=== PATIENT | female | born 1970 | race Caucasian/White ===

== ENCOUNTER 2024-09-11 15:16 | Inpatient (IN) | payer OTHER, SELFPAY ==
--- NOTE | ~2024-09-11 | CT_ITS ---
CLINICAL HISTORY: 24hr follow up bleed on previous CTH CT head without contrast Comparison: 09/11/2024 Findings: The small left falcine hyperdense area, possible subdural hematoma, is unchanged. No new intra-axial mass, midline shift, hydrocephalus, or acute hemorrhage. There is moderate diffuse nonspecific atrophy. There is no sinus or mastoid fluid. The orbits are unremarkable. There is no acute fracture. IMPRESSION: 1. No significant change from yesterday. This document has been electronically signed by: Jersey Styles MD on 09/12/2024 19:57:35
--- NOTE | ~2024-09-11 | XR_ITS ---
CLINICAL HISTORY: sob 1 view chest x-ray Comparison: None Findings: Low lung volumes with mild bibasilar atelectasis. No lobar consolidation. No pneumothorax or pleural effusion. Normal size heart, for AP technique. Degenerative changes of imaged shoulders and both AC joints. Likely calcific tendinitis of the left shoulder. IMPRESSION: Low lung volumes with mild bibasilar atelectasis. This document has been electronically signed by: Victor Manuel Dumas MD on 09/11/2024 19:23:33
--- NOTE | ~2024-09-11 | US_ITS ---
CLINICAL HISTORY: encephalopathy, elevated ammonia Exam: Ultrasound of the right upper quadrant of the abdomen. Comparison: None. Findings: Echogenic sludge is seen filling the gallbladder. Gallbladder wall is borderline thickened measuring between 3 and 4 mm. No stones identified. Negative sonographic Akhtar's sign. Common bile duct is within normal limits. Dense increased echotexture throughout the liver without focal lesion or intrahepatic biliary ductal dilatation. Visualized portion of the pancreas is unremarkable. Right kidney is unremarkable. Prominent fluid distention of the stomach. Trace amount of perihepatic free fluid. Impression: 1. Dense sludge filling the gallbladder without findings of cholelithiasis or cholecystitis. 2. Densely echogenic liver. This can be seen with fatty infiltration or medical liver disease. 3. Trace perihepatic free fluid. This document has been electronically signed by: Tano Iqbal MD on 09/11/2024 22:51:51
--- NOTE | ~2024-09-11 | CT_ITS ---
CLINICAL HISTORY: ams CT head without contrast Comparison: None available Findings: 0.5 cm focus of the subarachnoid hemorrhage involves the medial margin of the left superior frontal gyrus (image number 42 of series 2). No midline shift or hydrocephalus with mild generalized volume loss, greater than expected for age. Thin bilateral subdural hygromas. No arterial territorial infarction by CT. Likely mild white matter lesions including right frontal lobe. This is nonspecific and can be seen early small-vessel ischemic disease. Vascular calcifications are noted. Imaged paranasal sinuses and imaged mastoid air cells are well aerated. No acute skull fracture accounting for motion artifacts. Previous cataract procedure changes are noted. IMPRESSION: 1. Small focus of the subarachnoid hemorrhage of the medial margin of the left frontal lobe. 2. No hydrocephalus or midline shift. This document has been electronically signed by: Victor Manuel Dumas MD on 09/11/2024 19:42:20
[2024-09-11 15:47] VITALS: BP 106/63; BP 122/84; PULSE 72; PULSE 99; RESP 16; TEMP 36.4; BMI 28.0
[2024-09-11 15:53] VITALS: BP 106/63; PULSE 99; RESP 16; TEMP 36.4
--- NOTE | 2024-09-11 16:05 | ECG_ITS ---
Test Reason : AMS Blood Pressure : */* mmHG Vent. Rate : 99 BPM Atrial Rate : 99 BPM P-R Int : 152 ms QRS Dur : 46 ms QT Int : 312 ms P-R-T Axes : 35 29 74 degrees QTcB Int : 400 ms Artifact in tracing possibly sinus rhythm Low voltage QRS Cannot rule out Anteroseptal infarct , age undetermined Abnormal ECG No previous ECGs available Referred By: Diana Vela Electronically Signed By: VALERIANO SANCHEZ
--- NOTE | 2024-09-11 16:22 | ECG_ITS ---
Test Reason : AMS Blood Pressure : */* mmHG Vent. Rate : 101 BPM Atrial Rate : 101 BPM P-R Int : 134 ms QRS Dur : 74 ms QT Int : 308 ms P-R-T Axes : 56 46 136 degrees QTcB Int : 399 ms Sinus tachycardia Low voltage QRS Cannot rule out Anterior infarct (cited on or before 11-Sep-2024) Abnormal ECG When compared with ECG of 11-Sep-2024 16:12, No significant changes seen Referred By: Ian Osorio Electronically Signed By: VALERIANO SANCHEZ
--- NOTE | 2024-09-11 16:39 | ED_ITS ---
HPI - General Adult General Chief complaint: Extremity Problem Stated complaint: swelling pitting in legs, recent falls,unbalanced Time Seen by Provider: 09/11/24 15:37 Source: patient Mode of arrival: EMS History of Present Illness ED Provider: Mirian HPI narrative: 53-year-old female who arrives via EMS, typically seen at [facility] and not a great historian, EMS states that patient pop some oxycodone and benzos prior to getting on the stretcher. She has recently been evaluated at [facility] with a very similar presentation. On asking questions she gives repetitive answers but adamantly denies any use of alcohol, drugs or cannabis. Related Data Allergies Allergy/AdvReac Type Severity Reaction Status Date / Time No Known Allergies Allergy Verified 09/11/24 15:52 Review of Systems 2 Review of Systems: Pertinent positives and negatives as stated in HPI [facility] Past Medical History Source: nursing notes reviewed Social History Social History Smoked in Last 30 Days: No Use of substances other than those prescribed or required for medical reasons: No Advance Directives: No Advance Directives Information Provided: Yes Do you have a plan to hurt others: No Plan Patient : No Physical Exam ED Vital Signs: Vital Signs - 24 hr 09/11/24 15:47 09/11/24 15:53 Temperature 97.6 F 97.6 F Pulse Rate 99 99 Respiratory Rate 16 16 Blood Pressure 106/63 106/63 BMI result Body Mass Index 28.0 VITAL SIGNS: Reviewed. GENERAL: Well developed, well nourished, in no acute distress. HEAD: Normocephalic/atraumatic EYES: PERRLA, EOMI EARS: Ext canals without abnormality NOSE: Nares patent bilateral OROPHARYNX: no oral lesions noted, posterior pharynx clear NECK: Supple, no adenopathy LUNGS: Normal breath sounds. No adventitious sounds or accessory muscle use. CARDIOVASCULAR: Regular rate and rhythm without noted murmurs ABDOMEN: Soft, non-tender, non-distended with bowel sounds. MUSCULOSKELETAL: No tenderness, deformities, or effusions noted on gross inspection. EXTREMITIES: No cyanosis, clubbing or edema. Mild 1+ pitting edema to bilateral lower extremities SKIN: Inspection of the skin reveals no rashes NEUROLOGIC: Alert and oriented x 2. Strength and sensation to light touch were grossly intact x 4. Medications Administered Discontinued Medications Generic Name Dose Route Start Last Admin Trade Name Freq PRN Reason Stop Dose Admin Sodium Chloride 1,000 mls @ 999 mls/hr 09/11/24 16:15 09/11/24 16:56 Ns IV 09/11/24 17:15 999 mls/hr .Q1H1M ARI Administration Medical Decision Making Medical Decision Making [facility] Narrative: 1630: 53-year-old female with history and clinical presentation, DD DX: Unclear if this is secondary to drug effect, will clear for underlying infection, anemia, liver disease, ammonia level, will also CT scan of the head. EKG: Sinus tachycardia, HR-101, no STEMI, NJ/QRS/QTC/QTC is within normal limits. INTERVENTION: IV fluids, lactic acid, blood cultures, antibiotics I have requested records from [facility] and I signed this patient out to Dr. Cee Differential Diagnosis Differential Diagnoses: The differential diagnosis associated with the presentation includes See above Lab Data 09/11/24 16:45 09/11/24 16:45 Labs: Lab Results 09/11/24 Range/Units 16:45 WBC 26.2 H (4.8-10.8) X10*3/uL RBC 3.18 L (4.20-5.50) X10*6/uL Hgb 10.6 L (12.0-16.0) g/dl Hct 31.2 L (37.0-47.0) % MCV 98.1 H (80.0-98.0) fL MCH 33.3 H (27.0-33.0) pg MCHC 34.0 (31.0-35.0) g/dl RDW 19.3 H (11.0-16.0) % Plt Count 420 H (160-400) X10*3/uL MPV 10.9 (9.4-12.3) fL Immature Gran % (Auto) 1.1 H (0.0-0.4) % Neut % (Auto) 89.1 H (45-73) % Lymph % (Auto) 5.8 L (20-40) % Lyman % (Auto) 3.9 (2-11) % Eos % (Auto) 0.0 (0-4) % Baso % (Auto) 0.1 (0-2) % Lymph # (Auto) 1.5 (1.2-4.9) X10*3/uL Lyman # (Auto) 1.0 (0.1-1.2) X10*3/uL Eos # (Auto) 0.0 (0.0-0.4) X10*3/uL Baso # (Auto) 0.0 (0.0-0.2) X10*3/uL Abs Immat Gran (auto) 0.28 H (0.00-0.03) X10*3/uL Absolute Neuts (auto) 23.3 H (2.0-8.3) x10*3/uL Absolute Nucleated RBC 0.000 (0.0-0.012) X10*3/uL Nucleated RBC % (auto) 0.0 (0.0-0.2) /100WBC Sodium 135 (135-145) mmol/L Potassium 4.3 (3.3-5.1) mmol/L Chloride 104 (96-108) mmol/L Carbon Dioxide 27 (22-29) mmol/L Anion Gap 8 L (12-20) BUN 8 L (9-16) mg/dL Creatinine 0.70 (0.5-1.4) mg/dL Estim Creat Clear Calc 99.5 Estimated GFR > 60 Random Glucose 326 H (60-115) mg/dL Calcium 7.2 L (8.4-10.2) mg/dL Total Bilirubin 1.1 H (0.0-1.0) mg/dL AST 19 (5-31) U/L ALT 16 (0-31) U/L Alkaline Phosphatase 134 H (39-117) U/L Ammonia 92 H (13-55) umol/L Total Protein 5.6 L (6.5-8.0) g/dL Albumin 1.8 L (3.5-5.0) g/dL Independent Interpretation I performed an independent interpretation of an: EKG Interpretation: See above Discharge Plan Discharge Clinical Impression: Metabolic encephalopathy Patient Disposition: Still a Patient Print Language: Colombian
[2024-09-11 16:53] LABS: Basophils Percent Auto 0.1 % (0-2); Hematocrit 31.2 % (37.0-47.0); Hemoglobin 10.6 g/dl (12.0-16.0); Imm Gran Abs Auto 0.28 X10*3/uL (0.00-0.03); Imm Gran Pct Auto 1.1 % (0.0-0.4); Lymphocytes Absolute Auto 1.5 X10*3/uL (1.2-4.9); Lymphocytes Percent Auto 5.8 % (20-40); MANUAL DIFF FLAG SCAN; Mean Corpuscular Hemoglobin 33.3 pg (27.0-33.0); Mean Corpuscular Volume 98.1 fL (80.0-98.0); Mean Platelet Volume 10.9 fL (9.4-12.3); Monocytes Percent Auto 3.9 % (2-11); Neutrophils Absolute Auto 23.3 x10*3/uL (2.0-8.3); Neutrophils Percent Auto 89.1 % (45-73); Platelet Count 420 X10*3/uL (160-400); Red Blood Count 3.18 X10*6/uL (4.20-5.50); Red Cell Distribution Width 19.3 % (11.0-16.0); SCAN SMEAR FLAG 1; White Blood Count 26.2 X10*3/uL (4.8-10.8)
[2024-09-11] MEDS: 0.9 % Sodium Chloride 1,000 ML 999 ML IV (16:56)
[2024-09-11 16:57] LABS: Ammonia 92 umol/L (13-55)
[2024-09-11 17:07] LABS: Alanine Aminotransferase 16 U/L (0-31); Albumin Level 1.8 g/dL (3.5-5.0); Alkaline Phosphatase 134 U/L (39-117); Anion Gap 8 (12-20); Aspartate Amino Transferase 19 U/L (5-31); Bilirubin Total 1.1 mg/dL (0.0-1.0); Blood Urea Nitrogen 8 mg/dL (9-16); Calcium 7.2 mg/dL (8.4-10.2); Carbon Dioxide 27 mmol/L (22-29); Chloride 104 mmol/L (96-108); Creatinine Clr Calc Pharmacy 99.5; Estimated Glomerular Filt Rate > 60; Glucose Random 326 mg/dL (60-115); Potassium 4.3 mmol/L (3.3-5.1); Sodium 135 mmol/L (135-145); Total Protein 5.6 g/dL (6.5-8.0)
--- OUTSIDE RECORDS SUMMARY | 2024-09-11 17:47 | XMS_ITS | Clinical Summary ---
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 Role Phone Nayeli Sena MD Primary Care Provid er Social History Tobacco Use Types Packs/Day Years Used Date Smoking Tobacco: Never Assessed Sex and Gender Information Value Date Recorded Sex Assigned at Not on file Gender Identity Not on file Sexual Orientation Not on file Plan of Treatment Health Maintenance Due Date Last Done Comments Hepatitis B Vaccines (1 of 3 - 3-dose series) 1968 Hepatitis C Screening 1968 COVID-19 Vaccine (#1) 06/21/1969 Depression Screening 1980 Preventative Health Evaluation 1986 DTap / Tdap / Td (1 - Tdap) 12/20/1987 Cervical Cancer Screening (P ap Smear) 1989 Colon Cancer Screening (Colonoscopy) 2013 Breast Cancer Screening (Mammogram) 2018 Shingrix-Zoster Vaccine (1 of 2) 2018 Influenza Vaccine (#1) 2024 Pneumococcal Vaccine Aged Out No long er eligible based on patient's age to complete this topic RSV Ped < 20 months Aged Out No longe r eligible based on patient's age to complete this topic 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
--- OUTSIDE RECORDS SUMMARY | 2024-09-11 17:47 | XMS_ITS | Data Portability ---
Author Organization [place] [facility] Carmella Rausch AONE [place] Address [address] [facility] [address] [place] [address] Assessment Encounter Date Assessment Date Assessment LastModified by Organization Details LastModified Time 11/17/2022 11/17/2022 And this is a 51-year-old female with calcific tendinitis, adhesive capsulitis and impingement syndrome of the left shoulder. I had a lengthy discussion with guarding management. She is already gone through extensive physical therapy which has not helped if anything is made it worse. She is taking nonsteroidal anti-inflammator ies which does not relieve her discomfort. Did discuss possibility of partial rotator cuff tear however her predominant symptoms are of the above-noted diagnoses. She understands treatment regarding cortisone injection will likely improve her symptoms however she understands the associated risks with potential tendon rupture in the presence of a rotator cuff tear as well as the other side effects she is a diabetic she will keep a close eye on her blood sugar she knows to reach out to her diabetic treating provider or go to the ER if there is a significant spike. She states she is comfortable with adjusting her insulin accordingly. That being said she did opt for a cortisone injection of the left shoulder. This was carried out the patient tolerated the procedure well with notable improvement regarding her range. After care instructions were discussed in detail. I will see her back in approximately 6 weeks for reevaluation however if her symptoms not improve or worsen she is to call my office and we will order an MRI for further work-up. She agrees with the above-noted plan I did give her a handout on exercises to perform. Indirect care and treatment in conjunction with Dr. Beaver Additional treatment plan discussed with the patient in detail included the following; - Provider focused nonsteroidal anti-inflammator y regimen (discussed were the pros, cons, benefits and risks as well as any black box warnings) - Analgesic pain medication for pain suppression (discussed were the pros, cons, benefits and risks as well as any black box warnings) - The use of topical pain relieving medication were discussed - The use of ice to decrease inflammation and pain - The use of assistive ambulatory devices for ambulation and fall prevention - Formal specific guided physical therapy program I reviewed my findings at length with the patient today. ??We discussed the nature and etiology of this problem along with current treatment options. We discussed the expected course and outcomes and what to expect. We also discussed risks and benefits. ??All of their questions were answered today, and there was exhibited understanding and comprehension of all that was discussed. 10 minutes were spent reviewing previous imaging and charting. ??10 minutes were spent obtaining patient history. ??5 minutes were spent on physical exam. ??5??minutes were spent explaining diagnosis and assessment. Today's documentation was made using voice recognition software. This note may contain grammatical errors secondary to the software. Not available 11/17/2022 14:36:27 01/06/2023 01/06/2023 Pleasant 52-year-old female here for follow-up after treatment cortisone injection of the left shoulder due to calcific tendinitis, adhesive capsulitis and impingement syndrome. She does not note notable improvement. Going forward she wishes to proceed forward with the following; 1. We will order an MRI of the left shoulder for further work-up rule out rotator cuff tear, impingement syndrome and adhesive capsulitis. She does take ibuprofen however she does not have a prescription for which her insurance does cover it in full. We also discussed meloxicam in place of this. She denies any cardiac risks she also states she has well-controlled blood pressure and does not state any history of kidney disease. I will write her for 7.5 of meloxicam to be taken twice daily for short-term. She knows not to take any other nonsteroidal anti-inflammator ies while on this medication. I will see her back after her MRI of her left shoulder is complete. Depending upon the findings I may have her see Dr. Camacho for surgical consultation if indicated.. Indirect care and treatment in conjunction with Dr. Coulter Additional treatment plan discussed with the patient in detail included the following; - Provider focused nonsteroidal anti-inflammator y regimen (discussed were the pros, cons, benefits and risks as well as any black box warnings) in patients over 60 years old they should be very cautious in taking these medications due to potential decreased kidney function and or elevated blood pressure. - Analgesic pain medication for pain suppression (discussed were the pros, cons, benefits and risks as well as any black box warnings) - The use of topical pain relieving medication were discussed - The use of ice to decrease inflammation and pain - The use of assistive ambulatory devices for ambulation and fall prevention - Formal specific guided physical therapy program I reviewed my findings at length with the patient today. ??We discussed the nature and etiology of this problem along with current treatment options. We discussed the expected course and outcomes and what to expect. We also discussed risks and benefits. ?? All of their questions were answered today, and there was exhibited understanding and comprehension of all that was discussed. Time Spent: 10 minutes were spent reviewing previous imaging and charting. ??10 minutes were spent obtaining patient history. ??5 minutes were spent on physical exam. ??5??minutes were spent explaining diagnosis and assessment. Today's documentation was made using voice recognition software. This note may contain grammatical errors secondary to the software. Not available 01/06/2023 11:01:39 01/30/2023 01/30/2023 52-year-old female rotator cuff tear left shoulder had a discussion with the patient guarding management. She would like to proceed forward and see Dr. Camacho for surgical consultation evaluation. In the meantime rotator cuff protective measures were discussed with the patient as well as therapy and stretching exercises. She can take tgro-fbl-dncwowy pain medication for symptomatic relief. She agrees with the above-noted plan. Indirect care and treatment in conjunction with Dr. Coulter Additional treatment plan discussed with the patient in detail included the following; - Provider focused nonsteroidal anti-inflammator y regimen (discussed were the pros, cons, benefits and risks as well as any black box warnings) in patients over 60 years old they should be very cautious in taking these medications due to potential decreased kidney function and or elevated blood pressure. - Analgesic pain medication for pain suppression (discussed were the pros, cons, benefits and risks as well as any black box warnings) - The use of topical pain relieving medication were discussed - The use of ice to decrease inflammation and pain - The use of assistive ambulatory devices for ambulation and fall prevention - Formal specific guided physical therapy program I reviewed my findings at length with the patient today. ??We discussed the nature and etiology of this problem along with current treatment options. We discussed the expected course and outcomes and what to expect. We also discussed risks and benefits. ?? All of their questions were answered today, and there was exhibited understanding and comprehension of all that was discussed. Time Spent: 10 minutes were spent reviewing previous imaging and charting. ??10 minutes were spent obtaining patient history. ??5 minutes were spent on physical exam. ??5??minutes were spent explaining diagnosis and assessment. Today's documentation was made using voice recognition software. This note may contain grammatical errors secondary to the software. Not available 02/06/2023 12:27:19 03/06/2023 03/06/2023 1. Adhesive capsulitis of left shoulder We discussed the nature of adhesive capsulitis ( frozen shoulder ) at length today. Adhesive capsulitis is a common cause of pain and stiffness in the shoulder that affects 2% of the population. Generally patients between ages 40-60 are at the highest risk. Females > Males. Risk factors include diabetes, hyper- and hypothyroidism, cardiac conditions, and Parkinson? s disease. There are three distinct phases: 1. Freezing: Begins as pain, progresses to pain and stiffness, may last up until 9 months from onset of symptoms. 2. Frozen: Pain generally improves but the stiffness may remain. 3. Thawing: Shoulder motion begins to improve, may take 12-18 months for full motion to return. We discussed treatment options at length. 90+% of patients will improve with non-operative treatment. The mainstay of treatment is TIME. NSAIDS prn as there is limited evidence to suggest they improve outcome. Cortisone injections may have a role early in the disease process to help modify inflammation. They can be helpful in modifying night pain. Physical Therapy - most helpful in the thawing phase. Surgical Options - patients in the thawing phase with significant limitations in motion may consider a manipulation under anesthesia, arthroscopic capsular release and lysis of adhesions. 2. Partial thickness tear of left rotator cuff The natural history of rotator cuff tears was reviewed. Treatment options discussed. We discussed that tears of the rotator cuff do not heal and may progress over time. With that being said, not all rotator cuff tears are symptomatic. We talked at length about treatment options including observation and activity modification, home exercise program/physical therapy, injection therapy, and surgical intervention with a arthroscopic versus open rotator cuff repair. We discussed the nature of the surgery as well as the anticipated recovery time. We discussed expectations regarding surgery, understanding that the primary goal is for improvement in pain and secondarily to maintain strength and range of motion. They understand that not all rotator cuff tears heal following surgery. We discussed that not all tears are repairable. We discussed that atrophic changes are generally not reversible. We discussed that some degree of weakness, stiffness, and/or pain may be present despite surgery. She would like to postpone any surgical intervention at this time. She will continue with her home exercise program. Meloxicam refilled. She is happy to have more information today will monitor her symptoms. She elects to follow up as needed after she has her eye surgery. Not available 03/27/2023 06:21:38 Plan of Treatment Reminders Order Date Submit Date Provider Last Modified By Organization Details Last Modified Time Details Appointments None recorded. Lab None recorded. Referral None recorded. Procedures None recorded. Surgeries None recorded. Imaging XR, shoulder, 2 or more view 2022 023 [place] [id number] [facility], [address], [address], [place], [address], 3 14:38:16 MRI, shoulder, w/o contrast - Frozen Shoulder , impingement , weakness R/O RCTPleas e call patient to schedule and hand carry CD 2022 023 [place] [facility], [address] , [facility] [address], [place], [address], 3 16:33:28 Medication Orders Kenalog 40 mg/mL suspension for injection 2022 023 [id number], [address] [place], [id number], 3 14:34:16 lidocaine (PF) 10 mg/mL (1 %) injection solution 2022 023 [facility] #[id number], [address] [place], [id number], 3 14:34:16 bupivacaine (PF) 0.5 % (5 mg/mL) injection solution [address] [id number], [address] [place], [id number], 3 14:34:16 meloxicam 7.5 mg tablet 2022 023 [place] [id number], [address] [place] [place], [id number], 3 10:56:13 meloxicam 7.5 mg tablet 2022 023 [place] [id number], [address] [place], [id number], 3 14:14:38 meloxicam 7.5 mg tablet 2022 023 [place] [id number], [address] [place], [id number], 3 16:01:22 Patient TargetsNo targets recorded. Patient Instructions Encounter Date Encounter Id Patient Instructions Last Modified By Organization Details Last Modified Time 11/17/2022 [id number] You have been provided with a cortisone injection in order to reduce the pain and inflammation that you are experiencing. The injection consists of two medications. Cortisone (an anti-inflammatory that will take 48-72 hours to take effect) and Lidocaine (a numbing agent that will last 2-3 hours). Please note that not everyone will have a lasting response following the injection. PATIENT INSTRUCTIONS Once the Lidocaine wears off, you may have an increase in your pain. I recommend icing the affected area for 20 minutes 3-4 times per day. It is recommended that you refrain from any high level activities using the joint or limb that was injected for approximately 24-48 hours. Normal day-to-day activities are generally not a problem. POSSIBLE SIDE EFFECTS Individuals with dark complexions may experience some skin discoloration locally at the site of the injection. There is the possibility of an increase in discomfort within 48 hours following the injection. This is called a ? flare? . To help minimize the chances of this, please see the post-injection instructions above. There is a less than 1% chance of an infection. If you notice any signs of infection (redness, warmth, drainage, fever greater than 100 degrees) please call our office or contact us through the portal [facility]. Not available 11/17/2022 14:34:29 Three-view x-ray of the left shoulder reveals extensive calcium deposits just adjacent to the greater tuberosity, AC joint space narrowing consistent with arthritis and type II acromion without acute bony abnormality. Overall well-maintained glenohumeral joint space. Not available 11/17/2022 13:21:36 03/06/2023 frozen shoulder: exercises Not available 03/06/2023 15:54:31 Reason for Referral None Reported. Results Created Date Observation Date Name Description Value Unit Range Abnormal Flag Note LastModifiedBy Organization Detail LastModifiedTime 01/31/20 MRI, shoul carmela, w/o contr ast No observ ation record ed. [email or web address] [facility] [address], [place], [address], 01/30/2023 16:33:28 Result Notes None recorded. Problems Name Problem SNOMED Code Status Onset Date Resolution Date Notes Provider Name and Address Organization Details Recorded Time Rupture of rotator cuff of left shoulder 4362986595068 9102 Active 2022 SUMMER NEWBRERY PA-C [address], [facility] [place], [address], [place] [facility] 3 14:13:44 Impingement syndrome of left shoulder region 6326227831342 04 Active 2022 SUMMER NEWBERRY PA-C [address], [place], [address], [place] [facility], P 3 14:32:26 Adhesive capsulitis of left shoulder 6882555836011 07 Active 2022 SUMMER NEWBERRY PA-C [address], [facility] [place], [address], [place] [facility], [facility] 3 14:32:34 Pain of left shoulder joint 8226766916831 9109 Active 2022 SUMMER NEWBERRY PA-C [address], [facility] [place], [address], [place] [facility], P 3 10:54:46 Problem Notes None recorded. Procedures Surgical History Date Name Laterality Status Provider Name and Address Organization Details Recorded Time 11/18/19 23 Shoulder Joint/Bursa Asp & Inj completed SUMMER NEWBERRY PA-C [address], [place], [address], [place] [facility] 11/17/2022 14:30:43 Gastric bypass for obesity completed Angie Weber [place] - [facility] 11/17/2022 13:01:05 Hysterectomy completed Cathy Gonzalez [place] [facility] 03/06/2023 15:42:02 Imaging Results Imaging Date Name Status LastModified by Organiz ation Details LastModified Time 01/30/2023 MRI, shoulder, w/o contrast completed [email or web address] [facility] [address], [place], [address], 01/30/2023 16:33:28 Procedure Notes None recorded. Medical Equipment None Reported. Allergies No known drug allergies Medications Name Sig Start Date Stop Date Status Note LastModified by Organization Details LastModified Time latanoprost 0.005 % eye drops INSTILL 1 DROP IN BOTH EYES AT BEDTIME active Not Available Not Available No t Available atorvastati n 40 mg tablet TAKE 1 TABLET BY MOUTH EVERY DAY active Not Available Not Available No t Available FreeStyle Lancets 28 gauge active Not Available Not Available Not Available ondansetron HCl 4 mg tablet TAKE 1 TABLET BY MOUTH EVERY 8 HOURS NEEDED active Not Available Not Available No t Available aspirin 81 mg tablet,joleen yed release TAKE 1 TABLET BY MOUTH EVERY DAY active Not Available Not Available No t Available ketorolac 0.5 % eye drops INSTILL 1 DROP IN LEFT EYE FOUR TIMES DAILY AFTER LASER TREATMENT FOR 2 DAYS THEN STOP active Not Available Not Available No t Available Kenalog 40 mg/mL suspension for injection Take 1 mL by injection route. 2022 active Not Available Not Available Not Avai lable meloxicam 7.5 mg tablet TAKE 1 TABLET BY MOUTH EVERY DAY WITH MEALS active Not Available Not Available No t Available oxycodone-a cetaminophe n 5 mg-325 mg tablet TAKE 1 TABLET BY MOUTH EVERY 6 HOURS NEEDED FOR PAIN. MAXIMUM DAILY DOSE IS 4 active Not Available Not Available No t Available prednisolon e acetate 1 % eye drops,suspe nsion SHAKE LIQUID AND INSTILL 1 DROP IN RIGHT EYE FOUR TIMES DAILY BEFORE SURGERY FOR 1 WEEK active Not Available Not Available No t Available lorazepam 0.5 mg tablet TAKE 1 TABLET BY MOUTH EVERY DAY NEEDED AND 1 TO 2 TABLETS BY MOUTH EVERY NIGHT AT BEDTIME active Not Available Not Available No t Available brimonidine 0.2 % eye drops INSTILL 1 DROP IN BOTH EYES THREE TIMES DAILY 03/06 completed Not Available Not Available Not Available gabapentin 300 mg capsule TAKE 1 TO 2 CAPSULES BY MOUTH TWICE DAILY active Not Available Not Available No t Available omeprazole 20 mg capsule,del ayed release TAKE 1 CAPSULE BY MOUTH EVERY DAY DIRECTED active Not Available Not Available No t Available dorzolamide 22.3 mg-timolol 6.8 mg/mL eye drops INSTILL 1 DROP IN BOTH EYES TWICE DAILY active Not Available Not Available No t Available hydrochloro thiazide 25 mg tablet TAKE 1 TABLET BY MOUTH EVERY DAY active Not Available Not Available No t Available ibuprofen 600 mg tablet TAKE 1 TABLET BY MOUTH EVERY 6 HOURS NEEDED FOR PAIN 01/06 completed Not Available Not Available Not Available lisinopril 40 mg tablet TAKE 1 TABLET BY MOUTH EVERY DAY active Not Available Not Available No t Available doxycycline hyclate 100 mg tablet TAKE 1 TABLET BY MOUTH TWICE DAILY FOR 10 DAYS DIRECTED 03/06 completed Not Available Not Available Not Available loratadine 10 mg tablet TAKE 1 TABLET BY MOUTH EVERY DAY 03/06 completed Not Available Not Available Not Available dorzolamide 2 % eye drops INSTILL 1 DROP INTO BOTH EYES TWICE DAILY active Not Available Not Available No t Available buspirone 15 mg tablet TAKE 1 TABLET BY MOUTH TWICE DAILY active Not Available Not Available No t Available bupivacaine (PF) 0.5 % (5 mg/mL) injection solution Take 1 mL by injection route. 2022 active Not Available Not Available Not Avai lable duloxetine 60 mg capsule,del ayed release TAKE 1 CAPSULE BY MOUTH TWICE DAILY active Not Available Not Available No t Available lidocaine (PF) 10 mg/mL (1 %) injection solution Take 1 mL by injection route. 2022 active Not Available Not Available Not Avai lable FreeStyle Lite Strips USE DIRECETED TO CHECK BLOOD GLUCOSE FOUR TIMES DAILY active Not Available Not Available No t Available FeroSul 325 mg (65 mg iron) tablet TAKE 1 TABLET BY MOUTH EVERY DAY active Not Available Not Available No t Available cholecalcif christy (vitamin D3) 50 mcg (2,000 unit) capsule TAKE 1 CAPSULE BY MOUTH EVERY DAY active Not Available Not Available No t Available BD Insulin Syringe Ultra-Fine 1 mL 31 gauge x 5/16 APPLY 1 SYRINGE TO THE SKIN 4 TIMES A DAY DIRECTED FOR 90 DAYS. active Not Available Not Available No t Available Jardiance 25 mg tablet TAKE 1 TABLET BY MOUTH DAILY active Not Available Not Available No t Available Tresiba FlexTouch U-200 insulin 200 unit/mL (3 mL) subcutaneou s pen INJECT 70 UNITS UNDER THE SKIN EVERY NIGHT AT BEDTIME 03/06 completed Not Available Not Available Not Available Rhopressa 0.02 % eye drops INSTILL 1 DROP IN BOTH EYES AT BEDTIME active Not Available Not Available No t Available Baqsimi 3 mg/actuatio n nasal spray 03/06 completed Not Available Not Available Not Available Lyumjev U-100 Insulin 100 unit/mL subcutaneou s solution ADMINISTE R 10 TO 15 UNITS UNDER THE SKIN THREE TIMES DAILY BEFORE MEALS 03/06 completed Not Available Not Available Not Available FreeStyle Janna 2 Sensor kit USE DIRECTED EVERY 14 DAYS active Not Available Not Available No t Available BinaxNOW COVID-19 Ag Self Test kit TEST DIRECTED TODAY 03/06 completed Not Available Not Available Not Available Vitals Date Recorded Body height Body mass index (BMI) Body weight Provider Name and Address Organization Details Last Updated DateTime 11/17/2022 165.1 cm 31.6 kg/m2 [address] [facility] 11/17/2022 12:59:39 Date Recorded Body height Provider Name an d Address Organization Details Last Updated DateTime 01/06/2023 165.[address] [place] - [facility] 01/06/2023 10:47:34 Date Recorded Body height Provider Name an d Address Organization Details Last Updated DateTime 01/30/[address]23 [address] [facility] 01/30/2023 11:33:46 Date Recorded Body height Body mass index (BMI) Body weight Provider Name and Address Organization Details Last Updated DateTime 02/03/2023 165.1 cm 31.6 kg/m2 [address] [place] - [facility] 02/03/2023 13:51:07 Date Recorded Body height Provider Name an d Address Organization Details Last Updated DateTime 03/06/[address] - [facility] 03/06/2023 15:33:16 Social History Question Answer Notes LastModified by Organizat ion Details LastModified Time Tobacco Smoking Status Current Every Day Smoker Cathy Gonzalez [facility], [place] - [facility] 03/06/2023 15:37:42 How Much Tobacco Do You Smoke? 0.5 PPD Information not available 03/06/2023 Sex: Unknown Functional Status None recorded. Mental Status None recorded. Family History Relationship Description Onset Age of this Age Resolved Age Notes LastModified by Organization Details LastModified Time Father Diabetes mellitus [email or web address] Not available 2022 13:00:29 Father Heart disease [email or web address] Not available 2022 13:00:38 Father Hypertensive disorder [email or web address] Not available 2022 13:00:54 Father Arthritis Not available 03/06/2023 15:40:37 Father Hypercholest [email or web address] Not available 2022 15:41:01 Mother Diabetes mellitus [email or web address] Not available 2022 13:00:29 Mother Hypertensive disorder [email or web address] Not available 2022 13:00:54 Mother Arthritis Not available 03/06/2023 15:40:37 Sister Diabetes mellitus [email or web address] Not available 2022 13:00:29 Medical History Condition Response Diabetes Y Arthritis Y Cancer Y Reflux/GERD Y Hypertension Y Gynecological HistoryNo gynecological history recorded. Obstetrics History GPAL:G 0 P 0 0 0 0 Past Encounters Encounter ID Performer Location Encounter Start Date Encounter Closed Date Diagnosis/Indication Diagnosis SNOMED-CT Code Diagnosis ICD10 Code Diagnosis Note [id number] MD ONIEL [facility] [address] [facility] [address] [place] [address] 11/17/2022 12:51:06 11/17/2022 13:48:18 Pain of left shoulder joint [id number] 9781653 M25.512 Impingemen t syndrome of left shoulder region 9890198740 69096 M75.42 Adhesive c apsulitis of left shoulder 4655336039 [address]605 M75.02 [id number] MD ONIEL Arguello [address] [address] 01/06/2023 10:38:31 01/06/2023 11:04:13 Adhesive capsulitis of left shoulder [id number] 46662 M75.02 Impingemen t syndrome of left shoulder region [id number] 79703 M75.42 Pain of le ft shoulder joint [id number] M25.512 [id number] MD ONIEL Arguello [address] [address] 01/30/2023 10:59:57 02/06/2023 12:27:55 Pain of left shoulder joint [id number] M25.512 Rupture of rotator cuff of left shoulder [id number] 4294845 M75.102 [id number] MD ONIEL Arguello [address] [address] 02/03/2023 13:48:27 02/03/2023 14:15:03 Rupture of rotator cuff of left shoulder [id number] M75.102 [id number] MD ONIEL Wheelergermania 299 [facility] [address] [place] [address] 03/06/2023 15:07:03/06/2023 16:19:01 Pain of left shoulder joint [id number] M25.512 Adhesive c apsulitis of left shoulder [id number] 55880 M75.02 Partial th ickness rotator cuff tear [id number] M75.112 supraspina tus Health Concerns Section Related Observation LastModified by Organization Detai ls LastModified Time None Recorded Concern Status LastModified by Organization Details LastModified Time None Recorded Advance Directives Directive None Recorded Payers Encounter Date Sequence Insurance Name Policy Number Policy Garnica Covered Member ID Garnica Member ID Guarantor Name 11/17/2022 1 [facility] [employer] - DOS ON OR AFTER 2022 - MEDIC[place]V ANTAGE - PPO) Mirian Bal [id number] Mirian Bal 01/06/2023 1 [facility] [employer] - DOS ON OR AFTER 2022 - [place] - [place]PO) Mirian Bal [id number] Mirian Bal 01/30/2023 1 [facility] - DOS ON OR AFTER 2022 - [place] - [place]PO) Mirian Bal [id number] Mirian Bal 02/03/2023 1 [facility] - DOS ON OR AFTER 2022 - [place]V [place] - [place]PO) Mirian Bal [id number] Mirian Bal 03/06/2023 1 [facility] [employer] - DOS ON OR AFTER 2022 - [place]V [place] - [place]PO) Mirian Bal [id number] Mirian Bal Notes Date Note Type Note Provider Name and Address Organization Details Recorded Time 11/17/2022 text/html This is a very pleasant 51-year-old female atomn-knkr-wyhqnrub with chief complaint of chronic left shoulder pain. She states she had been previously treated at [facility] approximately 10 years ago with cortisone injections which gave her brief relief. She states she feels extremely stiff she has pain that wakes her up at night. She denies paresthesias. She does state some weakness at times. She is here for evaluation and treatment for her left shoulder. SUMMER NEWBERRY PA-C 299 [facility] [address], [place], [address], [place] [facility] 11/17/2022 14:38:11 01/06/2023 text/html Assessment & Lon n: Date of initial visit 11/17/2022nd this is a 51-year-old female with calcific tendinitis, adhesive capsulitis and impingement syndrome of the left shoulder. I had a lengthy discussion with guarding management. She is already gone through extensive physical therapy which has not helped if anything is made it worse. She is taking nonsteroidal anti-inflammatories which does not relieve her discomfort. Did discuss possibility of partial rotator cuff tear however her predominant symptoms are of the above-noted diagnoses. She understands treatment regarding cortisone injection will likely improve her symptoms however she understands the associated risks with potential tendon rupture in the presence of a rotator cuff tear as well as the other side effects she is a diabetic she will keep a close eye on her blood sugar she knows to reach out to her diabetic treating provider or go to the ER if there is a significant spike. She states she is comfortable with adjusting her insulin accordingly. That being said she did opt for a cortisone injection of the left shoulder. This was carried out the patient tolerated the procedure well with notable improvement regarding her range. After care instructions were discussed in detail. I will see her back in approximately 6 weeks for reevaluation however if her symptoms not improve or worsen she is to call my office and we will order an MRI for further work-up. She agrees with the above-noted plan I did give her a handout on exercises to perform. HPI: Pleasant 52-year-old female here for follow-up after treatment cortisone injection of the left shoulder due to calcific tendinitis, adhesive capsulitis and impingement syndrome. She states she had no she states she did have a spike in her blood notable relief in her symptoms. Here for reexamination. No significant relief with cortisone injection. As discussed prior to her cortisone that she may have a spike for which she did and she is able to adjust with her insulin. She is here for follow-up and further evaluation and treatment modalities. She states she does take oxycodone 325 4 times daily by another provider for chronic back pain. SUMMER NEWBERRY PA-C 299 [facility] [address], [place], [address], [place] - [facility] 01/06/2023 11:02:02 01/30/2023 text/html Assessment & Lon n: Date of visit 3Pleasant 52-year-old female here for follow-up after treatment cortisone injection of the left shoulder due to calcific tendinitis, adhesive capsulitis and impingement syndrome.She does not note notable improvement. Going forward she wishes to proceed forward with the following;1. We will order an MRI of the left shoulder for further work-up rule out rotator cuff tear, impingement syndrome and adhesive capsulitis. She does take ibuprofen however she does not have a prescription for which her insurance does cover it in full. We also discussed meloxicam in place of this. She denies any cardiac risks she also states she has well-controlled blood pressure and does not state any history of kidney disease. I will write her for 7.5 of meloxicam to be taken twice daily for short-term. She knows not to take any other nonsteroidal anti-inflammatories while on this medication. I will see her back after her MRI of her left shoulder is complete. Depending upon the findings I may have her see Dr. Camacho for surgical consultation if indicated.. HPI:The last visit on 01/06/2023 no interval change in history. She is here for results appointment regarding her MRI. MRI Rayus Reviewed with RCT (PT Disk) SUMMER NEWBERRY PA-C 299 [facility] [address], [place], [address], [place] - [facility] 02/06/2023 12:27:53 02/03/2023 text/html Pleasant 52-year-old female following up on her MRI at of her left shoulder which was conducted on 01/21/2023. No interval change in history ongoing left shoulder pain despite conservative management. She does state however meloxicam that she was prescribed gives her good relief. She is requesting for refill. MRI findings were reviewed these were conducted at [facility] radiology. Moderate supraspinatus tendinosis with bursal sided tear measuring 1.7 x 1.2 cm AP to MLSubacromial subdeltoid bursitis, thickening edema of the joint capsule consistent with adhesive capsulitis, partial tear of the deltoid myotendinous junction at the insertion of the posterior acromion and trace glenohumeral joint effusion. 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 No trauma or injury recalled. Recent MRI revealed a rotator cuff tear and she was referred for further evaluation. She localizes the pain to the anterolateral shoulder and describes it as moderate, dull and throbbing with intermittent sharp pain radiating to her clavicle. Associated symptoms include feelings of tightness, decreased ROM and some tingling down her arm just past the elbow. Endorses pain at rest and nighttime pain. As far as treatment she has tried a number of conservative options as well as a cortisone injection which were not very helpful. She does report good relief with meloxicam twice daily. She did get some relief from ice, heat and topical rubs as well as home exercises. She went to physical therapy in the past though she feels this made her symptoms worse. Of note her previous cortisone injection increased her blood sugar as well as her intraocular pressure. She has advanced bilateral glaucoma and is due to have surgery at the end of March. PRIOR BK:Pleasant 52-year-old female following up on her MRI at of her left shoulder which was conducted on 01/21/2023. No interval change in history ongoing left shoulder pain despite conservative management. She does state however meloxicam that she was prescribed gives her good relief. She is requesting for refill. MRI findings were reviewed these were conducted at [facility] radiology. Moderate supraspinatus tendinosis with bursal sided tear measuring 1.7 x 1.2 cm AP to MLSubacromial subdeltoid bursitis, thickening edema of the joint capsule consistent with adhesive capsulitis, partial tear of the deltoid myotendinous junction at the insertion of the posterior acromion and trace glenohumeral joint effusion. Francisco Camacho MD 299 [facility],[place] [address], [place], [address], [place] [facility] 03/27/2023 06:21:46 OBGyn Episode No OBEpisode recorded.
--- OUTSIDE RECORDS SUMMARY | 2024-09-11 17:47 | XMS_ITS ---
Author Name [facility] Organization Unknown History of Medication Use Medication Directions Dispensed Refills Start Date End Date Stat doxycycline hyclate 100 mg tablet TAKE 1 TABLET BY MOUTH TWICE DAILY FOR 10 DAYS DIRECTED 03/06/20 23 completed prednisolone acetate 1 % eye drops,suspension SHAKE LIQUID AND INSTILL 1 DROP IN BOTH EYES FOUR TIMES DAILY FOR 4 DAYS THEN STOP active duloxetine 60 mg capsule,delayed release TAKE 1 CAPSULE BY MOUTH TWICE DAILY active lidocaine (PF) 10 mg/mL (1 %) injection solution Take 1 mL by injection route. 11/17/2022 active oxycodone-acetaminophen 5 mg-325 mg tablet TAKE 1 TABLET BY MOUTH EVERY 6 HOURS NEEDED FOR PAIN. MAXIMUM DAILY DOSE IS 4 active cholecalciferol (vitamin D3) 50 mcg (2,000 unit) capsule TAKE 1 CAPSULE BY MOUTH EVERY DAY active Lyumjev U-100 Insulin 100 unit/mL subcutaneous solution ADMINISTER 10 TO 15 UNITS UNDER THE SKIN THREE TIMES DAILY BEFORE MEALS 03/06/20 23 active omeprazole 20 mg capsule,delayed release TAKE 1 CAPSULE BY MOUTH EVERY DAY DIRECTED active latanoprost 0.005 % eye drops INSTILL 1 DROP IN BOTH EYES AT BEDTIME active hydrochlorothiazide 25 mg tablet TAKE 1 TABLET BY MOUTH EVERY DAY active FeroSul 325 mg (65 mg iron) tablet TAKE 1 TABLET BY MOUTH EVERY DAY active meloxicam 7.5 mg tablet Take 1 tablet twice a day by oral route. 01/06/2023 active gabapentin 300 mg capsule TAKE 1 TO 2 CAPSULES BY MOUTH TWICE DAILY active Tresiba FlexTouch U-200 insulin 200 unit/mL (3 mL) subcutaneous pen INJECT 70 UNITS UNDER THE SKIN EVERY NIGHT AT BEDTIME 03/06/20 23 active Problems Problem Status Onset Date Problem Type Date of Resoluti on Source Tear of left rotator cuff active 2023-02-03 ProblemAct [facility] Adhesive capsulitis of left shoulder active 2022-11-17 ProblemAct [facility] Pain of left shoulder joint active 2023-01-06 ProblemAct [facility] Impingement syndrome of left shoulder region active 2022-11-17 ProblemAct [facility] ECT
--- OUTSIDE RECORDS SUMMARY | 2024-09-11 17:47 | XMS_ITS | Patient Health Record ---
Author Organization [facility] Address [address] [facility] [address] [place] [address] Care Team Providers Care Manager Data Warehousing Name Role Phone REINALDO STOKES M.D. Primary Care Provid er Unavailable KARON ZAMORAA Unavailable [phone] Reason For Referral No Information Medications Medication SIG (Take, Route, Frequency, Duration) Notes Start Date End Date Status buPROPion HCl ER (SR) 150 MG TK 1 T PO QAM Oral for 60 Active oxyCODONE-Acetaminophen 5-325 MG (Schedule II Drug) TK 1 T PO QID Oral for 30 Active Cymbalta 60 MG 1 capsule Orally Twice a day Active Pravastatin Sodium 40MG 1 ORAL daily for -3 [facility] 2011 Active HumaLOG 100 UNIT/ML 20 units Subcutaneous Three x a day, then prn Active Invokana 100 MG 1 tablet before the first meal of the day Orally Once a day for 30 day(s) Active Gabapentin 300 MG 1-2 caosule Orally Twice a day 06/06/2019 Active busPIRone HCl 7.5 MG TK 1 T PO BID Oral for 30 Active hydroCHLOROthiazide 25 MG TK 1 T PO QD O ral for 30 Active Ativan 0.5 MG 1 tablet as needed Orally PRN Active Lisinopril 40MG 1 ORAL daily for -3 [facility] 12/26/2011 Active Multivitamins 1 ORAL daily for 3 [facility] 12/26/2011 Not-Taking Dicloxacillin Sodium 500 MG 1 ORAL three times daily for 10 [facility] 05/22/2012 Not-Taking Acyclovir 400 MG TK 1 T PO BID Oral for 30 Active Lantus SoloStar 100 UNIT/ML Subcutaneous AT BEDTIME for - [facility] 12/26/2011 Active Social History Tobacco Use: Social History Observation Description Date Details (start date - stop date) Current Smoker NA - NA Tobacco Use/Smoking Question Answer Notes Are you a current smoker How often do you smoke cigarettes? every day How many cigarettes a day do you smoke? - Alcohol Screen (Audit-C) Question Answer Notes Did you have a drink containing alcohol in the p ast year? No Points 0 Interpretation Negative Sexual History Question Answer Notes Had sex in the past 12 months (vaginal, oral, or anal)? Yes with Men only Prevention strategies discussed: Other Tobacco use other than smoking: Question Answer Notes Are you an other tobacco user? No Problems Problem Type SNOMED Code ICD Code Onset Dates Problem Status W/U Status Risk Notes Problem SI - Stress incontinence (27591060) Stress incontinence (female) (male) (N39.3) Active confirmed Problem Abscess of vulva (93423226) Other abscess of vulva (616.4) Active confirmed Other Plan Of Treatment Pending Test Test Name Order Date THIN PREP,HPV,[place] IF HPV+ (>29YR)(DIAG) 06/06/2019 ULTRASOUND: PELVIC W/TRANSVAGINAL 2018 MM Digital Screening Mammogram 3D 2018 Insurance Providers Payer Name Payer Address Payer Phone Subscriber Number Group Number Insured Name Patient Relationship to Insured Coverage Start Date Coverage End Date MEDICARE [address] KIERRA BRISENO [id number] DAVID CELSO Self - patient is the insured Medical (General) History Medical History History ICD Code Other recurrent depressive disorders F33 .8 Anxiety disorder, unspecified F41.9 Type 2 diabetes mellitus with diabetic n europathy, unspecified E11.40 Unspecified osteoarthritis, unspecified site M19.90 Collapsed vertebra, not else where classified, cervical region, sequela of fracture M48.52XS Essential (primary) hypertension I10 Carcinoma in situ of cervix, 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
[2024-09-11 17:52] LABS: SLIDE REVIEW VERIFIED
[2024-09-11 19:30] LABS: INTERNATIONAL NORM RATIO 1.2 (0.9-1.1); Prothrombin Time 14.1 SEC (10.9-12.4)
[2024-09-11 20:09] LABS: Influenza A PCR NEGATIVE (Negative); Influenza B PCR NEGATIVE (Negative); Resp Syncy Virus RNA Qual PCR NEGATIVE (Negative); SARS COV2 PCR INHOUSE NEGATIVE (Negative)
[2024-09-11] MEDS: Piperacillin Sodium/Tazobactam 3.375 GM in 0.9 % Sodium Chloride 50 ML IV (20:19)
--- NOTE | 2024-09-11 20:20 | PC.NURSE ---
pt touch stick, antibiotics administered late at this time. both sets obtained. provider aware.
--- NOTE | 2024-09-11 20:44 | PC.NURSE ---
pt requesting to go to bathroom at this time, pt appears confused but is a&ox4. pt helped into bathroom, pt 2 person assist to sit down. attempting to collect urine sample. aware at this time of pt condition
[2024-09-11 21:22] VITALS: BP 130/73; PULSE 97; RESP 20; TEMP 36.6; O2SAT 98
--- NOTE | 2024-09-11 21:36 | PC.NURSE ---
pt 2 person assist back into bed after bathroom. pt urine noted to be red. pt removed IV guided access at this time. 22G placed in left ac at this time. camera in place. provider aware.
[2024-09-11 21:43] LABS: Appearance Urine Turbid; Color Urine Dark Yellow; Glucose Urine UA Negative (Negative); Leukocyte Esterase Urine Moderate (2+) (Negative); Nitrite Urine Negative (Negative); PH 6.5 (5.0-9.0); UMIC TRIGGER UACC YES; Urine Blood Small (1+) (Negative); Urine Ketones Negative (Negative); Urine Protein Trace mg/dL (Neg-Trace)
--- NOTE | 2024-09-11 21:43 | PC.NURSE ---
when assisting pt in changing into gown, pt noted to have large area between abdomen and groin with yeast infection noted, Dr. Cee called to bedside to assess pt skin condition.
[2024-09-11 21:49] LABS: Bacteria Urine 4+ (None Seen); Hyaline Casts Urine 0-2 /LPF (0-2); Squamous Epithelial Cell Urine 0-2 /HPF (0-2); UACC Culture Trigger YES; WBC Urine >50 /HPF (0-5)
[2024-09-11 21:52] LABS: Amphetamine Screen Urine Not Detected (Not Detect); Barbiturates, Urine Not Detected (Not Detect); Benzodiazepines Screen Urine Not Detected (Not Detect); Buprenorphine Scr Not Detected (Not Detect); Cannabinoid Screen Urine Not Detected (Not Detect); Cocaine Screen Urine Not Detected (Not Detect); Fentanyl, urine Not Detected (Not Detect); Methadone Screen, Urine Not Detected (Not Detect); Opiate Screen Urine POSITIVE (Not Detect); Oxycodone Screen Urine Positive (Not Detect); Phencyclidine Screen Urine Not Detected (Not Detect)
--- NOTE | 2024-09-11 22:25 | PM.IMHP ---
History of Present Illness Date of Service: 09/11/24 Chief Complaint: ams 53F PMH diabetes, hypertension, 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, chronic diastolic CHF, hepatic steatosis, orthostatic hypotension, chronic leukocytosis, mood disorder presented with altered mental status. Patient is a vague historian, was recently discharged from [facility] on 09/01/2024 after hospitalization for false due to orthostatic hypotension. Since coming home patient has been feeling weak, dizzy on ambulation, overall just feeling off. Denies any dysuria, fever, chills. Reports fall with head strike 2 days prior to presentation. Family called EMS due to concerns of patient not being herself. In ED, found to have elevated ammonia of 92, positive UA, CT head with small focus of subarachnoid hemorrhage of the medial margin of the left frontal lobe. Case was discussed by ED with Neurosurgery at [facility] who felt patient did not require transfer to tertiary center at this time, recommended follow-up CT head in 24 hours. Review of Systems Review of Systems: Yes all other systems are reviewed and are negative [facility] Medical History (Updated 09/11/24 @ 22:31 by Jose Ramon Jj MD) Dumping syndrome Orthostatic hypotension Diabetes mellitus Surgical History (Updated 09/11/24 @ 22:30 by Jose Ramon Jj MD) Gastric bypass status for obesity Social History Smoked in Last 30 Days: No Use of substances other than those prescribed or required for medical reasons: No Advance Directives: No Advance Directives Information Provided: Yes Do you have a plan to hurt others: No Plan Patient : No Meds Allergies Allergy/AdvReac Type Severity Reaction Status Date / Time No Known Allergies Allergy Verified 09/11/24 15:52 Active Medications: Current Medications Acetaminophen (Acetaminophen 325 Mg Tablet) 650 mg PO Q6H PRN PRN Reason: Pain, Mild 1-3,fever,headache Atorvastatin Calcium (Atorvastatin Calcium 40 Mg Tablet) 40 mg PO BEDTIME ARI Buspirone HCl (Buspirone Hcl 10 Mg Tablet) 7.5 mg PO BID ARI Calcium Carbonate (Calcium Carbonate 750 Mg Tab.Chew) 750 mg PO Q4H PRN PRN Reason: Heartburn Ceftriaxone Sodium (Ceftriaxone Sodium 1 Gm Vial) 1 gm IVPUSH Q24H ARI Dextrose (Dextrose 50 % 25 Gm/50 Ml Syringe) 25 gm IVPUSH Q15M PRN; Protocol PRN Reason: per Hypoglycemia Standing Ord. Duloxetine HCl (Duloxetine Hcl 60 Mg Capsule.) 60 mg PO BID [facility] Gabapentin (Gabapentin 300 Mg Capsule) 300 mg PO TID [facility] Glucose (Glucose Gel 15 Gm Gel..Gram.) 15 gm PO Q15M PRN; Protocol PRN Reason: per Hypoglycemia Standing Ord. Insulin Human Lispro (Insulin Lispro 100 Unit/Ml 3 Ml Vial) 0 unit SUBCUT QIDACHS [facility]; Protocol Lactulose (Lactulose 20 Gm/30 Ml Solution) 20 gm PO BID [facility] Lorazepam (Lorazepam 0.5 Mg Tablet) 0.5 mg PO Q6H PRN PRN Reason: Anxiety Magnesium Hydroxide (Milk Of Magnesia 30 Ml Oral.Susp) 30 ml PO DAILY PRN PRN Reason: Constipation Melatonin (Melatonin 3 Mg Tablet) 6 mg PO BEDTIME PRN PRN Reason: Insomnia Midodrine (Midodrine Hcl 5 Mg Tablet) 5 mg PO TID [facility] Omeprazole (Omeprazole 20 Mg Capsule.) 20 mg PO DAILY@0630 [facility] Sodium Chloride (0.9 % Sodium Chloride Flush 3 Ml Syringe) 3 ml IVFLUSH QSHIFT [facility] Home Medications ?Medication ?Instructions ?Recorded ?Confirmed ?Last Taken ?Type aspirin 81 mg tablet,delayed 81 mg PO DAILY 09/11/24 Unknown History release atorvastatin 40 mg tablet 40 mg PO DAILY 09/11/24 Unknown History buspirone 15 mg tablet 15 mg PO BID 09/11/24 Unknown History dorzolamide 22.3 mg-timolol 6.8 ophthalmic (eye) 09/11/24 Unknown History mg/mL eye drops duloxetine 60 mg capsule,delayed 60 mg PO BID 09/11/24 Unknown History release ergocalciferol (vitamin D2) 1,250 1,250 mcg PO QWEEK 09/11/24 Unknown History mcg (50,000 unit) capsule ferrous sulfate 325 mg (65 mg 325 mg PO DAILY 09/11/24 Unknown History iron) tablet (FeroSul) glucose 4 gram chewable tablet 8 - 16 g PO NEEDED hypoglycemia 09/11/24 Unknown History hydrochlorothiazide 25 mg tablet 25 mg PO DAILY 09/11/24 Unknown History insulin degludec 200 unit/mL (3 6 - 8 unit subcut BEDTIME 09/11/24 Unknown History mL) subcutaneous pen (Tresiba FlexTouch U-200 insulin) latanoprost 0.005 % eye drops 1 drp ophthalmic (eye) BEDTIME 09/11/24 Unknown History lisinopril 40 mg tablet 40 mg PO DAILY 09/11/24 Unknown History loratadine 10 mg tablet 10 mg PO DAILY 09/11/24 Unknown History lorazepam 0.5 mg tablet mg 09/11/24 Unknown History midodrine 5 mg tablet 5 mg PO TID 09/11/24 Unknown History netarsudil 0.02 % eye drops 1 drp ophthalmic (eye) BEDTIME 09/11/24 Unknown History (Rhopressa) omeprazole 20 mg capsule,delayed 20 mg PO DAILY 09/11/24 Unknown History release ondansetron HCl 4 mg tablet 4 mg PO Q8H PRN Nausea And Vomiting 09/11/24 Unknown History oxycodone-acetaminophen 5 mg-325 1 tab PO Q6H PRN pain 09/11/24 Unknown History mg tablet sitagliptin phosphate 100 mg 100 mg PO DAILY 09/11/24 Unknown History tablet (Januvia) Physical Exam Vital Signs and Narrative: Vital Signs: Last Vital Signs Temp 97.8 F 09/11/24 21:22 Pulse 97 09/11/24 21:22 Resp 20 09/11/24 21:22 BP 130/73 09/11/24 21:22 Pulse Ox 98 09/11/24 21:22 O2 Del Method Room Air 09/11/24 21:22 BMI result Body Mass Index 28.0 Alert oriented x3, expressive aphasia, no focal deficits, pedal edema, perineal rash, flat affect Results Labs 09/11/24 16:45 09/11/24 16:45 Labs: Laboratory Results - last 24 hr 09/11/24 09/11/24 09/11/24 16:45 19:08 21:17 MCV 98.1 H MCH 33.3 H MCHC 34.0 RDW 19.3 H Plt Count 420 H MPV 10.9 Immature Gran % (Auto) 1.1 H Neut % (Auto) 89.1 H Lymph % (Auto) 5.8 L [place] % (Auto) 3.9 Eos % (Auto) 0.0 Baso % (Auto) 0.1 Lymph # (Auto) 1.5 [place] # (Auto) 1.0 Eos # (Auto) 0.0 Baso # (Auto) 0.0 Abs Immat Gran (auto) 0.28 H Absolute Neuts (auto) 23.3 H Absolute Nucleated RBC 0.000 Nucleated RBC % (auto) 0.0 Smear Tech's Comments VERIFIED PT 14.1 H INR 1.2 H Anion Gap 8 L Estim Creat Clear Calc 99.5 Estimated GFR > 60 Random Glucose 326 H Lactic Acid 2.0 Calcium 7.2 L Total Bilirubin 1.1 H AST 19 ALT 16 Alkaline Phosphatase 134 H Ammonia 92 H Total Protein 5.6 L Albumin 1.8 L Urine Color Dark Yellow Urine Appearance Turbid Urine pH 6.5 Ur Specific [place] 1.020 Urine Protein Trace Urine Glucose (UA) Negative Urine Ketones Negative Urine Blood Small (1+) H Urine Nitrite Negative Ur Leukocyte Esterase Moderate (2+) H Urine RBC 6-10 H Urine WBC >50 H Ur Squamous Epith Cells 0-2 Urine Bacteria 4+ Hyaline Casts 0-2 Urine Opiates Screen POSITIVE H Ur Buprenorphine Scrn Not Detected Ur Oxycodone Screen Positive H Urine Methadone Screen Not Detected Urine Fentanyl Screen Not Detected Ur Barbiturates Screen Not Detected Ur Phencyclidine Scrn Not Detected Ur Amphetamines Screen Not Detected U Benzodiazepines Scrn Not Detected Urine Cocaine Screen Not Detected U Marijuana (THC) Screen Not Detected Influenza Type A (PCR) NEGATIVE Influenza Type B (PCR) NEGATIVE RSV RNA Qual (PCR) NEGATIVE SARS-CoV-2 RNA (RT-PCR) NEGATIVE Assessment and Plan (1) Diabetes mellitus: Status: Acute (2) Subarachnoid hemorrhage: Status: Acute Plan 53F PMH diabetes, hypertension, 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, chronic diastolic CHF, hepatic steatosis, orthostatic hypotension, chronic leukocytosis, mood disorder presented with altered mental status, found to have small subarachnoid hemorrhage, elevated ammonia, positive UA Acute metabolic encephalopathy Multifactorial Small subarachnoid hemorrhage Neurosurgery at [facility] appreciated Plan to repeat CT head in 24 hours, neurology eval Elevated ammonia with hepatic steatosis Check abdominal ultrasound, lactulose Urinary tract infection Ceftriaxone, follow up cultures Diabetes with hyperglycemia Insulin sliding scale Orthostatic hypotension Midodrine Chronic leukocytosis Not sepsis, outpatient follow up History of 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
--- NOTE | 2024-09-11 22:39 | PHA.MEDREC ---
Addendum entered by Marcy Ferreira [facility] 09/12/24 08:15: Patient is AMS. Unable to discuss medications with her. Pharmacy confirms patients claims are for 6-8 units under the skin at bedtime. Will utilize this as boyfriend was not certain of dose. Original Note: Pharmacy Consult ? Medication Reconciliation Pharmacy has completed the medication reconciliation. Patient is AMS. Contact on file states it's patient daughter, however it is patients boyfriend. He was able to confirm most of patients medication of of patients bottle at home. Boyfriend was not sure of Tresiba Flextouch, he thinks its 70 units, however claims has 6-8 units at bedtime. Will have morning med rec tech follow up in the morning.
[2024-09-11] MEDS: Lactulose 20 GM/30 ML SOLUTION PO (23:02)
[2024-09-11] MEDS: cefTRIAXone sodium 1 GM VIAL IVPUSH (23:02)
--- NOTE | 2024-09-11 23:19 | PC.NURSE ---
pt medicated per mar, tolerated well PO. pt assisted in bed reposition.
[2024-09-11 23:44] VITALS: BP 130/76; PULSE 92; RESP 17; TEMP 37.1; O2SAT 98
[2024-09-11 23:50] LABS: Glucose, Whole Blood 283 mg/dL (60-115)
[2024-09-12] VITALS (7 sets, daily range): BP systolic 119–145; BP diastolic 65–80; PULSE 68–103; RESP 14–20; TEMP 36.8–37; O2SAT 97–100
[2024-09-12] MEDS: 0.9 % Sodium Chloride Flush 3 ML SYRINGE IVFLUSH ×4 (01:12→21:39)
[2024-09-12] MEDS: Omeprazole 20 MG CAPSULE.DR PO (06:33)
--- NOTE | 2024-09-12 06:37 | PC.NURSE ---
pt assisted with repositioning in bed, pt medicated per mar at this time, tolerated well whole with water.
[2024-09-12 07:33] LABS: Glucose, Whole Blood 280 mg/dL (60-115)
[2024-09-12] MEDS: Insulin Lispro 100 UNIT/ML 3 ML VIAL SUBCUT ×2 (07:40→16:10)
--- NOTE | 2024-09-12 08:24 | P.PNIM_ITS ---
Subjective Subjective Date of Service: 09/13/24 Interval History: Being followed for subarachnoid hemorrhage, history of fall with head strike 4 days ago, Patient keep repeating herself , Sisters at bedside according to them patient was previously awake, alert became disoriented since yesterday otherwise speech at baseline is clear, , patient is on oxycodone and Ativan for 10 years she is scheduled to see wood stock blank handler to rule out hemochromatosis has had couple admissions at [facility] and was diagnosed to have hypokalemia, low albumin,LE edema,elevated ferritin, being followed by correspondence review clerk for malabsorption, resides at home with her who is alcoholic and has difficulty ambulating due to leg pain and edema.. Review of Systems Unable to obtain due to mental status Physical Exam 2 Vital Signs: Vital Signs: Last Vital Signs Temp 98.2 F 09/12/24 07:40 Pulse 103 H 09/12/24 07:40 Resp 18 09/12/24 07:40 BP 129/73 09/12/24 07:40 Pulse Ox 97 09/12/24 07:40 O2 Del Method Room Air 09/12/24 07:40 BMI result Body Mass Index 28.0 Const: Other: General resting comfortably in no acute distress. Neck supple no JVD. CVS regular rate rhythm, Respiratory lungs clear to auscultation, no respiratory distress, no wheeze, no rhonchi. Gastrointestinal abdomen soft, non tender, bowel sounds audible, no guarding , no rigidity. Extremities + b/l edema. Neuro moving all 4 extremity speech clear, repeating words. Skin no rash Objective Data Active Medications Acetaminophen (Acetaminophen 325 Mg Tablet) 650 mg PO Q6H PRN PRN Reason: Pain, Mild 1-3,fever,headache Atorvastatin Calcium (Atorvastatin Calcium 40 Mg Tablet) 40 mg PO BEDTIME ARI Buspirone HCl (Buspirone Hcl 5 Mg Tablet) 7.5 mg PO BID ARI Calcium Carbonate (Calcium Carbonate 750 Mg Tab.Chew) 750 mg PO Q4H PRN PRN Reason: Heartburn Ceftriaxone Sodium (Ceftriaxone Sodium 1 Gm Vial) 1 gm IVPUSH Q24H [facility] Last Admin: 09/11/24 23:02 Dose: 1 gm Documented By: RADHA Dextrose (Dextrose 50 % 25 Gm/50 Ml Syringe) 25 gm IVPUSH Q15M PRN; Protocol PRN Reason: per Hypoglycemia Standing Ord. Dorzolamide/Timolol (Dorzolamide/Timolo 2.23%/0.68% 10 Ml Drbtl) 1 drop EYE- BOTH TID [facility] Duloxetine HCl (Duloxetine Hcl 60 Mg Capsule.) 60 mg PO BID [facility] Ferrous Sulfate (Ferrous Sulfate 324 Mg Tablet.) 324 mg PO DAILY [facility] Gabapentin (Gabapentin 300 Mg Capsule) 300 mg PO TID [facility] Glucose (Glucose Gel 15 Gm Gel..Gram.) 15 gm PO Q15M PRN; Protocol PRN Reason: per Hypoglycemia Standing Ord. Insulin Human Lispro (Insulin Lispro 100 Unit/Ml 3 Ml Vial) 0 unit SUBCUT QIDACHS [facility]; Protocol Last Admin: 09/12/24 07:40 Dose: 6 unit Documented By: DAVID Lactulose (Lactulose 20 Gm/30 Ml Solution) 20 gm PO BID [facility] Last Admin: 09/11/24 23:02 Dose: 20 gm Documented By: RADHA Latanoprost (Latanoprost 0.005 % Ophth [place] 2.5 Ml Drops) 0 drop EYE-BOTH BEDTIME [facility] Lorazepam (Lorazepam 0.5 Mg Tablet) 0.5 mg PO Q6H PRN PRN Reason: Anxiety Magnesium Hydroxide (Milk Of Magnesia 30 Ml Oral.Susp) 30 ml PO DAILY PRN PRN Reason: Constipation Melatonin (Melatonin 3 Mg Tablet) 6 mg PO BEDTIME PRN PRN Reason: Insomnia Midodrine (Midodrine Hcl 5 Mg Tablet) 5 mg PO TID [facility] Non-Formulary Medication (Netarsudil [Rhopressa]) 1 drop EYE-BOTH BEDTIME [facility] Nystatin (Nystatin Cream 15 Gm Tube) 1 appl TOPICAL BID [facility]; Protocol Omeprazole (Omeprazole 20 Mg Capsule.) 20 mg PO DAILY@0630 [facility] Last Admin: 09/12/24 06:33 Dose: 20 mg Documented By: RADHA Sodium Chloride (0.9 % Sodium Chloride Flush 3 Ml Syringe) [facility] Last Admin: 09/12/24 07:40 Dose: 3 ml Documented By: DAVID Labs 09/13/24 06:20 09/13/24 06:20 Labs: Laboratory Results - last 24 hr 09/11/24 09/11/24 09/11/24 16:45 19:08 21:17 MCV 98.1 H MCH 33.3 H MCHC 34.0 RDW 19.3 H Plt Count 420 H MPV 10.9 Immature Gran % (Auto) 1.1 H Neut % (Auto) 89.1 H Lymph % (Auto) 5.8 L [place] % (Auto) 3.9 Eos % (Auto) 0.0 Baso % (Auto) 0.1 Lymph # (Auto) 1.5 [place] # (Auto) 1.0 Eos # (Auto) 0.0 Baso # (Auto) 0.0 Abs Immat Gran (auto) 0.28 H Absolute Neuts (auto) 23.3 H Absolute Nucleated RBC 0.000 Nucleated RBC % (auto) 0.0 Smear Tech's Comments VERIFIED PT 14.1 H INR 1.2 H Anion Gap 8 L Estim Creat Clear Calc 99.5 Estimated GFR > 60 POC Glucose Random Glucose 326 H Lactic Acid 2.0 Calcium 7.2 L Total Bilirubin 1.1 H AST 19 ALT 16 Alkaline Phosphatase 134 H Ammonia 92 H Total Protein 5.6 L Albumin 1.8 L Urine Color Dark Yellow Urine Appearance Turbid Urine pH 6.5 Ur Specific [place] 1.020 Urine Protein Trace Urine Glucose (UA) Negative Urine Ketones Negative Urine Blood Small (1+) H Urine Nitrite Negative Ur Leukocyte Esterase Moderate (2+) H Urine RBC 6-10 H Urine WBC >50 H Ur Squamous Epith Cells 0-2 Urine Bacteria 4+ Hyaline Casts 0-2 Urine Opiates Screen POSITIVE H Ur Buprenorphine Scrn Not Detected Ur Oxycodone Screen Positive H Urine Methadone Screen Not Detected Urine Fentanyl Screen Not Detected Ur Barbiturates Screen Not Detected Ur Phencyclidine Scrn Not Detected Ur Amphetamines Screen Not Detected U Benzodiazepines Scrn Not Detected Urine Cocaine Screen Not Detected U Marijuana (THC) Screen Not Detected Influenza Type A (PCR) NEGATIVE Influenza Type B (PCR) NEGATIVE RSV RNA Qual (PCR) NEGATIVE SARS-CoV-2 RNA (RT-PCR) NEGATIVE 09/11/24 09/12/24 23:47 07:29 MCV MCH MCHC RDW Plt Count MPV Immature Gran % (Auto) Neut % (Auto) Lymph % (Auto) [place] % (Auto) Eos % (Auto) Baso % (Auto) Lymph # (Auto) [place] # (Auto) Eos # (Auto) Baso # (Auto) Abs Immat Gran (auto) Absolute Neuts (auto) Absolute Nucleated RBC Nucleated RBC % (auto) Smear Tech's Comments PT INR Anion Gap Estim Creat Clear Calc Estimated GFR POC Glucose 283 H 280 H Random Glucose Lactic Acid Calcium Total Bilirubin AST ALT Alkaline Phosphatase Ammonia Total Protein Albumin Urine Color Urine Appearance Urine pH Ur Specific [place] Urine Protein Urine Glucose (UA) Urine Ketones Urine Blood Urine Nitrite Ur Leukocyte Esterase Urine RBC Urine WBC Ur Squamous Epith Cells Urine Bacteria Hyaline Casts Urine Opiates Screen Ur Buprenorphine Scrn Ur Oxycodone Screen Urine Methadone Screen Urine Fentanyl Screen Ur Barbiturates Screen Ur Phencyclidine Scrn Ur Amphetamines Screen U Benzodiazepines Scrn Urine Cocaine Screen U Marijuana (THC) Screen Influenza Type A (PCR) Influenza Type B (PCR) RSV RNA Qual (PCR) SARS-CoV-2 RNA (RT-PCR) 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, chronic diastolic CHF, hepatic steatosis, orthostatic hypotension, chronic leukocytosis, mood disorder presented with altered mental status, found to have small subarachnoid hemorrhage, elevated ammonia, positive UA Acute metabolic encephalopathy Multifactorial likely due to elevated ammonia level, UTI, chronic pain medications, anxiolytics Follow clinical status Small subarachnoid hemorrhage Likely due to fall with head strike Neurosurgery at [facility] appreciated Plan to repeat CT head in 24 hours, neurology eval Elevated ammonia with hepatic steatosis and likley due to gastric bypass abdominal ultrasound showed dense/filling the gallbladder without findings of cholelithiasis or cholecystitis, densely echogenic liver that can be seen with fatty infiltration on medical liver disease, Continue lactulose, monitor clinical status,follow nh3 Urinary tract infection Ceftriaxone, urine and blood cultures pending Diabetes with hyperglycemia Blood sugar 280, Insulin sliding scale, will resume basal insulin (tresiba 8u) Orthostatic hypotension likely autonomic dysfunction from diabetes Midodrine/teds Chronic leukocytosis and anemia workup at [facility] showed high iron saturation 69% with ferritin 667 and outpatient follow-up hematology at [facility] History of 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 With chronic low albumin/electrolyte abnormality, Outpatient follow up with pcp Hypertension lisinopril and hydrochlorothiazide held , both meds were recently discontinued at [facility] Diabetes mellitus on Januvia 100 mg and Tresiba 6- 8 units at bedtime, will place on insulin sliding scale and resume Tresiba, diabetic diet Fibromyalgia/anxiety/chronic back pain on Chronic opioid and benzo use disorder likely contributing to confusion continue as needed benzo Chronic lower extremity edema/hypoalbuminemia previously was on hydrochlorothiazide for leg edema that was discontinued due to orthostatic hypotension recommend high-protein diet and Fei's, recent echo showed EF 53%, no DVT on venous Doppler at [facility] Frequent falls PT eval DVT prophylaxis-mechanical due to intracranial bleed Full Code Given change in mental status, intracranial bleed, need for lactulose for possible hepatic encephalopathy and need for culture results will require continued inpatient hospitalization Quality Stroke Does the patient have a stroke diagnosis?: No VTE Prior VTE?: No VTE Risk Level:: Medical - moderate - high VTE Device Contraindication: N/A - Device Ordered VTE Drug Contraindication: Treatment Not Tolerated
[2024-09-12 09:24] LABS: Hematocrit 31.2 % (37.0-47.0); Hemoglobin 10.5 g/dl (12.0-16.0); Mean Corpuscular HGB Conc 33.7 g/dl (31.0-35.0); Mean Corpuscular Hemoglobin 33.5 pg (27.0-33.0); Mean Corpuscular Volume 99.7 fL (80.0-98.0); Mean Platelet Volume 10.7 fL (9.4-12.3); Platelet Count 410 X10*3/uL (160-400); Red Blood Count 3.13 X10*6/uL (4.20-5.50); Red Cell Distribution Width 19.3 % (11.0-16.0); White Blood Count 25.2 X10*3/uL (4.8-10.8)
[2024-09-12] MEDS: Lactulose 20 GM/30 ML SOLUTION PO (09:32)
[2024-09-12] MEDS: Gabapentin 300 MG CAPSULE PO ×2 (09:33→15:21)
[2024-09-12] MEDS: Midodrine HCl 5 MG TABLET PO ×2 (09:33→15:21)
[2024-09-12] MEDS: DULoxetine HCl 60 MG CAPSULE.DR PO (09:33)
[2024-09-12] MEDS: busPIRone HCl 5 MG TABLET 7.5 MG PO (09:34)
[2024-09-12] MEDS: Ferrous Sulfate 324 MG TABLET.DR PO (09:34)
[2024-09-12 09:35] LABS: Anion Gap 11 (12-20); Blood Urea Nitrogen 8 mg/dL (9-16); Calcium 7.2 mg/dL (8.4-10.2); Carbon Dioxide 23 mmol/L (22-29); Chloride 110 mmol/L (96-108); Creatinine Clr Calc Pharmacy 102.3; Estimated Glomerular Filt Rate > 60; Glucose Random 233 mg/dL (60-115); Magnesium 1.9 mg/dL (1.6-2.6); Potassium 3.9 mmol/L (3.3-5.1); Sodium 140 mmol/L (135-145)
[2024-09-12] MEDS: Dorzolamide/Timolo 2.23%/0.68% 10 ML DRBTL 1 DROP EYE-BOTH ×3 (10:43→21:38)
[2024-09-12] MEDS: Nystatin Cream 15 GM TUBE 1 APPL TOPICAL ×2 (10:44→21:38)
--- NOTE | 2024-09-12 10:52 | PC.NURSE ---
Pt had large BM on commode with 2 assist
[2024-09-12] MEDS: methylPREDNISolone Sod Succ 40 MG/ML VIAL IVPUSH (10:59)
--- NOTE | 2024-09-12 11:04 | PC.NURSE ---
Pt very confused, able to answer to person and place but otherwise confused and repeating statements. Breathing even and unlabored.
--- NOTE | 2024-09-12 11:47 | MHC.CM.PN ---
Addendum entered by Emmy Green 09/12/24 12:21: CM ATTEMPTED TO CONTACT [facility] HIM TO REQUEST A COPY OF PTS HCP, HOWEVER THERE WAS NO ANSWER AT 14 MINUTES ON HOLD CM WILL TRY AGAIN LATER Original Note: ORDNANCE OFFICER MET WITH PT AND PT'S SISTERS IN ED. PT STATES SHE LIVES WITH EX AND DAUGHTER. PT'S EMERGENCY CONTACT IS DAUGHTER TERESA HERNANDEZ, PT STATES SHE HAD VNA SERVICES THROUGH [facility] AND IN HOME PT AND OT. PT STATES HER PCP IS REINALDO THOMAS PT'S SISTER CLAIMS SHE IS PT'S HCP AND THAT IT IS ON FILE AT [facility], COPY IS BEING REQUESTED. PT'S INS IS [facility], IMM DELIVERED PT'S SISTER REPORTS CONCERNS ABOUT PT LIVING WITH EX, HOWEVER PT A&O AT BASELINE. DCP- STR RECOMMENDED.
--- NOTE | 2024-09-12 12:10 | PM.NEUROCN ---
History of Present Illness Data of Consult Service Date: 09/12/24 Primary Care Provider: Unknown Physician HPI Reason for consult: Intracranial hemorrhage 53 years old woman with diagnosis of orthostatic hypotension apparently felt dizzy and fell down at home. She said that she hit her head on something. He was brought to hospital in her head CT revealed intracranial hemorrhage prompting this consultation. There was no evidence of seizure disorder. She denied having any headache nausea vomiting or any focal weakness. Review of Systems Review of Systems: Symptoms of dizziness and recent hospitalization [facility] Past Medical History Medical History (Updated 09/11/24 @ 22:31 by Jose Ramon Jj MD) Dumping syndrome Orthostatic hypotension Diabetes mellitus Surgical History Surgical History (Updated 09/11/24 @ 22:30 by Jose Ramon Jj MD) Gastric bypass status for obesity Social History Social History Patient Tobacco Use Status: Never used Tobacco Smoked in Last 30 Days: No Use of substances other than those prescribed or required for medical reasons: No Advance Directives: No Advance Directives Information Provided: Yes Do you have a plan to hurt others: No Plan Nutrition Risks: No Nutritional Risk Patient : No Meds Allergies Allergy/AdvReac Type Severity Reaction Status Date / Time No Known Allergies Allergy Verified 09/11/24 15:52 Active Medications: Current Medications Acetaminophen (Acetaminophen 325 Mg Tablet) 650 mg PO Q6H PRN PRN Reason: Pain, Mild 1-3,fever,headache Atorvastatin Calcium (Atorvastatin Calcium 40 Mg Tablet) 40 mg PO BEDTIME [facility] Buspirone HCl (Buspirone Hcl 5 Mg Tablet) 7.5 mg PO BID [facility] Last Admin: 09/12/24 09:34 Dose: 7.5 mg Calcium Carbonate (Calcium Carbonate 750 Mg Tab.Chew) 750 mg PO Q4H PRN PRN Reason: Heartburn Ceftriaxone Sodium (Ceftriaxone Sodium 1 Gm Vial) 1 gm IVPUSH Q24H [facility] Last Admin: 09/11/24 23:02 Dose: 1 gm Dextrose (Dextrose 50 % 25 Gm/50 Ml Syringe) 25 gm IVPUSH Q15M PRN; Protocol PRN Reason: per Hypoglycemia Standing Ord. Dorzolamide/Timolol (Dorzolamide/Timolo 2.23%/0.68% 10 Ml Drbtl) 1 drop EYE-BOTH TID [facility] Last Admin: 09/12/24 10:43 Dose: 1 drop Duloxetine HCl (Duloxetine Hcl 60 Mg Capsule.) 60 mg PO BID [facility] Last Admin: 09/12/24 09:33 Dose: 60 mg Ferrous Sulfate (Ferrous Sulfate 324 Mg Tablet.) 324 mg PO DAILY [facility] Last Admin: 09/12/24 09:34 Dose: 324 mg Gabapentin (Gabapentin 300 Mg Capsule) 300 mg PO TID [facility] Last Admin: 09/12/24 09:33 Dose: 300 mg Glucose (Glucose Gel 15 Gm Gel..Gram.) 15 gm PO Q15M PRN; Protocol PRN Reason: per Hypoglycemia Standing Ord. Insulin Human Lispro (Insulin Lispro 100 Unit/Ml 3 Ml Vial) 0 unit SUBCUT QIDACHS [facility]; Protocol Last Admin: 09/12/24 07:40 Dose: 6 unit Lactulose (Lactulose 20 Gm/30 Ml Solution) 30 gm PO TID [facility] Latanoprost (Latanoprost 0.005 % Ophth Ivy 2.5 Ml Drops) 0 drop EYE-BOTH BEDTIME [facility] Lorazepam (Lorazepam 0.5 Mg Tablet) 0.5 mg PO Q6H PRN PRN Reason: Anxiety Magnesium Hydroxide (Milk Of Magnesia 30 Ml Oral.Susp) 30 ml PO DAILY PRN PRN Reason: Constipation Melatonin (Melatonin 3 Mg Tablet) 6 mg PO BEDTIME PRN PRN Reason: Insomnia Midodrine (Midodrine Hcl 5 Mg Tablet) 5 mg PO TID [facility] Last Admin: 09/12/24 09:33 Dose: 5 mg Non-Formulary Medication (Netarsudil [Rhopressa]) 1 drop EYE-BOTH BEDTIME [facility] Nystatin (Nystatin Cream 15 Gm Tube) 1 appl TOPICAL BID [facility]; Protocol Last Admin: 09/12/24 10:44 Dose: 1 appl Omeprazole (Omeprazole 20 Mg Capsule.) 20 mg PO DAILY@0630 [facility] Last Admin: 09/12/24 06:33 Dose: 20 mg Sodium Chloride (0.9 % Sodium Chloride Flush 3 Ml Syringe) 3 ml IVFLUSH QSHIFT [facility] Last Admin: 09/12/24 07:40 Dose: 3 ml Home Medications ?Medication ?Instructions ?Recorded ?Confirmed ?Last Taken ?Type aspirin 81 mg tablet,delayed 81 mg PO DAILY 09/11/24 09/11/24 Unknown History release atorvastatin 40 mg tablet 40 mg PO DAILY 09/11/24 09/11/24 Unknown History buspirone 15 mg tablet 15 mg PO BID 09/11/24 09/11/24 Unknown History dorzolamide 22.3 mg-timolol 6.8 1 drp ophthalmic (eye) TID 09/11/24 09/11/24 Unknown History mg/mL eye drops duloxetine 60 mg capsule,delayed 60 mg PO BID 09/11/24 09/11/24 Unknown History release ergocalciferol (vitamin D2) 1,250 1,250 mcg PO TH 09/11/24 09/11/24 Unknown History mcg (50,000 unit) capsule ferrous sulfate 325 mg (65 mg 325 mg PO DAILY 09/11/24 09/11/24 Unknown History iron) tablet (FeroSul) glucose 4 gram chewable tablet 8 - 16 g PO NEEDED hypoglycemia 09/11/24 09/11/24 Unknown History hydrochlorothiazide 25 mg tablet 25 mg PO DAILY 09/11/24 09/11/24 Unknown History insulin degludec 200 unit/mL (3 6 - 8 unit subcut BEDTIME 09/11/24 09/12/24 Unknown History mL) subcutaneous pen (Tresiba FlexTouch U-200 insulin) latanoprost 0.005 % eye drops 1 drp ophthalmic (eye) BEDTIME 09/11/24 09/11/24 Unknown History lisinopril 40 mg tablet 40 mg PO DAILY 09/11/24 09/11/24 Unknown History loratadine 10 mg tablet 10 mg PO DAILY 09/11/24 09/11/24 Unknown History lorazepam 0.5 mg tablet 0.5 - 1 mg PO BEDTIME 09/11/24 09/11/24 Unknown History lorazepam 0.5 mg tablet 0.5 mg PO DAILY PRN Anxiety 09/11/24 09/11/24 Unknown History midodrine 5 mg tablet 5 mg PO TID 09/11/24 09/11/24 Unknown History netarsudil 0.02 % eye drops 1 drp ophthalmic (eye) BEDTIME 09/11/24 09/11/24 Unknown History (Rhopressa) omeprazole 20 mg capsule,delayed 20 mg PO DAILY@0630 09/11/24 09/11/24 Unknown History release oxycodone-acetaminophen 5 mg-325 1 tab PO Q6H PRN pain 09/11/24 09/11/24 Unknown History mg tablet sitagliptin phosphate 100 mg 100 mg PO DAILY 09/11/24 09/11/24 Unknown History tablet (Januvia) Physical Exam Vital Signs: Vital Signs: Last Vital Signs Temp 98.2 F 09/12/24 07:40 Pulse 103 H 09/12/24 07:40 Resp 18 09/12/24 07:40 BP 142/80 H 09/12/24 09:33 Pulse Ox 97 09/12/24 07:40 O2 Del Method Room Air 09/12/24 07:40 BMI result Body Mass Index 28.0 Neuro: Other: She is alert and awake with normal spontaneity of speech fluency comprehension and flat affect. There is mild right-sided facial flatness. Visual shahid are full. Right plantars extensor were left is flexor. Results Labs 09/12/24 09:13 09/12/24 09:13 Labs: Short CBC 09/11/24 09/12/24 Range/Units 16:45 09:13 WBC 26.2 H 25.2 H (4.8-10.8) X10*3/uL Hgb 10.6 L 10.5 L (12.0-16.0) g/dl Hct 31.2 L 31.2 L (37.0-47.0) % Plt Count 420 H 410 H (160-400) X10*3/uL BMP 09/11/24 09/12/24 16:45 09:13 Sodium 135 140 Potassium 4.3 3.9 Chloride 104 110 H Carbon Dioxide 27 23 BUN 8 L 8 L Creatinine 0.70 0.68 Calcium 7.2 L 7.2 L Liver Function 09/11/24 Range/Units 16:45 Total Bilirubin 1.1 H (0.0-1.0) mg/dL AST 19 (5-31) U/L ALT 16 (0-31) U/L Alkaline Phosphatase 134 H (39-117) U/L Albumin 1.8 L (3.5-5.0) g/dL Urine 09/11/24 Range/Units 21:17 Urine Color Dark Yellow Urine Appearance Turbid Urine pH 6.5 (5.0-9.0) Ur Specific [place] 1.020 (1.005-1.025) Urine Protein Trace (Neg-Trace) mg/dL Urine Glucose (UA) Negative (Negative) mg/dL Small left frontal medial subarachnoid hemorrhage Microbiology Microbiology Results: Microbiology 09/11/24 21:17 Urine clean catch - Clean Catch Midstream Urine Culture - Preliminary Culture in progress. Assessment and Plan (1) Subarachnoid hemorrhage: Status: Acute Small traumatic left frontal subarachnoid hemorrhage with right extensor plantars. Otherwise she did not have any symptom like headache. I would recommend repeating a CT scan in 24 hours and if that is stable or better, discharging her. Otherwise no intervention is needed. Appropriate treatment of orthostasis is recommended. Of note, her head CTA also revealed cerebellar atrophy with mild cortical atrophy which in this age group might be Genetics or might be exposure to alcohol. She should be advised to not drink alcohol, even if that is not the reason. Procedures Date of Service Date of Service: 09/12/24
--- NOTE | 2024-09-12 12:59 | PC.NURSE ---
Pts updated contacts as follows: Maggie Reyna [phone] Primary HCP, sister Anamaria Bal [phone] Daughter Zohra Dueñas [phone] Sister
[2024-09-12 13:04] LABS: Glucose, Whole Blood 176 mg/dL (60-115)
[2024-09-12] MEDS: Lactulose 20 GM/30 ML SOLUTION 30 GM PO ×2 (15:21→21:34)
[2024-09-12 16:03] LABS: Glucose, Whole Blood 220 mg/dL (60-115)
[2024-09-12 20:26] LABS: Glucose, Whole Blood 166 mg/dL (60-115)
--- NOTE | 2024-09-12 21:13 | PC.NURSE ---
Addendum entered by Karina Richmond RN 09/13/24 00:51: Patient had a large loose stool, appears to be more interactive. Original Note: Patient is very drowsy, easily arousable, alert to name, place and situation. When asked questions she is repeating words frequently and has delayed thought process. States no pain, VS stable. Repeat brain CT confirms no changes from yesterday. Able to swallow small amounts of fluids well with encouragement and directions. Insulin and some bedtime PO meds held , Dr Jj updated and aware.
[2024-09-12] MEDS: Latanoprost 0.005 % Ophth Sol 2.5 ML DROPS EYE-BOTH (21:38)
[2024-09-12] MEDS: cefTRIAXone sodium 1 GM VIAL IVPUSH (21:55)
[2024-09-13 03:51] VITALS: BP 117/72; PULSE 88; RESP 18; TEMP 36.6; O2SAT 98
[2024-09-13] MEDS: Omeprazole 20 MG CAPSULE.DR PO (06:18)
[2024-09-13 06:36] LABS: Mean Corpuscular HGB Conc 34.3 g/dl (31.0-35.0); Mean Corpuscular Hemoglobin 33.6 pg (27.0-33.0); Mean Platelet Volume 11.3 fL (9.4-12.3); NRBC Pct Auto 0.5 /100WBC (0.0-0.2); Platelet Count 246 X10*3/uL (160-400); Red Blood Count 3.57 X10*6/uL (4.20-5.50); Red Cell Distribution Width 19.3 % (11.0-16.0); White Blood Count 12.2 X10*3/uL (4.8-10.8)
[2024-09-13 06:40] LABS: Ammonia 72 umol/L (13-55)
[2024-09-13 06:46] LABS: Anion Gap 13 (12-20); Blood Urea Nitrogen 8 mg/dL (9-16); Calcium 7.4 mg/dL (8.4-10.2); Carbon Dioxide 22 mmol/L (22-29); Chloride 112 mmol/L (96-108); Creatinine Clr Calc Pharmacy 94.1; Estimated Glomerular Filt Rate > 60; Glucose Random 148 mg/dL (60-115); Potassium 3.7 mmol/L (3.3-5.1); Sodium 143 mmol/L (135-145)
[2024-09-13 07:13] VITALS: BP 98/56; PULSE 106; RESP 16; TEMP 36.3; O2SAT 98
[2024-09-13] MEDS: Lactulose 20 GM/30 ML SOLUTION 30 GM PO ×3 (08:45→21:23)
[2024-09-13] MEDS: DULoxetine HCl 60 MG CAPSULE.DR PO ×2 (08:45→21:22)
[2024-09-13] MEDS: Ferrous Sulfate 324 MG TABLET.DR PO (08:46)
[2024-09-13] MEDS: busPIRone HCl 5 MG TABLET 7.5 MG PO ×2 (08:46→21:22)
[2024-09-13] MEDS: Gabapentin 300 MG CAPSULE PO ×3 (08:46→21:22)
[2024-09-13] MEDS: Midodrine HCl 5 MG TABLET PO ×3 (08:46→21:23)
[2024-09-13] MEDS: Dorzolamide/Timolo 2.23%/0.68% 10 ML DRBTL 1 DROP EYE-BOTH ×3 (08:47→21:32)
[2024-09-13] MEDS: Nystatin Cream 15 GM TUBE 1 APPL TOPICAL ×2 (08:48→21:33)
[2024-09-13] MEDS: 0.9 % Sodium Chloride Flush 3 ML SYRINGE IVFLUSH ×3 (10:25→21:32)
[2024-09-13 10:55] LABS: Glucose, Whole Blood 179 mg/dL (60-115)
--- NOTE | 2024-09-13 11:00 | P.PNIM_ITS ---
Subjective Subjective Date of Service: 09/13/24 Interval History: Patient awake alert this morning complaining of leg pain and back pain requesting for oxycodone, wishes to be discharged to rehab facility as and daughter unable to take care of her, denies nausea, no vomiting has had 3 bowel movement last night, no bowel movement today, no acute events overnight. Denies headache, no lightheadedness, no fevers, no chills. No urinary symptoms. Review of Systems All other system reviewed and are negative. Physical Exam 2 Vital Signs: Vital Signs: Last Vital Signs Temp 97.3 F 09/13/24 07:13 Pulse 106 H 09/13/24 07:13 Resp 16 09/13/24 07:13 BP 98/56 L 09/13/24 07:13 Pulse Ox 98 09/13/24 07:13 O2 Del Method Room Air 09/13/24 07:13 BMI result Body Mass Index 28.0 Const: Other: General resting comfortably in no acute distress. Neck supple no JVD. CVS regular rate rhythm, Respiratory lungs clear to auscultation, no respiratory distress, no wheeze, no rhonchi. Gastrointestinal abdomen soft, non tender, bowel sounds audible, no guarding , no rigidity. Extremities + b/l pitting edema. Neuro moving all 4 extremity speech clear, nonfocal Skin no rash Psych appropriate affect Objective Data Active Medications Acetaminophen (Acetaminophen 325 Mg Tablet) 650 mg PO Q6H PRN PRN Reason: Pain, Mild 1-3,fever,headache Hydrocodone Bitart/Acetaminophen (Hydrocodone Bit/Acetam 5/325 Tablet) 1 tab PO Q6H PRN PRN Reason: Pain, Severe (Pain Scale 7-10) Atorvastatin Calcium (Atorvastatin Calcium 40 Mg Tablet) 40 mg PO BEDTIME [facility] Last Admin: 09/12/24 21:35 Dose: Not Given Documented By: DIDIER Non-Admin Reason: pt drowsy Buspirone HCl (Buspirone Hcl 5 Mg Tablet) 7.5 mg PO BID [facility] Last Admin: 09/13/24 08:46 Dose: 7.5 mg Documented By: SUKHDEV Calcium Carbonate (Calcium Carbonate 750 Mg Tab.Chew) 750 mg PO Q4H PRN PRN Reason: Heartburn Ceftriaxone Sodium (Ceftriaxone Sodium 1 Gm Vial) 1 gm IVPUSH Q24H [facility] Last Admin: 09/12/24 21:55 Dose: 1 gm Documented By: DIDIER Dextrose (Dextrose 50 % 25 Gm/50 Ml Syringe) 25 gm IVPUSH Q15M PRN; Protocol PRN Reason: per Hypoglycemia Standing Ord. Dorzolamide/Timolol (Dorzolamide/Timolo 2.23%/0.68% 10 Ml Drbtl) 1 drop EYE- BOTH TID [facility] Last Admin: 09/13/24 08:47 Dose: 1 drop Documented By: SUKHDEV Duloxetine HCl (Duloxetine Hcl 60 Mg Capsule.) 60 mg PO BID [facility] Last Admin: 09/13/24 08:45 Dose: 60 mg Documented By: SUKHDEV Ferrous Sulfate (Ferrous Sulfate 324 Mg Tablet.) 324 mg PO DAILY [facility] Last Admin: 09/13/24 08:46 Dose: 324 mg Documented By: SUKHDEV Gabapentin (Gabapentin 300 Mg Capsule) 300 mg PO TID [facility] Last Admin: 09/13/24 08:46 Dose: 300 mg Documented By: SUKHDEV Glucose (Glucose Gel 15 Gm Gel..Gram.) 15 gm PO Q15M PRN; Protocol PRN Reason: per Hypoglycemia Standing Ord. Insulin Glargine (Insulin Glargine,Hum.Rec.Anlog 100 Unit/Ml 10 Ml Vial) 5.6 unit SUBCUT BEDTIME [facility] Last Admin: 09/12/24 21:36 Dose: Not Given Documented By: DIDIER Non-Admin Reason: per MD Insulin Human Lispro (Insulin Lispro 100 Unit/Ml 3 Ml Vial) 0 unit SUBCUT QIDACHS [facility]; Protocol Last Admin: 09/13/24 07:55 Dose: Not Given Documented By: SUKHDEV Non-Admin Reason: No Insulin Coverage Lactulose (Lactulose 20 Gm/30 Ml Solution) 30 gm PO TID [facility] Last Admin: 09/13/24 08:45 Dose: 30 gm Documented By: SUKHDEV Latanoprost (Latanoprost 0.005 % Ophth Ivy 2.5 Ml Drops) 0 drop EYE-BOTH BEDTIME [facility] Last Admin: 09/12/24 21:38 Dose: 1 drop Documented By: DIDIER Lorazepam (Lorazepam 0.5 Mg Tablet) 0.5 mg PO Q6H PRN PRN Reason: Anxiety Magnesium Hydroxide (Milk Of Magnesia 30 Ml Oral.Susp) 30 ml PO DAILY PRN PRN Reason: Constipation Melatonin (Melatonin 3 Mg Tablet) 6 mg PO BEDTIME PRN PRN Reason: Insomnia Midodrine (Midodrine Hcl 5 Mg Tablet) 5 mg PO TID [facility] Last Admin: 09/13/24 08:46 Dose: 5 mg Documented By: SUKHDEV Non-Formulary Medication (Netarsudil [Rhopressa]) 1 drop EYE-BOTH BEDTIME [facility] Nystatin (Nystatin Cream 15 Gm Tube) 1 appl TOPICAL BID [facility]; Protocol Last Admin: 09/13/24 08:48 Dose: 1 appl Documented By: SUKHDEV Omeprazole (Omeprazole 20 Mg Capsule.Dr) 20 mg PO DAILY@0630 [facility] Last Admin: 09/13/24 06:18 Dose: 20 mg Documented By: DIDIER Sodium Chloride (0.9 % Sodium Chloride Flush 3 Ml Syringe) 3 ml IVFLUSH QSHIFT [facility] Last Admin: 09/13/24 10:25 Dose: 3 ml Documented By: SUKHDEV Labs 09/13/24 06:20 09/13/24 06:20 Labs: Laboratory Results - last 24 hr 09/12/24 09/12/24 09/12/24 13:00 15:55 19:42 MCV MCH MCHC RDW Plt Count MPV Absolute Nucleated RBC Nucleated RBC % (auto) Anion Gap Estim Creat Clear Calc Estimated GFR POC Glucose 176 H 220 H 166 H Random Glucose Calcium Ammonia 09/13/24 09/13/24 06:20 07:20 MCV 98.0 MCH 33.6 H MCHC 34.3 RDW 19.3 H Plt Count 246 D MPV 11.3 Absolute Nucleated RBC 0.060 H Nucleated RBC % (auto) 0.5 H Anion Gap 13 Estim Creat Clear Calc 94.1 Estimated GFR > 60 POC Glucose 179 H Random Glucose 148 H Calcium 7.4 L Ammonia 72 H Microbiology Microbiology Results: Microbiology 09/11/24 21:17 Urine Culture - Preliminary Urine clean catch - Clean Catch Midstream Gram negative ros 09/11/24 20:05 Blood Culture - Preliminary Blood - Venous No growth after 24 hours. 09/11/24 19:59 Blood Culture - Preliminary Blood - Venous No growth after 24 hours. 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 suggested no intervention repeat CT head in 24 hours remains unchanged, Seen by Neurology they recommend no further intervention if repeat CT head is stable. Elevated ammonia with hepatic steatosis and likley due to gastric bypass abdominal ultrasound showed dense/filling the gallbladder without findings of cholelithiasis or cholecystitis, densely echogenic liver that can be seen with fatty infiltration on medical liver disease, Ammonia improved from 92 to 72 Continue lactulose, monitor clinical status,follow nh3 Urinary tract infection Ceftriaxone, urine culture grew Gram-negative ros and blood cultures preliminary negative Diabetes with hyperglycemia Blood sugar stable, continue Insulin sliding scale, diabetic diet and basal insulin (tresiba 8u) and resume Januvia Orthostatic hypotension likely autonomic dysfunction from diabetes Midodrine/teds Chronic leukocytosis and anemia workup at [facility] showed high iron saturation 69% with ferritin 667 and outpatient follow-up hematology at 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 With chronic low albumin/electrolyte abnormality, Outpatient follow up with pcp Hypertension lisinopril and hydrochlorothiazide held , both meds were recently discontinued at [facility] Fibromyalgia/anxiety/chronic back pain on Chronic opioid and benzo use disorder likely contributing to confusion continue as needed benzo and resume oxycodone Chronic lower extremity edema/hypoalbuminemia previously was on hydrochlorothiazide for leg edema that was discontinued due to orthostatic hypotension recommend high-protein diet and Fei's, recent echo showed EF 53%, no DVT on venous Doppler at [facility] Frequent falls PT recommend short-term rehab DVT prophylaxis-mechanical due to intracranial bleed Full Code Given change in mental status, intracranial bleed, need for lactulose for possible hepatic encephalopathy and need for culture results will require continued inpatient hospitalization Quality Stroke Does the patient have a stroke diagnosis?: No VTE Prior VTE?: No VTE Risk Level:: Medical - moderate - high VTE Device Contraindication: N/A - Device Ordered VTE Drug Contraindication: Treatment Not Tolerated
[2024-09-13] MEDS: HYDROcodone Bit/Acetam 5/325 TABLET 1 TAB PO ×2 (11:02→17:54)
[2024-09-13 11:53] VITALS: BP 115/67; PULSE 92; RESP 16; TEMP 36.9
[2024-09-13 11:55] VITALS: BP 98/56; PULSE 106; O2SAT 98
[2024-09-13 12:19] LABS: Glucose, Whole Blood 269 mg/dL (60-115)
--- NOTE | 2024-09-13 12:31 | MHC.CM.PN ---
PER ROUNDS PT IS NOT READY FOR DC DC PLAN IS FOR STR
[2024-09-13] MEDS: Insulin Lispro 100 UNIT/ML 3 ML VIAL SUBCUT ×3 (12:36→21:24)
--- NOTE | 2024-09-13 13:09 | MHC.SL.SWA ---
Speech Pathologist Impression: Risk of Aspiration, Mild Oral Phase Dysphagia Risk of Aspiration Due to: Neurological Condition Dysphasia Diet Status: No Change Liquid Consistency and Strategies for Safe Swallow: Liquid Intake Recommendation: Thin Liquid Intake Strategies: Small Sips Solid Food Consistency: Dietary Recommendations: Chopped/Advanced (NDD3) Additional Modifications to Solid Foods: Recommend CONTINUE on CHOPPED/ADVANCED (NDD3) diet and THIN liquids, pills WHOLE w/ LIQUID. Strategies recommended to promote clearance: take small bites, moisten food w/ sauces/gravies, chew food well, alternate w/ sips of liquid. No changes made to diet order. Oral Medication Intake: Whole with Liquid Please contact the pharmacy regarding appropriate crushable or liquid drug formulations that are available whenever modified delivery is recommended. Compensatory Strategies and Precautions to be Taken for Safe Swallow: Sitting Upright (90 deg) Small Bites and Sips Alternate Liquids/Solids Rate of Ingestion Change Supervision While Eating and Drinking for Safe Swallow: Intermittent Supervision Swallowing Recommended Treatments: Compens. Strategy Educat. Recommendation for Speech: Inpatient Speech Therapy Comment: 1 f/u to monitor tolerance V Belt Skiver Clinican/Clinical Fellow: No Supervisory Statement: I have reviewed and agree with the student/clinical fellow's documentation: N/A Speech Language Pathologist: Rosamaria Warner M.A., CCC-ACOUSTICAL MATERIAL WORKER
[2024-09-13 14:59] VITALS: BP 109/60; PULSE 96; RESP 18; TEMP 36.6; O2SAT 99
[2024-09-13 16:10] LABS: Glucose, Whole Blood 243 mg/dL (60-115)
[2024-09-13 17:56] LABS: Glucose, Whole Blood 260 mg/dL (60-115)
[2024-09-13 19:15] VITALS: BP 114/59; PULSE 81; RESP 16; TEMP 36.8; O2SAT 100
[2024-09-13 21:00] LABS: Glucose, Whole Blood 174 mg/dL (60-115)
[2024-09-13] MEDS: Atorvastatin Calcium 40 MG TABLET PO (21:22)
[2024-09-13] MEDS: Insulin Glargine,Hum.rec.anlog 100 UNIT/ML 10 ML VIAL 5.6 UNIT SUBCUT (21:23)
[2024-09-13] MEDS: Latanoprost 0.005 % Ophth Sol 2.5 ML DROPS EYE-BOTH (21:32)
[2024-09-13] MEDS: cefTRIAXone sodium 1 GM VIAL IVPUSH (21:32)
[2024-09-14] VITALS (7 sets, daily range): BP systolic 108–135; BP diastolic 58–78; PULSE 50–82; RESP 16–18; TEMP 36.1–36.7; O2SAT 96–100
[2024-09-14] MEDS: HYDROcodone Bit/Acetam 5/325 TABLET 1 TAB PO ×4 (00:56→22:37)
[2024-09-14 05:41] LABS: Ammonia 180 umol/L (13-55)
[2024-09-14] MEDS: Omeprazole 20 MG CAPSULE.DR PO (06:01)
--- NOTE | 2024-09-14 07:23 | ECG_ITS ---
Test Reason : cp Blood Pressure : */* mmHG Vent. Rate : 73 BPM Atrial Rate : 73 BPM P-R Int : 152 ms QRS Dur : 82 ms QT Int : 304 ms P-R-T Axes : 30 37 145 degrees QTcB Int : 334 ms Normal sinus rhythm Low voltage QRS Nonspecific T wave abnormality Abnormal ECG When compared with ECG of 11-Sep-2024 16:22, No significant changes seen Referred By: Sahara Howard Electronically Signed By: VALERIANO SANCHEZ
[2024-09-14] MEDS: Dextrose 50 % 25 GM/50 ML SYRINGE IVPUSH (07:29)
--- NOTE | 2024-09-14 07:39 | PM.EVENT ---
Event Note Date of Service: 09/14/24 Event Note: RR called at 0715 for hypoglycemia. BS noted to be 13 and pt was somnolent but arrousable. Pt received 2 amps of d50 and D5ns started. Repeat BS 334, patient more awake and alert and communicative. VS: 96.6, 77, SBP 130's monitor BS Q1h x4 D5NS Time Spent With Patient Time: Total time managing care of this patient today ____ minutes.
[2024-09-14 07:41] LABS: Glucose, Whole Blood 13 mg/dL (60-115)
[2024-09-14 07:41] LABS: Glucose, Whole Blood 334 mg/dL (60-115)
--- NOTE | 2024-09-14 07:46 | P.PNIM_ITS ---
Subjective Subjective Date of Service: 09/14/24 Interval History: Follow up encephalopathy had hypoglycemia this morning with bs of 13, RR called no chest pain, sob, nausea or vomiting Review of Systems All other system reviewed and are negative. Physical Exam 2 Vital Signs: Vital Signs: Last Vital Signs Temp 97.7 F 09/14/24 03:13 Pulse 82 09/14/24 03:13 Resp 16 09/14/24 03:13 BP 129/60 09/14/24 03:13 Pulse Ox 96 09/14/24 03:13 O2 Del Method Room Air 09/14/24 03:13 BMI result Body Mass Index 28.0 Appearing in no acute distress neck is supple no lymphadenopathy, no JVD noted lung sounds are clear to auscultation heart regular rate rhythm, clear S1, S2 positive bowel sounds, abdomen is soft, nontender neuro patient is alert x3, no focal deficits Objective Data Active Medications Acetaminophen (Acetaminophen 325 Mg Tablet) 650 mg PO Q6H PRN PRN Reason: Pain, Mild 1-3,fever,headache Hydrocodone Bitart/Acetaminophen (Hydrocodone Bit/Acetam 5/325 Tablet) 1 tab PO Q6H PRN PRN Reason: Pain, Severe (Pain Scale 7-10) Last Admin: 09/14/24 00:56 Dose: 1 tab Documented By: CINDY Atorvastatin Calcium (Atorvastatin Calcium 40 Mg Tablet) 40 mg PO BEDTIME [facility] Last Admin: 09/13/24 21:22 Dose: 40 mg Documented By: CINDY Buspirone HCl (Buspirone Hcl 5 Mg Tablet) 7.5 mg PO BID [facility] Last Admin: 09/13/24 21:22 Dose: 7.5 mg Documented By: CINDY Calcium Carbonate (Calcium Carbonate 750 Mg Tab.Chew) 750 mg PO Q4H PRN PRN Reason: Heartburn Ceftriaxone Sodium (Ceftriaxone Sodium 1 Gm Vial) 1 gm IVPUSH Q24H [facility] Last Admin: 09/13/24 21:32 Dose: 1 gm Documented By: CINDY Dextrose (Dextrose 50 % 25 Gm/50 Ml Syringe) 25 gm IVPUSH Q15M PRN; Protocol PRN Reason: per Hypoglycemia Standing Ord. Last Admin: 09/14/24 07:29 Dose: 25 gm Documented By: TONNY Dorzolamide/Timolol (Dorzolamide/Timolo 2.23%/0.68% 10 Ml Drbtl) 1 drop EYE- BOTH TID [facility] Last Admin: 09/13/24 21:32 Dose: 1 drop Documented By: CINDY Duloxetine HCl (Duloxetine Hcl 60 Mg Capsule.) 60 mg PO BID [facility] Last Admin: 09/13/24 21:22 Dose: 60 mg Documented By: CINDY Ferrous Sulfate (Ferrous Sulfate 324 Mg Tablet.) 324 mg PO DAILY [facility] Last Admin: 09/13/24 08:46 Dose: 324 mg Documented By: SUKHDEV Gabapentin (Gabapentin 300 Mg Capsule) 300 mg PO TID [facility] Last Admin: 09/13/24 21:22 Dose: 300 mg Documented By: CINDY Glucose (Glucose Gel 15 Gm Gel..Gram.) 15 gm PO Q15M PRN; Protocol PRN Reason: per Hypoglycemia Standing Ord. Insulin Glargine (Insulin Glargine,Hum.Rec.Anlog 100 Unit/Ml 10 Ml Vial) 5.6 unit SUBCUT BEDTIME [facility] Last Admin: 09/13/24 21:23 Dose: 5.6 unit Documented By: CINDY Insulin Human Lispro (Insulin Lispro 100 Unit/Ml 3 Ml Vial) 0 unit SUBCUT QIDACHS [facility]; Protocol Last Admin: 09/13/24 21:24 Dose: 4 unit Documented By: CINDY Lactulose (Lactulose 20 Gm/30 Ml Solution) 30 gm PO TID [facility] Last Admin: 09/13/24 21:23 Dose: 30 gm Documented By: CINDY Latanoprost (Latanoprost 0.005 % Ophth Ivy 2.5 Ml Drops) 0 drop EYE-BOTH BEDTIME [facility] Last Admin: 09/13/24 21:32 Dose: 1 drop Documented By: CINDY Lorazepam (Lorazepam 0.5 Mg Tablet) 0.5 mg PO Q6H PRN PRN Reason: Anxiety Magnesium Hydroxide (Milk Of Magnesia 30 Ml Oral.Susp) 30 ml PO DAILY PRN PRN Reason: Constipation Melatonin (Melatonin 3 Mg Tablet) 6 mg PO BEDTIME PRN PRN Reason: Insomnia Midodrine (Midodrine Hcl 5 Mg Tablet) 5 mg PO TID [facility] Last Admin: 09/13/24 21:23 Dose: 5 mg Documented By: CINDY Non-Formulary Medication (Netarsudil [Rhopressa]) 1 drop EYE-BOTH BEDTIME [facility] Nystatin (Nystatin Cream 15 Gm Tube) 1 appl TOPICAL BID [facility]; Protocol Last Admin: 09/13/24 21:33 Dose: 1 appl Documented By: CINDY Omeprazole (Omeprazole 20 Mg Capsule.) 20 mg PO DAILY@0630 [facility] Last Admin: 09/14/24 06:01 Dose: 20 mg Documented By: CONRADO Sitagliptin Phosphate (Sitagliptin Phosphate 100 Mg Tablet) 100 mg PO DAILY [facility] Sodium Chloride (0.9 % Sodium Chloride Flush 3 Ml Syringe) 3 ml IVFLUSH QSHIFT [facility] Last Admin: 09/13/24 21:32 Dose: 3 ml Documented By: CINDY Labs 09/14/24 08:22 09/14/24 08:22 Labs: Laboratory Results - last 24 hr 09/13/24 09/13/24 09/13/24 07:20 11:10 16:06 POC Glucose 179 H 269 H 243 H Ammonia 09/13/24 09/13/24 09/14/24 17:53 20:56 05:23 POC Glucose 260 H 174 H Ammonia 180 H 09/14/24 09/14/24 07:24 07:30 POC Glucose 13 L* 334 H Ammonia Microbiology Microbiology Results: Microbiology 09/11/24 21:17 Urine Culture - Final Urine clean catch - Clean Catch Midstream Escherichia coli 09/11/24 20:05 Blood Culture - Preliminary Blood - Venous No growth after 48 hours. 09/11/24 19:59 Blood Culture - Preliminary Blood - Venous No growth after 48 hours. 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, chronic diastolic CHF, hepatic steatosis, orthostatic hypotension, chronic leukocytosis, mood disorder presented with altered mental status, found to have small subarachnoid hemorrhage, elevated ammonia, positive UA Hypoglycemia RR called this morning for BS of 13 2 amps of D50 given, and D5ns started stable POCs now hold long acting insulin for now Acute metabolic encephalopathy Resolved was likely Multifactorial due to elevated ammonia level UTI, chronic pain medications, anxiolytics Small subarachnoid hemorrhage Likely due to fall with head strike Neurosurgery at [facility] suggested no intervention repeat CT head in 24 hours remains unchanged, Seen by Neurology they recommend no further intervention if repeat CT head is stable. Elevated ammonia with hepatic steatosis and likely due to gastric bypass abdominal ultrasound showed dense/filling the gallbladder without findings of cholelithiasis or cholecystitis, densely echogenic liver that can be seen with fatty infiltration on medical liver disease, Ammonia improved from 92 to 72 Continue lactulose, monitor clinical status Ecoli Urinary tract infection Ceftriaxone blood cultures preliminary negative Diabetes with hyperglycemia Blood sugar stable continue Insulin sliding scale diabetic diet and basal insulin (tresiba 8u) and resume Januvia Orthostatic hypotension likely autonomic dysfunction from diabetes Midodrine/teds Chronic leukocytosis and anemia workup at [facility] showed high iron saturation 69% with ferritin 667 and outpatient follow-up hematology at [facility] History of 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 With chronic low albumin/electrolyte abnormality Outpatient follow up with pcp Hypertension lisinopril and hydrochlorothiazide held , both meds were recently discontinued at [facility] Fibromyalgia/anxiety/chronic back pain on Chronic opioid and benzo use disorder likely contributing to confusion continue as needed benzo and resume oxycodone Chronic lower extremity edema/hypoalbuminemia previously was on hydrochlorothiazide for leg edema that was discontinued due to orthostatic hypotension recommend high-protein diet and Fei's recent echo showed EF 53% no DVT on venous Doppler at [facility] Frequent falls PT recommend short-term rehab DVT prophylaxis-mechanical due to intracranial bleed Full Code Given change in mental status, intracranial bleed, need for lactulose for possible hepatic encephalopathy and need for culture results will require continued inpatient hospitalization Quality Stroke Does the patient have a stroke diagnosis?: No VTE Prior VTE?: No VTE Risk Level:: Medical - moderate - high VTE Device Contraindication: N/A - Device Ordered VTE Drug Contraindication: Treatment Not Tolerated
[2024-09-14 08:36] LABS: Glucose, Whole Blood 126 mg/dL (60-115)
[2024-09-14] MEDS: Lactulose 20 GM/30 ML SOLUTION 30 GM PO ×3 (08:36→22:17)
[2024-09-14] MEDS: busPIRone HCl 5 MG TABLET 7.5 MG PO ×2 (08:37→22:16)
[2024-09-14] MEDS: DULoxetine HCl 60 MG CAPSULE.DR PO ×2 (08:38→22:17)
[2024-09-14] MEDS: Gabapentin 300 MG CAPSULE PO ×3 (08:38→22:17)
[2024-09-14] MEDS: Ferrous Sulfate 324 MG TABLET.DR PO (08:39)
[2024-09-14] MEDS: 0.9 % Sodium Chloride Flush 3 ML SYRINGE IVFLUSH ×3 (08:50→22:33)
[2024-09-14] MEDS: Midodrine HCl 5 MG TABLET PO ×3 (08:51→22:16)
[2024-09-14 08:52] LABS: Hemoglobin 9.6 g/dl (12.0-16.0); Mean Corpuscular Hemoglobin 32.7 pg (27.0-33.0); Platelet Count 285 X10*3/uL (160-400); Red Blood Count 2.94 X10*6/uL (4.20-5.50); Red Cell Distribution Width 18.8 % (11.0-16.0); White Blood Count 16.1 X10*3/uL (4.8-10.8)
[2024-09-14] MEDS: Dextrose 5 % and 0.9 % NaCl 1,000 ML 80 ML IVCONT (08:55)
[2024-09-14 09:03] LABS: Glucose, Whole Blood 118 mg/dL (60-115)
[2024-09-14 09:08] LABS: Anion Gap 11 (12-20); Blood Urea Nitrogen 11 mg/dL (9-16); Calcium 7.1 mg/dL (8.4-10.2); Carbon Dioxide 22 mmol/L (22-29); Chloride 112 mmol/L (96-108); Estimated Glomerular Filt Rate > 60; Glucose Random 96 mg/dL (60-115); Potassium 3.5 mmol/L (3.3-5.1); Sodium 141 mmol/L (135-145)
[2024-09-14 09:10] LABS: Ammonia 135 umol/L (13-55)
[2024-09-14 10:18] LABS: Glucose, Whole Blood 142 mg/dL (60-115)
[2024-09-14] MEDS: Nystatin Cream 15 GM TUBE 1 APPL TOPICAL ×2 (10:27→22:27)
[2024-09-14] MEDS: Dorzolamide/Timolo 2.23%/0.68% 10 ML DRBTL 1 DROP EYE-BOTH ×3 (10:29→22:17)
[2024-09-14 10:59] LABS: Glucose, Whole Blood 126 mg/dL (60-115)
[2024-09-14 12:12] LABS: Glucose, Whole Blood 119 mg/dL (60-115)
[2024-09-14 13:28] LABS: Glucose, Whole Blood 183 mg/dL (60-115)
[2024-09-14 14:13] LABS: Glucose, Whole Blood 183 mg/dL (60-115)
[2024-09-14 14:36] LABS: Magnesium 1.9 mg/dL (1.6-2.6)
--- NOTE | 2024-09-14 16:21 | PC.NURSE ---
At 07:22 this nurse went to assess patient. Patient was very obtunded and not responding well to verbal stimuli. Ammonia level at 05:23 was 180. Medical Practice Manager was asked to do POC, which came back at 13. Rapid response was called. D50 25grams x 2 was given IV at 07:29. Vitals : BP 113/65 HR 85 RR 12 T 97.6 SaO2 94%. Patient started to wake up and was mentating better. Recheck of POC was 334. EKG was done and was NSR. With rapid response team in the room, patient mentation returned to baseline. She was A&O x3 and conversing and answering questions appropriately. New order for D5LR at 80ml/hr. and for hourly POC x 4 draws, which were WNL. POC now back to AC & Hs. Pt ate 50% of breakfast and lunch and is now resting comfortably, with no complaints.
[2024-09-14 16:33] LABS: Glucose, Whole Blood 203 mg/dL (60-115)
[2024-09-14] MEDS: Insulin Lispro 100 UNIT/ML 3 ML VIAL SUBCUT ×2 (17:24→22:17)
[2024-09-14 21:08] LABS: Glucose, Whole Blood 255 mg/dL (60-115)
[2024-09-14] MEDS: Atorvastatin Calcium 40 MG TABLET PO (22:17)
[2024-09-14] MEDS: cefTRIAXone sodium 1 GM VIAL IVPUSH (22:18)
[2024-09-14] MEDS: Latanoprost 0.005 % Ophth Sol 2.5 ML DROPS EYE-BOTH (22:27)
[2024-09-15 04:00] VITALS: BP 111/64; PULSE 73; RESP 16; TEMP 36.3; O2SAT 98
[2024-09-15] MEDS: Omeprazole 20 MG CAPSULE.DR PO (05:57)
[2024-09-15] MEDS: HYDROcodone Bit/Acetam 5/325 TABLET 1 TAB PO ×3 (06:00→21:20)
--- NOTE | 2024-09-15 06:53 | PC.NURSE ---
Assumed care of patient at 19:00. Pt was A&Ox4, appropriately arousable to voice and entering the room overnight. D5NS bag finished infusing in the evening. POC was 255, patient was given diabetic snack as per pt request. Pt ate and tolerated many snacks overnight as per her request. Pt voiding at bedside commode with 2+ max assist as stand/pivot with walker 2/2 weakness/deconditioning. Urine mixed with liquid stool as pt is on lactulose. Bladder scanned to assess post-void residual per handoff/ reported retention during the day yesterday. PVR was 320ml. Pt denies pelvic pressure,pain, or urge. Covering Dr. Harris notified with orders to bladder scan q.shift or prn if pt becomes symptomatic. No further complaints overnight. Handoff report given to oncoming RN 06:45.
[2024-09-15 07:30] LABS: Glucose, Whole Blood 114 mg/dL (60-115)
[2024-09-15 07:52] LABS: Ammonia 84 umol/L (13-55); Hematocrit 28.2 % (37.0-47.0); Hemoglobin 9.4 g/dl (12.0-16.0)
[2024-09-15 07:59] LABS: Anion Gap 11 (12-20); Blood Urea Nitrogen 9 mg/dL (9-16); Carbon Dioxide 23 mmol/L (22-29); Chloride 110 mmol/L (96-108); Creatinine Clr Calc Pharmacy 99.5; Estimated Glomerular Filt Rate > 60; Glucose Random 94 mg/dL (60-115); Potassium 3.8 mmol/L (3.3-5.1); Sodium 140 mmol/L (135-145)
[2024-09-15 08:00] VITALS: BP 138/70; PULSE 78; RESP 18; TEMP 36.6; O2SAT 100
[2024-09-15] MEDS: Dorzolamide/Timolo 2.23%/0.68% 10 ML DRBTL 1 DROP EYE-BOTH ×3 (08:24→21:20)
[2024-09-15] MEDS: Ferrous Sulfate 324 MG TABLET.DR PO (08:24)
[2024-09-15] MEDS: SITagliptin Phosphate 100 MG TABLET PO (08:25)
[2024-09-15] MEDS: Gabapentin 300 MG CAPSULE PO ×3 (08:25→21:20)
[2024-09-15] MEDS: DULoxetine HCl 60 MG CAPSULE.DR PO ×2 (08:25→21:19)
[2024-09-15] MEDS: busPIRone HCl 5 MG TABLET 7.5 MG PO ×2 (08:25→21:19)
[2024-09-15] MEDS: Midodrine HCl 5 MG TABLET PO ×3 (08:25→21:19)
[2024-09-15] MEDS: Lactulose 20 GM/30 ML SOLUTION 30 GM PO ×3 (08:28→21:19)
[2024-09-15] MEDS: 0.9 % Sodium Chloride Flush 3 ML SYRINGE IVFLUSH ×3 (08:29→21:20)
[2024-09-15] MEDS: Nystatin Cream 15 GM TUBE 1 APPL TOPICAL ×2 (08:31→21:30)
--- NOTE | 2024-09-15 09:52 | ECG_ITS ---
Test Reason : cp Blood Pressure : */* mmHG Vent. Rate : 67 BPM Atrial Rate : 67 BPM P-R Int : 136 ms QRS Dur : 72 ms QT Int : 442 ms P-R-T Axes : 28 29 29 degrees QTcB Int : 467 ms Normal sinus rhythm Low voltage QRS Nonspecific T wave abnormality Prolonged QT Abnormal ECG When compared to the previous EKG of Aberrant conduction is no longer Present QT has lengthened l Referred By: Sahara Howard Electronically Signed By: Triston Montenegro
--- NOTE | 2024-09-15 10:14 | P.PNIM_ITS ---
Subjective Subjective Date of Service: 09/15/24 Interval History: Follow up encephalopathy had hypoglycemia this morning with bs of 13, RR called no chest pain, sob, nausea or vomiting Review of Systems All other system reviewed and are negative. Physical Exam 2 Vital Signs: Vital Signs: Last Vital Signs Temp 97.9 F 09/15/24 08:00 Pulse 78 09/15/24 08:00 Resp 18 09/15/24 08:00 BP 138/70 09/15/24 08:00 Pulse Ox 100 09/15/24 08:00 O2 Del Method Room Air 09/15/24 08:00 BMI result Body Mass Index 28.0 Objective Data Active Medications Acetaminophen (Acetaminophen 325 Mg Tablet) 650 mg PO Q6H PRN PRN Reason: Pain, Mild 1-3,fever,headache Hydrocodone Bitart/Acetaminophen (Hydrocodone Bit/Acetam 5/325 Tablet) 1 tab PO Q6H PRN PRN Reason: Pain, Severe (Pain Scale 7-10) Last Admin: 09/15/24 06:00 Dose: 1 tab Documented By: SULEMA Atorvastatin Calcium (Atorvastatin Calcium 40 Mg Tablet) 40 mg PO BEDTIME [facility] Last Admin: 09/14/24 22:17 Dose: 40 mg Documented By: CONRADO Buspirone HCl (Buspirone Hcl 5 Mg Tablet) 7.5 mg PO BID [facility] Last Admin: 09/15/24 08:25 Dose: 7.5 mg Documented By: TONNY Calcium Carbonate (Calcium Carbonate 750 Mg Tab.Chew) 750 mg PO Q4H PRN PRN Reason: Heartburn Ceftriaxone Sodium (Ceftriaxone Sodium 1 Gm Vial) 1 gm IVPUSH Q24H [facility] Stop: 09/15/24 23:59 Last Admin: 09/14/24 22:18 Dose: 1 gm Documented By: CONRADO Dextrose (Dextrose 50 % 25 Gm/50 Ml Syringe) 25 gm IVPUSH Q15M PRN; Protocol PRN Reason: per Hypoglycemia Standing Ord. Last Admin: 09/14/24 07:29 Dose: 25 gm Documented By: TONNY Dorzolamide/Timolol (Dorzolamide/Timolo 2.23%/0.68% 10 Ml Drbtl) 1 drop EYE- BOTH TID [facility] Last Admin: 09/15/24 08:24 Dose: 1 drop Documented By: TONNY Duloxetine HCl (Duloxetine Hcl 60 Mg Capsule.) 60 mg PO BID [facility] Last Admin: 09/15/24 08:25 Dose: 60 mg Documented By: TONNY Ferrous Sulfate (Ferrous Sulfate 324 Mg Tablet.) 324 mg PO DAILY [facility] Last Admin: 09/15/24 08:24 Dose: 324 mg Documented By: TONNY Gabapentin (Gabapentin 300 Mg Capsule) 300 mg PO TID [facility] Last Admin: 09/15/24 08:25 Dose: 300 mg Documented By: TONNY Glucose (Glucose Gel 15 Gm Gel..Gram.) 15 gm PO Q15M PRN; Protocol PRN Reason: per Hypoglycemia Standing Ord. Insulin Glargine (Insulin Glargine,Hum.Rec.Anlog 100 Unit/Ml 10 Ml Vial) 5.6 unit SUBCUT BEDTIME [facility] Last Admin: 09/13/24 21:23 Dose: 5.6 unit Documented By: CINDY Insulin Human Lispro (Insulin Lispro 100 Unit/Ml 3 Ml Vial) 0 unit SUBCUT QIDACHS [facility]; Protocol Last Admin: 09/15/24 07:32 Dose: Not Given Documented By: TONNY Non-Admin Reason: No Insulin Coverage Lactulose (Lactulose 20 Gm/30 Ml Solution) 30 gm PO TID [facility] Last Admin: 09/15/24 08:28 Dose: 30 gm Documented By: TONNY Latanoprost (Latanoprost 0.005 % Ophth Ivy 2.5 Ml Drops) 0 drop EYE-BOTH BEDTIME [facility] Last Admin: 09/14/24 22:27 Dose: 1 drop Documented By: CONRADO Lorazepam (Lorazepam 0.5 Mg Tablet) 0.5 mg PO Q6H PRN PRN Reason: Anxiety Magnesium Hydroxide (Milk Of Magnesia 30 Ml Oral.Susp) 30 ml PO DAILY PRN PRN Reason: Constipation Melatonin (Melatonin 3 Mg Tablet) 6 mg PO BEDTIME PRN PRN Reason: Insomnia Midodrine (Midodrine Hcl 5 Mg Tablet) 5 mg PO TID [facility] Last Admin: 09/15/24 08:25 Dose: 5 mg Documented By: TONNY Non-Formulary Medication (Netarsudil [Rhopressa]) 1 drop EYE-BOTH BEDTIME [facility] Nystatin (Nystatin Cream 15 Gm Tube) 1 appl TOPICAL BID [facility]; Protocol Last Admin: 09/15/24 08:31 Dose: 1 appl Documented By: TONNY Omeprazole (Omeprazole 20 Mg Capsule.Dr) 20 mg PO DAILY@0630 [facility] Last Admin: 09/15/24 05:57 Dose: 20 mg Documented By: SULEMA Sitagliptin Phosphate (Sitagliptin Phosphate 100 Mg Tablet) 100 mg PO DAILY [facility] Last Admin: 09/15/24 08:25 Dose: 100 mg Documented By: TONNY Sodium Chloride (0.9 % Sodium Chloride Flush 3 Ml Syringe) 3 ml IVFLUSH QSHIFT [facility] Last Admin: 09/15/24 08:29 Dose: 3 ml Documented By: TONNY Labs 09/15/24 07:37 09/15/24 07:37 Labs: Laboratory Results - last 24 hr 09/14/24 09/14/24 09/14/24 08:22 10:13 10:56 Anion Gap Estim Creat Clear Calc Estimated GFR POC Glucose 142 H 126 H Random Glucose Calcium Magnesium 1.9 Ammonia 09/14/24 09/14/24 09/14/24 12:08 13:24 14:09 Anion Gap Estim Creat Clear Calc Estimated GFR POC Glucose 119 H 183 H 183 H Random Glucose Calcium Magnesium Ammonia 09/14/24 09/14/24 09/15/24 16:27 21:05 07:20 Anion Gap Estim Creat Clear Calc Estimated GFR POC Glucose 203 H 255 H 114 Random Glucose Calcium Magnesium Ammonia 09/15/24 07:37 Anion Gap 11 L Estim Creat Clear Calc 99.5 Estimated GFR > 60 POC Glucose Random Glucose 94 Calcium 7.0 L Magnesium Ammonia 84 H Microbiology Microbiology Results: Microbiology 09/11/24 21:17 Urine Culture - Final Urine clean catch - Clean Catch Midstream Escherichia coli 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 Resolved RR called 09/14/24 for BS of 13 s/p 2 amps of D50 given, and D5ns started stable POCs now hold long acting insulin for now Acute metabolic encephalopathy Resolved was likely Multifactorial due to elevated ammonia level UTI, chronic pain medications, anxiolytics Small subarachnoid hemorrhage Likely due to fall with head strike Neurosurgery at [facility] suggested no intervention repeat CT head in 24 hours remains unchanged, Seen by Neurology they recommend no further intervention if repeat CT head is stable. Elevated ammonia with hepatic steatosis and likely due to gastric bypass abdominal ultrasound showed dense/filling the gallbladder without findings of cholelithiasis or cholecystitis, densely echogenic liver that can be seen with fatty infiltration on medical liver disease, Continue lactulose, monitor clinical status Ecoli Urinary tract infection continue Ceftriaxone blood cultures negative Diabetes with hyperglycemia Blood sugar stable continue Insulin sliding scale diabetic diet and basal insulin (tresiba 8u) and resume Januvia Orthostatic hypotension likely autonomic dysfunction from diabetes Midodrine/teds Chronic leukocytosis and anemia workup at [facility] showed high iron saturation 69% with ferritin 667 and outpatient follow-up hematology at [facility] History of 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 Knutson Full Code Given change in mental status, intracranial bleed, need for lactulose for possible hepatic encephalopathy and need for culture results will require continued inpatient hospitalization Quality Stroke Does the patient have a stroke diagnosis?: No VTE Prior VTE?: No VTE Risk Level:: Medical - moderate - high VTE Device Contraindication: N/A - Device Ordered VTE Drug Contraindication: Treatment Not Tolerated
[2024-09-15] MEDS: Albumin Human 25 % 100 ML IV ×2 (11:34→12:18)
[2024-09-15 11:43] LABS: Glucose, Whole Blood 152 mg/dL (60-115)
[2024-09-15 11:50] VITALS: BP 126/69; PULSE 65; RESP 17; TEMP 36.8; O2SAT 99
[2024-09-15] MEDS: Insulin Lispro 100 UNIT/ML 3 ML VIAL SUBCUT ×3 (11:56→21:18)
[2024-09-15 15:13] VITALS: BP 128/64; PULSE 80; RESP 17; TEMP 36.4; O2SAT 99
[2024-09-15 16:41] LABS: Glucose, Whole Blood 279 mg/dL (60-115)
[2024-09-15 19:16] VITALS: BP 131/66; PULSE 77; RESP 20; TEMP 36.3; O2SAT 99
[2024-09-15 19:59] LABS: Glucose, Whole Blood 269 mg/dL (60-115)
[2024-09-15] MEDS: Atorvastatin Calcium 40 MG TABLET PO (21:19)
[2024-09-15] MEDS: Latanoprost 0.005 % Ophth Sol 2.5 ML DROPS EYE-BOTH (21:20)
[2024-09-15] MEDS: cefTRIAXone sodium 1 GM VIAL IVPUSH (21:20)
[2024-09-15 23:05] VITALS: BP 131/67; PULSE 63; RESP 18; TEMP 36.3; O2SAT 99
[2024-09-16 03:28] VITALS: BP 115/60; PULSE 79; RESP 16; TEMP 36.3; O2SAT 98
[2024-09-16] MEDS: HYDROcodone Bit/Acetam 5/325 TABLET 1 TAB PO ×3 (04:23→17:51)
[2024-09-16] MEDS: Omeprazole 20 MG CAPSULE.DR PO (04:24)
[2024-09-16 07:31] VITALS: BP 119/63; PULSE 79; RESP 16; TEMP 36.2; O2SAT 99
[2024-09-16 07:40] LABS: Glucose, Whole Blood 133 mg/dL (60-115)
[2024-09-16] MEDS: Midodrine HCl 5 MG TABLET PO ×3 (08:38→20:34)
[2024-09-16] MEDS: busPIRone HCl 5 MG TABLET 7.5 MG PO ×2 (08:38→20:34)
[2024-09-16] MEDS: Gabapentin 300 MG CAPSULE PO ×3 (08:38→20:34)
[2024-09-16] MEDS: Ferrous Sulfate 324 MG TABLET.DR PO (08:38)
[2024-09-16] MEDS: SITagliptin Phosphate 100 MG TABLET PO (08:38)
[2024-09-16] MEDS: DULoxetine HCl 60 MG CAPSULE.DR PO ×2 (08:38→20:34)
[2024-09-16] MEDS: Lactulose 20 GM/30 ML SOLUTION 30 GM PO ×3 (08:41→20:35)
[2024-09-16] MEDS: Nystatin Cream 15 GM TUBE 1 APPL TOPICAL ×2 (08:41→20:45)
[2024-09-16] MEDS: 0.9 % Sodium Chloride Flush 3 ML SYRINGE IVFLUSH ×3 (08:42→22:15)
[2024-09-16] MEDS: LORazepam 0.5 MG TABLET PO (08:44)
[2024-09-16] MEDS: Dorzolamide/Timolo 2.23%/0.68% 10 ML DRBTL 1 DROP EYE-BOTH ×3 (08:44→20:35)
[2024-09-16 11:12] LABS: Glucose, Whole Blood 207 mg/dL (60-115)
[2024-09-16 11:44] VITALS: BP 125/74; PULSE 88; RESP 18; TEMP 36.3; O2SAT 95
--- NOTE | 2024-09-16 11:53 | HO.PM.IMPN ---
Subjective Subjective Date of Service: 09/16/24 Interval History: Follow up encephalopathy no further hypoglycemia no chest pain, sob, nausea or vomiting Review of Systems All other system reviewed and are negative. Physical Exam Vital Signs: Vital Signs: Last Vital Signs Temp 97.3 F 09/16/24 11:44 Pulse 88 09/16/24 11:44 Resp 18 09/16/24 11:44 BP 125/74 09/16/24 11:44 Pulse Ox 95 09/16/24 11:44 O2 Del Method Room Air 09/16/24 11:44 BMI result Body Mass Index 28.0 Appearing in no acute distress lung sounds are clear to auscultation heart regular rate rhythm, clear S1, S2 positive bowel sounds, abdomen is soft, nontender neuro patient is alert x3, no focal deficits Objective Data Active Medications Acetaminophen (Acetaminophen 325 Mg Tablet) 650 mg PO Q6H PRN PRN Reason: Pain, Mild 1-3,fever,headache Hydrocodone Bitart/Acetaminophen (Hydrocodone Bit/Acetam 5/325 Tablet) 1 tab PO Q6H PRN PRN Reason: Pain, Severe (Pain Scale 7-10) Last Admin: 09/16/24 11:15 Dose: 1 tab Documented By: TONNY Atorvastatin Calcium (Atorvastatin Calcium 40 Mg Tablet) 40 mg PO BEDTIME [facility] Last Admin: 09/15/24 21:19 Dose: 40 mg Documented By: DEJA-JOZEB Buspirone HCl (Buspirone Hcl 5 Mg Tablet) 7.5 mg PO BID [facility] Last Admin: 09/16/24 08:38 Dose: 7.5 mg Documented By: TONNY Calcium Carbonate (Calcium Carbonate 750 Mg Tab.Chew) 750 mg PO Q4H PRN PRN Reason: Heartburn Dextrose (Dextrose 50 % 25 Gm/50 Ml Syringe) 25 gm IVPUSH Q15M PRN; Protocol PRN Reason: per Hypoglycemia Standing Ord. Last Admin: 09/14/24 07:29 Dose: 25 gm Documented By: TONNY Dorzolamide/Timolol (Dorzolamide/Timolo 2.23%/0.68% 10 Ml Drbtl) 1 drop EYE-BOTH TID [facility] Last Admin: 09/16/24 08:44 Dose: 1 drop Documented By: TONNY Duloxetine HCl (Duloxetine Hcl 60 Mg Capsule.Dr) 60 mg PO BID [facility] Last Admin: 09/16/24 08:38 Dose: 60 mg Documented By: TONNY Ferrous Sulfate (Ferrous Sulfate 324 Mg Tablet.) 324 mg PO DAILY [facility] Last Admin: 09/16/24 08:38 Dose: 324 mg Documented By: TONNY Gabapentin (Gabapentin 300 Mg Capsule) 300 mg PO TID [facility] Last Admin: 09/16/24 08:38 Dose: 300 mg Documented By: TONNY Glucose (Glucose Gel 15 Gm Gel..Gram.) 15 gm PO Q15M PRN; Protocol PRN Reason: per Hypoglycemia Standing Ord. Insulin Glargine (Insulin Glargine,Hum.Rec.Anlog 100 Unit/Ml 10 Ml Vial) 5.6 unit SUBCUT BEDTIME [facility] Last Admin: 09/13/24 21:23 Dose: 5.6 unit Documented By: CINDY Insulin Human Lispro (Insulin Lispro 100 Unit/Ml 3 Ml Vial) 0 unit SUBCUT QIDACHS [facility]; Protocol Last Admin: 09/16/24 07:36 Dose: Not Given Documented By: TONNY Non-Admin Reason: No Insulin Coverage Lactulose (Lactulose 20 Gm/30 Ml Solution) 30 gm PO TID [facility] Last Admin: 09/16/24 08:41 Dose: 30 gm Documented By: TONNY Latanoprost (Latanoprost 0.005 % Ophth Ivy 2.5 Ml Drops) 0 drop EYE-BOTH BEDTIME [facility] Last Admin: 09/15/24 21:20 Dose: 1 drop Documented By: N-JOZEB Lorazepam (Lorazepam 0.5 Mg Tablet) 0.5 mg PO Q6H PRN PRN Reason: Anxiety Last Admin: 09/16/24 08:44 Dose: 0.5 mg Documented By: TONNY Magnesium Hydroxide (Milk Of Magnesia 30 Ml Oral.Susp) 30 ml PO DAILY PRN PRN Reason: Constipation Melatonin (Melatonin 3 Mg Tablet) 6 mg PO BEDTIME PRN PRN Reason: Insomnia Midodrine (Midodrine Hcl 5 Mg Tablet) 5 mg PO TID [facility] Last Admin: 09/16/24 08:38 Dose: 5 mg Documented By: TONNY Nystatin (Nystatin Cream 15 Gm Tube) 1 appl TOPICAL BID [facility]; Protocol Last Admin: 09/16/24 08:41 Dose: 1 appl Documented By: TONNY Omeprazole (Omeprazole 20 Mg Capsule.) 20 mg PO DAILY@0630 [facility] Last Admin: 09/16/24 04:24 Dose: 20 mg Documented By: MELVIN Sitagliptin Phosphate (Sitagliptin Phosphate 100 Mg Tablet) 100 mg PO DAILY [facility] Last Admin: 09/16/24 08:38 Dose: 100 mg Documented By: TONNY Sodium Chloride (0.9 % Sodium Chloride Flush 3 Ml Syringe) 3 ml IVFLUSH QSHIFT [facility] Last Admin: 09/16/24 08:42 Dose: 3 ml Documented By: TONNY Labs 09/15/24 07:37 09/15/24 07:37 Labs: Laboratory Results - last 24 hr 09/15/24 09/15/24 09/16/24 16:34 19:18 07:35 POC Glucose 279 H 269 H 133 H 09/16/24 11:06 POC Glucose 207 H 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 Resolved RR called 09/14/24 for BS of 13 s/p 2 amps of D50 given, and D5ns started stable POCs now hold long acting insulin for now Acute metabolic encephalopathy Resolved was likely Multifactorial due to elevated ammonia level UTI, chronic pain medications, anxiolytics Small subarachnoid hemorrhage Likely due to fall with head strike Neurosurgery at [facility] suggested no intervention repeat CT head in 24 hours remains unchanged, Seen by Neurology they recommend no further intervention if repeat CT head is stable. Elevated ammonia with hepatic steatosis and likely due to gastric bypass abdominal ultrasound showed dense/filling the gallbladder without findings of cholelithiasis or cholecystitis, densely echogenic liver that can be seen with fatty infiltration on medical liver disease, Continue lactulose, monitor clinical status Ecoli Urinary tract infection continue Ceftriaxone blood cultures negative Diabetes with hyperglycemia Blood sugar stable continue Insulin sliding scale diabetic diet and basal insulin (tresiba 8u) and resume Januvia Orthostatic hypotension likely autonomic dysfunction from diabetes Midodrine/teds Chronic leukocytosis and anemia workup at [facility] showed high iron saturation 69% with ferritin 667 and outpatient follow-up hematology at [facility] History of 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 Valle Full Code Given change in mental status, intracranial bleed, need for lactulose for possible hepatic encephalopathy and need for culture results will require continued inpatient hospitalization Quality Stroke Does the patient have a stroke diagnosis?: No VTE Prior VTE?: No VTE Risk Level:: Medical - moderate - high VTE Device Contraindication: N/A - Device Ordered VTE Drug Contraindication: Treatment Not Tolerated
[2024-09-16] MEDS: Insulin Lispro 100 UNIT/ML 3 ML VIAL SUBCUT ×3 (11:55→20:36)
--- NOTE | 2024-09-16 15:07 | MHC.SLORD ---
Speech Language Pathology Order Status: RN consulted, pt tolerating diet as ordered. REFRACTORY FURNACE DESIGNER stopped to see pt 2/2, PT assisting pt in IADLs. REFRACTORY FURNACE DESIGNER to followup x1 as pt PO tolerance adequate, no concerns for aspiration at this time.
[2024-09-16 15:13] VITALS: BP 118/63; PULSE 90; RESP 16; TEMP 36.4; O2SAT 100
--- NOTE | 2024-09-16 16:14 | MHC.CM.PN ---
pt ready for dc await auth from ins
[2024-09-16 16:38] LABS: Glucose, Whole Blood 205 mg/dL (60-115)
--- NOTE | 2024-09-16 17:13 | HO.WOUND ---
Wound Consult: Initial 53yr old?[place] [facility] [place] See progress notes and H&P for detailed history.? Wound consult placed for Left buttock and Abdominal skin folds.? Patient agreeable to assessment and photo documentation.? She reports incontinence at this time with liquid loose stools. Sacrum / Coccyx is noted for MASD. Sacrum Etiology: MASD (Moisture Associated Skin Damage)??Present on Admission Wound Bed: scattered areas of partial thickness tissue loss Drainage / Odor: none noted Edges: irregular Heavenly wound: ?pink blanchable tissue - No Induration, Fluctuance or Warmth noted Pain: tenderness reported Goals of Treatment: ? barrier cream to protect from friction and allow for moist wound healing Right Back - Dry stable scab in place - pt reports it is secondary to a fall a few weeks ago at home. Recommend foam dressing to cover and protect from friction ad the scab is lifting. Abdominal skin fold - MASD - Intertrigo - moisture trapped within the skin fold is suspected etiology - there is a central full thickness wound noted - it is round in nature and not consistent with friction or MASD intertrigo however the patient was repeatedly touching the site with her bare fingers and reported this was significantly improved since her admission. She reports she does not treat at home. Recommend Durafiber to the round full thickness wound bed and Interdry to the skin fold for moisture management. Recommendations: 1. Turn and Reposition every 2 hours and as needed for patient comfort.? Use pillows or wedges to support off loading positions. 2. Off Load all bony prominences with use of pillows and heel boots if needed.? Apply Preventative foams where needed. ? 3. Monitor for incontinence and moisture control, use barrier creams when needed for prevention and treatment. 4. Provide adequate and supplemental nutrition.? 5. Order low air loss mattress. 6. When applicable maintain blood glucose levels per Providers order. 7. Sacrum - Off Load Pressure with Q2 hr turns and use of pillows - Cleanse with PH balance spray or wipes, pat dry. ?Apply thin layer of Triad to wound bed - only pat and dab no scrub and rub when soiling occurs. Reapply thin layer PRN after each episode of incontinence. 8. Abdominal Skin Fold - Cleanse with Ph balanced wipes, pat dry. Aply skin prep - cover open wound bed with Durafiber AG cut to size cover with dry gauze. Change every other day. Tuck Interdry AG Sheet into skin fold to wick and translocate moisture away from skin fold.? Be sure to leave at least 2 inch of fabric exposed outside of skin fold.? Change after 5 days or when soiled. 9. Right Back - Cleanse with NS moist gauze. Apply skin prep allow to dry. Cover with dry gauze dressing or foam dressing. Change every 5 days and PRN. Re-consult wound care Nurse for wound deterioration or wound changes.
[2024-09-16 19:24] VITALS: BP 118/61; PULSE 100; RESP 16; TEMP 36.4; O2SAT 100
[2024-09-16 19:54] LABS: Glucose, Whole Blood 211 mg/dL (60-115)
[2024-09-16] MEDS: Atorvastatin Calcium 40 MG TABLET PO (20:34)
[2024-09-16] MEDS: Latanoprost 0.005 % Ophth Sol 2.5 ML DROPS EYE-BOTH (20:35)
[2024-09-16] MEDS: Acetaminophen 325 MG TABLET 650 MG PO (21:23)
[2024-09-16 23:14] VITALS: BP 115/61; PULSE 86; RESP 20; TEMP 36.4; O2SAT 100
[2024-09-17] MEDS: HYDROcodone Bit/Acetam 5/325 TABLET 1 TAB PO ×4 (01:22→21:40)
[2024-09-17 03:49] VITALS: BP 108/55; PULSE 99; RESP 18; TEMP 36.7; O2SAT 98
[2024-09-17] MEDS: Omeprazole 20 MG CAPSULE.DR PO (06:05)
[2024-09-17 07:35] VITALS: BP 109/63; PULSE 97; RESP 16; TEMP 36.3; O2SAT 96
[2024-09-17 07:50] LABS: Glucose, Whole Blood 238 mg/dL (60-115)
[2024-09-17] MEDS: Dorzolamide/Timolo 2.23%/0.68% 10 ML DRBTL 1 DROP EYE-BOTH ×3 (08:05→20:26)
[2024-09-17] MEDS: Insulin Lispro 100 UNIT/ML 3 ML VIAL SUBCUT ×4 (08:05→20:28)
[2024-09-17] MEDS: SITagliptin Phosphate 100 MG TABLET PO (08:05)
[2024-09-17] MEDS: Ferrous Sulfate 324 MG TABLET.DR PO (08:05)
[2024-09-17] MEDS: DULoxetine HCl 60 MG CAPSULE.DR PO ×2 (08:05→20:26)
[2024-09-17] MEDS: Gabapentin 300 MG CAPSULE PO ×3 (08:05→20:26)
[2024-09-17] MEDS: Midodrine HCl 5 MG TABLET PO ×3 (08:05→20:26)
[2024-09-17] MEDS: 0.9 % Sodium Chloride Flush 3 ML SYRINGE IVFLUSH ×3 (08:06→20:29)
[2024-09-17] MEDS: Lactulose 20 GM/30 ML SOLUTION 30 GM PO ×3 (08:06→20:27)
[2024-09-17] MEDS: busPIRone HCl 5 MG TABLET 7.5 MG PO ×2 (08:06→20:27)
--- NOTE | 2024-09-17 08:15 | HO.PM.IMPN ---
Subjective Subjective Date of Service: 09/17/24 Interval History: Follow up encephalopathy no further hypoglycemia no chest pain, sob, nausea or vomiting Review of Systems All other system reviewed and are negative. Physical Exam Vital Signs: Vital Signs: Last Vital Signs Temp 97.3 F 09/17/24 07:35 Pulse 97 09/17/24 07:35 Resp 16 09/17/24 07:35 BP 109/63 09/17/24 07:35 Pulse Ox 96 09/17/24 07:35 O2 Del Method Room Air 09/17/24 07:35 BMI result Body Mass Index 28.0 Appearing in no acute distress lung sounds are clear to auscultation heart regular rate rhythm, clear S1, S2 positive bowel sounds, abdomen is soft, nontender neuro patient is alert x3, no focal deficits Objective Data Active Medications Acetaminophen (Acetaminophen 325 Mg Tablet) 650 mg PO Q6H PRN PRN Reason: Pain, Mild 1-3,fever,headache Last Admin: 09/16/24 21:23 Dose: 650 mg Documented By: ERIKA Hydrocodone Bitart/Acetaminophen (Hydrocodone Bit/Acetam 5/325 Tablet) 1 tab PO Q6H PRN PRN Reason: Pain, Severe (Pain Scale 7-10) Last Admin: 09/17/24 08:05 Dose: 1 tab Documented By: CHUY Atorvastatin Calcium (Atorvastatin Calcium 40 Mg Tablet) 40 mg PO BEDTIME [facility] Last Admin: 09/16/24 20:34 Dose: 40 mg Documented By: ERIKA Buspirone HCl (Buspirone Hcl 5 Mg Tablet) 7.5 mg PO BID [facility] Last Admin: 09/17/24 08:06 Dose: 7.5 mg Documented By: CHUY Calcium Carbonate (Calcium Carbonate 750 Mg Tab.Chew) 750 mg PO Q4H PRN PRN Reason: Heartburn Dextrose (Dextrose 50 % 25 Gm/50 Ml Syringe) 25 gm IVPUSH Q15M PRN; Protocol PRN Reason: per Hypoglycemia Standing Ord. Last Admin: 09/14/24 07:29 Dose: 25 gm Documented By: TONNY Dorzolamide/Timolol (Dorzolamide/Timolo 2.23%/0.68% 10 Ml Drbtl) 1 drop EYE-BOTH TID [facility] Last Admin: 09/17/24 08:05 Dose: 1 drop Documented By: CHUY Duloxetine HCl (Duloxetine Hcl 60 Mg Capsule.) 60 mg PO BID [facility] Last Admin: 09/17/24 08:05 Dose: 60 mg Documented By: CHUY Ferrous Sulfate (Ferrous Sulfate 324 Mg Tablet.) 324 mg PO DAILY [facility] Last Admin: 09/17/24 08:05 Dose: 324 mg Documented By: CHUY Gabapentin (Gabapentin 300 Mg Capsule) 300 mg PO TID [facility] Last Admin: 09/17/24 08:05 Dose: 300 mg Documented By: CHUY Glucose (Glucose Gel 15 Gm Gel..Gram.) 15 gm PO Q15M PRN; Protocol PRN Reason: per Hypoglycemia Standing Ord. Insulin Glargine (Insulin Glargine,Hum.Rec.Anlog 100 Unit/Ml 10 Ml Vial) 5.6 unit SUBCUT BEDTIME [facility] Last Admin: 09/13/24 21:23 Dose: 5.6 unit Documented By: CINDY Insulin Human Lispro (Insulin Lispro 100 Unit/Ml 3 Ml Vial) 0 unit SUBCUT QIDACHS [facility]; Protocol Last Admin: 09/17/24 08:05 Dose: 4 unit Documented By: CHUY Lactulose (Lactulose 20 Gm/30 Ml Solution) 30 gm PO TID [facility] Last Admin: 09/17/24 08:06 Dose: 30 gm Documented By: CHUY Latanoprost (Latanoprost 0.005 % Ophth Ivy 2.5 Ml Drops) 0 drop EYE-BOTH BEDTIME [facility] Last Admin: 09/16/24 20:35 Dose: 1 drop Documented By: ERIKA Lorazepam (Lorazepam 0.5 Mg Tablet) 0.5 mg PO Q6H PRN PRN Reason: Anxiety Last Admin: 09/16/24 08:44 Dose: 0.5 mg Documented By: GRAZARGENTINA Magnesium Hydroxide (Milk Of Magnesia 30 Ml Oral.Susp) 30 ml PO DAILY PRN PRN Reason: Constipation Melatonin (Melatonin 3 Mg Tablet) 6 mg PO BEDTIME PRN PRN Reason: Insomnia Midodrine (Midodrine Hcl 5 Mg Tablet) 5 mg PO TID [facility] Last Admin: 09/17/24 08:05 Dose: 5 mg Documented By: CHUY Nystatin (Nystatin Cream 15 Gm Tube) 1 appl TOPICAL BID [facility]; Protocol Last Admin: 09/16/24 20:45 Dose: 1 appl Documented By: ERIKA Omeprazole (Omeprazole 20 Mg Capsule.) 20 mg PO DAILY@0630 [facility] Last Admin: 09/17/24 06:05 Dose: 20 mg Documented By: ERIKA Sitagliptin Phosphate (Sitagliptin Phosphate 100 Mg Tablet) 100 mg PO DAILY [facility] Last Admin: 09/17/24 08:05 Dose: 100 mg Documented By: CHUY Sodium Chloride (0.9 % Sodium Chloride Flush 3 Ml Syringe) 3 ml IVFLUSH QSHIFT [facility] Last Admin: 09/17/24 08:06 Dose: 3 ml Documented By: CHUY Labs 09/15/24 07:37 09/17/24 08:41 Labs: Laboratory Results - last 24 hr 09/16/24 09/16/24 09/16/24 11:06 16:34 19:27 POC Glucose 207 H 205 H 211 H 09/17/24 07:33 POC Glucose 238 H Microbiology Microbiology Results: Microbiology 09/11/24 20:05 Blood Culture - Final Blood - Venous No growth after 5 days. 09/11/24 19:59 Blood Culture - Final Blood - Venous No growth after 5 days. 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, chronic diastolic CHF, hepatic steatosis, orthostatic hypotension, chronic leukocytosis, mood disorder presented with altered mental status, found to have small subarachnoid hemorrhage, elevated ammonia, positive UA Elevated ammonia with hepatic steatosis and likely due to gastric bypass abdominal ultrasound showed dense/filling the gallbladder without findings of cholelithiasis or cholecystitis, densely echogenic liver that can be seen with fatty infiltration or medical liver disease Continue lactulose, monitor clinical status GI consult for hyperammonemia Chronic lower extremity edema/hypoalbuminemia with hepatic steatosis previously was on hydrochlorothiazide for leg edema that was discontinued due to orthostatic hypotension high-protein diet and Fei's recent echo showed EF 53% no DVT on venous Doppler at [facility] Hypoglycemia. Resolved RR called 09/14/24 for BS of 13 s/p 2 amps of D50 given, and D5ns stable POCs now stopped long acting insulin, may likely not need at home Acute metabolic encephalopathy Resolved was likely Multifactorial due to elevated ammonia level UTI, chronic pain medications, anxiolytics Small subarachnoid hemorrhage Likely due to fall with head strike Neurosurgery at [facility] suggested no intervention repeat CT head in 24 hours remains unchanged, Seen by Neurology they recommend no further intervention if repeat CT head is stable. 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 Valle Full Code Quality Stroke Does the patient have a stroke diagnosis?: No VTE Prior VTE?: No VTE Risk Level:: Medical - moderate - high VTE Device Contraindication: N/A - Device Ordered VTE Drug Contraindication: Treatment Not Tolerated
[2024-09-17 09:03] LABS: Ammonia 67 umol/L (13-55)
[2024-09-17 09:23] LABS: Alanine Aminotransferase 12 U/L (0-31); Albumin Level 1.5 g/dL (3.5-5.0); Alkaline Phosphatase 114 U/L (39-117); Anion Gap 15 (12-20); Aspartate Amino Transferase 36 U/L (5-31); Bilirubin Direct 0.3 mg/dL (0.0-0.5); Bilirubin Total 0.8 mg/dL (0.0-1.0); Blood Urea Nitrogen 5 mg/dL (9-16); Calcium 6.6 mg/dL (8.4-10.2); Carbon Dioxide 22 mmol/L (22-29); Chloride 109 mmol/L (96-108); Estimated Glomerular Filt Rate > 60; Glucose Random 256 mg/dL (60-115); Potassium 3.5 mmol/L (3.3-5.1); Sodium 142 mmol/L (135-145); Total Protein 4.7 g/dL (6.5-8.0)
[2024-09-17 11:24] LABS: Glucose, Whole Blood 217 mg/dL (60-115)
[2024-09-17 11:41] VITALS: BP 116/71; PULSE 95; RESP 16; TEMP 36.6; O2SAT 99
--- NOTE | 2024-09-17 13:02 | PM.DS ---
DS: Providers Provider Date of admission: 09/11/24 22:21 Primary care physician: Nayeli Sena MD Consults: 09/11/24 22:18 Consult to Neurology Routine Consulting Provider: [facility] Reason for consultation: intracranial bleed 09/13/24 03:15 Consult to Wound Care Routine Reason for consultation: fungus with open areas to lower abdominal fold. 09/15/24 00:51 Consult to Wound Care Routine Reason for consultation: open area left buttock, moisture to pannus 09/16/24 14:38 Consult to Gastroenterology Routine Consulting Provider: Marcos Hough Reason for consultation: hyperamonia, fatty liver,anemia DS: Diagnosis Discharge Diagnosis (1) Subarachnoid hemorrhage: Status: Acute (2) Dumping syndrome: Status: Acute (3) Orthostatic hypotension: Status: Acute (4) Diabetes mellitus: Status: Acute (5) Metabolic encephalopathy: Status: Acute DS: Summary Hospital Course Hospital Course: History and physical as per admitting provider. 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 Patient is a vague historian, was recently discharged from [facility] on 09/01/2024 after hospitalization for false due to orthostatic hypotension. Since coming home patient has been feeling weak, dizzy on ambulation, overall just feeling off. Denies any dysuria, fever, chills. Reports fall with head strike 2 days prior to presentation. Family called EMS due to concerns of patient not being herself. In ED, found to have elevated ammonia of 92, positive UA, CT head with small focus of subarachnoid hemorrhage of the medial margin of the left frontal lobe. Case was discussed by ED with Neurosurgery at [facility] who felt patient did not require transfer to tertiary center at this time, recommended follow-up CT head in 24 hours. Elevated ammonia with hepatic steatosis and likely due to gastric bypass, abdominal ultrasound showed dense/filling the gallbladder without findings of cholelithiasis or cholecystitis, densely echogenic liver that can be seen with fatty infiltration or medical liver disease. Continue lactulose Chronic lower extremity edema/hypoalbuminemia with hepatic steatosis, previously was on hydrochlorothiazide for leg edema that was discontinued due to orthostatic hypotension high-protein diet and Fei's, recent echo showed EF 53%, no DVT on venous Doppler at [facility] DM2 with Hypoglycemia. RR called 09/14/24 for BS of 13, s/p 2 amps of D50 given, and D5ns, stable POCs now , stopped long acting insulin. continue januvia Acute metabolic encephalopathy. Resolved was likely Multifactorial due to elevated ammonia level, UTI, chronic pain medications, anxiolytics Small subarachnoid hemorrhage. due to fall with head strike. Neurosurgery at [facility] suggested no intervention, repeat CT head remained unchanged, Seen by Neurology with no further intervention. Ecoli Urinary tract infection, s/p Ceftriaxone. 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 lisinopril and hydrochlorothiazide at at [facility] Fibromyalgia/anxiety/chronic back pain. Continue on chronic opioids and benzodiazepines. Frequent falls over the last few months. Seen evaluated by Physical therapy with recommendation for short-term rehab Physical Exam Vital Signs: Vital Signs: Last Vital Signs Temp 97.9 F 09/17/24 11:41 Pulse 95 09/17/24 11:41 Resp 16 09/17/24 11:41 BP 116/71 09/17/24 11:41 Pulse Ox 99 09/17/24 11:41 O2 Del Method Room Air 09/17/24 11:41 BMI result Body Mass Index 28.0 DS: Data Data Completed and Pending Labs on day of discharge: Laboratory Results - last 24 hr 09/16/24 09/16/24 09/17/24 16:34 19:27 07:33 Sodium Potassium Chloride Carbon Dioxide Anion Gap BUN Creatinine Estim Creat Clear Calc Estimated GFR POC Glucose 205 H 211 H 238 H Random Glucose Calcium Total Bilirubin Direct Bilirubin AST ALT Alkaline Phosphatase Ammonia Total Protein Albumin 09/17/24 09/17/24 08:41 11:18 Sodium 142 Potassium 3.5 Chloride 109 H Carbon Dioxide 22 Anion Gap 15 BUN 5 L Creatinine 0.80 Estim Creat Clear Calc 87.0 Estimated GFR > 60 POC Glucose 217 H Random Glucose 256 H Calcium 6.6 L Total Bilirubin 0.8 Direct Bilirubin 0.3 AST 36 H ALT 12 Alkaline Phosphatase 114 Ammonia 67 H Total Protein 4.7 L Albumin 1.5 L Discharge Plan Discharge Patient Disposition: er [facility] Discharge Diagnosis: Subarachnoid hemorrhage Hypoglycemia Dumping syndrome Hypoalbuminemia Referrals: juani [Other] - 1 Week Discharge Medications: Continued atorvastatin 40 mg tablet 40 mg PO DAILY midodrine 5 mg tablet 5 mg PO TID aspirin 81 mg tablet,delayed release (DR/EC) 81 mg PO DAILY oxycodone-acetaminophen 5-325 mg tablet 1 tab PO Q6H PRN (Reason: pain) ferrous sulfate [FeroSul] 325 mg (65 mg iron) tablet 325 mg PO DAILY omeprazole 20 mg capsule,delayed release(DR/EC) 20 mg PO DAILY@0630 dorzolamide-timolol 22.3-6.8 mg/mL drops 1 drp ophthalmic (eye) TID ergocalciferol (vitamin D2) 1,250 mcg (50,000 unit) capsule 1,250 mcg PO TH lisinopril 40 mg tablet 40 mg PO DAILY buspirone 15 mg tablet 15 mg PO BID duloxetine 60 mg capsule,delayed release(DR/EC) 60 mg PO BID Januvia 100 mg tablet 100 mg PO DAILY Rhopressa 0.02 % drops 1 drp ophthalmic (eye) BEDTIME latanoprost 0.005 % drops 1 drp ophthalmic (eye) BEDTIME lorazepam 0.5 mg tablet 0.5 - 1 mg PO BEDTIME glucose 4 gram tablet,chewable 8 - 16 g PO NEEDED hydrochlorothiazide 25 mg tablet 25 mg PO DAILY loratadine 10 mg tablet 10 mg PO DAILY lorazepam 0.5 mg tablet 0.5 mg PO DAILY PRN (Reason: Anxiety) Discontinued insulin degludec [Tresiba FlexTouch U-200] 200 unit/mL (3 mL) insulin pen 6 - 8 unit subcut BEDTIME Diet: Advance to usual diet Activity on Discharge: As tolerated Stand Alone Forms: Patient Portal Discharge page Print Language: [place] Health Concerns: Subarachnoid hemorrhage Hypoglycemia Dumping syndrome Hypoalbuminemia Plan of Treatment: Follow-up with primary care provider as needed Take all medications as prescribed Assessment: See discharge summary
--- NOTE | 2024-09-17 13:33 | MHC.SL.SWA ---
Speech Pathologist Impression: Mild oral phase dysphagia d/t limited dentition, patient self-selects foods which are easier to chew Risk of Aspiration Due to: Neurological Condition Dysphasia Diet Status: No Change Liquid Consistency and Strategies for Safe Swallow: Liquid Intake Recommendation: Thin Liquid Intake Strategies: Unrestricted Solid Food Consistency: Dietary Recommendations: Regular Additional Modifications to Solid Foods: Patient is at reported baseline, tolerating regular texture diet without difficulty. Please re-refer with any changes or further concern. Oral Medication Intake: Whole with Liquid Please contact the pharmacy regarding appropriate crushable or liquid drug formulations that are available whenever modified delivery is recommended. Compensatory Strategies and Precautions to be Taken for Safe Swallow: Sitting Upright (90 deg) Small Bites and Sips Alternate Liquids/Solids Rate of Ingestion Change Supervision While Eating and Drinking for Safe Swallow: None Needed Foods to Avoid: Avoid hard, tough to chew solids Swallowing Recommended Treatments: Compens. Strategy Educat. Recommendation for Speech: D/C Paint Prepper Clinican/Clinical Fellow: No Supervisory Statement: I have reviewed and agree with the student/clinical fellow's documentation: N/A Speech Language Pathologist: Rosamaria Warner M.A., CCC-CHIEF JAILER
[2024-09-17 15:13] VITALS: BP 113/70; PULSE 92; RESP 20; TEMP 36.6; O2SAT 100
[2024-09-17] MEDS: Nystatin Cream 15 GM TUBE 1 APPL TOPICAL ×2 (15:20→20:31)
[2024-09-17 16:17] LABS: Glucose, Whole Blood 252 mg/dL (60-115)
[2024-09-17 19:07] VITALS: BP 116/68; PULSE 115; RESP 20; TEMP 36.9; O2SAT 98
[2024-09-17 19:41] LABS: Glucose, Whole Blood 228 mg/dL (60-115)
[2024-09-17] MEDS: Latanoprost 0.005 % Ophth Sol 2.5 ML DROPS EYE-BOTH (20:26)
[2024-09-17] MEDS: Atorvastatin Calcium 40 MG TABLET PO (20:27)
[2024-09-17] MEDS: LORazepam 0.5 MG TABLET PO (22:28)
[2024-09-17 23:50] VITALS: BP 122/65; PULSE 90; RESP 18; TEMP 36.8; O2SAT 98
--- NOTE | 2024-09-18 02:32 | CONS_ITS ---
DATE OF SERVICE: 09/17/2024 REFERRING PHYSICIAN: Sahara Howard NP REASON FOR CONSULTATION: Elevated ammonia and fatty liver on ultrasound imaging. HISTORY OF PRESENT ILLNESS: The patient is a pleasant 53-year-old woman who was admitted to the hospital after presenting to the emergency department on September 11 with complaints of weakness and a fall at home. She was evaluated in the emergency department and CT scanning of the head showed a subarachnoid hemorrhage of the left frontal lobe that was small and managed conservatively. In the emergency department, she was noted to have elevations of her liver function tests with a total bilirubin slightly elevated at 1.1, alkaline phosphatase at 134, and normal transaminases. Albumin was significantly low at 1.8. Imaging during this hospital stay has included ultrasound of the abdomen, which is consistent with fatty change. She has also had an elevated ammonia and has been treated with lactulose. She provides no history of liver disease. She states she does not drink alcohol. She does use oxycodone on a regular basis as well as benzodiazepines. She was previously hospitalized at [facility] and CT scanning of the abdomen and pelvis in August was consistent with fatty liver as well. She does have a family history of fatty liver in her mother and states her mother was diagnosed with nonalcoholic steatohepatitis. PAST MEDICAL HISTORY: 1. Hypertension, now with orthostatic hypotension. 2. Fatty liver. 3. Diastolic congestive heart failure. 4. Gastric bypass with dumping syndrome. 5. Diabetes mellitus. 6. Leukocytosis. 7. Mood disorder. CURRENT MEDICATIONS: Her current medication list is reviewed in the chart. ALLERGIES: THERE ARE NONE REPORTED. FAMILY HISTORY: This is reviewed with the patient as above. SOCIAL HISTORY: There is no current tobacco, alcohol, or substance abuse. REVIEW OF SYSTEMS: SKIN: No pruritus. HEENT: Negative. CARDIOPULMONARY: No shortness of breath or chest pain. GASTROINTESTINAL: As above. GENITOURINARY: Negative. NEUROPSYCHIATRIC: Negative. PHYSICAL EXAMINATION: GENERAL: Shows a pleasant female, lying comfortably in bed. She is alert and oriented and able to give a very good medical history. SKIN: Anicteric. HEENT: Shows no scleral icterus. NECK: Without lymphadenopathy or thyromegaly. LUNGS: Clear. HEART: Shows a regular rate and rhythm. S1, S2. No murmur. ABDOMEN: Soft without focal masses or tenderness. Bowel sounds are present. No organomegaly is noted. EXTREMITIES: Show edema. LABORATORY DATA AND IMAGING STUDIES: Reviewed. IMPRESSION: 1. Fatty liver. 2. Elevated ammonia. It seems unlikely that her elevated ammonia level is related to underlying significant liver disease based on her history of fatty liver and mild liver function test elevations. This is not typically seen in patients with mild liver disease and is usually seen in patients with well-established cirrhosis. We discussed this today. There is no evidence of that on current imaging. I think it is reasonable to treat her with lactulose for the time being. She does not have asterixis on examination today and venous ammonias are fairly inconsistent for routine monitoring. I would recommend further evaluation with autoimmune markers, liver fibrosis testing, and hepatitis serologies which do not appear to have been done recently. Thanks for asking me to see her. I will follow her in the hospital with you. MD ANICETO Madrid/FRANTZ / [id number] MTDD
[2024-09-18 03:54] VITALS: BP 130/70; PULSE 98; RESP 18; TEMP 36.6; O2SAT 98
[2024-09-18] MEDS: Omeprazole 20 MG CAPSULE.DR PO (05:25)
[2024-09-18] MEDS: HYDROcodone Bit/Acetam 5/325 TABLET 1 TAB PO (05:26)
[2024-09-18 07:34] VITALS: BP 131/79; PULSE 95; RESP 16; TEMP 36.2; O2SAT 98
[2024-09-18 07:49] LABS: Glucose, Whole Blood 206 mg/dL (60-115)
[2024-09-18] MEDS: SITagliptin Phosphate 100 MG TABLET PO (08:00)
[2024-09-18] MEDS: Insulin Lispro 100 UNIT/ML 3 ML VIAL SUBCUT ×2 (08:00→11:50)
[2024-09-18] MEDS: DULoxetine HCl 60 MG CAPSULE.DR PO (08:00)
[2024-09-18] MEDS: Gabapentin 300 MG CAPSULE PO (08:01)
[2024-09-18] MEDS: Midodrine HCl 5 MG TABLET PO (08:01)
[2024-09-18] MEDS: busPIRone HCl 5 MG TABLET 7.5 MG PO (08:01)
[2024-09-18] MEDS: Dorzolamide/Timolo 2.23%/0.68% 10 ML DRBTL 1 DROP EYE-BOTH ×2 (08:02→12:39)
[2024-09-18] MEDS: Ferrous Sulfate 324 MG TABLET.DR PO (08:02)
[2024-09-18] MEDS: 0.9 % Sodium Chloride Flush 3 ML SYRINGE IVFLUSH (08:02)
[2024-09-18] MEDS: Lactulose 20 GM/30 ML SOLUTION 30 GM PO (08:02)
--- NOTE | 2024-09-18 08:56 | P.PNGI_ITS ---
Subjective Subjective Date of Service: 09/18/24 Interval History: seen and examined this morning tolerating diet, continues on lactulose Critical Care Time (minutes): 0 Physical Exam 2 Vital Signs: Vital Signs: Last Vital Signs Temp 97.2 F 09/18/24 07:34 Pulse 95 09/18/24 07:34 Resp 16 09/18/24 07:34 BP 131/79 09/18/24 07:34 Pulse Ox 98 09/18/24 07:34 O2 Del Method Room Air 09/18/24 07:34 BMI result Body Mass Index 28.0 GI: Other: abdomen is soft and nontender extremities show edema no asterixis awake alert and oriented, provides concise history Objective Data Labs 09/15/24 07:37 09/17/24 08:41 Labs: Laboratory Results - last 24 hr 09/17/24 09/17/24 09/17/24 08:41 11:18 16:14 Sodium 142 Potassium 3.5 Chloride 109 H Carbon Dioxide 22 Anion Gap 15 BUN 5 L Creatinine 0.80 Estim Creat Clear Calc 87.0 Estimated GFR > 60 POC Glucose 217 H 252 H Random Glucose 256 H Calcium 6.6 L Total Bilirubin 0.8 Direct Bilirubin 0.3 AST 36 H ALT 12 Alkaline Phosphatase 114 Ammonia 67 H Total Protein 4.7 L Albumin 1.5 L 09/17/24 09/18/24 19:11 07:33 Sodium Potassium Chloride Carbon Dioxide Anion Gap BUN Creatinine Estim Creat Clear Calc Estimated GFR POC Glucose 228 H 206 H Random Glucose Calcium Total Bilirubin Direct Bilirubin AST ALT Alkaline Phosphatase Ammonia Total Protein Albumin Microbiology Microbiology Results: Microbiology 09/11/24 20:05 Blood - Venous Blood Culture - Final No growth after 5 days. 09/11/24 19:59 Blood - Venous Blood Culture - Final No growth after 5 days. 09/11/24 21:17 Urine clean catch - Clean Catch Midstream Urine Culture - Final Escherichia coli Procedures Date of Service Date of Service: 09/18/24 Progress Note: A&P Assessment and plan (1) Metabolic encephalopathy: Status: Acute Assessment and Plan: [facility] records reviewed, no previous liver disease identified except fatty liver on ct. Current metabolic, viral and autoimmune workup pending can f/u as outpatient. Reviewed with patient and RN Time Spent With Patient Time: Total time managing care of this patient today ____ minutes. Quality Stroke Does the patient have a stroke diagnosis?: No VTE Prior VTE?: No VTE Risk Level:: Medical - moderate - high VTE Device Contraindication: N/A - Device Ordered VTE Drug Contraindication: Treatment Not Tolerated
[2024-09-18 09:08] LABS: Iron 49 mcg/dL (30-160); Percent Iron Saturation 66 % (15-50); Total Iron Binding Capacity 74 mcg/dL (228-428); Unsaturated Iron Binding < 25 ug/dL
[2024-09-18 09:21] LABS: Ferritin 565 ng/mL (10-250)
--- NOTE | 2024-09-18 10:26 | P.DS_ITS ---
DS: Providers Provider Date of Service: 09/18/24 Date of admission: 09/11/24 22:21 Date of discharge: 09/18/24 Primary care physician: Nayeli Sena MD Consults: 09/11/24 22:18 Consult to Neurology Routine Consulting Provider: [facility] Reason for consultation: intracranial bleed 09/13/24 03:15 Consult to Wound Care Routine Reason for consultation: fungus with open areas to lower abdominal fold. 09/15/24 00:51 Consult to Wound Care Routine Reason for consultation: open area left buttock, moisture to pannus 09/16/24 14:38 Consult to Gastroenterology Routine Consulting Provider: Marcos Hough Reason for consultation: hyperamonia, fatty liver,anemia DS: Diagnosis Discharge Diagnosis (1) Metabolic encephalopathy: Status: Acute (2) Diabetes mellitus: Status: Acute (3) Gastric bypass status for obesity: Status: Acute (4) Dumping syndrome: Status: Acute (5) Subarachnoid hemorrhage: Status: Acute (6) Hyperammonemia: Status: Acute (7) Orthostatic hypotension: Status: Acute DS: Summary Hospital Course Hospital Course: From the history and physical by the admitting hospitalist, Jose Ramon Jj MD, 09/11/24: 53F PMH diabetes, hypertension, 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, chronic diastolic CHF, hepatic steatosis, orthostatic hypotension, chronic l eukocytosis, mood disorder presented with altered mental status. Patient is a vague historian, was recently discharged from [facility] on 09/01/2024 after hospitalization for false due to orthostatic hypotension. Since coming home patient has been feeling weak, dizzy on ambulation, overall just feeling off. Denies any dysuria, fever, chills. Reports fall with head strike 2 days prior to presentation. Family called EMS due to concerns of patient not being herself. In ED, found to have elevated ammonia of 92, positive UA, CT head with small focus of subarachnoid hemorrhage of the medial margin of the left frontal lobe. Case was discussed by ED with Neurosurgery at [facility] who felt patient did not require transfer to tertiary center at this time, recommended follow-up CT head in 24 hours. She was admitted to the medical-surgical unit. Hospital course by problem: Elevated ammonia: No asterixis. Imaging with hepatic steatosis. Ultimately likely due to gastric bypass with dumping syndrome. Unlikely cirrhosis. GI consulted and serological workup for chronic liver disease sent and will follow up as outpatient in 2 weeks. Lactulose started; to continue for now. Chronic lower extremity edema/hypoalbuminemia: Previously was on hydrochlorothiazide for leg edema that was discontinued due to orthostatic hypotension. Recommend high-protein diet and BRIA stockings. Recent echo showed EF 53%. No DVT on recent venous Doppler at [facility]. DM2 with hypoglycemia: Rapid response called 09/14/24 for symptomatic hypoglycemia with glucose of 13. Resolved after 2 amps of D50 given IV. Stopped long-acting insulin. Sitagliptin continued. Acute metabolic encephalopathy: Resolved; was likely due to UTI. Small subarachnoid hemorrhage: Due to fall with head strike. Neurosurgery at [facility] suggested no intervention, repeat CT head remained unchanged. Seen by Neurology with no further intervention recommended. E. coli urinary tract infection: Treated with full course of cefftriaxone. Blood cultures negative. Orthostatic hypotension: Likely autonomic dysfunction from diabetes. To continue midodrine and BRIA stockings recommended. Chronic leukocytosis and anemia: Workup at [facility] showed high iron saturation 69% with ferritin 667; plan outpatient follow-up hematology at [facility]. History of 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: Outpatient follow-up with Gastroenterology. Fibromyalgia/anxiety/chronic back pain: Continued on chronic opioids and benzodiazepines. Frequent falls over the last few months: Seen evaluated by Physical therapy with recommendation for short-term rehab; [facility]. Time Attestation Discharge Coordination Time (in mins): 35 Quality: Safe Use of Opioids Does Pt have an Active Cancer Diagnosis on the Problem List?: No Quality: Stroke Does the patient have a stroke diagnosis?: No Physical Exam Vital Signs: Vital Signs: Last Vital Signs Temp 97.2 F 09/18/24 07:34 Pulse 95 09/18/24 07:34 Resp 16 09/18/24 07:34 BP 131/79 09/18/24 07:34 Pulse Ox 98 09/18/24 07:34 O2 Del Method Room Air 09/18/24 07:34 BMI result Body Mass Index 28.0 Gen: in no acute distress, generalized weakness HEENT: sclera anicteric, moist mucus membranes Neck: supple Lungs: clear to auscultation bilaterally Heart: regular rate and rhythm, no murmurs Abd: soft, non-tender, non-distended Ext: no edema Skin: warm/well-perfused Neuro: alert and oriented x3, no focal findings, no asterixis Psych: appropriate affect DS: Data Data Completed and Pending Completed studies during hospitalization [Text1]: Laboratory Results WBC 16.1 X10*3/uL (4.8-10.8) H 09/14/24 08:22 RBC 2.94 X10*6/uL (4.20-5.50) L 09/14/24 08:22 Hgb 9.4 g/dl (12.0-16.0) L 09/15/24 07:37 Hct 28.2 % (37.0-47.0) L 09/15/24 07:37 MCV 102.0 fL (80.0-98.0) H 09/14/24 08:22 MCH 32.7 pg (27.0-33.0) 09/14/24 08:22 MCHC 32.0 g/dl (31.0-35.0) 09/14/24 08:22 RDW 18.8 % (11.0-16.0) H 09/14/24 08:22 Plt Count 285 X10*3/uL (160-400) 09/14/24 08:22 MPV 11.0 fL (9.4-12.3) 09/14/24 08:22 Immature Gran % (Auto) 1.1 % (0.0-0.4) H 09/11/24 16:45 Neut % (Auto) 89.1 % (45-73) H 09/11/24 16:45 Lymph % (Auto) 5.8 % (20-40) L 09/11/24 16:45 Wallace % (Auto) 3.9 % (2-11) 09/11/24 16:45 Eos % (Auto) 0.0 % (0-4) 09/11/24 16:45 Baso % (Auto) 0.1 % (0-2) 09/11/24 16:45 Lymph # (Auto) 1.5 X10*3/uL (1.2-4.9) 09/11/24 16:45 Wallace # (Auto) 1.0 X10*3/uL (0.1-1.2) 09/11/24 16:45 Eos # (Auto) 0.0 X10*3/uL (0.0-0.4) 09/11/24 16:45 Baso # (Auto) 0.0 X10*3/uL (0.0-0.2) 09/11/24 16:45 Abs Immat Gran (auto) 0.28 X10*3/uL (0.00-0.03) H 09/11/24 16:45 Absolute Neuts (auto) 23.3 x10*3/uL (2.0-8.3) H 09/11/24 16:45 Absolute Nucleated RBC 0.000 X10*3/uL (0.0-0.012) 09/14/24 08:22 Nucleated RBC % (auto) 0.0 /100WBC (0.0-0.2) 09/14/24 08:22 Smear Tech's Comments VERIFIED 09/11/24 16:45 PT 14.1 SEC (10.9-12.4) H 09/11/24 19:08 INR 1.2 (0.9-1.1) H 09/11/24 19:08 Sodium 142 mmol/L (135-145) 09/17/24 08:41 Potassium 3.5 mmol/L (3.3-5.1) 09/17/24 08:41 Chloride 109 mmol/L (96-108) H 09/17/24 08:41 Carbon Dioxide 22 mmol/L (22-29) 09/17/24 08:41 Anion Gap 15 (12-20) 09/17/24 08:41 BUN 5 mg/dL (9-16) L 09/17/24 08:41 Creatinine 0.80 mg/dL (0.5-1.4) 09/17/24 08:41 Estim Creat Clear Calc 87.0 09/17/24 08:41 Estimated GFR > 60 09/17/24 08:41 POC Glucose 206 mg/dL (60-115) H 09/18/24 07:33 Random Glucose 256 mg/dL (60-115) H 09/17/24 08:41 Lactic Acid 2.0 mmol/L (0.5-2.0) 09/11/24 19:08 Calcium 6.6 mg/dL (8.4-10.2) L 09/17/24 08:41 Magnesium 1.9 mg/dL (1.6-2.6) 09/14/24 08:22 Iron 49 mcg/dL (30-160) 09/18/24 07:57 TIBC 74 mcg/dL (228-428) L 09/18/24 07:57 % Saturation 66 % (15-50) H 09/18/24 07:57 Unsat Iron Binding < 25 ug/dL 09/18/24 07:57 Ferritin 565 ng/mL (10-250) H 09/18/24 07:57 Total Bilirubin 0.8 mg/dL (0.0-1.0) 09/17/24 08:41 Direct Bilirubin 0.3 mg/dL (0.0-0.5) 09/17/24 08:41 AST 36 U/L (5-31) H 09/17/24 08:41 ALT 12 U/L (0-31) 09/17/24 08:41 Alkaline Phosphatase 114 U/L (39-117) 09/17/24 08:41 Ammonia 67 umol/L (13-55) H 09/17/24 08:41 Total Protein 4.7 g/dL (6.5-8.0) L 09/17/24 08:41 Albumin 1.5 g/dL (3.5-5.0) L 09/17/24 08:41 Urine Color Dark Yellow 09/11/24 21:17 Urine Appearance Turbid 09/11/24 21:17 Urine pH 6.5 (5.0-9.0) 09/11/24 21:17 Ur Specific Wilson 1.020 (1.005-1.025) 09/11/24 21:17 Urine Protein Trace mg/dL (Neg-Trace) 09/11/24 21:17 Urine Glucose (UA) Negative mg/dL (Negative) 09/11/24 21:17 Urine Ketones Negative mg/dL (Negative) 09/11/24 21:17 Urine Blood Small (1+) (Negative) H 09/11/24 21:17 Urine Nitrite Negative (Negative) 09/11/24 21:17 Ur Leukocyte Esterase Moderate (2+) (Negative) H 09/11/24 21:17 Urine RBC 6-10 /HPF (0-2) H 09/11/24 21:17 Urine WBC >50 /HPF (0-5) H 09/11/24 21:17 Ur Squamous Epith Cells 0-2 /HPF (0-2) 09/11/24 21:17 Urine Bacteria 4+ (None Seen) 09/11/24 21:17 Hyaline Casts 0-2 /LPF (0-2) 09/11/24 21:17 Urine Opiates Screen POSITIVE (Not Detect) H 09/11/24 21:17 Ur Buprenorphine Scrn Not Detected ng/mL (Not Detect) 09/11/24 21:17 Ur Oxycodone Screen Positive ng/mL (Not Detect) H 09/11/24 21:17 Urine Methadone Screen Not Detected ng/mL (Not Detect) 09/11/24 21:17 Urine Fentanyl Screen Not Detected (Not Detect) 09/11/24 21:17 Ur Barbiturates Screen Not Detected (Not Detect) 09/11/24 21:17 Ur Phencyclidine Scrn Not Detected (Not Detect) 09/11/24 21:17 Ur Amphetamines Screen Not Detected (Not Detect) 09/11/24 21:17 U Benzodiazepines Scrn Not Detected (Not Detect) 09/11/24 21:17 Urine Cocaine Screen Not Detected (Not Detect) 09/11/24 21:17 U Marijuana (THC) Screen Not Detected (Not Detect) 09/11/24 21:17 Influenza Type A (PCR) NEGATIVE (Negative) 09/11/24 19:08 Influenza Type B (PCR) NEGATIVE (Negative) 09/11/24 19:08 RSV RNA Qual (PCR) NEGATIVE (Negative) 09/11/24 19:08 SARS-CoV-2 RNA (RT-PCR) NEGATIVE (Negative) 09/11/24 19:08 CXR 09/11/24 Low lung volumes with mild bibasilar atelectasis. CT head 09/11/24 1. Small focus of the subarachnoid hemorrhage of the medial margin of the left frontal lobe. 2. No hydrocephalus or midline shift. US abd 09/11/24 1. Dense sludge filling the gallbladder without findings of cholelithiasis or cholecystitis. 2. Densely echogenic liver. This can be seen with fatty infiltration or medical liver disease. 3. Trace perihepatic free fluid. CT head 09/12/24 1. No significant change from yesterday. Discharge Plan Discharge Anticipated Discharge Date/Time: 09/18/24 12:23 Patient Disposition: Xfer SNF Discharge Diagnosis: Subarachnoid hemorrhage Hypoglycemia Dumping syndrome Hypoalbuminemia Referrals: juani [Other] - 1 Week Marcos Hough MD [Physician] - 2 Weeks Discharge Medications: New lactulose 20 gram/30 mL Solution 30 g PO TID Qty: 1 0RF Continued atorvastatin 40 mg tablet 40 mg PO DAILY midodrine 5 mg tablet 5 mg PO TID aspirin 81 mg tablet,delayed release (DR/EC) 81 mg PO DAILY oxycodone-acetaminophen 5-325 mg tablet 1 tab PO Q6H PRN (Reason: pain) ferrous sulfate [FeroSul] 325 mg (65 mg iron) tablet 325 mg PO DAILY omeprazole 20 mg capsule,delayed release(DR/EC) 20 mg PO DAILY@0630 dorzolamide-timolol 22.3-6.8 mg/mL drops 1 drp ophthalmic (eye) TID ergocalciferol (vitamin D2) 1,250 mcg (50,000 unit) capsule 1,250 mcg PO TH lisinopril 40 mg tablet 40 mg PO DAILY buspirone 15 mg tablet 15 mg PO BID duloxetine 60 mg capsule,delayed release(DR/EC) 60 mg PO BID Januvia 100 mg tablet 100 mg PO DAILY Rhopressa 0.02 % drops 1 drp ophthalmic (eye) BEDTIME latanoprost 0.005 % drops 1 drp ophthalmic (eye) BEDTIME lorazepam 0.5 mg tablet 0.5 - 1 mg PO BEDTIME glucose 4 gram tablet,chewable 8 - 16 g PO NEEDED hydrochlorothiazide 25 mg tablet 25 mg PO DAILY loratadine 10 mg tablet 10 mg PO DAILY lorazepam 0.5 mg tablet 0.5 mg PO DAILY PRN (Reason: Anxiety) Discontinued insulin degludec [Tresiba FlexTouch U-200] 200 unit/mL (3 mL) insulin pen 6 - 8 unit subcut BEDTIME Discharge Orders: Discharge Order (Routine); Ordered 09/18/24 Ordered By: Casa Coleman Diet: Advance to usual diet Activity on Discharge: As tolerated Stand Alone Forms: Patient Portal Discharge page Print Language: Bahraini Care Plan Goals: recovery from illness Health Concerns: Subarachnoid hemorrhage Hypoglycemia Dumping syndrome Hypoalbuminemia Plan of Treatment: Take lactulose; titrate to 3 soft BM/day Follow up with Dr Hough from Gastroenterology in 2 weeks Please follow up with your primary care doctor within 1 week of discharge from SNF. Return to the hospital if you experience recurrent or worsening symptoms. Assessment: See discharge summary
--- NOTE | 2024-09-18 10:58 | MHC.CM.PN ---
pt ot go to [facility] at 1 today pt will notify family
[2024-09-18 11:28] LABS: Glucose, Whole Blood 243 mg/dL (60-115)
[2024-09-18 11:41] VITALS: BP 118/71; PULSE 85; RESP 16; TEMP 36.7; O2SAT 97
[2024-09-18] MEDS: oxyCODONE HCl Immed Release 5 MG TABLET PO (12:33)
[2024-09-18] MEDS: Nystatin Cream 15 GM TUBE 1 APPL TOPICAL (12:34)
[2024-09-24 05:38] LABS: Smooth Muscle Antibody <20 U (<20)
[2024-09-24 13:38] LABS: Anti Nuclear Antibody Screen NEGATIVE (NEGATIVE)
[2024-09-24 16:18] LABS: Mitochondrial Antibodies NEGATIVE (NEGATIVE)
== END 2024-09-18 13:02 | disposition skilled nursing facility (03) | DRG 82 ==
LOC: HO.ED 17:33 → HO.EDOVER 22:27 → HO.S3 09-12 12:37
PROVIDERS: Hospitalist; Internal Medicine Gastroenterology; Nurse Practitioner Acute Care; Student in an Organized Health Care Education/Training Program; Admitting Provider Internal Medicine; Emergency Provider Emergency Medicine Emergency Medical Services; PCP Internal Medicine Endocrinology, Diabetes & Metabolism; Visit Provider Family Medicine
DX: S06.6XAA Traumatic subarachnoid hemorrhage with loss of consciousness status unknown, initial encounter (principal); G93.41 Metabolic encephalopathy; N39.0 Urinary tract infection, site not specified; I50.32 Chronic diastolic (congestive) heart failure; E72.20 Disorder of urea cycle metabolism, unspecified; W19.XXXA Unspecified fall, initial encounter; K76.0 Fatty (change of) liver, not elsewhere classified; E11.65 Type 2 diabetes mellitus with hyperglycemia; I95.1 Orthostatic hypotension; D64.9 Anemia, unspecified; E11.649 Type 2 diabetes mellitus with hypoglycemia without coma; R29.6 Repeated falls; I11.0 Hypertensive heart disease with heart failure; F41.9 Anxiety disorder, unspecified; K76.82 Hepatic encephalopathy; M79.7 Fibromyalgia; G89.29 Other chronic pain; G31.9 Degenerative disease of nervous system, unspecified; F17.210 Nicotine dependence, cigarettes, uncomplicated; B96.20 Unspecified Escherichia coli [E. coli] as the cause of diseases classified elsewhere; K91.1 Postgastric surgery syndromes; Z71.6 Tobacco abuse counseling; Z20.822 Contact with and (suspected) exposure to COVID-19; Z79.82 Long term (current) use of aspirin; Z79.899 Other long term (current) drug therapy
CPT/HCPCS: 0241U; 36415; 70450; 71045; 76705; 80048; 80053; 80076; 80307; 81001; 81596; 82140; 82728; 82947; 83540; 83605; 83735; 85014; 85018; 85025; 85027; 85610; 86015; 86038; 86381; 87040; 87086; 87088; 87186; 92526; 92610; 93005; 97116; 97162; 97530; 99285; J0696; J2543; J2919; P9047

== ENCOUNTER → 2024-09-11 16:05 | Outpatient (BNV) | payer OTHER, SELFPAY | PROVIDERS: Admitting Provider Internal Medicine; Emergency Provider Emergency Medicine Emergency Medical Services; Visit Provider Internal Medicine | DX: R41.82 Altered mental status, unspecified (principal); R00.0 Tachycardia, unspecified; R94.31 Abnormal electrocardiogram [ECG] [EKG] | CPT/HCPCS: 93010 ==

== ENCOUNTER → 2024-09-11 17:30 | Outpatient (BNV) | payer MEDICARE, MEDICAID, SELFPAY | PROVIDERS: Emergency Provider Emergency Medicine Emergency Medical Services; Visit Provider Radiology Neuroradiology | DX: I60.9 Nontraumatic subarachnoid hemorrhage, unspecified (principal); K76.89 Other specified diseases of liver; R06.02 Shortness of breath; K82.8 Other specified diseases of gallbladder | CPT/HCPCS: 70450; 71045; 76705 ==

== ENCOUNTER 2024-09-11 22:21 | Outpatient (BNV) | payer OTHER, SELFPAY | END 2024-09-14 07:23 | PROVIDERS: Admitting Provider Internal Medicine; Emergency Provider Emergency Medicine Emergency Medical Services; PCP Internal Medicine Endocrinology, Diabetes & Metabolism; Visit Provider Internal Medicine | DX: R94.31 Abnormal electrocardiogram [ECG] [EKG] (principal); R07.9 Chest pain, unspecified | CPT/HCPCS: 93010 ==

== ENCOUNTER 2024-09-11 22:21 | Outpatient (BNV) | payer OTHER, SELFPAY | END 2024-09-15 09:52 | PROVIDERS: Admitting Provider Internal Medicine; Emergency Provider Emergency Medicine Emergency Medical Services; PCP Internal Medicine Endocrinology, Diabetes & Metabolism; Visit Provider Internal Medicine Cardiovascular Disease | DX: R07.9 Chest pain, unspecified (principal); R94.31 Abnormal electrocardiogram [ECG] [EKG] | CPT/HCPCS: 93010 ==

== ENCOUNTER 2024-09-11 22:21 | Outpatient (BNV) | payer OTHER, SELFPAY | END 2024-09-12 17:00 | PROVIDERS: Admitting Provider Internal Medicine; Emergency Provider Emergency Medicine Emergency Medical Services; Visit Provider Specialist | DX: I62.9 Nontraumatic intracranial hemorrhage, unspecified (principal) | CPT/HCPCS: 70450 ==

== ENCOUNTER → 2024-09-11 22:21 | Outpatient (BNV) | payer OTHER, SELFPAY | PROVIDERS: Admitting Provider Internal Medicine; Emergency Provider Emergency Medicine Emergency Medical Services; Visit Provider Psychiatry & Neurology Neurology | DX: I60.9 Nontraumatic subarachnoid hemorrhage, unspecified (principal) | CPT/HCPCS: 99222 ==

== ENCOUNTER → 2024-09-11 22:21 | Outpatient (BNV) | payer MEDICARE, MEDICAID, SELFPAY | PROVIDERS: Admitting Provider Internal Medicine; Emergency Provider Emergency Medicine Emergency Medical Services; Visit Provider Internal Medicine | DX: E11.65 Type 2 diabetes mellitus with hyperglycemia (principal); I60.9 Nontraumatic subarachnoid hemorrhage, unspecified; G93.41 Metabolic encephalopathy | CPT/HCPCS: 99223 ==

== ENCOUNTER 2024-10-16 09:53 | Inpatient (IN) | payer OTHER, SELFPAY ==
[2024-10-16] VITALS (17 sets, daily range): BP systolic 71–125; BP diastolic 46–71; PULSE 104–120; RESP 12–21; TEMP 36.6–37.1; O2SAT 92–100; BMI 26.6
--- NOTE | ~2024-10-16 | XR_ITS ---
CLINICAL HISTORY: OGT placement 1 view chest x-ray Comparison: CR - XR CHEST 1V - 10/20/24 13:36 EDT Findings: Marked interval improvement in diffuse opacities in both lungs with mild residual interstitial prominence. Normal size heart. No acute fracture. Interval retraction of the ET tube, now approximately 6 cm above the safia. Advancement of the catheter by 2 cm is recommended. Interval retraction of the enteric tube with its side port at the GE junction. Advancement of the catheter by 5 cm is recommended. IMPRESSION: 1. Interval retraction of the ET tube nowapproximately 6 cm above the safia. Advancement of the catheter by 2 cm is recommended. 2. Interval retraction of the enteric tube with its side port at the GE junction. Advancement of the catheter by 5 cm is recommended. 3. Improved aeration of both lungs. This document has been electronically signed by: Tammi Bryson MD on 10/21/2024 22:51:25
--- NOTE | ~2024-10-16 | XR_ITS ---
CLINICAL HISTORY: right IJ TLC Chest Radiograph Comparison: CR - XR CHEST 1V - 10/17/24 17:33 EST CR/SR - XR CHEST 1V - 10/16/24 11:09 EST Findings: Right central venous catheter with the tip terminating at the cavoatrial junction. Interval removal of the enteric tube. No cardiomegaly. Normal mediastinal contours. No pneumothorax. Moderate amount of bilateral opacity, increased since the prior study and greater on the left. Moderate bilateral pleural effusions. Normal upper abdomen. No acute fracture. Impression: Properly positioned right central venous catheter Interval increase in bilateral opacity which is moderate is favored to be secondary to edema. Due to asymmetry infection may also be considered. Interval increase in bilateral pleural effusions, currently moderate, favoring pulmonary edema. This document has been electronically signed by: Kalie Brito MD on 10/19/2024 16:32:59
--- NOTE | ~2024-10-16 | XR_ITS ---
EXAMINATION: XR CHEST CLINICAL INFORMATION: AMS COMPARISON: Chest 09/11/2024 TECHNIQUE: Frontal view of the chest was obtained. FINDINGS: No significant abnormality is noted involving the heart, lungs, mediastinum, bony thorax or soft tissues. XR/XR chest 1V IMPRESSION: Unremarkable chest examination Electronically signed by: Keven Vitale MD 10/16/2024 11:53 AM [facility]
--- NOTE | ~2024-10-16 | CT_ITS ---
EXAMINATION: CT HEAD WITHOUT CONTRAST CLINICAL INFORMATION: AMS. COMPARISON: CT brain 09/12/2024 TECHNIQUE: Contiguous axial imaging was performed from the skull base to vertex without intravenous administration of contrast. This CT examination was performed using dose optimization techniques as appropriate, variously including the following: *Automated exposure control *Adjustment of mA and/or kV according to patient size (this includes techniques or standardized protocols for targeted exams where dose is matched to indication/reason for exam; i.e. extremities or head) *Use of iterative reconstruction technique DLP 1098 mGy/cm. FINDINGS: There is no acute intra-axial, extra-axial bleed, masses or midline shift. There is no acute infarction evolution. The arevalo to white matter differentiation is maintained normal. The lateral ventricles are symmetrical in size and configuration but mildly enlarged and so are the cortical sulci. Bone windows reveal no calvarial abnormality. There is no scalp soft tissue abnormality. Bilateral paranasal sinuses and mastoid air cells are well-aerated. CT/CT head/brain wo IV con IMPRESSION: No acute intracranial process seen. Electronically signed by: Keven Vitale MD 10/16/2024 11:50 AM [facility]
--- NOTE | ~2024-10-16 | XR_ITS ---
EXAMINATION: XR ANKLE, RIGHT CLINICAL INFORMATION: right ankle wound, concern for osteo COMPARISON: None available. TECHNIQUE: AP, lateral, and mortise views of the right ankle. FINDINGS: There is bimalleolar soft tissue swelling with a small avulsion bone fragment at tip of medial malleolus. No acute fracture, dislocation or subluxation seen. There is small calcaneal heel spur. The soft tissues are normal. XR/XR ankle RT min 3V IMPRESSION: Small avulsion fracture fragment tip of medial malleolus. No visible acute fracture or dislocation. Bimalleolar soft tissue swelling Small calcaneal heel spur. Electronically signed by: Keven Vitale MD 10/16/2024 11:52 AM [facility]
--- NOTE | ~2024-10-16 | CT_ITS ---
EXAMINATION: CT ABDOMEN AND PELVIS WITHOUT CONTRAST CLINICAL INFORMATION: Elevated ammonia, hypotension. COMPARISON: Chest x-ray 10/16/2024 TECHNIQUE: Multidetector volumetric imaging was performed from the superior aspect of the liver through the pubic symphysis. Sagittal and coronal reformatted images were obtained on the technologist's workstation. This CT examination was performed using dose optimization techniques as appropriate, variously including the following: *Automated exposure control *Adjustment of mA and/or kV according to patient size (this includes techniques or standardized protocols for targeted exams where dose is matched to indication/reason for exam; i.e. extremities or head) *Use of iterative reconstruction technique FINDINGS: LUNG BASES: There are bilateral pleural effusions moderate on the left with underlying consolidation/atelectasis. Heart size is normal. Mild coronary artery calcifications. Trace pericardial effusion. LIVER, GALLBLADDER, AND BILIARY TREE: The liver is normal in size, shape, and attenuation. No focal hepatic lesion or biliary ductal dilatation is present. The gallbladder is unremarkable with no evidence of radiopaque gallstones, gallbladder wall thickening, or obvious pericholecystic inflammatory changes. There is hyperdense bile in gallbladder likely vicarious excretion of contrast versus gravel. PANCREAS: Unremarkable. SPLEEN: Unremarkable. ADRENAL GLANDS: Unremarkable. KIDNEYS AND URETERS: The kidneys are normal in size, shape, and attenuation. No hydronephrosis, hydroureter, or calculi seen. No perinephric stranding. There are intrarenal vascular calcifications BLADDER: The bladder is nondistended with a Dorantes's catheter within. GASTROINTESTINAL TRACT: There are postsurgical changes in left upper quadrant likely from partial gastrectomy and/or gastric reduction surgery . The small bowel loops are normal caliber. Appendix is not seen. Scattered stool is seen in colon is nonspecific mild mural thickening of the distal sigmoid/rectal area with presacral small fluid collection. There is diffuse mesenteric haziness. Question proctitis versus postsurgical changes ABDOMINAL WALL: There is diffuse abdominal wall edema without hernia. LYMPH NODES: Normal. VASCULAR: Unremarkable. PELVIC VISCERA: Unremarkable. OSSEOUS STRUCTURES: Unremarkable. CT/CT abdomen pelvis wo IV con IMPRESSION: Postsurgical changes likely from gastric reduction surgery and/or partial gastrectomy. There is diffuse abdominal wall edema and anasarca. There is mild presacral fluid collection. Masses mild mural thickening of sigmoid colon colon and rectum likely secondary to edema. Moderate left and small right pleural effusion with bilateral lower lobe consolidations/atelectasis. These are not well-visualized on the recent chest x-ray 10/16/2024 Fleischner guidelines were followed. Electronically signed by: Keven Vitale MD 10/17/2024 02:47 PM EST
--- NOTE | ~2024-10-16 | XR_ITS ---
CLINICAL HISTORY: Et tube OG tube placement Chest Radiograph Comparison: CR - XR CHEST 1V - 10/19/24 15:48 EST CR - XR CHEST 1V - 10/17/24 17:[address]/SR - CT ABDOMEN PELVIS WO IV CON - 10/17/24 13:47 EST CR/SR - XR CHEST 1V - 10/16/24 11:09 EST Findings: The endotracheal tube terminates 4.0 cm above the safia. Right central venous catheter with the tip terminating at the cavoatrial junction. The orogastric tube terminates in the upper abdomen. The side port is beyond the gastroesophageal junction. No cardiomegaly. Mediastinal contours are not well evaluated. No pneumothorax. Severe bilateral opacity, increased. Moderate-sized bilateral pleural effusions, similar to the prior study. Normal upper abdomen. No acute fracture. Impression: Properly positioned endotracheal and orogastric tubes. Properly positioned right central venous catheter. Interval increase in bilateral opacity which is severe with moderate-sized bilateral pleural effusions. This likely indicates worsening pulmonary edema. This document has been electronically signed by: Kalie Brito MD on 10/20/2024 15:42:18
--- NOTE | ~2024-10-16 | XR_ITS ---
CLINICAL HISTORY: NG tube placement 1 view chest x-ray Comparison: CT/SR - CT ABDOMEN PELVIS WO IV CON - 10/17/24 13:47 EST CR/SR - XR CHEST 1V - 10/16/24 11:09 EST Findings: Mild opacity of the left lung base. Tip of the NG tube is overlying the stomach. Normal size heart. No acute fracture. IMPRESSION: Tip of NG tube is overlying the stomach. This document has been electronically signed by: Foster Rangel MD on 10/17/2024 18:11:29
--- NOTE | ~2024-10-16 | XR_ITS ---
CLINICAL HISTORY: ett placement 1 view chest x-ray. Comparison: CR - XR CHEST 1V - 10/21/24 20:58 EDT Findings: Endotracheal tube is in satisfactory position about 3.5 cm above the safia. Right IJ central venous catheter is in the SVC. NG tube is in the stomach. Bilateral airspace opacities [id number] are stable from the recent prior study possibly edema or pneumonia. No definite effusion is seen. There is no pneumothorax. Cardiomediastinal silhouette is within normal limits. IMPRESSION: Findings as above. This document has been electronically signed by: Luis Schilling MD on 10/22/2024 02:56:01
--- NOTE | 2024-10-16 09:50 | PC.NURSE ---
Pt presents to ED via EMS from home for AMS. Pt was here 1 month ago for admission, went to rehab and had been home X3 days, family said she was normal last night. Today found her slumped off the couch, confused and not making sense. Pt is alert but very confused, mumbling. Breathing even and unlabored, skin jaundiced and pale. Significant edema noted to body, poor perfusion noted to legs and arms. Wounds noted to bilat heels and coccyx. Pt was covered in feces on arrival, cleaned and changed.
--- NOTE | 2024-10-16 09:59 | ED_ITS ---
HPI - General Adult General Chief complaint: Altered Mental Status Stated complaint: AMS,LOW BP 71/46 PER EMS Time Seen by Provider: 10/16/24 09:59 Source: patient and EMS Mode of arrival: EMS Limitations: altered mental status (patient is confused) History of Present Illness ED Provider: Bebe Liu PA-C HPI narrative: Patient is a 53 year old assigned female at with a history of DM, HTN, 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, diastolic CHF, hepatic steatosis, mood disorder, elevated ammonia secondary to hepatic steatosis, and recent admission for hypotension and UTI with subsequent discharge to SNF, presenting to the emergency department today with confusion. Patient's family states that the patient has been home from the SNF for 3 days and initially was doing well, now doing poorly. Family states that they found the patient half slumped on the couch with her right ankle inverted and acting confused, repeating questions and answers to questions asked of her. Patient is able to answer some questions but unable to provide an HPI. Relieving factors: none Exacerbating factors: none Associated symptoms: confusion Treatments prior to arrival: none Related Data Home Medications ?Medication ?Instructions ?Recorded ?Confirmed aspirin 81 mg tablet,delayed 81 mg PO DAILY 09/11/24 10/16/24 release atorvastatin 40 mg tablet 40 mg PO BEDTIME 09/11/24 10/16/24 buspirone 15 mg tablet 15 mg PO BID 09/11/24 09/11/24 dorzolamide 22.3 mg-timolol 6.8 1 drp ophthalmic (eye) TID 09/11/24 10/16/24 mg/mL eye drops duloxetine 60 mg capsule,delayed 60 mg PO BID 09/11/24 10/16/24 release ergocalciferol (vitamin D2) 1,250 1,250 mcg PO TH 09/11/24 10/16/24 mcg (50,000 unit) capsule ferrous sulfate 325 mg (65 mg 325 mg PO DAILY 09/11/24 10/16/24 iron) tablet (FeroSul) hydrochlorothiazide 25 mg tablet 25 mg PO DAILY 09/11/24 10/16/24 latanoprost 0.005 % eye drops 1 drp ophthalmic (eye) BEDTIME 09/11/24 09/11/24 lisinopril 40 mg tablet 40 mg PO DAILY 09/11/24 10/16/24 loratadine 10 mg tablet 10 mg PO DAILY 09/11/24 10/16/24 lorazepam 0.5 mg tablet 0.5 mg PO BEDTIME 09/11/24 10/16/24 midodrine 5 mg tablet 5 mg PO TID 09/11/24 09/11/24 netarsudil 0.02 % eye drops 1 drp ophthalmic (eye) BEDTIME 09/11/24 10/16/24 (Rhopressa) omeprazole 20 mg capsule,delayed 20 mg PO DAILY@0630 09/11/24 10/16/24 release oxycodone-acetaminophen 5 mg-325 1 tab PO Q6H PRN pain 09/11/24 09/11/24 mg tablet sitagliptin phosphate 100 mg 100 mg PO DAILY 09/11/24 10/16/24 tablet (Januvia) calcium 600 mg (as 1 tab PO BID 10/16/24 10/16/24 carbonate)-vitamin D3 5 mcg (200 unit) tablet (Calcium 600 + D(3)) gabapentin 100 mg capsule 100 mg PO TID 10/16/24 10/16/24 insulin glargine 100 unit/mL 5 unit subcut DAILY@2100 10/16/24 10/16/24 subcutaneous solution (Lantus U-100 Insulin) insulin lispro 100 unit/mL 1 sliding scale dose subcut TIDWM 10/16/24 10/16/24 subcutaneous solution (Humalog U-100 Insulin) lactulose 20 gram/30 mL oral 45 ml PO QID 10/16/24 10/16/24 solution nystatin 100,000 unit/gram topical 1 appl topical BID 10/16/24 10/16/24 powder Allergies Allergy/AdvReac Type Severity Reaction Status Date / Time No Known Allergies Allergy Verified 10/16/24 10:08 Review of Systems 2 Constitutional: Constitutional: Reports no additional constitutional complaints and Denies headache(s) Eyes: Eyes: Reports no additional eye complaints and Denies eye discharge ENT: Denies headache(s) Cardiovascular: Cardiovascular: Reports no additional cardiovascular complaints, Denies chest pain, Denies Loss of Consciousness and Denies dyspnea Respiratory: Respiratory: Reports no additional respiratory complaints and Denies dyspnea Gastrointestinal: Gastrointestinal: Reports no additional gastrointestinal complaints and Denies abdominal pain Genitourinary: Genitourinary: Denies hematuria Musculoskeletal: Musculoskeletal: Reports no additional musculoskeletal complaints, Denies numbness and Denies tingling Comments: right ankle pain Neurologic: Reports confusion, Denies headache(s), Denies numbness and Denies tingling Psychiatric: Psychiatric: Reports no additional psychiatric complaints and Reports confusion Endocrine: Endocrine: Reports no additional endocrine complaints Hematologic/Lymphatic: Hematologic/Lymphatic: Reports no additional hematologic/lymphatic complaints Allergic/Immunologic: Allergic/Immunologic: Reports no additional allergic/immunologic complaints PMF Past Medical History Attestation statement: The following information was validated with the patient. Source: old records reviewed and nursing notes reviewed Medical History Dumping syndrome Orthostatic hypotension Diabetes mellitus Surgical History Gastric bypass status for obesity Social History Social History Household Members: Children and Other Household Members Other:: daughter and ex Housing: Apartment Do you presently have visiting nurse or other home services: Yes Patient Tobacco Use Status: Current everyday Tobacco user Tobacco use type: Cigarette e-Cigarette/Vaping Use: Never Used Second Hand Smoke Exposure: No Advance Directives: No Advance Directives Information Provided: Yes Patient : No service: No Physical Exam ED Vital Signs: Vital Signs - 24 hr 10/16/24 09:54 10/16/24 10:34 10/16/24 11:03 Temperature 98.6 F Pulse Rate 120 H 112 H 114 H Respiratory Rate 18 18 16 Blood Pressure 83/56 L 88/62 L Pulse Oximetry 98 Oxygen Delivery Method Room Air 10/16/24 11:18 10/16/24 11:50 10/16/24 12:14 Temperature 98.7 F Pulse Rate 105 H 110 H Respiratory Rate 16 16 12 Blood Pressure 91/57 L 100/51 L 106/64 Pulse Oximetry 100 100 100 Oxygen Delivery Method Room Air Room Air Room Air 10/16/24 13:23 10/16/24 14:02 Temperature 98.3 F Pulse Rate 110 H 109 H Respiratory Rate 18 21 H Blood Pressure 116/61 103/61 Pulse Oximetry 100 100 Oxygen Delivery Method Room Air Room Air BMI result Body Mass Index 26.6 Const General: confusion Nutritional Appearance: obese Orientation/consciousness: oriented to person and confusion Limitations: altered mental status HENMT Head: Yes normal to inspection and Yes atraumatic Ears: hearing grossly normal bilaterally and external ears normal General nose exam: Normal external nose present, no nasal discharge noted and no epistaxis Face and sinus: Yes normal facial exam, No abrasion and No laceration Mouth: Normal oral and palatal mucosa present, no drooling and no muffled voice Eyes General: appearance normal, both eyes and all related structures Periorbital: periorbital findings normal Eyelids: Yes eyelids normal Conjunctivae: conjunctivae normal Pupils: Equal, round and reactive pupils present EOM: EOMs intact bilaterally Neck Neck: Yes normal visual inspection, Yes full ROM and Yes no lymphadenopathy Chest Chest palpation & inspection: normal inspection of the chest Resp Effort & Inspection: normal respiratory effort and able to speak in complete sentences GI Inspection: Yes normal to inspection Back/Spine/Pelvis Other: Neuro General: oriented to person and confusion Cranial nerves: Yes Equal, round and reactive pupils present Cognition (Neuro): normal cognition Extrem Other: RLE: pain with palpation of the right medial ankle diffuse edema to the bilateral lower extremities LLE: General: Yes full ROM and Yes capillary refill normal Psych Appearance: grossly normal Mental Status: mental status grossly normal Affect: normal affect Attitude: cooperative Thought process: Normal thought process present Thought content: Normal thought content present Insight: Good insight present (Psych) Course Reevaluation(s) Reevaluation #1: Focused exam performed at 1405: Vital signs are BP 103/61, HR 109, respiratory rate 21, temprature 98.3, o2 sat 100% Patient's blood pressure improved greatly. Patient's heart exam showed continued tachycardia but otherwise unremarkable. Patient's lung exam remains the same - no abnormal lung sounds or SOB. Patient's capillary refill to the upper and lower extremities remains present and brisk. Patient's peripheral pulses remain present and strong. Patient's skin examination remains the same - skin is pink, warm, and dry with multiple chronic appearing wounds as previously documentated, unchanged. Time: 14:05 Medications Administered Discontinued Medications Generic Name Dose Route Start Last Admin Trade Name Freq PRN Reason Stop Dose Admin Ceftriaxone Sodium 1 gm 10/16/24 10:56 10/16/24 11:00 Ceftriaxone Sodium 1 Gm Vial IVPUSH 10/16/24 10:57 1 gm ONCE ONE Administration Lactated Ringer's 1,000 mls @ 500 mls/hr 10/16/24 11:00 10/16/24 13:22 Lr IV 10/16/24 12:59 Infused .Q2H ARI Infusion Albumin Human 100 mls @ 133.333 mls/hr 10/16/24 12:30 10/16/24 14:59 Kedbumin 25 % IV 10/16/24 14:14 Infused Q1H ARI Infusion Lactulose 200 gm 10/16/24 11:26 10/16/24 12:21 Lactulose 320 Gm/480 Ml Solution DC 10/16/24 11:27 200 gm ONCE ONE Administration Procedures Orthopedic Splinting/Casting Injury #1: Side: right Lower Extremity Injury Location: ankle Lower Extremity Immobilizer: boot orthosis Medical Decision Making Medical Decision Making MDM Narrative: Patient is a 53 year old assigned female at with a history of DM, HTN, 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, diastolic CHF, hepatic steatosis, mood disorder, elevated ammonia secondary to hepatic steatosis, and recent admission for hypotension and UTI with subsequent discharge to SNF, presenting to the emergency department today with confusion. Patient's physical exam was as noted in the physical exam portion of this note including multiple wounds as pictured. Patient's blood work showed WBC count of 13.1, lactic acid of 5.1, Ammonia 76, and albumin of 1.7. Patient's urine showed evidence of acute infection. Patient's EKG showed sinus tachycardia. Patient's chest x-ray and head CT showed no acute process. I suspected the patient was septic at 1056. Ceftriaxone ordered. Patient was given lactulose for her elevated ammonia. Patient was momentarily hypotensive however, she was not given the 30ml/kg fluid bolus due to concern of fluid overload given the patient's history of CHF. The patient was instead given 500ml of LR and 2 bags of 25% Albumin. Patient's blood pressures improved. Patient's MAP was never consistently below 60. Given the patient's developing / worsening wound to the right ankle + pain with palpation + slumping with an inverted foot per the family - I obtained a right ankle XR that showed evidence of a medial avulsion fracture. I spoke with the orthopedic team who recommended covering the wound with xeroform and gauze then applying a tall walking boot to stabilize the ankle. I dressed the wound as directed and applied cast padding to the entire right lower extremity to protect the patient's skin integrity. I cleansed and applied barrier cream to the patient's coccyx wound as well as placed a wound consult for the wound team to address the coccyx + left lower extremity wounds. I spoke to the hospitalist team who agreed to admission. I explained my physical exam findings as well as all test results to the patient. Patient informed of admission. Differential Diagnosis Differential Diagnoses: The differential diagnosis associated with the presentation includes Sepsis Urosepsis Right ankle fracture Left lower extremity wound Coccyx wound Admission/Observation Consideration of admission/observation: Escalation of care including admission/observation considered Patient admitted as noted in the MDM Rationale portion of this note. Consult Healthcare Provider Management of the patient was discussed with: Hospitalist (agreed to admission as noted in the MDM Rational portion of this note. ) and Home Health Assistant (Spoke to the orthopedic team as noted in the MDM Rationale portion of this note. ) Lab Data [facility] Lab Attestation statement: I reviewed the patient's lab results. My interpretation of these results are in the MDM Rationale portion of this note. 10/16/24 10:47 10/16/24 10:47 Labs: Lab Results 10/16/24 10/16/24 10/16/24 Range/Units 10:07 10:32 10:33 WBC (4.8-10.8) X10*3/uL RBC (4.20-5.50) X10*6/uL Hgb (12.0-16.0) g/dl Hct (37.0-47.0) % MCV (80.0-98.0) fL MCH (27.0-33.0) pg MCHC (31.0-35.0) g/dl RDW (11.0-16.0) % Plt Count (160-400) X10*3/uL MPV (9.4-12.3) fL Immature Gran % (Auto) (0.0-0.4) % Neut % (Auto) (45-73) % Lymph % (Auto) (20-40) % [place] % (Auto) (2-11) % Eos % (Auto) (0-4) % Baso % (Auto) (0-2) % Lymph # (Auto) (1.2-4.9) X10*3/uL [place] # (Auto) (0.1-1.2) X10*3/uL Eos # (Auto) (0.0-0.4) X10*3/uL Baso # (Auto) (0.0-0.2) X10*3/uL Abs Immat Gran (auto) (0.00-0.03) X10*3/uL Absolute Neuts (auto) (2.0-8.3) x10*3/uL Absolute Nucleated RBC (0.0-0.012) X10*3/uL Nucleated RBC % (auto) (0.0-0.2) /100WBC ESR (0-20) MM/HR PT (10.9-12.4) SEC INR (0.9-1.1) APTT (26.0-36.8) SEC VBG pH (7.32-7.43) VBG pCO2 mmHg VBG pO2 mmHg VBG HCO3 (22-26) mmol/L VBG O2 Saturation % VBG Base Excess mmol/L Sodium (135-145) mmol/L Potassium (3.3-5.1) mmol/L Chloride (96-108) mmol/L Carbon Dioxide (22-29) mmol/L Anion Gap (12-20) BUN (9-16) mg/dL Creatinine (0.5-1.4) mg/dL Estim Creat Clear Calc Estimated GFR POC Glucose 140 H (60-115) mg/dL Random Glucose (60-115) mg/dL Lactic Acid (0.5-2.0) mmol/L Calcium (8.4-10.2) mg/dL Magnesium (1.6-2.6) mg/dL Total Bilirubin (0.0-1.0) mg/dL AST (5-31) U/L ALT (0-31) U/L Alkaline Phosphatase (39-117) U/L Ammonia (13-55) umol/L C-Reactive Protein (< or = 0.50) mg/dL Total Protein (6.5-8.0) g/dL Albumin (3.5-5.0) g/dL Urine Color Dark Yellow Urine Appearance Cloudy Urine pH 5.5 (5.0-9.0) Ur Specific [place] 1.025 (1.005-1.025) Urine Protein Trace (Neg-Trace) mg/dL Urine Glucose (UA) Negative (Negative) mg/dL Urine Ketones Trace (Negative) mg/dL Urine Blood Small (1+) H (Negative) Urine Nitrite Negative (Negative) Ur Leukocyte Esterase Moderate (2+) H (Negative) Urine RBC 6-10 H (0-2) /HPF Urine WBC >50 H (0-5) /HPF Ur Squamous Epith Cells 0-2 (0-2) /HPF Urine Bacteria 4+ (None Seen) Hyaline Casts 11-20 (0-2) /LPF Urine Opiates Screen POSITIVE H (Not Detect) Ur Buprenorphine Scrn Not Detected (Not Detect) ng/mL Ur Oxycodone Screen Positive H (Not Detect) ng/mL Urine Methadone Screen Not Detected (Not Detect) ng/mL Urine Fentanyl Screen Not Detected (Not Detect) Ur Barbiturates Screen Not Detected (Not Detect) Ur Phencyclidine Scrn Not Detected (Not Detect) Ur Amphetamines Screen Not Detected (Not Detect) U Benzodiazepines Scrn Not Detected (Not Detect) Urine Cocaine Screen Not Detected (Not Detect) U Marijuana (THC) Screen Not Detected (Not Detect) Influenza Type A (PCR) NEGATIVE (Negative) Influenza Type B (PCR) NEGATIVE (Negative) RSV RNA Qual (PCR) NEGATIVE (Negative) SARS-CoV-2 RNA (RT-PCR) NEGATIVE (Negative) 10/16/24 10/16/24 Range/Units 10:47 11:01 WBC 13.1 H (4.8-10.8) X10*3/uL RBC 3.76 L D (4.20-5.50) X10*6/uL Hgb 12.3 D (12.0-16.0) g/dl Hct 36.3 L D (37.0-47.0) % MCV 96.5 (80.0-98.0) fL MCH 32.7 (27.0-33.0) pg MCHC 33.9 (31.0-35.0) g/dl RDW 14.1 (11.0-16.0) % Plt Count 187 D (160-400) X10*3/uL MPV 12.9 H (9.4-12.3) fL Immature Gran % (Auto) 0.4 (0.0-0.4) % Neut % (Auto) 86.8 H (45-73) % Lymph % (Auto) 8.5 L (20-40) % [place] % (Auto) 3.7 (2-11) % Eos % (Auto) 0.5 (0-4) % Baso % (Auto) 0.1 (0-2) % Lymph # (Auto) 1.1 L (1.2-4.9) X10*3/uL [place] # (Auto) 0.5 (0.1-1.2) X10*3/uL Eos # (Auto) 0.1 (0.0-0.4) X10*3/uL Baso # (Auto) 0.0 (0.0-0.2) X10*3/uL Abs Immat Gran (auto) 0.05 H (0.00-0.03) X10*3/uL Absolute Neuts (auto) 11.4 H (2.0-8.3) x10*3/uL Absolute Nucleated RBC 0.000 (0.0-0.012) X10*3/uL Nucleated RBC % (auto) 0.0 (0.0-0.2) /100WBC ESR 2 (0-20) MM/HR PT 12.7 H (10.9-12.4) SEC INR 1.1 (0.9-1.1) APTT 41.4 H (26.0-36.8) SEC VBG pH 7.41 (7.32-7.43) VBG pCO2 34 mmHg VBG pO2 38 mmHg VBG HCO3 21 L (22-26) mmol/L VBG O2 Saturation 58.0 % VBG Base Excess -1.9 mmol/L Sodium 141 (135-145) mmol/L Potassium 4.8 D (3.3-5.1) mmol/L Chloride 107 (96-108) mmol/L Carbon Dioxide 22 (22-29) mmol/L Anion Gap 17 (12-20) BUN 16 (9-16) mg/dL Creatinine 1.30 (0.5-1.4) mg/dL Estim Creat Clear Calc 48.8 Estimated GFR 43 POC Glucose (60-115) mg/dL Random Glucose 200 H (60-115) mg/dL Lactic Acid 5.1 H* (0.5-2.0) mmol/L Calcium 7.3 L D (8.4-10.2) mg/dL Magnesium 2.0 (1.6-2.6) mg/dL Total Bilirubin 0.8 (0.0-1.0) mg/dL AST 52 H (5-31) U/L ALT 18 (0-31) U/L Alkaline Phosphatase 186 H (39-117) U/L Ammonia 76 H (13-55) umol/L C-Reactive Protein 4.80 H (< or = 0.50) mg/dL Total Protein 5.8 L (6.5-8.0) g/dL Albumin 1.7 L (3.5-5.0) g/dL Urine Color Urine Appearance Urine pH (5.0-9.0) Ur Specific [place] (1.005-1.025) Urine Protein (Neg-Trace) mg/dL Urine Glucose (UA) (Negative) mg/dL Urine Ketones (Negative) mg/dL Urine Blood (Negative) Urine Nitrite (Negative) Ur Leukocyte Esterase (Negative) Urine RBC (0-2) /HPF Urine WBC (0-5) /HPF Ur Squamous Epith Cells (0-2) /HPF Urine Bacteria (None Seen) Hyaline Casts (0-2) /LPF Urine Opiates Screen (Not Detect) Ur Buprenorphine Scrn (Not Detect) ng/mL Ur Oxycodone Screen (Not Detect) ng/mL Urine Methadone Screen (Not Detect) ng/mL Urine Fentanyl Screen (Not Detect) Ur Barbiturates Screen (Not Detect) Ur Phencyclidine Scrn (Not Detect) Ur Amphetamines Screen (Not Detect) U Benzodiazepines Scrn (Not Detect) Urine Cocaine Screen (Not Detect) U Marijuana (THC) Screen (Not Detect) Influenza Type A (PCR) (Negative) Influenza Type B (PCR) (Negative) RSV RNA Qual (PCR) (Negative) SARS-CoV-2 RNA (RT-PCR) (Negative) Independent Interpretation I performed an independent interpretation of an: EKG, Plain X-Ray and CT Scan Interpretation: My interpretation is in agreement with the radiologist's impression of these imaging studies. L EXAMINATION: XR ANKLE, RIGHT CLINICAL INFORMATION: right ankle wound, concern for osteo COMPARISON: None available. TECHNIQUE: AP, lateral, and mortise views of the right ankle. FINDINGS: There is bimalleolar soft tissue swelling with a small avulsion bone fragment at tip of medial malleolus. No acute fracture, dislocation or subluxation seen. There is small calcaneal heel spur. The soft tissues are normal. XR/XR ankle RT min 3V IMPRESSION: Small avulsion fracture fragment tip of medial malleolus. No visible acute fracture or dislocation. Bimalleolar soft tissue swelling Small calcaneal heel spur. Electronically signed by: Keven Vitale MD 10/16/2024 11:52 AM EST RP Dictated By: Keven Vitale MD Signed By: Electronically signed by Keven Vitale MD 10/16/24 1152 EXAMINATION: XR CHEST CLINICAL INFORMATION: AMS COMPARISON: Chest 09/11/2024 TECHNIQUE: Frontal view of the chest was obtained. FINDINGS: No significant abnormality is noted involving the heart, lungs, mediastinum, bony thorax or soft tissues. XR/XR chest 1V IMPRESSION: Unremarkable chest examination Electronically signed by: Keven Vitale MD 10/16/2024 11:53 AM EST RP Dictated By: Keven Vitale MD Signed By: Electronically signed by Keven Vitale MD 10/16/24 1153 Report Number: [id number]: Total DLP = 1098.00 mGy-cm EXAMINATION: CT HEAD WITHOUT CONTRAST CLINICAL INFORMATION: AMS. COMPARISON: CT brain 09/12/2024 TECHNIQUE: Contiguous axial imaging was performed from the skull base to vertex without intravenous administration of contrast. This CT examination was performed using dose optimization techniques as appropriate, variously including the following: *Automated exposure control *Adjustment of mA and/or kV according to patient size (this includes techniques or standardized protocols for targeted exams where dose is matched to indication/reason for exam; i.e. extremities or head) *Use of iterative reconstruction technique DLP 1098 mGy/cm. FINDINGS: There is no acute intra-axial, extra-axial bleed, masses or midline shift. There is no acute infarction evolution. The arevalo to white matter differentiation is maintained normal. The lateral ventricles are symmetrical in size and configuration but mildly enlarged and so are the cortical sulci. Bone windows reveal no calvarial abnormality. There is no scalp soft tissue abnormality. Bilateral paranasal sinuses and mastoid air cells are well-aerated. CT/CT head/brain wo IV con IMPRESSION: No acute intracranial process seen. Electronically signed by: Keven Vitale MD 10/16/2024 11:50 AM [facility] Dictated By: Keven Vitale MD Signed By: Electronically signed by Keven Vitale MD 10/16/24 1150 I independently interpreted this EKG and am in agreement with the below findings: Vent. Rate: 117 BPM Atrial Rate: 117 BPM P-R Int: 134 ms QRS Dur: 68 ms QT Int: 288 ms P-R-T Axes: 69 65 86 degrees QTcB Int: 401 ms Sinus tachycardia Low voltage QRS When compared with ECG of 15-Sep-2024 09:52, Vent. rate has increased by 50 bpm Referred By: Bebe Liu Electronically Signed By: JAMEY HARVEY MD Dictated By: Jamey Harvey MD Signed By: Electronically signed by Jamey Harvey MD 10/16/24 1018 Radiology Impression Discussion of test interpretation with radiology: I have reviewed the radiologist's reading. Independent Historian Clinical information obtained from an independent historian. History obtained from or confirmed by: EMS (EMS provided additional history and confirmed the history provided by the patient. ) Critical Care Time Critical Care Time Critical Care Time: Yes Total Critical Care Time: 53 Attestation: I spent 53 minutes of Critical Care Time with this patient. This does not include time spent on separately reported billable procedures. Discharge Plan Discharge Clinical Impression: Sepsis, Serum ammonia increased, Ankle fracture Patient Disposition: Admitted As Inpatient Print Language: Congolese
--- NOTE | 2024-10-16 10:01 | ECG_ITS ---
Test Reason : ams Blood Pressure : */* mmHG Vent. Rate : 117 BPM Atrial Rate : 117 BPM P-R Int : 134 ms QRS Dur : 68 ms QT Int : 288 ms P-R-T Axes : 69 65 86 degrees QTcB Int : 401 ms Sinus tachycardia Low voltage QRS Cannot rule out Anterior infarct , age undetermined Abnormal ECG When compared with ECG of 15-Sep-2024 09:52, Vent. rate has increased by 50 bpm Referred By: Bebe Liu Electronically Signed By: ELBA HARVEY MD
[2024-10-16 10:10] LABS: Glucose, Whole Blood 140 mg/dL (60-115)
[2024-10-16 10:40] LABS: Color Urine Dark Yellow; Glucose Urine UA Negative (Negative); Leukocyte Esterase Urine Moderate (2+) (Negative); Nitrite Urine Negative (Negative); PH 5.5 (5.0-9.0); Specific Gravity - Urine 1.025 (1.005-1.025); UMIC TRIGGER UACC YES; Urine Blood Small (1+) (Negative); Urine Ketones Trace mg/dL (Negative); Urine Protein Trace mg/dL (Neg-Trace)
[2024-10-16 10:41] LABS: Appearance Urine Cloudy
[2024-10-16 10:50] LABS: Bacteria Urine 4+ (None Seen); Squamous Epithelial Cell Urine 0-2 /HPF (0-2); UACC Culture Trigger YES; WBC Urine >50 /HPF (0-5)
[2024-10-16] MEDS: Lactated Ringers 1,000 ML 500 ML IV (10:54)
[2024-10-16 10:58] LABS: Amphetamine Screen Urine Not Detected (Not Detect); Barbiturates, Urine Not Detected (Not Detect); Benzodiazepines Screen Urine Not Detected (Not Detect); Buprenorphine Scr Not Detected (Not Detect); Cannabinoid Screen Urine Not Detected (Not Detect); Cocaine Screen Urine Not Detected (Not Detect); Fentanyl, urine Not Detected (Not Detect); Methadone Screen, Urine Not Detected (Not Detect); Opiate Screen Urine POSITIVE (Not Detect); Oxycodone Screen Urine Positive (Not Detect); Phencyclidine Screen Urine Not Detected (Not Detect)
[2024-10-16] MEDS: cefTRIAXone sodium 1 GM VIAL IVPUSH (11:00)
[2024-10-16 11:02] LABS: MANUAL DIFF FLAG NO
[2024-10-16 11:02] LABS: Venous Blood Gas Refer to POC result
[2024-10-16 11:05] LABS: VBG Base Excess -1.9 mmol/L; VBG HCO3 21 mmol/L (22-26); VBG pCO2 34 mmHg; VBG pH 7.41 (7.32-7.43); VBG pO2 38 mmHg
[2024-10-16 11:13] LABS: Basophils Percent Auto 0.1 % (0-2); Eosinophils Absolute Auto 0.1 X10*3/uL (0.0-0.4); Eosinophils Percent Auto 0.5 % (0-4); Hematocrit 36.3 % (37.0-47.0); Hemoglobin 12.3 g/dl (12.0-16.0); Imm Gran Abs Auto 0.05 X10*3/uL (0.00-0.03); Imm Gran Pct Auto 0.4 % (0.0-0.4); Lymphocytes Absolute Auto 1.1 X10*3/uL (1.2-4.9); Lymphocytes Percent Auto 8.5 % (20-40); Mean Corpuscular HGB Conc 33.9 g/dl (31.0-35.0); Mean Corpuscular Hemoglobin 32.7 pg (27.0-33.0); Mean Corpuscular Volume 96.5 fL (80.0-98.0); Mean Platelet Volume 12.9 fL (9.4-12.3); Monocytes Absolute Auto 0.5 X10*3/uL (0.1-1.2); Monocytes Percent Auto 3.7 % (2-11); Neutrophils Absolute Auto 11.4 x10*3/uL (2.0-8.3); Neutrophils Percent Auto 86.8 % (45-73); Platelet Count 187 X10*3/uL (160-400); Red Blood Count 3.76 X10*6/uL (4.20-5.50); Red Cell Distribution Width 14.1 % (11.0-16.0); White Blood Count 13.1 X10*3/uL (4.8-10.8)
[2024-10-16 11:18] LABS: INTERNATIONAL NORM RATIO 1.1 (0.9-1.1); Prothrombin Time 12.7 SEC (10.9-12.4)
[2024-10-16 11:19] LABS: Influenza A PCR NEGATIVE (Negative); Influenza B PCR NEGATIVE (Negative); Resp Syncy Virus RNA Qual PCR NEGATIVE (Negative); SARS COV2 PCR INHOUSE NEGATIVE (Negative)
[2024-10-16 11:21] LABS: Partial Thromboplastin Time 41.4 SEC (26.0-36.8)
[2024-10-16 11:22] LABS: Ammonia 76 umol/L (13-55)
[2024-10-16 11:42] LABS: Alanine Aminotransferase 18 U/L (0-31); Albumin Level 1.7 g/dL (3.5-5.0); Alkaline Phosphatase 186 U/L (39-117); Anion Gap 17 (12-20); Aspartate Amino Transferase 52 U/L (5-31); Bilirubin Total 0.8 mg/dL (0.0-1.0); Blood Urea Nitrogen 16 mg/dL (9-16); Calcium 7.3 mg/dL (8.4-10.2); Carbon Dioxide 22 mmol/L (22-29); Chloride 107 mmol/L (96-108); Creatinine Clr Calc Pharmacy 48.8; Estimated Glomerular Filt Rate 43; Glucose Random 200 mg/dL (60-115); Potassium 4.8 mmol/L (3.3-5.1); Sodium 141 mmol/L (135-145); Total Protein 5.8 g/dL (6.5-8.0)
[2024-10-16 11:52] LABS: Lactic Acid 5.1 mmol/L (0.5-2.0)
[2024-10-16 11:55] LABS: Erythrocyte Sedimentation Rate 2 MM/HR (0-20)
[2024-10-16] MEDS: Lactulose 320 GM/480 ML SOLUTION 200 GM PR (12:21)
[2024-10-16 13:01] LABS: Reflex Lactate? Lactic Acid Added
[2024-10-16] MEDS: Albumin Human 25 % 100 ML 133.33 ML IV ×2 (13:22→14:01)
--- OUTSIDE RECORDS SUMMARY | 2024-10-16 13:48 | XMS_ITS | Clinical Summary ---
Author Organization [facility] Address [address] [place] [address] Care Team Providers Care Paper Sample Clerk Name Role Phone Nayeli Sena MD Primary [...] age to complete this topic Care Teams Paper Sample Clerk Relationship Specialty Start Date End Date Nayeli Sena MD [address] [place] [address] Drive [address] [place], [place] [id number] PCP - General Gastroenterology 10/29/20
--- OUTSIDE RECORDS SUMMARY | 2024-10-16 13:48 | XMS_ITS | Encounter Summary ---
Author Organization [facility] Address [address] [place] [address] Care Team Providers Care Pin Attacher Name Role Phone Nayeli Sena MD Primary Care Provid er Encounter Details Date Type Department Care Team (Late st Contact Info) Description 10/05/2024 Lab Requisition [facility] - Main Lab 299 [facility] [place] [address] Rose Marie Campos MD [address] [address] Essential (primary) hypertension; Heart failure, unspecified (CMS/HCC); Fatty (change of) liver, not elsewhere classified Social History Tobacco Use Types Packs/Day Years Used Date Smoking Tobacco: Every Day Cigarettes Smokeless Tobacco: Never Alcohol Use Standard Drinks/Week Comments Not Asked 0 (1 standard drink = 0.6 oz pur e alcohol) Comments Unknown Sex and Gender Information Value Date Recorded Sex Assigned at Not on file Legal Sex Female 11:37 AM EST Gender Identity Not on file Sexual Orientation Not on file documented as of this encounter Plan of Treatment Not on file documented as of this encounter Procedures Procedure Name Priority Date/Time Associated Diagnosis Comments COMPLETE BLOOD COUNT Routine 10/07/2024 6:47 AM EST Essential (primary) hypertension Heart failure, unspecified (CMS/HCC) Fatty (change of) liver, not elsewhere classified AMMONIA Routine 10/07/2024 6:47 AM EST Essential (primary) hypertension Heart failure, unspecified (CMS/HCC) Fatty (change of) liver, not elsewhere classified BASIC METABOLIC PANEL Routine 10/07/2024 6:47 AM EST Essential (primary) hypertension Heart failure, unspecified (CMS/HCC) Fatty (change of) liver, not elsewhere classified documented in this encounter Results * (ABNORMAL) Ammonia (10/07/2024 6:47 AM EST) Ammonia 43(H) 11 - 35 mcmol/L LAB CHEMISTRY METHOD 10/07/2024 8:27 AM [facility] Blood Venous blood specimen / Unknown 10/07/2024 6:47 AM EST 10/07/2024 8:04 AM EST us Rose Marie Campos MD LAB BLOOD ORDERABLES Fin al Result Performing Organization Address City/State/[facility] Co de Phone Number [facility] [address] [place] [address], * (ABNORMAL) Basic metabolic panel (10/07/2024 6:47 AM EST) Pathologist [facility] [place] Sodium 144 133 - 145 mmol/L LAB CHEMISTRY METHOD 10/07/2024 10:01 AM [facility] Potassium 4.4 3.5 - 5.5 mmol/L LAB CHEMISTRY METHOD 10/07/2024 10:01 AM [facility] Chloride 109 96 - 110 mmol/L LAB CHEMISTRY METHOD 10/07/2024 10:01 AM [facility] CO2 31 21 - 32 mmol/L LAB CHEMISTRY METHOD 10/07/2024 10:01 AM [facility] Anion Gap 4 3 - 11 LAB CHEMISTRY METHOD 10/07/2024 10:01 AM [facility] Glucose 80 70 - 100 mg/dL LAB CHEMISTRY METHOD 10/07/2024 10:01 AM [facility] BUN 6 5 - 25 mg/dL LAB CHEMISTRY METHOD 10/07/2024 10:01 AM [facility] Creatinine 0.82 0.50 - 1.10 mg/dL LAB CHEMISTRY METHOD 10/07/2024 10:01 AM [facility] eGFR 85 >=60 mL/min/1. 73m2 LAB CHEMISTRY METHOD 10/07/2024 10:01 AM [facility] Comment:Calculation based on the??Chronic Kidney Disease Epidemiology Collaboration (CKD-EPI) equation refit??without adjustment for race. BUN/Creatinine Ratio 7.3 LAB CHEMISTRY METHOD 10/07/2024 10:01 AM [facility] Calcium 7.5(L) 8.5 - 10.5 mg/dL LAB CHEMISTRY METHOD 10/07/2024 10:01 AM [facility] Blood Venous blood specimen / Unknown Venipuncture / Unknown 10/07/2024 6:47 AM EST 10/07/2024 9:27 AM EST us Rose Marie Campos MD LAB BLOOD ORDERABLES Fin al Result [facility] [address] [place] [address], * (ABNORMAL) Complete blood count (10/07/2024 6:47 AM EST) WBC 10.8 4.8 - 10.8 K/mcL LAB HEMETOLOGY METHOD 10/07/2024 9:48 AM [facility] RBC 3.00(L) 3.80 - 4.80 M/mcL LAB HEMETOLOGY METHOD 10/07/2024 9:48 AM [facility] Hemoglobin 9.9(L) 11.5 - 16.0 g/dL LAB HEMETOLOGY METHOD 10/07/2024 9:48 AM [facility] Hematocrit 31.1(L) 35.0 - 47.0 % LAB HEMETOLOGY METHOD 10/07/2024 9:48 AM [facility] MCV 105.4(H) 79.0 - 98.0 FL LAB HEMETOLOGY METHOD 10/07/2024 9:48 AM [facility] MCH 33.6(H) 27.0 - 32.0 pcg LAB HEMETOLOGY METHOD 10/07/2024 9:48 AM [facility] MCHC 31.8(L) 32.0 - 37.0 g/dL LAB HEMETOLOGY METHOD 10/07/2024 9:48 AM [facility] RDW 13.5 11.0 - 15.0 % LAB HEMETOLOGY METHOD 10/07/2024 9:48 AM [facility] Platelets 182 130 - 400 K/mcL LAB HEMETOLOGY METHOD 10/07/2024 9:48 AM [facility] MPV 11.6(H) 7.0 - 11.0 FL LAB HEMETOLOGY METHOD 10/07/2024 9:48 AM [facility] NRBC 0.0 <1.0 % LAB HEMETOLOGY METHOD 10/07/2024 9:48 AM [facility] NRBC Absolute 0.00 <0.10 K/mcL LAB HEMETOLOGY METHOD 10/07/2024 9:48 AM [facility] Blood Venous blood specimen / Unknown Venipuncture / Unknown 10/07/2024 6:47 AM EST 10/07/2024 9:27 AM EST us Rose Marie Campos MD LAB BLOOD ORDERABLES Fin al Result [facility] [address] [place] [address], documented in this encounter Visit Diagnoses Diagnosis Essential (primary) hypertension Unspecified essential hypertension Heart failure, unspecified (CMS/HCC) Heart failure, unspecified Fatty (change of) liver, not elsewhere classified documented in this encounter Care Teams Pin Attacher Relationship Specialty Start Date End Date Nayeli Sena MD [address] [place] [address] [address] [place] [address] PCP - General Internal Medicine 03/27/13 documented as of this encounter
--- OUTSIDE RECORDS SUMMARY | 2024-10-16 13:48 | XMS_ITS | Encounter Summary ---
Author Organization [facility] Address [address] [place] [address] Care Team Providers Care Travel Registered Nurse Nicu Name Role Phone Nayeli Sena MD Primary Care Provid er Encounter Details Date Type Department Care Team (Late st Contact Info) Description 09/29/[address] [facility] - Main Lab 299 [facility] [place] [address] Rose Marie Campos MD [address] [address] Essential (primary) hypertension; Heart failure, unspecified (CMS/HCC); [...] Associated Diagnosis Comments COMPLETE BLOOD COUNT Routine 09/30/2024 6:36 AM EST Essential (primary) hypertension Heart failure, unspecified (CMS/HCC) Fatty (change of) liver, not elsewhere classified AMMONIA Routine 09/30/2024 6:36 AM EST Essential (primary) hypertension Heart failure, unspecified (CMS/HCC) Fatty (change of) liver, not elsewhere classified BASIC METABOLIC PANEL Routine 09/30/2024 6:36 AM EST Essential (primary) hypertension Heart failure, unspecified (CMS/HCC) Fatty (change of) liver, not elsewhere classified documented in this encounter Results * (ABNORMAL) Ammonia (09/30/2024 6:36 AM EST) Pathologist [facility] Ammonia 57(H) 11 - 35 mcmol/L LAB CHEMISTRY METHOD 09/30/2024 8:24 AM EST [facility] Comment:Hemolysis present Blood Venous blood specimen / Unknown 09/30/2024 6:36 AM EST 09/30/2024 8:01 AM EST Rose Marie Campos MD LAB BLOOD ORDERABLES Fin al Result Performing Organization Address City/State/[facility] Co de Phone Number [facility] [address] [place] [address], * (ABNORMAL) Complete blood count (09/30/2024 6:36 AM EST) [facility] WBC 10.8 4.8 - 10.8 K/mcL LAB HEMETOLOGY METHOD 09/30/2024 9:51 AM [facility] RBC 3.00(L) 3.80 - 4.80 M/mcL LAB HEMETOLOGY METHOD 09/30/2024 9:51 AM [facility] Hemoglobin 10.0(L) 11.5 - 16.0 g/dL LAB HEMETOLOGY METHOD 09/30/2024 9:51 AM [facility] Hematocrit 32.8(L) 35.0 - 47.0 % LAB HEMETOLOGY METHOD 09/30/2024 9:51 AM [facility] MCV 110.8(H) 79.0 - 98.0 FL LAB HEMETOLOGY METHOD 09/30/2024 9:51 AM EST [facility] MCH 33.8(H) 27.0 - 32.0 pcg LAB HEMETOLOGY METHOD 09/30/2024 9:51 AM EST [facility] MCHC 30.5(L) 32.0 - 37.0 g/dL LAB HEMETOLOGY METHOD 09/30/2024 9:51 AM EST [facility] RDW 14.7 11.0 - 15.0 % LAB HEMETOLOGY METHOD 09/30/2024 9:51 AM EST [facility] Platelets 201 130 - 400 K/mcL LAB HEMETOLOGY METHOD 09/30/2024 9:51 AM EST [facility] MPV 11.5(H) 7.0 - 11.0 FL LAB HEMETOLOGY METHOD 09/30/2024 9:51 AM EST [facility] NRBC 0.0 <1.0 % LAB HEMETOLOGY METHOD 09/30/2024 9:51 AM EST [facility] NRBC Absolute 0.00 <0.10 K/mcL LAB HEMETOLOGY METHOD 09/30/2024 9:51 AM EST [facility] Blood Venous blood specimen / Unknown Venipuncture / Unknown 09/30/2024 6:36 AM EST 09/30/2024 8:47 AM EST us Rose Marie Cmapos MD LAB BLOOD ORDERABLES Fin al Result [facility] [address] [place] [address], * (ABNORMAL) Basic metabolic panel (09/30/2024 6:36 AM EST) Sodium 142 133 - 145 mmol/L LAB CHEMISTRY METHOD 09/30/2024 10:15 AM EST [facility] Potassium 4.9 3.5 - 5.5 mmol/L LAB CHEMISTRY METHOD 09/30/2024 10:15 AM [facility] Chloride 106 96 - 110 mmol/L LAB CHEMISTRY METHOD 09/30/2024 10:15 AM [facility] CO2 33(H) 21 - 32 mmol/L LAB CHEMISTRY METHOD 09/30/2024 10:15 AM [facility] Anion Gap 3 3 - 11 LAB CHEMISTRY METHOD 09/30/2024 10:15 AM [facility] Glucose 50(L) 70 - 100 mg/dL LAB CHEMISTRY METHOD 09/30/2024 10:15 AM [facility] BUN 4(L) 5 - 25 mg/dL LAB CHEMISTRY METHOD 09/30/2024 10:15 AM [facility] Creatinine 0.58 0.50 - 1.10 mg/dL LAB CHEMISTRY METHOD 09/30/2024 10:15 AM [facility] eGFR 107 >=60 mL/min/1. 73m2 LAB CHEMISTRY METHOD 09/30/2024 10:15 AM [facility] Comment:Calculation based on the??Chronic Kidney Disease Epidemiology Collaboration (CKD-EPI) equation refit??without adjustment for race. BUN/Creatinine Ratio 6.9 LAB CHEMISTRY METHOD 09/30/2024 10:15 AM [facility] Calcium 7.5(L) 8.5 - 10.5 mg/dL LAB CHEMISTRY METHOD 09/30/2024 10:15 AM [facility] Blood Venous blood specimen / Unknown Venipuncture / Unknown 09/30/2024 6:36 AM EST 09/30/2024 8:47 AM EST us Rose Marie aCmpos MD LAB BLOOD ORDERABLES Fin al Result [facility] [address] [place] [address], documented in this encounter Visit Diagnoses Diagnosis Essential (primary) hypertension Unspecified essential hypertension Heart failure, unspecified (CMS/HCC) Heart failure, unspecified Fatty (change of) liver, not elsewhere classified documented in this encounter Care Teams Travel Registered Nurse Nicu Relationship Specialty Start Date End Date Nayeli Snea MD [address] [place] [address] [address] [place] [address] PCP - General Internal Medicine 03/27/13 documented as of this encounter
--- OUTSIDE RECORDS SUMMARY | 2024-10-16 13:48 | XMS_ITS | Encounter Summary ---
Author Organization [facility] Address [address] [place] [address] Care Team Providers Care Psychotherapist Counselor Name Role Phone Nayeli Sena MD Primary Care Provid er Encounter Details Date Type Department Care Team (Late st Contact Info) Description 09/20/[address] [facility] - Main Lab 299 [facility] [place] [address] Rose Marie Campos MD [address] [address] Nontraumatic subarachnoid hemorrhage, unspecified (CMS/HCC) Social History Tobacco Use Types Packs/Day Years [...] Procedure Name Priority Date/Time Associated Diagnosis Comments AMMONIA Routine 09/20/2024 7:23 AM EST Nontraumatic subarachnoid hemorrhage, unspecified (CMS/HCC) documented in this encounter Results * (ABNORMAL) Ammonia (09/20/2024 7:23 AM EST) Ammonia 45(H) 11 - 35 mcmol/L LAB CHEMISTRY METHOD 09/20/2024 9:31 AM EST [facility] Blood Venous blood specimen / Unknown Venipuncture / Unknown 09/20/2024 7:23 AM EST 09/20/2024 9:11 AM EST us Rose Marie Campos MD LAB BLOOD ORDERABLES Fin al Result [facility] [address] [place] [address], documented in this encounter Visit Diagnoses Diagnosis Nontraumatic subarachnoid hemorrhage, unspecified (CMS/HCC) documented in this encounter Care Teams Psychotherapist Counselor Relationship Specialty Start Date End Date Nayeli Sena MD [address] [place] [address] [address] [place] [address] PCP - General Internal Medicine 03/27/13 documented as of this encounter
--- OUTSIDE RECORDS SUMMARY | 2024-10-16 13:48 | XMS_ITS ---
Author Organization [facility] Address [address] [place] [address] Care Team Providers Care Pond Sawyer Name Role Phone Davian Handley MD, Nayeli Primary Care Provider Unavailable Gianluca Worrell, Marcos Gutiérrez REASON FOR VISIT followup Encounters Encounter Location Date Provider Diagnosis [facility] [address] [place] [address] 09/25/2024 Marcos Hough Jr Plan Of Treatment No Information Progress Notes * CELSO HERNANDEZDOB:1970 (53 yo F)Acc No.[id number]:09/25/2024 Patient:?CELSO HERNANDEZ :1970???Age:53 Y???Sex:Female Address:[address] [facility], [place] [address] * true * Date:? Generated for Eliazar shi/Cassie/eTransmitting on:?10/16/2024 01:48 PM EST
--- OUTSIDE RECORDS SUMMARY | 2024-10-16 13:48 | XMS_ITS | Encounter Summary ---
Author Organization [facility] Address [address] [place] [address] Care Team Providers Care County Director Name Role Phone Nayeli Sena MD Primary Care Provid er Encounter Details Date Type Department Care Team (Late st Contact Info) Description 10/03/2024 Lab Requisition [facility] - Main Lab 299 [facility] [place] [address] Rose Marie Campos MD [address] [address] Essential (primary) hypertension; Type 2 diabetes mellitus without complications (CMS/HCC); Nontraumatic subarachnoid hemorrhage, unspecified (CMS/HCC); Postgastric surgery syndromes Social History Tobacco Use Types Packs/Day Years [...] Procedure Name Priority Date/Time Associated Diagnosis Comments VITAMIN B1 Routine 10/03/2024 5:21 AM EST Essential (primary) hypertension Type 2 diabetes mellitus without complications (CMS/HCC) Nontraumatic subarachnoid hemorrhage, unspecified (CMS/HCC) Postgastric surgery syndromes FOLATE Routine 10/03/2024 5:21 AM EST Essential (primary) hypertension Type 2 diabetes mellitus without complications (CMS/HCC) Nontraumatic subarachnoid hemorrhage, unspecified (CMS/HCC) Postgastric surgery syndromes VITAMIN B12 Routine 10/03/2024 5:21 AM EST Essential (primary) hypertension Type 2 diabetes mellitus without complications (CMS/HCC) Nontraumatic subarachnoid hemorrhage, unspecified (CMS/HCC) Postgastric surgery syndromes CALCIUM, IONIZED Routine 10/03/2024 5:21 AM EST Essential (primary) hypertension Type 2 diabetes mellitus without complications (CMS/HCC) Nontraumatic subarachnoid hemorrhage, unspecified (CMS/HCC) Postgastric surgery syndromes documented in this encounter Results * Calcium, ionized (10/03/2024 5:21 AM EST) Calcium Ionized 4.8 4.6 - 5.4 mg/dL 10/07/2024 11:29 AM EST [facility] Comment: Test performed at [facility], [address] , [place], [place] ??[address] ? [phone] Ernestina More MD, PhD - Emergency Department Clinician Blood Venous blood specimen / Unknown Venipuncture / Unknown 10/03/2024 5:21 AM EST 10/03/2024 7:41 AM EST Rose Marie Campos MD LAB BLOOD ORDERABLES Fin al Result [facility] [address] [place] [address] * Vitamin B1 (10/03/2024 5:21 AM EST) Vitamin B1 Whole Blood 69 38 - 122 ug/L 10/09/2024 6:14 AM EST [facility] Comment: This test was developed and the performance characteristics determined by [facility]. It has not been cleared or approved by the FDA. The laboratory is regulated under CLIA as qualified to perform high-complexity testing. This test is used for patient testing purposes. It should not be regarded as investigational or for research. Test performed at [facility], [address] , [place], [place] ??[address] ? [phone] Ernestina More MD, PhD - Emergency Department Clinician Blood Venous blood specimen / Unknown Venipuncture / Unknown 10/03/2024 5:21 AM EST 10/03/2024 7:41 AM EST Rose Marie Campos MD LAB BLOOD ORDERABLES Fin al Result Performing Organization Address [facility] [address]/ZIP Co de Phone Number [facility] [address] [place] [address] * (ABNORMAL) Vitamin B12 (10/03/2024 5:21 AM EST) Pathologist [facility] Vitamin B-12 1,173(H) 250 - 900 pcg/mL LAB CHEMISTRY METHOD 10/03/2024 8:52 AM EST [facility] Blood Venous blood specimen / Unknown Venipuncture / Unknown 10/03/2024 5:21 AM EST 10/03/2024 7:41 AM EST Rose Marie Campos MD LAB BLOOD ORDERABLES Fin al Result Performing Organization Address [facility] [address]/[facility] Co de Phone Number [facility] [address] [place] [address], * Folate (10/03/2024 5:21 AM EST) Pathologist [facility] Folate 13.2 2.8 - 17.0 ng/ml LAB CHEMISTRY METHOD 10/03/2024 8:52 AM EST [facility] Blood Venous blood specimen / Unknown Venipuncture / Unknown 10/03/2024 5:21 AM EST 10/03/2024 7:41 AM EST Rose Marie Campos MD LAB BLOOD ORDERABLES Fin al Result [facility] [address] [place] [address], documented in this encounter Visit Diagnoses Diagnosis Essential (primary) hypertension Unspecified essential hypertension Type 2 diabetes mellitus without complications (CMS/HCC) Nontraumatic subarachnoid hemorrhage, unspecified (CMS/HCC) Postgastric surgery syndromes documented in this encounter Care Teams County Director Relationship Specialty Start Date End Date Nayeli Sena MD [address] [place] [address] [address] [place] [address] PCP - General Internal Medicine 03/27/13 documented as of this encounter
--- OUTSIDE RECORDS SUMMARY | 2024-10-16 13:48 | XMS_ITS | Encounter Summary ---
Author Organization [facility] Address [address] [place] [address] Care Team Providers Care Grating Machine Operator Name Role Phone Nayeli Sena MD Primary Care Provid er Encounter Details Date Type Department Care Team (Late st Contact Info) Description 09/21/2024 Lab Requisition [facility] - Main Lab 299 [facility] [place] [address] Rose Marie Campos MD [address] [address] Essential (primary) hypertension Social History Tobacco Use Types Packs/Day Years [...] Associated Diagnosis Comments COMPLETE BLOOD COUNT Routine 09/23/2024 11:08 AM EST Essential (primary) hypertension AMMONIA Routine 09/23/2024 11:08 AM EST Essential (primary) hypertension BASIC METABOLIC PANEL Routine 09/23/2024 11:08 AM EST Essential (primary) hypertension documented in this encounter Results * Ammonia (09/23/2024 11:08 AM EST) Ammonia 25 11 - 35 mcmol/L LAB CHEMISTRY METHOD 09/23/2024 12:20 PM [facility] Blood Venous blood specimen / Unknown Venipuncture / Unknown 09/23/2024 11:08 AM EST 09/23/2024 11:50 AM EST us Rose Marie Campos MD LAB BLOOD ORDERABLES Fin al Result [facility] [address] [place] [address], * (ABNORMAL) Basic metabolic panel (09/23/2024 11:08 AM EST) Sodium 139 133 - 145 mmol/L LAB CHEMISTRY METHOD 09/23/2024 1:36 PM [facility] Potassium 4.7 3.5 - 5.5 mmol/L LAB CHEMISTRY METHOD 09/23/2024 1:36 PM [facility] Chloride 103 96 - 110 mmol/L LAB CHEMISTRY METHOD 09/23/2024 1:36 PM [facility] CO2 29 21 - 32 mmol/L LAB CHEMISTRY METHOD 09/23/2024 1:36 PM [facility] Anion Gap 7 3 - 11 LAB CHEMISTRY METHOD 09/23/2024 1:36 PM [facility] Glucose 206(H) 70 - 100 mg/dL LAB CHEMISTRY METHOD 09/23/2024 1:36 PM [facility] BUN 3(L) 5 - 25 mg/dL LAB CHEMISTRY METHOD 09/23/2024 1:36 PM [facility] Creatinine 0.57 0.50 - 1.10 mg/dL LAB CHEMISTRY METHOD 09/23/2024 1:36 PM [facility] eGFR 107 >=60 mL/min/1. 73m2 LAB CHEMISTRY METHOD 09/23/2024 1:36 PM EST [facility] Comment:Calculation based on the??Chronic Kidney Disease Epidemiology Collaboration (CKD-EPI) equation refit??without adjustment for race. BUN/Creatinine Ratio 5.3 LAB CHEMISTRY METHOD 09/23/2024 1:36 PM [facility] Calcium 7.6(L) 8.5 - 10.5 mg/dL LAB CHEMISTRY METHOD 09/23/2024 1:36 PM [facility] Blood Venous blood specimen / Unknown Venipuncture / Unknown 09/23/2024 11:08 AM EST 09/23/2024 11:50 AM EST us Rose Marie Campos MD LAB BLOOD ORDERABLES Fin al Result [facility] [address] [place] [address], * (ABNORMAL) Complete blood count (09/23/2024 11:08 AM EST) WBC 11.7(H) 4.8 - 10.8 K/mcL LAB HEMETOLOGY METHOD 09/23/2024 1:28 PM [facility] RBC 2.80(L) 3.80 - 4.80 M/mcL LAB HEMETOLOGY METHOD 09/23/2024 1:28 PM [facility] Hemoglobin 9.7(L) 11.5 - 16.0 g/dL LAB HEMETOLOGY METHOD 09/23/2024 1:28 PM [facility] Hematocrit 31.0(L) 35.0 - 47.0 % LAB HEMETOLOGY METHOD 09/23/2024 1:28 PM [facility] MCV 109.5(H) 79.0 - 98.0 FL LAB HEMETOLOGY METHOD 09/23/2024 1:28 PM [facility] MCH 34.3(H) 27.0 - 32.0 pcg LAB HEMETOLOGY METHOD 09/23/2024 1:28 PM EST [facility] MCHC 31.3(L) 32.0 - 37.0 g/dL LAB HEMETOLOGY METHOD 09/23/2024 1:28 PM [facility] RDW 16.8(H) 11.0 - 15.0 % LAB HEMETOLOGY METHOD 09/23/2024 1:28 PM [facility] Platelets 296 130 - 400 K/mcL LAB HEMETOLOGY METHOD 09/23/2024 1:28 PM [facility] MPV 11.5(H) 7.0 - 11.0 FL LAB HEMETOLOGY METHOD 09/23/2024 1:28 PM [facility] NRBC 0.0 <1.0 % LAB HEMETOLOGY METHOD 09/23/2024 1:28 PM [facility] NRBC Absolute 0.00 <0.10 K/mcL LAB HEMETOLOGY METHOD 09/23/2024 1:28 PM [facility] Blood Venous blood specimen / Unknown Venipuncture / Unknown 09/23/2024 11:08 AM EST 09/23/2024 11:50 AM EST us Rose Marie Campos MD LAB BLOOD ORDERABLES Fin al Result [facility] [address] [place] [address], documented in this encounter Visit Diagnoses Diagnosis Essential (primary) hypertension Unspecified essential hypertension documented in this encounter Care Teams Grating Machine Operator Relationship Specialty Start Date End Date Nayeli Sena MD [address] [place] [address] [place] [address] PCP - General Internal Medicine 03/27/13 documented as of this encounter
--- OUTSIDE RECORDS SUMMARY | 2024-10-16 13:48 | XMS_ITS | Patient Health Record ---
Author Organization [facility] Address [address] [place] [address] Care Team Providers Care Assembler Fluorescent Lights Name Role Phone REINALDO STOKES M.D. Primary Care Provid er Unavailable KARON ZAMORAA Unavailable [phone] Reason For Referral No Information Medications Medication [...] Sodium 40MG 1 ORAL daily for -3 [facility] 2011 Active HumaLOG 100 UNIT/ML 20 units [...] Lisinopril 40MG 1 ORAL daily for -3 [facility] 12/26/2011 Active Multivitamins 1 ORAL daily for 3 [facility] 12/26/2011 Not-Taking Dicloxacillin Sodium 500 MG 1 ORAL three times daily for 10 [facility] 05/22/2012 Not-Taking Acyclovir 400 MG TK 1 T PO BID Oral for 30 Active Lantus SoloStar 100 UNIT/ML Subcutaneous AT BEDTIME for - [facility] 12/26/2011 Active Social History Tobacco [...] Risk Notes Problem SI - Stress incontinence (05638585) Stress incontinence (female) (male) (N39.3) Active confirmed Problem Abscess of vulva (36537624) Other abscess of vulva (616.4) Active confirmed Other Plan Of Treatment Pending Test Test Name Order Date THIN PREP,HPV,KALE[place] IF HPV+ (>29YR)(DIAG) 06/06/2019 ULTRASOUND: PELVIC W/TRANSVAGINAL 2018 MM Digital Screening Mammogram 3D 2018 Insurance Providers Payer Name Payer Address Payer Phone Subscriber Number Group Number Insured Name Patient Relationship to Insured Coverage Start Date Coverage End Date MEDICARE [address] KIERRA BRISENO [id number] DAVID CELSO Self - patient is the [...]
--- OUTSIDE RECORDS SUMMARY | 2024-10-16 13:48 | XMS_ITS | Data Portability ---
Author Organization [place] [facility] Carmella Rausch [facility]ONE [place] Address [address] [facility] [address] [place] [address] Assessment Encounter Date Assessment Date Assessment LastModified [...] therapy and stretching exercises. She can take dmct-nap-gasscem pain medication for symptomatic relief. She agrees [...] Procedures None recorded. Surgeries None recorded. Imaging MRI, shoulder, w/o contrast - Frozen Shoulder , impingement , weakness R/O RCTPleas e call patient to schedule and hand carry CD 2022 023 [facility] [place], [facility], [facility] [[email or web address] [address], [place], [address], 3 16:33:28 XR, shoulder, 2 or more view 2022 023 [facility], [address], [address], [place], [address], 3 14:38:16 Medication Orders meloxicam 7.5 mg tablet 2022 023 [id number], [address] [place] [place], [id number], 3 16:01:22 meloxicam 7.5 mg tablet 2022 023 [facility] #43621, [address] [place], [id number], 3 14:14:38 meloxicam 7.5 mg tablet 2022 023 [id number], [address] [place] [place], [id number], 3 10:56:13 Kenalog 40 mg/mL suspension for injection [address] [facility]53470, [address] [place], [id number], 3 14:34:16 lidocaine (PF) 10 mg/mL (1 %) injection solution [address] [facility]61463, [address] [place], [id number], 3 14:34:16 bupivacaine (PF) 0.5 % (5 mg/mL) injection solution [address] [facility]59743, [address] [place], [id number], 3 14:34:16 Patient TargetsNo targets recorded. Patient Instructions Encounter [...] observ ation record ed. [email or web address] [facility] [place] [address], [place], [address], 01/30/2023 16:33:28 Result Notes None recorded. Problems Name Problem SNOMED Code Status Onset Date Resolution Date Notes Provider Name and Address Organization Details Recorded Time Rupture of rotator cuff of left shoulder 0025151052139 9102 Active 2022 SUMMER NEWBERRY PA-C [address], [facility] [place], [address], [place] [facility], P 3 14:13:44 Impingement syndrome of left shoulder region 2331214593217 04 Active 2022 SUMMER NEWBERRY PA-C [address], [place], [address], [place] [facility], P 3 14:32:26 Adhesive capsulitis of left shoulder 3153353953363 07 Active 2022 SUMMER NEWBERRY PA-C [address], [place], [address], [place] [facility], P 3 14:32:34 Pain of left shoulder joint 4760202976784 9109 Active 2022 SUMMER NEWBERRY PA-C [address], [place], [address], [place] [facility], P 3 10:54:46 Problem Notes None recorded. Procedures Surgical History Date Name Laterality Status Provider Name and Address Organization Details Recorded Time 11/18/19 23 Shoulder Joint/Bursa Asp & Inj completed SUMMER NEWBERRY PA-C [address], [place], [address], [place] [facility], P 11/17/2022 14:30:43 Gastric bypass for obesity completed Angie Weber [facility], P 11/17/2022 13:01:05 Hysterectomy completed Cathy Gonzalez [facility], P 03/06/2023 15:42:02 Imaging Results Imaging Date Name Status LastModified by Organiz ation Details LastModified Time 01/30/2023 MRI, shoulder, w/o contrast completed [email or web address] [facility] [place] [address], [place], [address], 01/30/2023 16:33:28 Procedure Notes None recorded. Medical [...] Updated DateTime 11/17/2022 165.1 cm 31.6 kg/m2 34550.[address] [facility] [place] 11/17/2022 12:59:39 Date Recorded Body height Provider Name an d Address Organization Details Last Updated DateTime 01/06/2023 165.1 cm [address] [place] [facility] [place] 01/06/2023 10:47:34 Date Recorded Body height Provider Name an d Address Organization Details Last Updated DateTime 01/30/[address]23 [address] [facility], P 01/30/2023 11:33:46 Date Recorded Body height Body mass index (BMI) Body weight Provider Name and Address Organization Details Last Updated DateTime 02/03/2023 165.1 cm 31.6 kg/m2 [address]605.[address] [facility], P 02/03/2023 13:51:07 Date Recorded Body height Provider Name an d Address Organization Details Last Updated DateTime 03/06/[address]23 [address] [facility], P 03/06/2023 15:33:16 Social History Question Answer Notes LastModified by Organizat ion Details LastModified Time Tobacco Smoking Status Current Every Day Smoker Cathy Gonzalez [facility], [place] [facility], P 03/06/2023 15:37:42 How Much Tobacco Do [...] available 2022 13:00:29 Medical History Condition Response Arthritis Y Cancer Y Diabetes Y Reflux/GERD Y Hypertension Y Gynecological HistoryNo gynecological history recorded. Obstetrics History GPAL:G 0 P 0 0 0 0 Past Encounters Encounter ID Performer Location Encounter Start Date Encounter Closed Date Diagnosis/Indication Diagnosis SNOMED-CT Code Diagnosis ICD10 Code Diagnosis Note [id number] MD ONIEL Eubanks [address] [facility] [address] [place] [address] 11/17/2022 12:51:06 11/17/2022 13:48:18 Pain of left shoulder joint [id number] 4622094 M25.512 Impingemen t syndrome of left shoulder region 4045039677 12287 M75.42 Adhesive c apsulitis of left shoulder 8141225154 48869 M75.02 [id number] MD ONIEL Arguello [address] [place] [address] 01/06/2023 10:38:31 01/06/2023 11:04:13 Adhesive capsulitis of left shoulder 0479345189 14151 M75.02 Impingemen t syndrome of left shoulder region 2860053801 24903 M75.42 Pain of le ft shoulder joint 6990158113 2346286 M25.512 [id number] MD ONIEL Arguello [address] [address] 01/30/2023 10:59:57 02/06/2023 12:27:55 Pain of left shoulder joint 2794448372 0001633 M25.512 Rupture of rotator cuff of left shoulder 0924156788 9486141 M75.102 [id number] MD ONIEL Arguello [address] [address] 02/03/2023 13:48:27 02/03/2023 14:15:03 Rupture of rotator cuff of left shoulder 9576813563 2671075 M75.102 [id number] MD ONIEL [place]ia [address] [facility] [address] [place] [address] 03/06/2023 15:07:03/06/2023 16:19:01 Pain of left shoulder joint 1783482285 9431767 M25.512 Adhesive c apsulitis of left shoulder 3660667982 63058 M75.02 Partial th ickness rotator cuff tear 333734578 M75.112 [facility] Concerns Section Related Observation LastModified by Organization Detai ls LastModified Time None Recorded Concern Status LastModified by Organization Details LastModified Time None Recorded Advance Directives Directive None Recorded Payers Encounter Date Sequence Insurance Name Policy Number Policy Garnica Covered Member ID Garnica Member ID Guarantor Name 11/17/2022 1 [facility] CARE [employer] - DOS ON OR AFTER 2022 - MEDIC[place]V ANTAGE - PPO) Mirian Bal [id number] Mirian Bal 01/06/2023 1 [facility] [employer] - DOS ON OR AFTER 2022 - [place]V ANTAGE - [place]PO) Mirian Bal [id number] Mirian Bal 01/30/2023 1 [facility] - DOS ON OR AFTER 2022 - [place]V ANTAGE - [place]PO) Mirian Bal [id number] Mirian Bal 02/03/2023 1 [facility] - DOS ON OR AFTER 2022 - [place]V ANT[place] - PPO) Mirian Bal [id number] Mirian Bal 03/06/2023 1 [facility] C[employer] - DOS ON OR AFTER 2022 - [place]V ANT[place] - PPO) Mirian Bal [id number] Mirian Bal Notes Date Note Type Note Provider Name and Address Organization Details Recorded Time 11/17/2022 text/html This is a very pleasant 51-year-old female [id number]-fupcdslr with chief complaint of chronic left shoulder pain. She states she had been previously treated at [facility] approximately 10 years ago with cortisone injections which gave her brief relief. She states she feels extremely stiff she has pain that wakes her up at night. She denies paresthesias. She does state some weakness at times. She is here for evaluation and treatment for her left shoulder. SUMMER NEWBERRY PA-C [address] [facility] [address], [place], [address], [place] [facility], P 11/17/2022 14:38:11 01/06/2023 text/html Assessment & [...] chronic back pain. SUMMER NEWBERRY PA-C [address] [facility] [address], [place], [address], [place] [facility], P 01/06/2023 11:02:02 01/30/2023 text/html Assessment & [...] RCT (PT Disk) SUMMER NEWBERRY PA-C [address] [facility] [address], [place], [address], [place] [facility], P 02/06/2023 12:27:53 02/03/2023 text/html Pleasant 52-year-old female following up on her MRI at of her left shoulder which was conducted on 01/21/2023. No interval change in history ongoing left shoulder pain despite conservative management. She does state however meloxicam that she was prescribed gives her good relief. She is requesting for refill. MRI findings were reviewed these were conducted at [facility] radiology. Moderate supraspinatus tendinosis with bursal sided tear measuring 1.7 x 1.2 cm AP to MLSubacromial subdeltoid bursitis, thickening edema of the joint capsule consistent with adhesive capsulitis, partial tear of the deltoid myotendinous junction at the insertion of the posterior acromion and trace glenohumeral joint effusion. Female veneer grader present from entering the room through the exam till exiting the room Cathy GUPTA) SUMMER NEWBERRY PA-C [address] [facility] [address], [place], [address], [place] [facility], P 02/03/2023 14:22:41 03/06/2023 text/html Very pleasant [...] findings were reviewed these were conducted at [facility] radiology. Moderate supraspinatus tendinosis with bursal sided tear measuring 1.7 x 1.2 cm AP to MLSubacromial subdeltoid bursitis, thickening edema of the joint capsule consistent with adhesive capsulitis, partial tear of the deltoid myotendinous junction at the insertion of the posterior acromion and trace glenohumeral joint effusion. Francisco Camacho MD [address] [facility],[address], [place], [address], [place] [facility], P 03/27/2023 06:21:46 OBGyn Episode No OBEpisode recorded.
--- OUTSIDE RECORDS SUMMARY | 2024-10-16 13:48 | XMS_ITS | Clinical Summary ---
Author Organization [address] Address [address] [place] [address] Phone Care Team Providers Care Citrix Lead Name Role Phone Nayeli Sena MD Primary Care Provid er Encounters Date Type Department Care Team Description 10/13/2024 Lab Requisition [facility] [address] [place] [phone] Rose Marie Campos MD Essential (primary) hypertension; Heart failure, unspecified (CMS/HCC); Fatty (change of) liver, not elsewhere classified 10/05/2024 Lab Requisition [facility] [address] [place] [phone] Rose Marie Campos MD Essential (primary) hypertension; Heart failure, unspecified (CMS/HCC); Fatty (change of) liver, not elsewhere classified 10/03/2024 Lab Requisition [facility] [address] [place] [phone] Rose Marie Campos MD Essential (primary) hypertension; Type 2 diabetes mellitus without complications (CMS/HCC); Nontraumatic subarachnoid hemorrhage, unspecified (CMS/HCC); Postgastric surgery syndromes 09/29/2024 Lab Requisition [facility] [address] [place] [phone] Rose Marie Campos MD Essential (primary) hypertension; Heart failure, unspecified (CMS/HCC); Fatty (change of) liver, not elsewhere classified 09/21/2024 Lab Requisition [facility] [address] [place] [address] Rose Marie Campos MD Essential (primary) hypertension 09/20/2024 Lab Requisition [facility] [address] [place] [phone] Rose Marie Campos MD Nontraumatic subarachnoid hemorrhage, unspecified (CMS/HCC) 09/19/2024 Lab Requisition [facility] [address] [place] [address] Rose Marie Campos MD Type 2 diabetes mellitus without complications ([facility]); Essential (primary) hypertension from Last 3 Months Surgical History Surgery Date Site/Laterality Comments OTHER SURGICAL HISTORY 1999 PROCEDURE: ---- OTHER ----; COMMENT: gastric bypass HYSTERECTOMY 2003 PROCEDURE: HISTORICAL HYSTERECTOMY HAND SURGERY 2010 PROCEDURE: HISTORICAL HAND SURGERY; COMMENT: trigger finger release, carpal tunnel surgery Family History Medical History Relation Name Comments Hyperlipidemia Father Hypertension Father Other: Crohn's disease Mother Gout Relation Name Status Comments Father Mother Social History Tobacco Use Types Packs/Day Years [...] on file Sexual Orientation Not on file Obstetrics History Plan of Treatment Health Maintenance Due Date Last Done Comments Breast Cancer Screening 1968 Diabetes: Annual Foot Exam 1978 Diabetes: Annual Retina Eye Exam 1978 DTaP,Tdap,and Td Vaccines (1 - Tdap) 12/20/1987 Hepatitis B Vaccines (1 of 3 - 19+ 3-dose series) 12/20/1987 Pneumococcal Vaccine: 50+ Years (1 of 2 - PCV) 12/20/1987 Pneumococcal Vaccine: Pediatrics (0 to 5 Years) and At-Risk Patients (6 to 64 Years) (1 of 2 - PCV) 12/20/1987 Zoster Vaccines (1 of 2) 2018 COVID-19 Vaccine ( season) 2024 Influenza Vaccine (#1) 2024 Cholesterol Screening (Lipid Panel) 09/19/2024 Colorectal Cancer Screening: Colonoscopy 09/19/2024 Depression Screening 09/19/2024 Diabetes: Annual Urine Albumin-Creatinine Ratio (uACR) 09/19/2024 HIV Screening 09/19/2024 Hepatitis C Screening 09/19/2024 Medicare Annual Wellness Visit 09/19/2024 Social Influencers of Health Screening 09/19/2024 Diabetes: Blood Sugar Control Test (HGBA1C) 03/19/2025 09/19/2024 Diabetes: Annual GFR (Glomerular Filtration Rate) 10/07/2025 10/07/2024, 09/30/2024, 09/23/2024, Additional history exists Hypertension/CHF/CAD Annual BMP Blood Test 10/07/2025 10/07/2024, 09/30/2024, 09/23/2024, Additional history exists HIB Vaccines Aged Out No longer eligi ble based on patient's age to complete this topic HPV Vaccines Aged Out No longer eligi ble based on patient's age to complete this topic Hepatitis A Vaccines Aged Out No long er eligible based on patient's age to complete this topic IPV Vaccines Aged Out No longer eligi ble based on patient's age to complete this topic MMR Vaccines Aged Out No longer eligi ble based on patient's age to complete this topic Meningococcal ACWY Vaccine Aged Out N o longer eligible based on patient's age to complete this topic Meningococcal B Vacine Aged Out No lo nger eligible based on patient's age to complete this topic RSV Immunization Patients Under 20 months Aged Out No longer eligible based on patient's age to complete this topic Varicella Vaccines Aged Out No longer eligible based on patient's age to complete this topic Procedures Procedure Name Priority Date/Time Associated Diagnosis Comments AMMONIA Routine 10/07/2024 6:47 AM EST Essential (primary) hypertension Heart failure, unspecified (CMS/HCC) Fatty (change of) liver, not elsewhere classified BASIC METABOLIC PANEL Routine 10/07/2024 6:47 AM EST Essential (primary) hypertension Heart failure, unspecified (CMS/HCC) Fatty (change of) liver, not elsewhere classified COMPLETE BLOOD COUNT Routine 10/07/2024 6:47 AM EST Essential (primary) hypertension Heart failure, unspecified (CMS/HCC) Fatty (change of) liver, not elsewhere classified CALCIUM, IONIZED Routine 10/03/2024 5:21 AM EST Essential (primary) hypertension Type 2 diabetes mellitus without complications (CMS/HCC) Nontraumatic subarachnoid hemorrhage, unspecified (CMS/HCC) Postgastric surgery syndromes VITAMIN B1 Routine 10/03/2024 5:21 AM EST [...] subarachnoid hemorrhage, unspecified (CMS/HCC) Postgastric surgery syndromes AMMONIA Routine 09/30/2024 6:36 AM EST Essential (primary) hypertension Heart failure, unspecified (CMS/HCC) Fatty (change of) liver, not elsewhere classified COMPLETE BLOOD COUNT Routine 09/30/2024 6:36 AM EST Essential (primary) hypertension Heart failure, unspecified (CMS/HCC) Fatty (change of) liver, not elsewhere classified BASIC METABOLIC PANEL Routine 09/30/2024 6:36 AM EST Essential (primary) hypertension Heart failure, unspecified (CMS/HCC) Fatty (change of) liver, not elsewhere classified AMMONIA Routine 09/23/2024 11:08 AM EST Essential (primary) hypertension BASIC METABOLIC PANEL Routine 09/23/2024 11:08 AM EST Essential (primary) hypertension COMPLETE BLOOD COUNT Routine 09/23/2024 11:08 AM EST Essential (primary) hypertension AMMONIA Routine 09/20/2024 7:23 AM EST Nontraumatic subarachnoid hemorrhage, unspecified (CMS/HCC) HEMOGLOBIN A1C Routine 09/19/2024 4:56 AM EST Type 2 diabetes mellitus without complications (CMS/HCC) Essential (primary) hypertension BASIC METABOLIC PANEL Routine 09/19/2024 4:56 AM EST Type 2 diabetes mellitus without complications (CMS/HCC) Essential (primary) hypertension COMPLETE BLOOD COUNT Routine 09/19/2024 4:56 AM EST Type 2 diabetes mellitus without complications (CMS/HCC) Essential (primary) hypertension from Last 3 Months Results * (ABNORMAL) Complete blood count (10/07/2024 6:47 AM EST) Only the most recent of4 resultswithin the time period is included. WBC 10.8 4.8 - 10.8 K/mcL LAB HEMETOLOGY METHOD 10/07/2024 9:48 AM [facility] RBC 3.00(L) 3.80 - 4.80 M/mcL LAB HEMETOLOGY METHOD 10/07/2024 9:48 AM [facility] Hemoglobin 9.9(L) 11.5 - 16.0 g/dL LAB HEMETOLOGY METHOD 10/07/2024 9:48 AM [facility] Hematocrit 31.1(L) 35.0 - 47.0 % LAB HEMETOLOGY METHOD 10/07/2024 9:48 AM [facility] MCV 105.4(H) 79.0 - 98.0 FL LAB HEMETOLOGY METHOD 10/07/2024 9:48 AM [facility] MCH 33.6(H) 27.0 - 32.0 pcg LAB HEMETOLOGY METHOD 10/07/2024 9:48 AM EST [facility] MCHC 31.8(L) 32.0 - 37.0 g/dL LAB HEMETOLOGY METHOD 10/07/2024 9:48 AM [facility] RDW 13.5 11.0 - 15.0 % LAB HEMETOLOGY METHOD 10/07/2024 9:48 AM EST [facility] Platelets 182 130 - 400 K/mcL LAB HEMETOLOGY METHOD 10/07/2024 9:48 AM [facility] MPV 11.6(H) 7.0 - 11.0 FL LAB HEMETOLOGY METHOD 10/07/2024 9:48 AM [facility] NRBC 0.0 <1.0 % LAB HEMETOLOGY METHOD 10/07/2024 9:48 AM [facility] NRBC Absolute 0.00 <0.10 K/mcL LAB HEMETOLOGY METHOD 10/07/2024 9:48 AM [facility] Blood Venous blood specimen / Unknown Venipuncture / Unknown 10/07/2024 6:47 AM EST 10/07/2024 9:27 AM EST Rose Marie Campos MD LAB BLOOD ORDERABLES Fin al Result [facility] [address] [place] [address], * (ABNORMAL) Ammonia (10/07/2024 6:47 AM EST) Only the most recent of4 resultswithin the time period is included. Ammonia 43(H) 11 - 35 mcmol/L LAB CHEMISTRY METHOD 10/07/2024 8:27 AM EST [facility] Blood Venous blood specimen / Unknown 10/07/2024 6:47 AM EST 10/07/2024 8:04 AM EST us Rose Marie Campos MD LAB BLOOD ORDERABLES Fin al Result [facility] [address] [place] [address], [place] [phone] * (ABNORMAL) Basic metabolic panel (10/07/2024 6:47 AM EST) Only the most recent of4 resultswithin the time period is included. Sodium 144 133 - 145 mmol/L LAB CHEMISTRY METHOD 10/07/2024 10:01 AM [facility] Potassium 4.4 3.5 - 5.5 mmol/L LAB CHEMISTRY METHOD 10/07/2024 10:01 AM [facility] Chloride 109 96 - 110 mmol/L LAB CHEMISTRY METHOD 10/07/2024 10:01 AM [facility] CO2 31 21 - 32 mmol/L LAB CHEMISTRY METHOD 10/07/2024 10:01 AM [facility] Anion Gap 4 3 - 11 LAB CHEMISTRY METHOD 10/07/2024 10:01 AM [facility] Glucose 80 70 - 100 mg/dL LAB CHEMISTRY METHOD 10/07/2024 10:01 AM [facility] BUN 6 5 - 25 mg/dL LAB CHEMISTRY METHOD 10/07/2024 10:01 AM [facility] Creatinine 0.82 0.50 - 1.10 mg/dL LAB CHEMISTRY METHOD 10/07/2024 10:01 AM [facility] eGFR 85 >=60 mL/min/1. 73m2 LAB CHEMISTRY METHOD 10/07/2024 10:01 AM [facility] Comment:Calculation based on the??Chronic Kidney Disease Epidemiology Collaboration (CKD-EPI) equation refit??without adjustment for race. BUN/Creatinine Ratio 7.3 LAB CHEMISTRY METHOD 10/07/2024 10:01 AM EST [facility] Calcium 7.5(L) 8.5 - 10.5 mg/dL LAB CHEMISTRY METHOD 10/07/2024 10:01 AM EST [facility] Blood Venous blood specimen / Unknown Venipuncture / Unknown 10/07/2024 6:47 AM EST 10/07/2024 9:27 AM EST Rose Marie Campos MD LAB BLOOD ORDERABLES Fin al Result Performing Organization Address City/[facility]/ZIP Co de Phone Number [facility] [address] [place] [address], * Vitamin B1 (10/03/2024 5:21 AM EST) Vitamin B1 Whole Blood 69 38 - 122 ug/L 10/09/2024 6:14 AM EST [facility] Comment: This test was developed and the performance characteristics determined by [facility]. It has not been cleared or approved by the FDA. The laboratory is regulated under CLIA as qualified to perform high-complexity testing. This test is used for patient testing purposes. It should not be regarded as investigational or for research. Test performed at [facility], [address] , [place], [place] ??[address] ? [phone] Ernestina More MD, PhD - Desk Assistant Blood Venous blood specimen / Unknown Venipuncture / Unknown 10/03/2024 5:21 AM EST 10/03/2024 7:41 AM EST Rose Marie Campos MD LAB BLOOD ORDERABLES Fin al Result [facility] [address] [place] [address] * Folate (10/03/2024 5:21 AM EST) Folate 13.2 2.8 - 17.0 ng/ml LAB CHEMISTRY METHOD 10/03/2024 8:52 AM EST [facility] Blood Venous blood specimen / Unknown Venipuncture / Unknown 10/03/2024 5:21 AM EST 10/03/2024 7:41 AM EST Rose Marie Campos MD LAB BLOOD ORDERABLES Fin al Result Performing Organization Address City/[facility]/ZIP Co de Phone Number [facility] [address] [place] [address], [place] [phone] * (ABNORMAL) Vitamin B12 (10/03/2024 5:21 AM EST) [facility] Vitamin B-12 1,173(H) 250 - 900 pcg/mL LAB CHEMISTRY METHOD 10/03/2024 8:52 AM EST [facility] Blood Venous blood specimen / Unknown Venipuncture / Unknown 10/03/2024 5:21 AM EST 10/03/2024 7:41 AM EST Rose Marie Campos MD LAB BLOOD ORDERABLES Fin al Result Performing Organization Address [facility] Co de Phone Number [facility] [address] [place] [address], [place] [phone] * Calcium, ionized (10/03/2024 5:21 AM EST) [facility] Calcium Ionized 4.8 4.6 - 5.4 mg/dL 10/07/2024 11:29 AM EST [facility] Comment: Test performed at [facility], [address] , [place], [place] ??[address] ? [phone] Ernestina More MD, PhD - Desk Assistant Blood Venous blood specimen / Unknown Venipuncture / Unknown 10/03/2024 5:21 AM EST 10/03/2024 7:41 AM EST Rose Marie Campos MD LAB BLOOD ORDERABLES Fin al Result [facility] [address] [place] [address] * Hemoglobin A1c (09/19/2024 4:56 AM EST) Hemoglobin A1C 5.1 <6.5 % LAB CHEMISTRY METHOD 09/19/2024 12:13 PM EST [facility] Mean Bld Glu Estim. 100 mg/dL LAB CHEMISTRY METHOD 09/19/2024 12:13 PM EST [facility] Blood Venous blood specimen / Unknown Venipuncture / Unknown 09/19/2024 4:56 AM EST 09/19/2024 7:57 AM EST Rose Marie Campos MD LAB BLOOD ORDERABLES Fin al Result [facility] [address] [place] [address], from Last 3 Months Insurance [facility] Member Subscriber Plan / Payer (Ef fective 2020-Present) Name:Mirian Bal Relation to Subscriber:Self Name:Mirian Bal Payer ID:[id number] Group ID:[id number] Type:Not on file Address: [place] [address] [address] [address] Care Teams Citrix Lead Relationship Specialty Start Date End Date Nayeli Sena MD [address] [place] [address] [address] [place] [address] PCP - General Internal Medicine 03/27/13
--- OUTSIDE RECORDS SUMMARY | 2024-10-16 13:49 | XMS_ITS | Encounter Summary ---
Author Organization [facility] Address [address] [place] [address] Care Team Providers Care Squad Sergeant Name Role Phone Nayeli Sena MD Primary Care Provid er Encounter Details Date Type Department Care Team (Late st Contact Info) Description 10/13/2024 Lab Requisition [facility] [address] [facility] [place] [address] Rose Marie Campos MD [address] [address] Essential (primary) hypertension; Heart failure, unspecified (CMS/HCC); [...] on file documented as of this encounter Visit Diagnoses Diagnosis Essential (primary) hypertension Unspecified essential hypertension Heart failure, unspecified (CMS/HCC) Heart failure, unspecified Fatty (change of) liver, not elsewhere classified documented in this encounter Care Teams Squad Sergeant Relationship Specialty Start Date End Date Nayeli Sena MD [address] [place] [address] [address] [place] [address] PCP - General Internal Medicine 03/27/13 documented as of this encounter
--- OUTSIDE RECORDS SUMMARY | 2024-10-16 13:49 | XMS_ITS | Patient Health Record ---
Author Organization [facility] Address [address] [place] [phone] Care Team Providers Care Tin Assorter Name Role Phone Davian Handley MD, Nayeli Primary Care Provider Unavailable Marcos Hough Jr Unavailable Results Component Value Reference Range Notes IRON PROFILE Reviewed date:09/18/2024 03:55:07 PM Interpretation: Performing Lab:[facility], [address] [place] [phone] Notes/Report: Iron 49 30-160 mcg/dL Total Iron Binding Capacity 74 228-428 mcg/d L Percent Iron Saturation 66 15-50 % Unsaturated Iron Binding < 25 Ferritin Reviewed date:09/18/2024 03:54:57 PM Interpretation: Performing Lab:[facility], [address] [place] [phone] Notes/Report: Ferritin 565 10-250 ng/mL Liver Fibrosis Pnl Reviewed date:09/30/2024 08:36:54 PM Interpretation: Performing Lab:[facility], [address] [place] [phone] Notes/Report: Liver Fibrosis Score TNP TEST(S) NOT PERFORMED: FIBROSIS SCORE FIBROSIS INTERPRETATION NECROINFLAMMAT INTERP REFERENCE ID FOOTNOTE TEST NOT PERFORMED Fibrosis and Activity Scores could not be calculated for this patient sample. One or more components were outside panel algorithm parameters. THIS TEST WAS PERFORMED AT: [facility] [address] [place] [address] KAROLINA HUTCHINSON MD,PHD,[place] Liver Fibrosis Stage TNP Liver Fibrosis Interpretation TNP Nec Inflam Act Score TNP Nec Inflam Act Grade TNP Nec Inflam Act Interpretation TNP WTX-Xjxbj-5-Macroglobulin 257 106-279 mg/dL FIB-Haptoglobin 234 43-212 mg/dL FIB-Apolipoprotein A1 32 101-198 mg/dL This value is very low, under the 1 percentile. Check the value. Usual minimum value is 56.0 mg/dl. Unusual deviation with median value. FIB-Total Bilirubin 0.7 0.2-1.2 mg/dL FIB-GGT 60 3-70 U/L FIB-ALT 19 6-29 U/L Reference ID TNP Footnote TNP LISA Reflex Titer and Pattern Reviewed date:09/25/2024 07:55:27 AM Interpretation: Performing Lab:[facility], [address] [place] [phone] Notes/Report: Anti Nuclear Antibody Screen NEGATIVE NEGATIVE LISA IFA is a first line screen for detecting the presence of up to approximately 150 autoantibodies in various autoimmune diseases. A negative LISA IFA result suggests an LISA-associated autoimmune disease is not present at this time, but is not definitive. If there is high clinical suspicion for Sjogren's syndrome, testing for anti-SS-A/Ro antibody should be considered. Anti-Roro-1 antibody should be considered for clinically suspected inflammatory myopathies. AC-0: Negative International Consensus on LISA Patterns (https://doi.org/10.1515/cclm- 7940-1268) For additional information, please refer to http://education.[employer].com/faq/IIB128 (This link is being provided for informational/ educational purposes only.) THIS TEST WAS PERFORMED AT: [facility] [address] [place] [phone] MARYANN BROTHERS MD Anti Nuclear Antibody Titer TNP Anti Nuclear Antibody Pattern TNP LISA Titer 2 TNP LISA Pattern 2 TNP LISA Titer 3 TNP LISA Pattern 3 TNP Mitochondrial Antibody Reviewed date:09/25/2024 03:30:47 PM Interpretation: Performing Lab:[facility], [address] [place] [phone] Notes/Report: Mitochondrial Antibodies NEGATIVE NEGATIVE THIS TEST WAS PERFORMED AT: [facility] [address] [place] [phone] MARYANN BROTHERS MD Mitochondrial Ab Titer TNP Smooth Muscle Antibody Reviewed date:09/25/2024 03:30:31 PM Interpretation: Performing Lab:[facility], [address] [place] [phone] Notes/Report: Smooth Muscle Antibody <20 <20 U Reference Range: <20 U: Negative >or=20 U: Positive Antibodies recognizing actin are the main component of smooth muscle antibodies associated with auto- immune liver disease. Actin antibodies are found in approximately 75% of patients with autoimmune hepatitis (AIH) type 1, approximately 65% of patients with autoimmune cholangitis, approximately 30% of patients with primary biliary cirrhosis and approximately 2% of healthy controls. High values are closely correlated with AIH type 1. THIS TEST WAS PERFORMED AT: [facility] [address] COLIN CANNON MD,PHD Reason For Referral No Information Problems Problem Type SNOMED Code ICD Code Onset Dates Problem Status W/U Status Risk Notes Problem Altered mental status (028998721) Altered mental status, unspecified (R41.82) Active confirmed Problem Fatty liver (286207626) Fatty liver (K76.0) Active confirmed Problem Hyperammonemia (0797502) Hyperammonemia (E72.20) Active confirmed Encounters Encounter Location Date Provider Diagnosis [facility] [address] [place] [address] 09/25/2024 Marcos Hough Jr [facility] [address] [place] [address] 10/02/2024 Marcos Hough Jr Plan Of Treatment No Information Insurance Providers Payer Name Payer Address Payer Phone Subscriber Number Group Number Insured Name Patient Relationship to Insured Coverage Start Date Coverage End Date [facility] [address] [place] [address] [id number] CELSO HERNANDEZ Self - patient is the insured
--- OUTSIDE RECORDS SUMMARY | 2024-10-16 13:49 | XMS_ITS ---
Author Organization [facility] Address [address] [place] [phone] Care Team Providers Care Public Health Microbiologist Name Role Phone Davian Handley MD, Nayeli Primary Care Provider Unavailable Gianluca Worrell, Marcos Gutiérrez [phone] REASON FOR VISIT ONLY PARTIAL LAB WAS ABLE TO BE DONE Encounters Encounter Location Date Provider Diagnosis [facility] [address] [place] [phone] 10/02/2024 Marcos Hough Jr Plan Of Treatment No Information Progress Notes * CELSO HRENANDEZDOB:1970 (53 yo F)Acc No.[id number]:10/02/2024 Patient:?CELSO HERNANDEZ :1970???Age:53 Y???Sex:Female Address:[address] [place] [address] [facility] [place] [address] * true * Date:? Generated for Eliazar shi/Cassie/eTransmitting on:?10/16/2024 01:48 PM EST
--- OUTSIDE RECORDS SUMMARY | 2024-10-16 13:49 | XMS_ITS | Continuity of Care Document ---
Author Organization [facility] [address] [place] [address] Phone [phone] Care Team Providers Care Java Developer Consultant Name Role Phone Nayeli Sena M.D. Care Team Informati on Web Systems Developer [phone] Problems Active Problems Provider Date Type 2 diabetes mellitus Nayeli Baker M.D. Onset: 05/30/2022 Obesity Nayeli lozano M.D. Onset: 05/30/2022 Essential hypertension Nayeli dale M.D. Onset: 05/30/2022 Gastroesophageal reflux disease Nayeli Sena M.D. Onset: 05/30/2022 Polycystic ovary syndrome Nayeli Arenas M.D. Onset: 05/30/2022 Depressive disorder Nayeli lozano M.D. Onset: 05/30/2022 Anxiety Nayeli lozano M.D. Onset: 05/30/2022 Fibromyalgia Nayeli lozano M.D. Onset: 05/30/2022 Vitreous hemorrhage Nayeli lozano M.D. 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 Onset: 05/30/2022 Squamous cell carcinoma of cervix Benita Sena M.D. Onset: 05/30/2022 Arthropathy of lumbar facet joint Benita Sena M.D. Onset: 05/30/2022 Cervical spondylosis Nayeli sawant M.D. Onset: 05/30/2022 Degeneration of cervical int ervertebral disc Nayeli Sena M.D. Onset: 05/30/2022 Carotid artery stenosis Nayeli Handley M.D. Onset: 05/30/2022 Tinnitus Nayeli lozano M.D. Onset: 05/30/2022 Pure hypercholesterolemia Nayeli Arenas M.D. 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 ETOH Use Denies alcohol use Tobacco Use Start: Unknown Patient is a cur rent smoker, smokes every day 1/2 pack daily Allergies and adverse reactions Active Allergies Criticality Reaction Severity Comments Date Metformin Unable to assess criticality Diarrhea 05/30/2022 Pioglitazone Unable to assess criticality edema 05/30/2022 Trulicity Unable to assess criticality Nausea 05/30/2022 Inactive Allergies NKDA Unable to assess criticality 05/30/2022 Medications Active Medications SIG Qnty Indications Order ing Provider Date Freestyle Janna 3 Plus/Sensor/Glucose Monitoring SystemMisc change sensor every 15 days dx: e11.8 6units E11.8 Nayeli Sena M.D. 09/04/2024 Onetouch Ultra Blue TestStrips Use as directed for testing blood sugars four times daily 400units E11.3593 Nayeli Sena M.D. 09/03/2024 Doxycycline Jdkihyxdfeh739yy Capsules 1 tab by mouth twice a day for 10 days 20caps Nayeli Sena M.D. 03/19/2024 Triple AntibioticOintment Apply to affected area twice daily as needed 144units Nayeli Sena M.D. 03/19/2024 Monistat 7 Simply Cure2% Cream Insert 1 dose vaginally for 10 days. 2unfela Sena M.D. 02/23/2024 Vaafwbnb991qc Tablets 1 tab PO as directed 1tavito Sena M.D. 02/22/2024 B-D #8418 Syr/NDL 1ML 31GX5/16 Uf Apply 1 Syringe To The Skin 4 Times A Day as Directed 400artis Sena M.D. 09/26/2023 Onetouch Ultra 2w/Device Kit Use as directed for testing blood sugars four times daily 1units E11.42 Sigifredo Kapoor M.D. 08/11/2023 Microlet LancetsMisc use a new lancet four times daily to test blood sugars 400units E11.3593 Sigifredo Kapoor M.D. 08/11/2023 Baqsimi One Gusy5cn/Dose Powder spray into nostril as needed for low sugar reaction 1unfela Sena M.D. 01/25/2023 Ferrous Hvckkdn836(65Fe) mg Tablets 1 tab by mouth every day as directed 90violet Sena M.D. 05/30/2022 Vitamin G258sdh (2000 Ut) Capsules 1 cap by mouth every day as directed 90regina Sena M.D. 05/30/2022 Phaqojrxhs127mf Capsules Take 1 To 2 Capsules By Mouth Twice Daily 360regina Sena M.D. 05/26/2022 Easy Touch Ins Syr 1ML 31G X 5/16 Apply 1 Syringe To The Skin 4 Times A Day as Directed For 90 Days. 400unfela E11.9 Nayeli Sena M.D. 05/18/2022 Lmqaalvghk49at Tablets take 1 tablet by mouth every day 90violet Sena M.D. 05/10/[address] Take 1 Capsule By Mouth Every Day as Directed diana Sena M.D. 04/12/2022 Nmiexdhvev13gd Tablets Take 1 tablet by mouth every day 90violet Sena M.D. 03/24/2022 Oxycodone-Acetaminophen5- 325mg Tablets Take 1 tablet by mouth every 6 hours as needed for pain 120tabs M50.30 Nayeli Sena M.D. 02/28/2022 M47.816 Ondansetron HCL4mg Tablets Take 1 Tablet By Mouth Every 8 Hours as Needed 90tabs Rajendra Issa.D. 02/28/2022 Prpjueavijwhtonmnhe69 mg Tablets take 1 tablet by mouth every day 90tabs Nayeli Sena M.D. 02/28/2022 Dorzolamide HCL2% Solution Instill 1 Drop Into Both Eyes Twice Daily Unknown Multivitamin AdultsTablets 1 by mouth every day Nayeli Sena M.D. Aspirin Ec Low Pwow66km Tablets DR 1 tablet by mouth every day 90tabs Nayeli Sena M.D. Freestyle Janna 2/[place]/Flash Glucose Monitoring Fyubwc2Smbmjt Device use as directed daily 1units E11.8 Nayeli Sena M.D. Ujmovmtno536el Tablets Take 1 Tablet By Mouth Twice Daily For 10 Days as Directed 20tabs Nayeli Sena M.D. Gpdwpdfju31xk Tablets take 1 tablet by mouth daily 90tabs Nayeli Sena M.D. Tresiba Qvkcuiavd834Lnkx/ML Solution Pen-Inject Inject 6-8 Units Under The Skin AT Bedtime 18ml E11.359 3 Nayeli Sena M.D. Duloxetine ZYD19mx Caps DR Part Take One Capsule By Mouth Twice Daily. Unknown Buspirone VGB52ha Tablets Take 1 Tablet By Mouth Twice Daily Unknown Atorvastatin Ftskwlm95us Tablets Take 1 Tablet By Mouth Every Day 90tabs Nayeli Sena M.D. Brimonidine Tartrate0.2% Solution Instill 1 Drop In Both Eyes Three Times Daily Unknown Lorazepam0.5mg Tablets Take 1 Tablet By Mouth tid prn Unknown Freestyle Janna 2/Sensor/Flash Glucose Monitoring Rupweu8Thjcyw Misc apply one sensor every 14 days as directed dx: e11.9 6units E11.9 Nayeli Sena M.D. Bkpqjsa606Lcwx/ML Solution Administer 8 To 12 Units Under The Skin Three Times Daily Before Meals Nayeli Sena M.D. History Medications Freestyle Janna 3/[place]/Glucose Monitoring Mzqebn1Mfqpjy Device use with sensors to check blood sugar 1units E11.42 Nayeli Sena M.D. 07/10/2024 - 09/04/2024 E11.3593 E11.43 Freestyle Janna 3/Sensor/Glucose Monitoring Jhioou9Dywjcd Misc change sensor every 14 days dx: e11.65 6units Nayeli Sena M.D. 07/10/2024 - 09/04/[address] take one tablet by mouth twice a day for 10 days 20tabs Nayeli Sena M.D. 03/19/2024 - 03/19/2024 Vital Signs Date Vital Result Comment 07/10/2024 1:06pm BP Systolic 110 mmHg BP Diastolic 66 mmHg Heart Rate 61 /min Height 65 inches 5'5 Weight 152.00 lb BMI (Body Mass Index) 25.3 kg/m2 Results Test Acquired Date Facility Test Result H/L Range Note Comp. Metabolic Panel (14) 07/10/2024 [facility] Glucose 146 mg/dL High 70-99 BUN 9 mg/dL 6-24 Creatinine 0.69 mg/dL 0.57-1.0 0 eGFR 102 mL/min/1. 73 >59 BUN/Creatinine Ratio 13 9-23 Sodium 142 mmol/L 134-144 Potassium 3.6 mmol/L 3.5-5.2 Chloride 107 mmol/L High 96-106 Carbon Dioxide, Total 22 mmol/L 20-29 Calcium 7.9 mg/dL Low 8.7-10.2 Protein, Total 5.2 g/dL Low 6.0-8.5 Albumin 2.9 g/dL Low 3.8-4.9 Globulin, Total 2.3 g/dL 1.5-4.5 Bilirubin, Total 0.3 mg/dL 0.0-1 .2 Alkaline Phosphatase 86 IU/L 44-121 Ast (Sgot) 20 IU/L 0-40 Alt (SGPT) 21 IU/L 0-32 Laboratory test finding 07/10/2024 Inhouse Glucose Fingerstick 77 Hemoglobin A1c 6.9% CBC With Differential/Plat elet 07/10/2024 [facility] WBC 11.9 x10E3/uL High 3.4-10.8 1 RBC 4.47 x10E6/uL 3.77-5.2 8 Hemoglobin 14.2 g/dL 11.1-15. 9 Hematocrit 43.5 % 34.0-46. 6 MCV 97 fL 79-97 MCH 31.8 pg 26.6-33. 0 MCHC 32.6 g/dL 31.5-35. 7 RDW 11.9 % 11.7-15. 4 Platelets 249 x10E3/uL 150-450 Neutrophils 53 % Not Estab. Lymphs 35 % Not Estab. Monocytes 10 % Not Estab. Eos 1 % Not Estab. Basos 1 % Not Estab. Immature Cells TNP Neutrophils (Absolute) 6.3 x10E3/uL 1.4-7.0 Lymphs (Absolute) 4.2 x10E3/uL High 0.7-3.1 Monocytes(Absol ut e) 1.2 x10E3/uL High 0.1-0.9 Eos (Absolute) 0.1 x10E3/uL 0.0-0.4 Baso (Absolute) 0.1 x10E3/uL 0.0-0.2 Immature Granulocytes 0 % Not Estab. Immature Grans (Abs) 0.0 x10E3/uL 0.0-0.1 NRBC TNP Hematology Comments: TNP Laboratory test finding 02/26/2024 [facility] TSH 0.582 uIU/mL 0.450-4. 500 Thyroxine (T4) Free, Direct 0.99 ng/dL 0.82-1.7 7 No Serum Gel Received TNP 2 Laboratory test finding 02/26/2024 Inhouse Glucose Fingerstick 133 Hemoglobin A1c 7.4% Laboratory test finding 10/28/2023 [facility] Thyroid Stimulating Hormone (TSH) <pending> Thyroxine (T4) Free Direct <pending> Thyroid-Stimula ti ng Immunoglobulin (Tsi) <pending> Laboratory test finding 10/26/2023 Inhouse Glucose Fingerstick 231 Hemoglobin A1c 8.0% Laboratory test finding 10/26/2023 [facility] Written Authorization See Comment: 3 Magnesium 2.0 mg/dL 1.6-2.3 TSH Rfx on Abnormal to Free T4 10/26/2023 [facility] TSH RFX On Abnormal To Free T4 0.220 uIU/mL Low 0.450-4. 500 T4,Free (Direct) 0.99 ng/dL 0.82-1.7 7 CBC With Differential/Plat elet 10/26/2023 [facility] WBC 13.5 x10E3/uL High 3.4-10.8 RBC 4.59 x10E6/uL 3.77-5.2 8 Hemoglobin 14.4 g/dL 11.1-15. 9 Hematocrit 42.9 % 34.0-46. 6 MCV 94 fL 79-97 MCH 31.4 pg 26.6-33. 0 MCHC 33.6 g/dL 31.5-35. 7 RDW 12.4 % 11.7-15. 4 Platelets 269 x10E3/uL 150-450 Neutrophils 73 % Not Estab. Lymphs 21 % Not Estab. Monocytes 6 % Not Estab. Eos 0 % Not Estab. Basos 0 % Not Estab. Immature Cells TNP Neutrophils (Absolute) 9.8 x10E3/uL High 1.4-7.0 Lymphs (Absolute) 2.8 x10E3/uL 0.7-3.1 Monocytes(Absol ut e) 0.8 x10E3/uL 0.1-0.9 Eos (Absolute) 0.0 x10E3/uL 0.0-0.4 Baso (Absolute) 0.1 x10E3/uL 0.0-0.2 Immature Granulocytes 0 % Not Estab. Immature Grans (Abs) 0.0 x10E3/uL 0.0-0.1 NRBC [facility] Hematology Comments: [facility] Lipid Panel 10/26/2023 [facility] Cholesterol, Total 148 mg/dL 100-199 Triglycerides 89 mg/dL 0-149 HDL Cholesterol 66 mg/dL >39 VLDL Cholestero l Christopher 17 mg/dL 5-40 LDL Chol Calc (Nih) 65 mg/dL 0-99 Comment: [facility] Comp. Metabolic Panel (14) 10/26/2023 [facility] Glucose 211 mg/dL High 70-99 BUN 10 mg/dL 6-24 Creatinine 0.75 mg/dL 0.57-1.0 0 eGFR 95 mL/min/1. 73 >59 BUN/Creatinine Ratio 13 9-23 Sodium 144 mmol/L 134-144 Potassium 4.2 mmol/L 3.5-5.2 Chloride 109 mmol/L High 96-106 Carbon Dioxide, Total 21 mmol/L 20-29 Calcium 8.7 mg/dL 8.7-10.2 Protein, Total 6.3 g/dL 6.0-8.5 Albumin 4.0 g/dL 3.8-4.9 Globulin, Total 2.3 g/dL 1.5-4.5 A/G Ratio 1.7 1.2-2.2 Bilirubin, Total 0.3 mg/dL 0.0-1 .2 Alkaline Phosphatase 71 IU/L 44-121 Ast (Sgot) 18 IU/L 0-40 Alt (SGPT) 14 IU/L 0-32 Urinary Microalbumin 06/15/2023 [facility] Micro-Albumin 31.0 mg/L High (<20) 4 Malb/Creat Ratio 58.3 MG/GM High (0-20) Urine Creat For Micro Albumin 53.0 mg/dL Laboratory test finding 06/15/2023 Inhouse Glucose Fingerstick 184 Hemoglobin A1c 8.8% Comprehensive Metabolic Panl 03/21/2023 [facility] Glucose 296 mg/dL High (70-99) BUN 9 mg/dL (6-20) Creatinine 0.9 mg/dL (0.5-1.0 ) Sodium 137 mmol/L (133-145 ) Potassium 3.9 mmol/L (3.6-5.2 ) Chloride 97 mmol/L Low (98-107) Bicarbonate 27 mmol/L (22-29) Anion Gap 13 (4-17) Albumin 4.6 GM/DL (3.4-4.8 ) Calcium 9.5 mg/dL (8.6-10. 5) Bilirubin,Total 0.3 mg/dL (0-1.2 ) Total Protein 7.0 GM/DL (6.2-8.2 ) Ag Ratio 1.9 Ast 14 U/L (0-32) Alk Phos 69 U/L (35-104) Alt 7 U/L (0-33) Estimated GFR Creatinine 72 ML/MIN/1. 73M2 5 Laboratory test finding 03/21/2023 Inhouse Glucose Fingerstick 361 Laboratory test finding 01/25/2023 Inhouse Glucose Fingerstick 224 Hemoglobin A1c 10.2 Comprehensive Metabolic Panl 09/23/2022 [facility] Glucose 196 mg/dL High (70-99) BUN 10 mg/dL (6-20) Creatinine 0.8 mg/dL (0.5-1.0 ) Sodium 139 mmol/L (133-145 ) Potassium 4.8 mmol/L (3.6-5.2 ) Chloride 102 mmol/L (98-107) Bicarbonate 25 mmol/L (22-29) Anion Gap 12 (4-17) Albumin 4.0 GM/DL (3.4-4.8 ) Calcium 9.6 mg/dL (8.6-10. 5) Bilirubin,Total 0.3 mg/dL (0-1.2 ) Total Protein 6.4 GM/DL (6.2-8.2 ) Ag Ratio 1.7 Ast 14 U/L (0-32) Alk Phos 70 U/L (35-104) Alt 10 U/L (0-33) Estimated GFR Creatinine 88 ML/MIN/1. 73M2 6 Lipid Panel 09/23/2022 [facility] Cholesterol, Total 156 mg/dL (<200) Triglyceride 96 mg/dL (<150) HDL Chol 52 mg/dL (>39) LDL Cholesterol , Calculated 85 mg/dL (0-130) Non HDL Cholesterol (Calc) 104 mg/dL (<160) Complete Abc With Diff 09/23/2022 [facility] WBC 12.6 K/MM3 High (4.0-11. 0) RBC 4.35 M/MM3 (4.20-5. 40) HGB 13.2 GM/DL (11.7-15 .5) HCT 41.3 % (35.7-45 .8) MCV 94.9 FL (80.0-10 0.0) MCH 30.3 pg (27.0-34 .0) MCHC 32.0 g/dL Low (33.0-37 .0) PLT 250 K/MM3 (150-460 ) RDW-SD 48.8 FL High (<47.0) MPV 12.9 FL High (9.4-12. 4) Automated NRBC 0.0 #/100WBC' S Abs. NRBC 0.0 K/MM3 Neut # 8.6 K/MM3 High (1.3-7.0 ) Lymph # 3.1 K/MM3 (0.8-3.1 ) Bryan# 0.8 K/MM3 (0.4-0.9 ) Eo # 0.1 K/MM3 (0.0-0.4 ) Baso # 0.1 K/MM3 (0.0-0.1 ) Abs. Imm Gran 0.1 K/MM3 Neut 67.7 % (44-76) Lymph 24.2 % (15-43) Monocyte 6.3 % (4.5-10. 5) Eo 0.9 % (0-6) Baso 0.5 % (0-2) Imm Gran 0.4 % Urinary Microalbumin 09/23/2022 [facility] Micro-Albumin <12.0 mg/L (<20) 7 Malb/Creat Ratio Unable t o calcul <SEE NOTE> MG/GM (0-20) 8 Urine Creat For Micro Albumin 46.1 mg/dL Laboratory test finding 09/23/2022 Inhouse Glucose Fingerstick 224 Hemoglobin A1c 10.3% Laboratory test finding 05/30/2022 Inhouse Glucose Fingerstick 107 Hemoglobin A1c 9.0% 1 Effective July 15, 2024 profile 123170 WBC will be made non-orderable as a stand-alone order code. 2 Test not performed. Specimen not received at refrigerated temperature. TEST: [id number] Thyrotropin Receptor Ab, Serum 3 Written Authorizatio n Received. Authorization received from MARITZA CHILEL for Link Request on 10-31-2023 Logged by Leandra Saha 4 The urine microalbum in test is designed to monitor renal function. When screening for Bence Leblanc proteinuria, urine electrophoresis is recommended. 5 Creatinine based est imated glomerular filtration (eGFR) in adults is calculated using the National Kid[employer] recommended 2020 CKD-EPI equation. Estimates GFR from serum creatinine, age and sex. 6 Creatinine based est imated glomerular filtration (eGFR) in adults is calculated using the National Kidney [employer] recommended 2021 CKD-EPI equation. Estimates GFR from serum creatinine, age and sex. 7 The urine microalbum in test is designed to monitor renal function. When screening for Bence Leblanc proteinuria, urine electrophoresis is recommended. 8 Unable to calculate Procedures Date Code Description Status 07/10/2024 72316 Glucose Monitoring Interpeta tion And Report Completed 07/10/2024 87711 Collection Of Venous Blood B y Venipuncture Completed 02/26/2024 30126 Glucose Monitoring Interpeta tion And Report Completed 02/26/2024 94517 Collection Of Venous Blood B y Venipuncture Completed 10/26/2023 16932 Glucose Monitoring Interpeta tion And Report Completed 10/26/2023 07772 Collection Of Venous Blood B y Venipuncture Completed 06/15/2023 50271 Glucose Monitoring Interpeta tion And Report Completed 03/21/2023 45002 Collection Of Venous Blood B y Venipuncture Completed 01/25/2023 80907 Glucose Monitoring Interpeta tion And Report Completed 09/23/2022 91734 Collection Of Venous Blood B y Venipuncture Completed Medical Devices Description No Information Available Encounters Type Date Location Provider Dx Diagnosis Office Visit 07/10/2024 1:00p Main Office Nayeli Sena M.D. 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 07/10/2024 E11.42 Type 2 diabetes mellitus with diabetic polyneuropathy Nayeli Sena M.D. 07/10/2024 E11.43 Type 2 diabetes mellitus with diabetic autonomic (poly)neuropathy Nayeli Sena M.D. 07/10/2024 I10 Essential (primary) hyperten oscar Nayeli Sena M.D. 07/10/2024 F41.1 Generalized anxiety disorder Nayeli Sena M.D. 07/10/2024 E78.00 Pure hypercholes terolemia, unspecified Nayeli Sena M.D. 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 07/10/2024 M79.7 Fibromyalgia Nayeli Baker M.D. 07/10/[address] enosis of bilateral carotid arteries Nayeli Sena M.D. 07/10/2024 R60.0 Localized edema Nayeli [place] M.D. Plan of Treatment Future Appointment(s):* 10/30/2024 9:15 am - Nayeli Sena M.D. at Main Office * 12/09/2024 1:00 pm - Nayeli Sena M.D. at Main Office 07/10/2024 - Nayeli Sena M.D.* E11.3593 Type 2 diabetes mellitus with proliferative diabetic retinopathy without macular edema, bilateral * E11.42 Type 2 diabetes mellitus with diabetic polyneuropathy * E11.43 Type 2 diabetes mellitus with diabetic autonomic (poly)neuropathy * I10 Essential (primary) hypertension * F41.1 Generalized anxiety disorder * E78.00 Pure hypercholesterolemia, unspecified * Z79.4 senior living (current) use of insulin * M79.7 Fibromyalgia * I65.23 Occlusion and stenosis of bilateral carotid arteries * R60.0 Localized edema* New Medication:* Freestyle Janna 3/[place]/Glucose Monitoring System 3 [place] Functional Status Description No Information Available Mental Status Description No Information Available Referrals Refer to Dr Reason for Referral Status Appt Adonis e [facility] Cardiology CAROTID STENOSIS Patient Declined 05/20/2024 [address] [facility], [address] [place] [address] [phone] Rafal Beaver MD LEFT SHOULDER PAIN ( LIKELY RELATED TO ROTATOR CUFF DISEASE) Closed 11/17/[address] [place] [address] [phone]
--- OUTSIDE RECORDS SUMMARY | 2024-10-16 13:49 | XMS_ITS | Encounter Summary ---
Author Organization [facility] Address [address] [place] [address] Care Team Providers Care Project Associate Name Role Phone Nayeli Sena MD Primary Care Provid er Encounter Details Date Type Department Care Team (Late st Contact Info) Description 09/19/[address] [facility] - Main Lab [address] [facility] [place] [address] Rose Marie Campos MD [address] [address] Type 2 diabetes mellitus without complications (CMS/HCC); Essential (primary) hypertension Social History Tobacco Use [...] Associated Diagnosis Comments COMPLETE BLOOD COUNT Routine 09/19/2024 4:56 AM EST Type 2 diabetes mellitus without complications (CMS/HCC) Essential (primary) hypertension HEMOGLOBIN A1C Routine 09/19/2024 4:56 AM EST Type 2 diabetes mellitus without complications (CMS/HCC) Essential (primary) hypertension BASIC METABOLIC PANEL Routine 09/19/2024 4:56 AM EST Type 2 diabetes mellitus without complications (CMS/HCC) Essential (primary) hypertension documented in this encounter Results * Hemoglobin A1c (09/19/2024 4:56 AM EST) Pathologist [facility] [place] Hemoglobin A1C 5.1 <6.5 % LAB CHEMISTRY METHOD 09/19/2024 12:13 PM EST [facility] Mean Bld Glu Estim. 100 mg/dL LAB CHEMISTRY METHOD 09/19/2024 12:13 PM [facility] Blood Venous blood specimen / Unknown Venipuncture / Unknown 09/19/2024 4:56 AM EST 09/19/2024 7:57 AM EST us Rose Marie Campos MD LAB BLOOD ORDERABLES Fin al Result Performing Organization Address City/State/[facility] Co de Phone Number [facility] [address] [place] [address], * (ABNORMAL) Basic metabolic panel (09/19/2024 4:56 AM EST) [facility] Sodium 140 133 - 145 mmol/L LAB CHEMISTRY METHOD 09/19/2024 8:37 AM [facility] Potassium 4.1 3.5 - 5.5 mmol/L LAB CHEMISTRY METHOD 09/19/2024 8:37 AM [facility] Chloride 107 96 - 110 mmol/L LAB CHEMISTRY METHOD 09/19/2024 8:37 AM [facility] CO2 27 21 - 32 mmol/L LAB CHEMISTRY METHOD 09/19/2024 8:37 AM [facility] Anion Gap 6 3 - 11 LAB CHEMISTRY METHOD 09/19/2024 8:37 AM [facility] Glucose 225(H) 70 - 100 mg/dL LAB CHEMISTRY METHOD 09/19/2024 8:37 AM [facility] BUN 4(L) 5 - 25 mg/dL LAB CHEMISTRY METHOD 09/19/2024 8:37 AM EST [facility] Creatinine 0.55 0.50 - 1.10 mg/dL LAB CHEMISTRY METHOD 09/19/2024 8:37 AM [facility] eGFR 108 >=60 mL/min/1. 73m2 LAB CHEMISTRY METHOD 09/19/2024 8:37 AM [facility] Comment:Calculation based on the??Chronic Kidney Disease Epidemiology Collaboration (CKD-EPI) equation refit??without adjustment for race. BUN/Creatinine Ratio 7.3 LAB CHEMISTRY METHOD 09/19/2024 8:37 AM [facility] Calcium 7.2(L) 8.5 - 10.5 mg/dL LAB CHEMISTRY METHOD 09/19/2024 8:37 AM [facility] Blood Venous blood specimen / Unknown Venipuncture / Unknown 09/19/2024 4:56 AM EST 09/19/2024 7:57 AM EST us Rose Marie Campos MD LAB BLOOD ORDERABLES Fin al Result [facility] [address] [place] [address], * (ABNORMAL) Complete blood count (09/19/2024 4:56 AM EST) WBC 16.9(H) 4.8 - 10.8 K/mcL LAB HEMETOLOGY METHOD 09/19/2024 8:20 AM EST [facility] RBC 2.70(L) 3.80 - 4.80 M/[facility] LAB HEMETOLOGY METHOD 09/19/2024 8:20 AM [facility] Hemoglobin 9.1(L) 11.5 - 16.0 g/dL LAB HEMETOLOGY METHOD 09/19/2024 8:20 AM [facility] Hematocrit 28.4(L) 35.0 - 47.0 % LAB HEMETOLOGY METHOD 09/19/2024 8:20 AM EST [facility] MCV 106.8(H) 79.0 - 98.0 FL LAB HEMETOLOGY METHOD 09/19/2024 8:20 AM [facility] MCH 34.2(H) 27.0 - 32.0 pcg LAB HEMETOLOGY METHOD 09/19/2024 8:20 AM EST [facility] MCHC 32.0 32.0 - 37.0 g/dL LAB HEMETOLOGY METHOD 09/19/2024 8:20 AM [facility] RDW 17.6(H) 11.0 - 15.0 % LAB HEMETOLOGY METHOD 09/19/2024 8:20 AM [facility] Platelets 264 130 - 400 K/mcL LAB HEMETOLOGY METHOD 09/19/2024 8:20 AM EST [facility] MPV 11.5(H) 7.0 - 11.0 FL LAB HEMETOLOGY METHOD 09/19/2024 8:20 AM EST [facility] NRBC 0.0 <1.0 % LAB HEMETOLOGY METHOD 09/19/2024 8:20 AM [facility] NRBC Absolute 0.00 <0.10 K/mcL LAB HEMETOLOGY METHOD 09/19/2024 8:20 AM [facility] Blood Venous blood specimen / Unknown Venipuncture / Unknown 09/19/2024 4:56 AM EST 09/19/2024 7:57 AM EST us Rose Marie Campos MD LAB BLOOD ORDERABLES Fin al Result [facility] [address] [place] [address], documented in this encounter Visit Diagnoses Diagnosis Type 2 diabetes mellitus without complications (CMS/HCC) Essential (primary) hypertension Unspecified essential hypertension documented in this encounter Care Teams Project Associate Relationship Specialty Start Date End Date Nayeli Sena MD [address] [place] [address] [address] [place] [address] PCP - General Internal Medicine 03/27/13 documented as of this encounter
--- NOTE | 2024-10-16 14:03 | MHC.EDTECH ---
Patient is a difficult lab draw. Needed US for IV. RN and provider aware. Phlebotomy has been contacted.
--- NOTE | 2024-10-16 14:22 | PM.IMHP ---
History of Present Illness Date of Service: 10/16/24 Attending physician on admission: Teresa Harris Chief Complaint: AMS Pt is a 53-year-old female with a PMH significant for?HRpEF, chronic leukocytosis, fuw-kkyehgx-eadknfduf type 2 diabetes, HTN orthostatic hypotension, hepatic steatosis, and 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 who presents to the ED from home for evaluation of altered mental status and lethargy. The pt was recently admitted to the hospital?from 09/11-09/18 for altered mental status with small subarachnoid hemorrhage, elevated ammonia, and positive UA. Pt was discharged to [facility] from which she returned to home 3 days ago. Family reports pt initially did well, however this morning they found pt confused, lethargic, and slumped over on the couch. Pt was speaking nonsensically and covered in urine and feces. Pt continues to be confused during interview and examination. Pt is alert to name and place, but when asked about the date response by answering her name again. Pt noted to repeat answers and questions continue lay. She is unable to provide any accurate HPI. Of note, pt was noted to have stage II sacral decubitus ulcer when being cleaned changed, as well as skin irritation and lacerations on left ankle. In the ED pt was tachycardic up to 120, tachypneic up to 21, and initially hypotensive at 83/56. Labs were significant for leukocytosis of 13.1, lactic acid 5.1 AST 52, alk-phos 186, ammonia 76, CRP 4.80, protein 5.8, and albumin 1.7. VBG pH 7.41, pCO2 34, and bicarb 21. UA positive for UTI Tested negative for flu, COVID, RSV. CXR was unremarkable. CTA of negative for acute intracranial process. Right ankle x-ray showed bilateral soft tissue swelling with small avulsion fracture fragment tip medial malleolus without visible acute fracture or dislocation. ED reached out orthopedic, cast padding, place pt in a tall walking boot. EKG demonstrated sinus tachycardia of 117 though no evidence of significant ischemic changes. Pt was treated with IVF, lactulose, albumin, and ceftriaxone. Of note, pt was excluded from sepsis bolus in the ED for a lactic acid of 5.1 due to concerns for hx of CHF and current edematous legs. Pt will be admitted to the hospital for treatment and further evaluation of acute metabolic encephalopathy in the setting of UTI severe sepsis. Review of Systems Review of Systems: Yes Unobtainable due to mental status [facility] Medical History (Updated 10/16/24 @ 16:02 by VALENTÍN Moore) Acute metabolic encephalopathy Dumping syndrome Orthostatic hypotension Diabetes mellitus Surgical History Gastric bypass status for obesity Social History Household Members: Children and Other Household Members Other:: daughter and ex Housing: Apartment Do you presently have visiting nurse or other home services: Yes Patient Tobacco Use Status: Current everyday Tobacco user Tobacco use type: Cigarette e-Cigarette/Vaping Use: Never Used Second Hand Smoke Exposure: No Advance Directives: No Advance Directives Information Provided: Yes Patient : No service: No Meds Allergies Allergy/AdvReac Type Severity Reaction Status Date / Time No Known Allergies Allergy Verified 10/16/24 10:08 Home Medications ?Medication ?Instructions ?Recorded ?Confirmed ?Last Taken ?Type aspirin 81 mg tablet,delayed 81 mg PO DAILY 09/11/24 10/16/24 Unknown History release atorvastatin 40 mg tablet 40 mg PO BEDTIME 09/11/24 10/16/24 Unknown History buspirone 15 mg tablet 15 mg PO BID 09/11/24 10/16/24 Unknown History dorzolamide 22.3 mg-timolol 6.8 1 drp ophthalmic (eye) TID 09/11/24 10/16/24 Unknown History mg/mL eye drops duloxetine 60 mg capsule,delayed 60 mg PO BID 09/11/24 10/16/24 Unknown History release ergocalciferol (vitamin D2) 1,250 1,250 mcg PO TH 09/11/24 10/16/24 Unknown History mcg (50,000 unit) capsule ferrous sulfate 325 mg (65 mg 325 mg PO DAILY 09/11/24 10/16/24 Unknown History iron) tablet (FeroSul) hydrochlorothiazide 25 mg tablet 25 mg PO DAILY 09/11/24 10/16/24 Unknown History latanoprost 0.005 % eye drops 1 drp ophthalmic (eye) BEDTIME 09/11/24 10/16/24 Unknown History lisinopril 40 mg tablet 40 mg PO DAILY 09/11/24 10/16/24 Unknown History loratadine 10 mg tablet 10 mg PO DAILY 09/11/24 10/16/24 Unknown History lorazepam 0.5 mg tablet 0.5 mg PO BEDTIME 09/11/24 10/16/24 Unknown History midodrine 5 mg tablet 5 mg PO TID 09/11/24 10/16/24 Unknown History netarsudil 0.02 % eye drops 1 drp ophthalmic (eye) BEDTIME 09/11/24 10/16/24 Unknown History (Rhopressa) omeprazole 20 mg capsule,delayed 20 mg PO DAILY@0630 09/11/24 10/16/24 Unknown History release oxycodone-acetaminophen 5 mg-325 1 tab PO Q6H PRN pain 09/11/24 10/16/24 Unknown History mg tablet sitagliptin phosphate 100 mg 100 mg PO DAILY 09/11/24 10/16/24 Unknown History tablet (Januvia) calcium 600 mg (as 1 tab PO BID 10/16/24 10/16/24 Unknown History carbonate)-vitamin D3 5 mcg (200 unit) tablet (Calcium 600 + D(3)) gabapentin 100 mg capsule 100 mg PO TID 10/16/24 10/16/24 Unknown History insulin glargine 100 unit/mL 5 unit subcut DAILY@2100 10/16/24 10/16/24 Unknown History subcutaneous solution (Lantus U-100 Insulin) insulin lispro 100 unit/mL 1 sliding scale dose subcut TIDWM 10/16/24 10/16/24 Unknown History subcutaneous solution (Humalog U-100 Insulin) lactulose 20 gram/30 mL oral 45 ml PO QID 10/16/24 10/16/24 Unknown History solution nystatin 100,000 unit/gram topical 1 appl topical BID 10/16/24 10/16/24 Unknown History powder Physical Exam Vital Signs and Narrative: Vital Signs: Last Vital Signs Temp 98.3 F 10/16/24 14:02 Pulse 109 H 10/16/24 14:02 Resp 21 H 10/16/24 14:02 BP 103/61 10/16/24 14:02 Pulse Ox 100 10/16/24 14:02 O2 Del Method Room Air 10/16/24 14:02 BMI result Body Mass Index 26.6 Constitutional: Alert, in no acute distress. Mental Status: Oriented to person and place but not to time or situation. Eyes: Pupils are equal, round, and reactive to light. Ear, Nose, and Throat: Oropharynx clear, mucous membranes moist. Ears and nose without deformities. Trachea midline. Respiratory: Clear to auscultation bilaterally. No wheezing, rales, or rhonchi. Cardiovascular: S1, S2 regular rhythm, tachycardic. No murmurs, rubs, or gallops. Gastrointestinal: Abdomen soft, non-tender, non-distended. Normal bowel sounds. Neurologic: Cranial nerves II-XII are grossly intact bilaterally. No focal neurological deficits. Moves all extremities spontaneously. Skin: Warm, dry. Stage 2 sacral debucitus ulcer, as pictured below. Musculoskeletal: No cyanosis or clubbing. Extremities: 3+ bilateral pitting edema. Left ankle with lateral and medial areas of erythema with superficial abrasions and ulcerations, as pictured below. Psychiatric: Pleasantly confused, not answering appropriately to all questions. Capable of following some simple commands. Results Labs 10/16/24 10:47 10/16/24 10:47 Labs: Laboratory Results - last 24 hr 10/16/24 10/16/24 10/16/24 10:07 10:32 10:33 MCV MCH MCHC RDW Plt Count MPV Immature Gran % (Auto) Neut % (Auto) Lymph % (Auto) Maury % (Auto) Eos % (Auto) Baso % (Auto) Lymph # (Auto) Maury # (Auto) Eos # (Auto) Baso # (Auto) Abs Immat Gran (auto) Absolute Neuts (auto) Absolute Nucleated RBC Nucleated RBC % (auto) ESR PT INR APTT VBG pH VBG pCO2 VBG pO2 VBG HCO3 VBG O2 Saturation VBG Base Excess Anion Gap Estim Creat Clear Calc Estimated GFR POC Glucose 140 H Random Glucose Lactic Acid Calcium Magnesium Total Bilirubin AST ALT Alkaline Phosphatase Ammonia C-Reactive Protein Total Protein Albumin Urine Color Dark Yellow Urine Appearance Cloudy Urine pH 5.5 Ur Specific [place] 1.025 Urine Protein Trace Urine Glucose (UA) Negative Urine Ketones Trace Urine Blood Small (1+) H Urine Nitrite Negative Ur Leukocyte Esterase Moderate (2+) H Urine RBC 6-10 H Urine WBC >50 H Ur Squamous Epith Cells 0-2 Urine Bacteria 4+ Hyaline Casts 11-20 Urine Opiates Screen POSITIVE H Ur Buprenorphine Scrn Not Detected Ur Oxycodone Screen Positive H Urine Methadone Screen Not Detected Urine Fentanyl Screen Not Detected Ur Barbiturates Screen Not Detected Ur Phencyclidine Scrn Not Detected Ur Amphetamines Screen Not Detected U Benzodiazepines Scrn Not Detected Urine Cocaine Screen Not Detected U Marijuana (THC) Screen Not Detected Influenza Type A (PCR) NEGATIVE Influenza Type B (PCR) NEGATIVE RSV RNA Qual (PCR) NEGATIVE SARS-CoV-2 RNA (RT-PCR) NEGATIVE 10/16/24 10/16/24 10:47 11:01 MCV 96.5 MCH 32.7 MCHC 33.9 RDW 14.1 Plt Count 187 D MPV 12.9 H Immature Gran % (Auto) 0.4 Neut % (Auto) 86.8 H Lymph % (Auto) 8.5 L Maury % (Auto) 3.7 Eos % (Auto) 0.5 Baso % (Auto) 0.1 Lymph # (Auto) 1.1 L Maury # (Auto) 0.5 Eos # (Auto) 0.1 Baso # (Auto) 0.0 Abs Immat Gran (auto) 0.05 H Absolute Neuts (auto) 11.4 H Absolute Nucleated RBC 0.000 Nucleated RBC % (auto) 0.0 ESR 2 PT 12.7 H INR 1.1 APTT 41.4 H VBG pH 7.41 VBG pCO2 34 VBG pO2 38 VBG HCO3 21 L VBG O2 Saturation 58.0 VBG Base Excess -1.9 Anion Gap 17 Estim Creat Clear Calc 48.8 Estimated GFR 43 POC Glucose Random Glucose 200 H Lactic Acid 5.1 H* Calcium 7.3 L D Magnesium 2.0 Total Bilirubin 0.8 AST 52 H ALT 18 Alkaline Phosphatase 186 H Ammonia 76 H C-Reactive Protein 4.80 H Total Protein 5.8 L Albumin 1.7 L Urine Color Urine Appearance Urine pH Ur Specific [place] Urine Protein Urine Glucose (UA) Urine Ketones Urine Blood Urine Nitrite Ur Leukocyte Esterase Urine RBC Urine WBC Ur Squamous Epith Cells Urine Bacteria Hyaline Casts Urine Opiates Screen Ur Buprenorphine Scrn Ur Oxycodone Screen Urine Methadone Screen Urine Fentanyl Screen Ur Barbiturates Screen Ur Phencyclidine Scrn Ur Amphetamines Screen U Benzodiazepines Scrn Urine Cocaine Screen U Marijuana (THC) Screen Influenza Type A (PCR) Influenza Type B (PCR) RSV RNA Qual (PCR) SARS-CoV-2 RNA (RT-PCR) Imaging Radiologist's Impressions: Impressions Head CT 10/16/24 10:00 IMPRESSION: No acute intracranial process seen. Electronically signed by: Keven Vitale MD 10/16/2024 11:50 AM EST RP Chest X-Ray 10/16/24 11:18 IMPRESSION: Unremarkable chest examination Electronically signed by: Keven Vitale MD 10/16/2024 11:53 AM EST RP Ankle X-Ray 10/16/24 11:35 IMPRESSION: Small avulsion fracture fragment tip of medial malleolus. No visible acute fracture or dislocation. Bimalleolar soft tissue swelling Small calcaneal heel spur. Electronically signed by: Keven Vitale MD 10/16/2024 11:52 AM EST RP Assessment and Plan (1) Hyperammonemia: Status: Acute (2) Acute UTI: Status: Acute Plan Pt is a 53-year-old female with a PMH significant for?HRpEF, chronic leukocytosis, yck-dpupyib-cydozgxeu type 2 diabetes, HTN orthostatic hypotension, hepatic steatosis, and 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 who presents to the ED from home for evaluation of altered mental status and lethargy. Pt will be admitted to the hospital for treatment and further evaluation of acute metabolic encephalopathy in the setting of UTI with severe sepsis and hyperammonemia. Acute metabolic encephalopathy Multifactorial: In the setting of UTI with severe sepsis, hyperammonemia Treat as below NPO pending swallow eval Monitor mentation Acute UTI with severe sepsis Pt with UA+, confusion, lethargy Meets severe sepsis with tachycardia, tachypnea, leukocytosis, hypotension, and lactic acid 5.1 with repeat 6.8 Pt given IVF and started on broad-spectrum antibiotics in the ED However, initially excluded from sepsis bolus due to hx of CHF and clinically edematous lower extremities Follow-up lactic acid increased to 6.8 Will treat with sepsis bolus fluids Continue ceftriaxone, started 10/16/2024 Follow BP, lactic acid, urine culture Hypotension Hold antihypertensives Continue midodrine Has received IVF, albumin Hyperammonemia Ammonia 76 at time of presentation Likely secondary to 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, not cirrhosis Pt given lactulose CT We will give additional dose of lactulose p.o. if mentation does not improve Repeat ammonia in the morning GEOVANNY Creatinine 1.30 at time of presentation, elevated from 0.80 on 09/17/2024 Likely secondary to hypovolemia Pt treated with IVF as above Follow renal function Chronic lower leg edema/hypoalbuminemia Hydrochlorothiazide reportedly previously discontinued due to orthostatic hypotension High-protein diet Fei stockings Insulin-dependent type 2 diabetes Sliding-scale insulin, Lantus Diabetic diet once no longer NPO Orthostatic hypotension Likely Out of motor dysfunction secondary to diabetes continue midodrine, Fei stockings Chronic leukocytosis and anemia [facility] [place] iron saturation 69% ferritin 667 Follow up outpatient with [place] [facility] Fibromyalgia/anxiety/chronic back pain Continue benzodiazepines Full Code: Dr. Harris DVT Prophylaxis: Lovenox Pt will require a hospitalization of at least two nights for treatment of?acute metabolic encephalopathy in setting of UTI with severe sepsis and hyperammonemia. Given patient's significant comorbidities in the fact that she has both encephalopathic and meeting severe sepsis criteria, pt will require hospital level care for treatment with IV antibiotics, close monitoring of labs, vitals, and mentation. Quality Stroke Does the patient have a stroke diagnosis?: No VTE Prior VTE?: No VTE Risk Level:: Medical - moderate - high VTE Device Contraindication: Treatment Not Indicated VTE Drug Contraindication: N/A - Med Ordered
--- NOTE | 2024-10-16 15:13 | PHA.MEDREC ---
Addendum entered by Ata Moe 10/16/24 15:19: reviewed Original Note: Pharmacy Consult ? Medication Reconciliation Pharmacy has completed the medication reconciliation. Used discharge papers from the rehab facility. Spoke with patients daughter, she said the list is what she goes by. I also spoke with patients sister and she said she was supposed to have VNA services with [facility], however they would not release a med list. There were meds missing from her rehab discharge papers that she may still have at home (buspirone that was just filled, latanoprost drops, percocet, and midodrine), provider okayed to keep them on med list.
[2024-10-16 15:15] LABS: ~Lactic Acid-LAB USE ONLY 8.4 mmol/L (0.5-2.0)
[2024-10-16 15:39] LABS: Lactic Acid 6.8 mmol/L (0.5-2.0)
[2024-10-16] MEDS: Enoxaparin Sodium 40 MG/0.4 ML SYRINGE SUBCUT (15:57)
[2024-10-16] MEDS: LACTATED RINGERS 2177.25 ML IV (16:01)
[2024-10-16 16:31] LABS: Glucose, Whole Blood 138 mg/dL (60-115)
--- NOTE | 2024-10-16 16:32 | PC.NURSE ---
Pt had large amount of diarrhea, cleaned and placed into new bed. Fluids infusing. Sinus tach on monitor. Pt remains confused and not making sense
[2024-10-16 16:45] LABS: Reflex Lactate? 2 Y
[2024-10-16 17:24] LABS: Reflex Lactate? Lactic Acid Added
--- NOTE | 2024-10-16 17:51 | PC.NURSE ---
PROVIDERS HAVE BEEN NOTIFIED OF LOW BPS THEY HAPPENED.
--- NOTE | 2024-10-16 17:51 | PC.NURSE ---
Pt cleaned and wound pad covering placed on coccyx area.
[2024-10-16 18:17] LABS: Glucose, Whole Blood 158 mg/dL (60-115)
--- NOTE | 2024-10-16 19:23 | PC.NURSE ---
Addendum entered by Kiara Rust RN 10/17/24 04:37: pt noted to have diarrhea, bed change performed with another RN. rectal temp taken 99.6, pt alert yet still confused Addendum entered by Kiara Rust RN 10/17/24 02:17: pt noted to be restless in bed lying supine with eyes closed yet reaching hands out. hr noted to be 140-160s. Md Iniguez aware, no new orders at this time Addendum entered by Kiara Rust RN 10/16/24 21:19: attempted bedside swallow with pt but pt is confused and unable to follow commands. Nelson LAURA aware. Pt will remain NPO. Original Note: assumed care of this pt at thi time. pt alert and pleasantly confused at this time resting in stretcherin no notable distress. pt responds to name and mumbling words.
[2024-10-16 21:09] LABS: Glucose, Whole Blood 153 mg/dL (60-115)
[2024-10-16] MEDS: Insulin Lispro 100 UNIT/ML 3 ML VIAL SUBCUT (21:15)
[2024-10-16 21:50] LABS: Cancel Lactic Acid Canceled
[2024-10-17] VITALS (16 sets, daily range): BP systolic 83–115; BP diastolic 36–70; PULSE 107–122; RESP 17–22; TEMP 36.2–37.6; O2SAT 97–100
[2024-10-17] MEDS: Lactated Ringers 1,000 ML 999 ML IV (02:53)
[2024-10-17] MEDS: Dextrose 50 % 25 GM/50 ML SYRINGE IVPUSH ×5 (07:19→12:40)
[2024-10-17] MEDS: 0.9 % Sodium Chloride Flush 3 ML SYRINGE IVFLUSH ×2 (07:20→20:37)
[2024-10-17 07:22] LABS: Glucose, Whole Blood 33 mg/dL (60-115)
[2024-10-17] MEDS: glucagon HCL 1 MG VIAL IVPUSH (08:45)
[2024-10-17 09:16] LABS: Glucose, Whole Blood 58 mg/dL (60-115)
[2024-10-17 09:16] LABS: Glucose, Whole Blood 50 mg/dL (60-115)
--- NOTE | 2024-10-17 09:16 | PC.NURSE ---
pts RADAMES hands cyanotic, RADAMES toes also cyanotic, no cyanosis noted to mouth area. pts O2 98%. photo sent to MD Harris for notification. MD to come bedside to evaluate pt. Phlebotomy unable to obtain blood work on overnight, PCT Marcelo unable to obtain blood work and daytime phlebotomy unable to obtain blood work. MD Harris aware. pt not maintaining glucose status. bolus administered x2 with additional glucagon without good effect. aware. plan to order maintenance fluids with glucose to maintain. pt had moderate BM this AM, liquid stool, sánchez in color.
[2024-10-17] MEDS: Dextrose 5 % and Lactated Ring 1,000 ML 100 ML IVCONT (09:21)
[2024-10-17 09:36] LABS: Glucose, Whole Blood 73 mg/dL (60-115)
[2024-10-17 10:04] LABS: Hematocrit 28.7 % (37.0-47.0); Hemoglobin 9.9 g/dl (12.0-16.0); Mean Corpuscular HGB Conc 34.5 g/dl (31.0-35.0); Mean Corpuscular Hemoglobin 32.4 pg (27.0-33.0); Mean Corpuscular Volume 93.8 fL (80.0-98.0); Platelet Count 142 X10*3/uL (160-400); Red Blood Count 3.06 X10*6/uL (4.20-5.50); Red Cell Distribution Width 14.3 % (11.0-16.0); White Blood Count 19.9 X10*3/uL (4.8-10.8)
[2024-10-17 10:26] LABS: Ammonia 83 umol/L (13-55)
[2024-10-17 10:37] LABS: Anion Gap 13 (12-20); Blood Urea Nitrogen 15 mg/dL (9-16); Calcium 7.1 mg/dL (8.4-10.2); Carbon Dioxide 25 mmol/L (22-29); Chloride 108 mmol/L (96-108); Creatinine Clr Calc Pharmacy 47.7; Estimated Glomerular Filt Rate 41; Glucose Random 275 mg/dL (60-115); Potassium 3.4 mmol/L (3.3-5.1); Sodium 143 mmol/L (135-145)
[2024-10-17 10:42] LABS: Lactic Acid 3.7 mmol/L (0.5-2.0)
[2024-10-17] MEDS: cefTRIAXone sodium 1 GM VIAL IVPUSH (10:51)
[2024-10-17 11:21] LABS: Glucose, Whole Blood 55 mg/dL (60-115)
[2024-10-17 11:21] LABS: Glucose, Whole Blood 129 mg/dL (60-115)
[2024-10-17 12:02] LABS: Reflex Lactate? Lactic Acid Added
--- NOTE | 2024-10-17 12:31 | MHC.CM.PN ---
DAY CARE TEACHER SPOKE WITH PT'S HCP, MOLLY [phone] VIA PHONE. PT'S HCP WANTED TO DISCUSS PT'S CARE WITH ED NURSE DAY CARE TEACHER TO RELAY THE MESSAGE TO PT'S NURSE PT WAS INCAPACITATED DAY CARE TEACHER VERBALLY DELIVERED IMM TO HCP
[2024-10-17 12:49] LABS: C Reactive Protein 14.58 mg/dL (< or = 0.50)
[2024-10-17 12:53] LABS: Glucose, Whole Blood 38 mg/dL (60-115)
[2024-10-17 12:53] LABS: Glucose, Whole Blood 33 mg/dL (60-115)
[2024-10-17 13:31] LABS: Glucose, Whole Blood 70 mg/dL (60-115)
--- NOTE | 2024-10-17 13:36 | P.PNIM_ITS ---
Subjective Subjective Date of Service: 10/17/24 Interval History: Seen and evaluated this morning and afternoon altered, barely responsive Elevated lactic acid, recurrent low blood sugar readings Review of Systems Review of Systems: Yes Unobtainable due to mental status Physical Exam 2 Vital Signs: Vital Signs: Last Vital Signs Temp 98.8 F 10/17/24 07:22 Pulse 122 H 10/17/24 13:17 Resp 20 10/17/24 13:17 BP 87/59 L 10/17/24 13:17 Pulse Ox 100 10/17/24 13:17 O2 Del Method Room Air 10/17/24 13:17 BMI result Body Mass Index 26.6 Const: Other: Constitutional : altered mentation, ill looking, not in distress Neck : Normal inspection, Supple Cardiovascular : RRR, elevated JVP, +2 lower extremity edema Respiratory : good bilateral air entry, no crackles, wheezes or rhonchi Gastrointestinal: soft, lax, Normal bowel sounds, Non tender Skin : Warm, Dry, multiple bruises, open wound , sacral wound, no drainage Neurological : obtunded, moving all extremities Objective Data Active Medications Acetaminophen (Acetaminophen 325 Mg Tablet) 650 mg PO Q6H PRN PRN Reason: Pain, Mild 1-3,fever,headache Calcium Carbonate (Calcium Carbonate 750 Mg Tab.Chew) 750 mg PO Q4H PRN PRN Reason: Heartburn Dextrose (Dextrose 50 % 25 Gm/50 Ml Syringe) 25 gm IVPUSH Q15M PRN; Protocol PRN Reason: per Hypoglycemia Standing Ord. Last Admin: 10/17/24 12:40 Dose: 25 gm Documented By: KP Enoxaparin Sodium (Enoxaparin Sodium 40 Mg/0.4 Ml Syringe) 40 mg SUBCUT Q24H ARI Glucose (Glucose Gel 15 Gm Gel..Gram.) 15 gm PO Q15M PRN; Protocol PRN Reason: per Hypoglycemia Standing Ord. Dextrose/Lactated Ringer's (D5lr) 1,000 mls @ 100 mls/hr IVCONT .Q10H [facility] Last Admin: 10/17/24 09:21 Dose: 100 mls/hr Documented By: KP Albumin Human (Kedbumin 25 %) 100 mls @ 133.333 mls/hr IV Q1H [facility] Stop: 10/17/24 14:29 Thiamine HCl 500 mg/ Sodium (Chloride) 105 mls @ 210 mls/hr IV ONCE ONE Stop: 10/17/24 14:29 Insulin Human Lispro (Insulin Lispro 100 Unit/Ml 3 Ml Vial) 0 unit SUBCUT QIDACHS [facility]; Protocol Last Admin: 10/17/24 12:05 Dose: Not Given Documented By: KP Non-Admin Reason: No Insulin Coverage Magnesium Hydroxide (Milk Of Magnesia 30 Ml Oral.Susp) 30 ml PO DAILY PRN PRN Reason: Constipation Melatonin (Melatonin 3 Mg Tablet) 6 mg PO BEDTIME PRN PRN Reason: Insomnia Meropenem (Meropenem 1 Gm Vial) 1 gm IVPUSH Q8H ARI Ondansetron HCl (Ondansetron Hcl 4 Mg/2 Ml Vial) 4 mg IVPUSH Q8H PRN PRN Reason: Nausea and Vomiting Sodium Chloride (0.9 % Sodium Chloride Flush 3 Ml Syringe) 3 ml IVFLUSH QSHIFT [facility] Last Admin: 10/17/24 07:20 Dose: 3 ml Documented By: KP Labs 10/17/24 09:57 10/17/24 09:57 Labs: Laboratory Results - last 24 hr 10/16/24 10/16/24 10/16/24 15:14 16:26 17:28 MCV MCH MCHC RDW Plt Count MPV Absolute Nucleated RBC Nucleated RBC % (auto) Anion Gap Estim Creat Clear Calc Estimated GFR POC Glucose 138 H Random Glucose Lactic Acid 6.8 H* Lactic Acid F/U @ 2Hr Lactic Acid F/U @ 4Hr 5.0 H* Calcium Ammonia C-Reactive Protein 10/16/24 10/16/24 10/16/24 18:14 21:05 Unknown MCV MCH MCHC RDW Plt Count MPV Absolute Nucleated RBC Nucleated RBC % (auto) Anion Gap Estim Creat Clear Calc Estimated GFR POC Glucose 158 H 153 H Random Glucose Lactic Acid Lactic Acid F/U @ 2Hr 8.4 H* Lactic Acid F/U @ 4Hr Calcium Ammonia C-Reactive Protein 10/17/24 10/17/24 10/17/24 07:16 08:40 09:12 MCV MCH MCHC RDW Plt Count MPV Absolute Nucleated RBC Nucleated RBC % (auto) Anion Gap Estim Creat Clear Calc Estimated GFR POC Glucose 33 L* 58 L* 50 L* Random Glucose Lactic Acid Lactic Acid F/U @ 2Hr Lactic Acid F/U @ 4Hr Calcium Ammonia C-Reactive Protein 10/17/24 10/17/24 10/17/24 09:32 09:57 10:31 MCV 93.8 MCH 32.4 MCHC 34.5 RDW 14.3 Plt Count 142 L MPV 12.0 Absolute Nucleated RBC 0.000 Nucleated RBC % (auto) 0.0 Anion Gap 13 Estim Creat Clear Calc 47.7 Estimated GFR 41 POC Glucose 73 55 L* Random Glucose 275 H Lactic Acid 3.7 H* Lactic Acid F/U @ 2Hr Lactic Acid F/U @ 4Hr Calcium 7.1 L Ammonia 83 H C-Reactive Protein 14.58 H 10/17/24 10/17/24 10/17/24 11:17 11:58 12:37 MCV MCH MCHC RDW Plt Count MPV Absolute Nucleated RBC Nucleated RBC % (auto) Anion Gap Estim Creat Clear Calc Estimated GFR POC Glucose 129 H 38 L* 33 L* Random Glucose Lactic Acid Lactic Acid F/U @ 2Hr Lactic Acid F/U @ 4Hr Calcium Ammonia C-Reactive Protein 10/17/24 13:15 MCV MCH MCHC RDW Plt Count MPV Absolute Nucleated RBC Nucleated RBC % (auto) Anion Gap Estim Creat Clear Calc Estimated GFR POC Glucose 70 Random Glucose Lactic Acid Lactic Acid F/U @ 2Hr Lactic Acid F/U @ 4Hr Calcium Ammonia C-Reactive Protein Microbiology Microbiology Results: Microbiology 10/16/24 10:46 Blood Culture - Preliminary Blood - Venous No growth after 24 hours. 10/16/24 10:47 Blood Culture - Preliminary Blood - Venous No growth after 24 hours. 10/16/24 Unknown Urine Culture - Preliminary Urine Catheterized - Dorantes Catheter Gram negative ros Assessment and Plan (1) Acute UTI: Status: Acute (2) Ankle fracture: Status: Acute (3) Serum ammonia increased: Status: Acute (4) Sepsis: Status: Acute (5) Toxic metabolic encephalopathy: Status: Acute (6) Hypotension: Status: Acute (7) Hypoglycemia: Status: Acute Plan Pt is a 53-year-old female with a PMH significant for?HRpEF, chronic leukocytosis, [id number] type 2 diabetes, HTN orthostatic hypotension, hepatic steatosis, and 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 who presents to the ED from home for evaluation of altered mental status and lethargy. Pt will be admitted to the hospital for treatment and further evaluation of acute metabolic encephalopathy in the setting of UTI with severe sepsis and hyperammonemia. Acute metabolic encephalopathy secondary to UTI with severe sepsis, hyperammonemia treat underlying problems: Abx and Lactulos NPO pending swallow eval Monitor mentation Acute UTI with severe sepsis complicated with acute lactic acidosis IV boluses of IVF and Albumin Follow-up lactic acid increased to 6.8 change Abx to Meropenem Urine Cx growing GNR, blood cultures pending Follow BP, lactic acid, urine culture Anasarca 2/2 malnutrition , liver problem? , heart failure ? Given Albumin Unable to use Lasix given low BP Hypotension Hold antihypertensives Continue midodrine when she can tolerate PO IVF, albumin ICU consult for higher level of care Hyperammonemia Ammonia 80 Likely secondary to 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, not cirrhosis give lactulose MT Repeat ammonia in the morning Hypoglycemia in DM2 Recurrent episodes of low blood sugar readings not on long acting insulin\PO diabetes meds IV D5NS rescue with D50 and Glucagon GEOVANNY Creatinine 1.30 Likely secondary to hypovolemia Follow renal function Chronic lower leg edema/hypoalbuminemia Hydrochlorothiazide reportedly previously discontinued due to orthostatic hypotension High-protein diet Fei stockings Insulin-dependent type 2 diabetes Sliding-scale insulin, Lantus Diabetic diet once no longer NPO Chronic leukocytosis and anemia [facility] records indicates iron saturation 69% ferritin 667 Follow up outpatient with Hematology at [facility] Fibromyalgia/anxiety/chronic back pain Continue benzodiazepines Full Code DVT Prophylaxis: Lovenox HCP invoked. Pt will require a hospitalization overnight for treatment of?acute metabolic encephalopathy in setting of UTI with severe sepsis and hyperammonemia. pt will require hospital level care for treatment with IV antibiotics, close monitoring of labs, vitals, and mentation pending ICU evaluation . Quality Stroke Does the patient have a stroke diagnosis?: No VTE Prior VTE?: No VTE Risk Level:: Medical - moderate - high VTE Device Contraindication: Treatment Not Indicated VTE Drug Contraindication: N/A - Med Ordered
[2024-10-17 13:41] LABS: ~Lactic Acid-LAB USE ONLY 4.7 mmol/L (0.5-2.0)
[2024-10-17] MEDS: Albumin Human 25 % 100 ML 133.33 ML IV ×3 (14:06→23:05)
[2024-10-17] MEDS: Meropenem 1 GM VIAL IVPUSH ×2 (14:10→20:25)
[2024-10-17 14:12] LABS: Glucose, Whole Blood 81 mg/dL (60-115)
[2024-10-17] MEDS: Thiamine HCL 500 MG in 0.9 % Sodium Chloride 100 ML 210 MG IV (14:33)
--- NOTE | 2024-10-17 14:48 | PC.NURSE ---
MD Harris continually updated regarding pt low blood glucose despite continual bolus dosing of 25G dextrose. pt BP soft, MD aware. plan for albumin x2. MD at this time transferring pt to ICU status as there continues to be minimal improvement.
--- NOTE | 2024-10-17 15:00 | PC.NURSE ---
pt with no pupillary response to light, confirmed with dual RN. MD Harris made aware
[2024-10-17 15:15] LABS: Glucose, Whole Blood 95 mg/dL (60-115)
[2024-10-17 15:16] LABS: Reflex Lactate? 2 Y
--- NOTE | 2024-10-17 15:45 | P.CONCC_ITS ---
History of Present Illness Data of Consult Service Date: 10/17/24 Primary Care Provider: Unknown Physician HPI Reason for consult: Hypotension 53-year-old lady with past medical history of hypertension, diabetes mellitus, heart failure with preserved ejection fraction, hepatic steatosis, gastric bypass surgery complicated with dumping syndrome admitted last month due to altered mental status up found to have a small subarachnoid bleed and hyperammonemia and discharged to a rehab presented to the hospital again yesterday with altered mental status and was admitted to the hospitalist service. Labs were significant for hyperammonemia, lactic acidosis, hypoglycemia and urinary tract infection. Patient's blood pressures also started dropping, so MICU was consulted for a transfer. Review of Systems 2 Review of Systems: Unable to obtain as patient is confused PMFSH Past Medical History Medical History (Updated 10/17/24 @ 13:54 by Teresa Harris MD) Acute metabolic encephalopathy Dumping syndrome Orthostatic hypotension Diabetes mellitus Surgical History Surgical History Gastric bypass status for obesity Social History Social History Household Members: Children and Other Household Members Other:: daughter and ex Housing: Apartment Do you presently have visiting nurse or other home services: Yes Patient Tobacco Use Status: Current everyday Tobacco user Tobacco use type: Cigarette e-Cigarette/Vaping Use: Never Used Second Hand Smoke Exposure: No service: No Meds Allergies Allergy/AdvReac Type Severity Reaction Status Date / Time No Known Allergies Allergy Verified 10/16/24 10:08 Active Medications: Current Medications Acetaminophen (Acetaminophen 325 Mg Tablet) 650 mg PO Q6H PRN PRN Reason: Pain, Mild 1-3,fever,headache Calcium Carbonate (Calcium Carbonate 750 Mg Tab.Chew) 750 mg PO Q4H PRN PRN Reason: Heartburn Dextrose (Dextrose 50 % 25 Gm/50 Ml Syringe) 25 gm IVPUSH Q15M PRN; Protocol PRN Reason: per Hypoglycemia Standing Ord. Last Admin: 10/17/24 12:40 Dose: 25 gm Enoxaparin Sodium (Enoxaparin Sodium 40 Mg/0.4 Ml Syringe) 40 mg SUBCUT Q24H ARI Glucose (Glucose Gel 15 Gm Gel..Gram.) 15 gm PO Q15M PRN; Protocol PRN Reason: per Hypoglycemia Standing Ord. Dextrose/Lactated Ringer's (D5lr) 1,000 mls @ 100 mls/hr IVCONT .Q10H [facility] Last Admin: 10/17/24 09:21 Dose: 100 mls/hr Insulin Human Lispro (Insulin Lispro 100 Unit/Ml 3 Ml Vial) 0 unit SUBCUT QIDACHS [facility]; Protocol Last Admin: 10/17/24 12:05 Dose: Not Given Magnesium Hydroxide (Milk Of Magnesia 30 Ml Oral.Susp) 30 ml PO DAILY PRN PRN Reason: Constipation Melatonin (Melatonin 3 Mg Tablet) 6 mg PO BEDTIME PRN PRN Reason: Insomnia Meropenem (Meropenem 1 Gm Vial) 1 gm IVPUSH Q8H [facility] Last Admin: 10/17/24 14:10 Dose: 1 gm Ondansetron HCl (Ondansetron Hcl 4 Mg/2 Ml Vial) 4 mg IVPUSH Q8H PRN PRN Reason: Nausea and Vomiting Sodium Chloride (0.9 % Sodium Chloride Flush 3 Ml Syringe) 3 ml IVFLUSH QSHIFT [facility] Last Admin: 10/17/24 07:20 Dose: 3 ml Home Medications ?Medication ?Instructions ?Recorded ?Confirmed ?Last Taken ?Type aspirin 81 mg tablet,delayed 81 mg PO DAILY 09/11/24 10/16/24 Unknown History release atorvastatin 40 mg tablet 40 mg PO BEDTIME 09/11/24 10/16/24 Unknown History buspirone 15 mg tablet 15 mg PO BID 09/11/24 10/16/24 Unknown History dorzolamide 22.3 mg-timolol 6.8 1 drp ophthalmic (eye) TID 09/11/24 10/16/24 Unknown History mg/mL eye drops duloxetine 60 mg capsule,delayed 60 mg PO BID 09/11/24 10/16/24 Unknown History release ergocalciferol (vitamin D2) 1,250 1,250 mcg PO TH 09/11/24 10/16/24 Unknown History mcg (50,000 unit) capsule ferrous sulfate 325 mg (65 mg 325 mg PO DAILY 09/11/24 10/16/24 Unknown History iron) tablet (FeroSul) hydrochlorothiazide 25 mg tablet 25 mg PO DAILY 09/11/24 10/16/24 Unknown History latanoprost 0.005 % eye drops 1 drp ophthalmic (eye) BEDTIME 09/11/24 10/16/24 Unknown History lisinopril 40 mg tablet 40 mg PO DAILY 09/11/24 10/16/24 Unknown History loratadine 10 mg tablet 10 mg PO DAILY 09/11/24 10/16/24 Unknown History lorazepam 0.5 mg tablet 0.5 mg PO BEDTIME 09/11/24 10/16/24 Unknown History midodrine 5 mg tablet 5 mg PO TID 09/11/24 10/16/24 Unknown History netarsudil 0.02 % eye drops 1 drp ophthalmic (eye) BEDTIME 09/11/24 10/16/24 Unknown History (Rhopressa) omeprazole 20 mg capsule,delayed 20 mg PO DAILY@0630 09/11/24 10/16/24 Unknown History release oxycodone-acetaminophen 5 mg-325 1 tab PO Q6H PRN pain 09/11/24 10/16/24 Unknown History mg tablet sitagliptin phosphate 100 mg 100 mg PO DAILY 09/11/24 10/16/24 Unknown History tablet (Januvia) calcium 600 mg (as 1 tab PO BID 10/16/24 10/16/24 Unknown History carbonate)-vitamin D3 5 mcg (200 unit) tablet (Calcium 600 + D(3)) gabapentin 100 mg capsule 100 mg PO TID 10/16/24 10/16/24 Unknown History insulin glargine 100 unit/mL 5 unit subcut DAILY@2100 10/16/24 10/16/24 Unknown History subcutaneous solution (Lantus U-100 Insulin) insulin lispro 100 unit/mL 1 sliding scale dose subcut TIDWM 10/16/24 10/16/24 Unknown History subcutaneous solution (Humalog U-100 Insulin) lactulose 20 gram/30 mL oral 45 ml PO QID 10/16/24 10/16/24 Unknown History solution nystatin 100,000 unit/gram topical 1 appl topical BID 10/16/24 10/16/24 Unknown History powder Physical Exam 2 Vital Signs: Vital Signs: Last Vital Signs Temp 99.1 F 10/17/24 14:29 Pulse 110 H 10/17/24 15:38 Resp 22 H 10/17/24 15:38 BP 101/49 L 10/17/24 15:38 Pulse Ox 98 10/17/24 15:38 O2 Del Method Room Air 10/17/24 15:38 BMI result Body Mass Index 26.6 General: Middle-aged lady significantly altered in acute distress, ill appearing and tired appearing Nutritional Appearance: well nourished and overweight Eyes: appearance normal, both eyes and all related structures; Alignment and Position: alignment normal and position normal Neck: No lymphadenopathy, no thyromegaly Resp: bilateral air entry equal, occasional added sounds present Cardio: Regular rate, regular rhythm; Heart sounds: S1 normal heart sound present and S2 normal heart sound present GI: soft, nontender, no guarding, no hepatosplenomegaly : bladder normal to inspection, bladder normal to palpation, no renal angle tenderness Skin: no rashes or lesions noted and elasticity normal Neuro: o confused, not following commands Results Labs 10/17/24 09:57 10/17/24 09:57 Labs: Short CBC 10/17/24 Range/Units 09:57 WBC 19.9 H (4.8-10.8) X10*3/uL Hgb 9.9 L (12.0-16.0) g/dl Hct 28.7 L D (37.0-47.0) % Plt Count 142 L (160-400) X10*3/uL BMP 10/17/24 09:57 Sodium 143 Potassium 3.4 D Chloride 108 Carbon Dioxide 25 BUN 15 Creatinine 1.33 Calcium 7.1 L Microbiology Microbiology Results: Microbiology 10/16/24 10:46 Blood - Venous Blood Culture - Preliminary No growth after 24 hours. 10/16/24 10:47 Blood - Venous Blood Culture - Preliminary No growth after 24 hours. 10/16/24 Unknown Urine Catheterized - Dorantes Catheter Urine Culture - Preliminary Gram negative ros Assessment and Plan (1) Hypotension: Status: Acute (2) Hyperammonemia: Status: Acute (3) Serum ammonia increased: Status: Acute (4) Gastric bypass status for obesity: Status: Acute (5) Acute UTI: Status: Acute (6) Sepsis: Status: Acute (7) Ankle fracture: Status: Acute (8) Toxic metabolic encephalopathy: Status: Acute Plan Neuro: Acute encephalopathy possibly due to metabolic encephalopathy possibly secondary to hepatic encephalopathy, sepsis, hyperammonemia and possibly liver failure CT head did not show any acute intracranial pathology We will get a MRI of the brain Close neurological status monitoring in the ICU every hour Cardiac: Hypotension: Possibly secondary to cirrhotic physiology, blood pressure is on lower side but not needing vasopressor support as of now Respiratory: High-risk for aspiration, we will closely monitor her with appropriate aspiration precautions Currently saturations normal on room air GI: Acute on chronic liver failure: Patient possibly has a acute on chronic liver failure as seen with hypoglycemia,, hypoalbuminemia, hyperammonemia and lactic acidosis We will start the patient on lactulose 20 mg q.4 hours and we will do as needed lactulose enema Other source of hyperammonemia may be possibly related to gastric bypass surgery, we will see if I can check D lactic acidosis Renal: Acute kidney injury possibly secondary to ATN from shock Baseline creatinine 0.8, creatinine today is 1.4 We will closely monitor I's and O's Avoid nephrotoxic medications Heme: Chronic anemia, closely monitor H&H, transfuse for hemoglobin less than 7 grams/deciliter Endocrine: Hypoglycemia: Possibly secondary to sepsis versus liver failure Continue D5 LR drip at 100 cc/hour Infectious disease: Urine dirty, urine culture positive for Gram-negative rods, blood cultures negative so far Continue meropenem Musculoskeletal: Decubitus ulcer prevention protocol Lines: Peripheral Prophylaxis: Lovenox, pantoprazole Total time managing care of this patient today: 35 minutes.
[2024-10-17 16:02] LABS: ~Lactic Acid-LAB USE ONLY 4.4 mmol/L (0.5-2.0)
[2024-10-17 16:18] LABS: Glucose, Whole Blood 160 mg/dL (60-115)
[2024-10-17 16:32] LABS: Ammonia 81 umol/L (13-55)
[2024-10-17] MEDS: Enoxaparin Sodium 40 MG/0.4 ML SYRINGE SUBCUT (16:41)
[2024-10-17 16:59] LABS: Alanine Aminotransferase < 6 U/L (0-31); Anion Gap 17 (12-20); Aspartate Amino Transferase 21 U/L (5-31); Bilirubin Total 1.3 mg/dL (0.0-1.0); Blood Urea Nitrogen 14 mg/dL (9-16); Calcium 7.7 mg/dL (8.4-10.2); Carbon Dioxide 24 mmol/L (22-29); Chloride 106 mmol/L (96-108); Creatinine Clr Calc Pharmacy 45.3; Estimated Glomerular Filt Rate 39; Glucose Random 440 mg/dL (60-115); Potassium 3.6 mmol/L (3.3-5.1); Sodium 143 mmol/L (135-145)
[2024-10-17 17:18] LABS: Glucose, Whole Blood 271 mg/dL (60-115)
[2024-10-17 17:55] LABS: Alkaline Phosphatase 93 U/L (39-117)
[2024-10-17] MEDS: Insulin Lispro 100 UNIT/ML 3 ML VIAL SUBCUT (18:00)
--- NOTE | 2024-10-17 18:23 | PC.NURSE ---
Pt arrived on unit at approx 1720. Upon initial assessment pt obtunded, rigid, weeping anasarca. Hands and feet cold to touch. See skin note and skin assessment for skin information. NG tube inserted in L nare. Dorantes patent, draining small amount of sven urine. Pt family visiting and according to HCP Maggie will be discussing code status the evening.
--- NOTE | 2024-10-17 18:39 | HO.SKINPHOTO ---
Location: Category: Stage: Length: Width: Depth: cm Location: Category: Stage: Length: Width: Depth: cm Location: Category: Stage: Length: Width: Depth: cm Location: Category: Stage: Length: Width: Depth: cm Location: Category: Stage: Length: Width: Depth: cm Location: Category: Stage: Length: Width: Depth: cm
[2024-10-17 19:18] LABS: Glucose, Whole Blood 312 mg/dL (60-115)
[2024-10-17] MEDS: Dextrose 5 % and Lactated Ring 1,000 ML 25 ML IVCONT (19:28)
[2024-10-17] MEDS: Lactulose 20 GM/30 ML SOLUTION PO (19:30)
[2024-10-17] MEDS: Lactulose 20 GM/30 ML SOLUTION 30 GM PO ×2 (20:25→21:14)
[2024-10-17] MEDS: Albumin Human 25 % 100 ML IV (20:26)
[2024-10-17 20:28] LABS: VBG Base Excess -1.8 mmol/L; VBG HCO3 22 mmol/L (22-26); VBG pCO2 36 mmHg; VBG pH 7.39 (7.32-7.43); VBG pO2 47 mmHg
[2024-10-17 20:37] LABS: Glucose, Whole Blood 194 mg/dL (60-115)
[2024-10-17 20:43] LABS: Basophils Percent Auto 0.1 % (0-2); Eosinophils Absolute Auto 0.1 X10*3/uL (0.0-0.4); Eosinophils Percent Auto 0.3 % (0-4); Hemoglobin 8.4 g/dl (12.0-16.0); Imm Gran Abs Auto 0.18 X10*3/uL (0.00-0.03); Imm Gran Pct Auto 0.8 % (0.0-0.4); Lymphocytes Absolute Auto 1.3 X10*3/uL (1.2-4.9); Lymphocytes Percent Auto 5.6 % (20-40); MANUAL DIFF FLAG SCAN; Mean Corpuscular HGB Conc 33.6 g/dl (31.0-35.0); Mean Corpuscular Hemoglobin 33.1 pg (27.0-33.0); Mean Corpuscular Volume 98.4 fL (80.0-98.0); Mean Platelet Volume 12.3 fL (9.4-12.3); Monocytes Absolute Auto 1.6 X10*3/uL (0.1-1.2); Monocytes Percent Auto 6.9 % (2-11); Neutrophils Absolute Auto 19.5 x10*3/uL (2.0-8.3); Neutrophils Percent Auto 86.3 % (45-73); Platelet Count 141 X10*3/uL (160-400); Red Blood Count 2.54 X10*6/uL (4.20-5.50); Red Cell Distribution Width 14.1 % (11.0-16.0); SCAN SMEAR FLAG 1; White Blood Count 22.6 X10*3/uL (4.8-10.8)
[2024-10-17 20:48] LABS: Lactic Acid 7.1 mmol/L (0.5-2.0)
[2024-10-17 20:57] LABS: Alanine Aminotransferase 10 U/L (0-31); Albumin Level 2.8 g/dL (3.5-5.0); Alkaline Phosphatase 96 U/L (39-117); Anion Gap 16 (12-20); Aspartate Amino Transferase 22 U/L (5-31); Bilirubin Total 0.9 mg/dL (0.0-1.0); Blood Urea Nitrogen 14 mg/dL (9-16); Calcium 7.3 mg/dL (8.4-10.2); Carbon Dioxide 23 mmol/L (22-29); Chloride 107 mmol/L (96-108); Estimated Glomerular Filt Rate 38; Glucose Random 357 mg/dL (60-115); Magnesium 1.7 mg/dL (1.6-2.6); Phosphorus 3.6 mg/dL (2.7-4.5); Sodium 143 mmol/L (135-145); Total Protein 4.7 g/dL (6.5-8.0)
[2024-10-17 21:07] LABS: Procalcitonin 0.34 ng/mL
[2024-10-17] MEDS: rifAXIMin 550 MG TABLET PO (21:10)
[2024-10-17 21:13] LABS: SLIDE REVIEW VERIFIED
[2024-10-17 22:29] LABS: Reflex Lactate? Lactic Acid Added
[2024-10-17 22:47] LABS: Venous Blood Gas Refer to POC result
[2024-10-17] MEDS: Lactated Ringers 500 ML 999 ML IV (23:00)
[2024-10-17 23:09] LABS: ~Lactic Acid-LAB USE ONLY 7.7 mmol/L (0.5-2.0)
[2024-10-17 23:58] LABS: Glucose, Whole Blood 312 mg/dL (60-115)
[2024-10-18] VITALS (17 sets, daily range): BP systolic 101–132; BP diastolic 55–87; PULSE 100–115; RESP 16–22; TEMP 36.1–36.8; O2SAT 94–99; BMI 30.3
[2024-10-18] MEDS: Albumin Human 25 % 100 ML 133.33 ML IV (00:04)
[2024-10-18] MEDS: Lactated Ringers 1,000 ML 100 ML IVCONT ×2 (00:11→09:49)
[2024-10-18] MEDS: Magnesium Sulfate/H2O 2 GM/50 ML PIGGYBACK IV (00:15)
[2024-10-18] MEDS: Potassium Chloride Packet 20 MEQ PACKET 40 MEQ PO ×2 (00:19→08:50)
[2024-10-18 00:52] LABS: Reflex Lactate? 2 Y
[2024-10-18 01:13] LABS: Glucose, Whole Blood 314 mg/dL (60-115)
[2024-10-18 01:55] LABS: ~Lactic Acid-LAB USE ONLY 5.7 mmol/L (0.5-2.0)
[2024-10-18] MEDS: Albumin Human 25 % 100 ML IV ×3 (02:11→15:01)
[2024-10-18] MEDS: Lactulose 20 GM/30 ML SOLUTION 30 GM PO ×4 (02:12→21:25)
--- NOTE | 2024-10-18 02:24 | PC.NURSE ---
CARE ASSUMED 7PM...LETHARGIC..WEAKLY MOVES ARMS BUT NOT TO COMMAND...NONVERBAL...PUPILS 4MM AND REACTIVE..BRIEFLY BUT INCONSISTANTLY ATTEMPTS TO OPEN EYS..NO TRACKING....WONG WITH MINIMAL DEEP YELLOW URINE...NO DISTRESS ON ROOM AIR...SINUS TACH HR 100'S-110'S...ANASARCA PRESENT...ARMS WEEPING SEROUS FLUID...MULTIPLE ABRASION AND BRUISES TO EXTREMETIES...RIGHT LOWER LEG WRAPPED AND WALKING CAST IN PLACE..D5LR INITIALLY 50 CC/HR..WEANED TO 25 CC/HR THEN OFF PER PROVIDER...N.B. POC GLUCOSE VIA FINGER STICK SIGNIFICANTLY LOWER THAN LAB OR GLUCOSE DRAWN VIA PERIPHERAL IV...GLUCOSE LEVELS ELEVATED BUT INSULIN COVERAGE HELD BY PROVIDER D/T PREVIOUS HYPOGLYCEMIA...ELEVATED LACTIC LEVELS..PROVIDER AWARE...ALBUMEN Q6H X4 BAGS ORDERED AND ADDITIONAL 2 BAGS ALBUMEN ORDERED BY PROVIDER...LR TOTAL 500ML BOLUS GIVEN...LR 100 CC/HR STARTED....LACTULOSE Q1H VIA NG-TUBE GIVEN..INCONTINANT MULTIPLE LIQUIED BROWN STOOLS....RECTAL TUBE PLACED...LAST LACTULOSE GIVEN 2AM AND CHANGED TO Q6H BY PROVIDER...AM AMMONIA LEVEL ORDERED...REMAINS SOMNOLENT BUT MOVINGARMS AND PULLING ON IV LINES AND NG-TUBE..BILATERAL SOFT WRIST RESTRAINTS PLACED AT 11PM PER PROVIDER FOR LINE SAFETY
[2024-10-18 03:02] LABS: Glucose, Whole Blood 311 mg/dL (60-115)
[2024-10-18] MEDS: Lactulose 20 GM/30 ML SOLUTION 40 GM PO (03:12)
[2024-10-18] MEDS: Meropenem 1 GM VIAL IVPUSH (04:36)
[2024-10-18 05:35] LABS: MANUAL DIFF FLAG NO
[2024-10-18 05:38] LABS: VBG HCO3 25 mmol/L (22-26); VBG pCO2 32 mmHg; VBG pO2 45 mmHg
[2024-10-18 05:38] LABS: Basophils Percent Auto 0.1 % (0-2); Eosinophils Absolute Auto 0.1 X10*3/uL (0.0-0.4); Eosinophils Percent Auto 0.2 % (0-4); Hematocrit 21.7 % (37.0-47.0); Hemoglobin 7.6 g/dl (12.0-16.0); Imm Gran Abs Auto 0.19 X10*3/uL (0.00-0.03); Imm Gran Pct Auto 0.8 % (0.0-0.4); Lymphocytes Absolute Auto 1.6 X10*3/uL (1.2-4.9); Lymphocytes Percent Auto 7.2 % (20-40); Mean Corpuscular Volume 94.3 fL (80.0-98.0); Mean Platelet Volume 12.3 fL (9.4-12.3); Monocytes Absolute Auto 1.4 X10*3/uL (0.1-1.2); Monocytes Percent Auto 6.3 % (2-11); Neutrophils Absolute Auto 19.1 x10*3/uL (2.0-8.3); Neutrophils Percent Auto 85.4 % (45-73); Platelet Count 116 X10*3/uL (160-400); Red Cell Distribution Width 14.3 % (11.0-16.0); White Blood Count 22.4 X10*3/uL (4.8-10.8)
[2024-10-18 05:44] LABS: Ammonia 60 umol/L (13-55)
[2024-10-18 05:47] LABS: Venous Blood Gas Refer to POC result
[2024-10-18 06:01] LABS: Alkaline Phosphatase 83 U/L (39-117)
[2024-10-18 06:02] LABS: Alanine Aminotransferase < 6 U/L (0-31); Albumin Level 3.2 g/dL (3.5-5.0); Anion Gap 16 (12-20); Aspartate Amino Transferase 33 U/L (5-31); Bilirubin Total 1.2 mg/dL (0.0-1.0); Blood Urea Nitrogen 15 mg/dL (9-16); Calcium 7.9 mg/dL (8.4-10.2); Carbon Dioxide 23 mmol/L (22-29); Chloride 111 mmol/L (96-108); Creatinine Clr Calc Pharmacy 50.3; Estimated Glomerular Filt Rate 41; Glucose Random 320 mg/dL (60-115); Magnesium 2.1 mg/dL (1.6-2.6); Phosphorus 3.1 mg/dL (2.7-4.5); Potassium 3.1 mmol/L (3.3-5.1); Sodium 147 mmol/L (135-145); Total Protein 4.9 g/dL (6.5-8.0)
--- NOTE | 2024-10-18 07:00 | CA_ITS ---
Transthoracic Echocardiogram Patient (Last, First, Middle): Mirian Bal, Gender: Female Date of : 1970 Age: 53 Procedure Date: 10/18/2024 Procedure Type: Transthoracic Echocardiogram Location: ICU Height: 165.1 cm Weight: 82.1 kg BSA: 1.90 m2 Heart Rate: 111 bpm BP: 101 / 61 mmHg Customer Account Technician: ROSE MARIE Referring MD: Corbin LAURA Auto Radiator Mechanic: Jamey Bruno MD Symptoms: CHF, joel eval, ef Study Quality: Adequate ECG Rhythm: Tachycardia Conclusions: - 1. Normal LV ejection fraction of 60-65% with grade 1 diastolic dysfunction with basal inferior wall motion abnormality 2. Cardiac valvular Dopplers within normal limits 3. No gross pericardial effusion Findings Left Ventricle Normal left ventricular size, thickness, and systolic function. The visually estimated ejection fraction is between 60-65%. Spectral Doppler is indicative of an impaired relaxation filling pattern. E/E prime ratio is <8, consistent with normal filling pressures. Evidence suggests grade I (mild) diastolic dysfunction. Wall Motion Rest Echo Findings The basal inferior segment is akinetic. All other scored wall segments showed normal motion. Right Ventricle Normal right ventricular cavity size and systolic function. Atria The left atrium is normal in size. Interatrial shunt cannot be excluded. The right atrium is normal in size. Aortic Valve Normal aortic valve structure and function. There is no aortic valve stenosis. There is no aortic valve regurgitation. Mitral Valve Normal mitral valve structure and function. There is trace mitral valve regurgitation. There is no mitral valve stenosis. Pulmonic Valve The pulmonic valve is likely normal. There is trace pulmonic valve regurgitation. Tricuspid Valve Tricuspid regurgitation envelope is inadequate for calculation of right ventricular systolic pressure. Indeterminate right atrial pressure. Great Vessels The aorta was not well visualized. The pulmonary artery was not well visualized. Venous The inferior vena cava was not well visualized. Pericardium/Pleural There is no evidence of pericardial effusion. There is a left sided pleural effusion. Measurements 2D Linear Measurements IVSd: 1.27 0.6-0.9/0.6-1.0 cm LVIDd: 3.78 3.9-5.3/4.2-5.9 cm LVIDd Index: 1.99 2.4-3.2/2.2-3.1 cm/m2 LVIDs: 2.44 2.0-3.6 cm LVPWd: 0.80 0.7-1.1 cm LA Diam: 2.90 2.7-3.8/3.0-4.0 cm LAIDs Index: 1.53 1.5-2.3 cm/m2 LV Mass: 152.36 67-162/88-224 g LV Mass Index: 80.19 43-95/49-115 g/m2 LVOT Diam: 1.90 3.0+(-)1.3 cm 2D Systolic Function EF 4C: 63.10 >55% EF 2C: 59.50 >55% EF BiP: 61.60 >55% Mitral Valve E'Lateral: 9.03 Aortic Valve AoV Pk Arnulfo: 1.12 AoV Pk Grad: 5.00 DARSHANA: 2.61 LVOT LVOT Pk Arnulfo: 1.01 LVOT Mn Arnulfo: 0.74 LVOT VTI: 0.23 LVOT Pk Grad: 4.00 LVOT Mn Grad: 2.00 LVOT Diam: 1.90 LVOT Area: 2.84 Diastolic Function E' Laterial: 9.03 Right Ventricle TAPSE (mm): 17.90 TVS' Arnulfo: 15.80 Great Vessels Aorta Sinus of Valsalva: 2.90 2.0-3.5 cm Updated in Other Vendor System with Status of Final Jamey Bruno MD electronically signed on 10/18/2024 2:30:56 PM with status of Final
[2024-10-18 07:25] LABS: Glucose, Whole Blood 362 mg/dL (60-115)
[2024-10-18] MEDS: 0.9 % Sodium Chloride Flush 3 ML SYRINGE IVFLUSH ×2 (08:50→17:19)
[2024-10-18] MEDS: rifAXIMin 550 MG TABLET PO ×2 (08:51→21:25)
--- NOTE | 2024-10-18 08:58 | PM.CCPN ---
Subjective Subjective Date of Service: 10/18/24 Critical Care Time (minutes): 35 Comment: Still remains drowsy, but responds to commands Blood pressures improved, blood sugars improved as well 800ml stool in rectal tube Physical Exam Vital Signs: Vital Signs: Last Vital Signs Temp 97.3 F 10/18/24 04:00 Pulse 107 H 10/18/24 08:00 Resp 18 10/18/24 08:00 BP 111/55 L 10/18/24 08:00 Pulse Ox 98 10/18/24 08:00 O2 Del Method Room Air 10/18/24 08:00 BMI result Body Mass Index 30.3 General: Middle-aged lady lying in the bed poorly responsive, drowsy Nutritional Appearance: well nourished and overweight Eyes: appearance normal, both eyes and all related structures; Alignment and Position: alignment normal and position normal Neck: No lymphadenopathy, no thyromegaly Resp: bilateral air entry equal, occasional added sounds present Cardio: Regular rate, regular rhythm; Heart sounds: S1 normal heart sound present and S2 normal heart sound present GI: soft, nontender, no guarding, no hepatosplenomegaly : bladder normal to inspection, bladder normal to palpation, no renal angle tenderness Skin: no rashes or lesions noted and elasticity normal Neuro: Drowsy, no focal deficits, follows commands upon verbal orders Objective Data Labs 10/18/24 05:24 10/18/24 05:24 Labs: Laboratory Results - last 24 hr 10/17/24 10/17/24 10/17/24 08:40 09:12 09:32 WBC RBC Hgb Hct MCV MCH MCHC RDW Plt Count MPV Immature Gran % (Auto) Neut % (Auto) Lymph % (Auto) [place] % (Auto) Eos % (Auto) Baso % (Auto) Lymph # (Auto) [place] # (Auto) Eos # (Auto) Baso # (Auto) Abs Immat Gran (auto) Absolute Neuts (auto) Absolute Nucleated RBC Nucleated RBC % (auto) Smear Tech's Comments VBG pH VBG pCO2 VBG pO2 VBG HCO3 VBG O2 Saturation VBG Base Excess Sodium Potassium Chloride Carbon Dioxide Anion Gap BUN Creatinine Estim Creat Clear Calc Estimated GFR POC Glucose 58 L* 50 L* 73 Random Glucose Lactic Acid Lactic Acid F/U @ 2Hr Lactic Acid F/U @ 4Hr Calcium Phosphorus Magnesium Total Bilirubin AST ALT Alkaline Phosphatase Ammonia Total Creatine Kinase C-Reactive Protein Total Protein Albumin Procalcitonin 10/17/24 10/17/24 10/17/24 09:57 10:31 11:17 WBC 19.9 H RBC 3.06 L Hgb 9.9 L Hct 28.7 L D MCV 93.8 MCH 32.4 MCHC 34.5 RDW 14.3 Plt Count 142 L MPV 12.0 Immature Gran % (Auto) Neut % (Auto) Lymph % (Auto) [place] % (Auto) Eos % (Auto) Baso % (Auto) Lymph # (Auto) [place] # (Auto) Eos # (Auto) Baso # (Auto) Abs Immat Gran (auto) Absolute Neuts (auto) Absolute Nucleated RBC 0.000 Nucleated RBC % (auto) 0.0 Smear Tech's Comments VBG pH VBG pCO2 VBG pO2 VBG HCO3 VBG O2 Saturation VBG Base Excess Sodium 143 Potassium 3.4 D Chloride 108 Carbon Dioxide 25 Anion Gap 13 BUN 15 Creatinine 1.33 Estim Creat Clear Calc 47.7 Estimated GFR 41 POC Glucose 55 L* 129 H Random Glucose 275 H Lactic Acid 3.7 H* Lactic Acid F/U @ 2Hr Lactic Acid F/U @ 4Hr Calcium 7.1 L Phosphorus Magnesium Total Bilirubin AST ALT Alkaline Phosphatase Ammonia 83 H Total Creatine Kinase C-Reactive Protein 14.58 H Total Protein Albumin Procalcitonin 10/17/24 10/17/24 10/17/24 11:58 12:37 13:14 WBC RBC Hgb Hct MCV MCH MCHC RDW Plt Count MPV Immature Gran % (Auto) Neut % (Auto) Lymph % (Auto) [place] % (Auto) Eos % (Auto) Baso % (Auto) Lymph # (Auto) [place] # (Auto) Eos # (Auto) Baso # (Auto) Abs Immat Gran (auto) Absolute Neuts (auto) Absolute Nucleated RBC Nucleated RBC % (auto) Smear Tech's Comments VBG pH VBG pCO2 VBG pO2 VBG HCO3 VBG O2 Saturation VBG Base Excess Sodium Potassium Chloride Carbon Dioxide Anion Gap BUN Creatinine Estim Creat Clear Calc Estimated GFR POC Glucose 38 L* 33 L* Random Glucose Lactic Acid Lactic Acid F/U @ 2Hr 4.7 H* Lactic Acid F/U @ 4Hr Calcium Phosphorus Magnesium Total Bilirubin AST ALT Alkaline Phosphatase Ammonia Total Creatine Kinase C-Reactive Protein Total Protein Albumin Procalcitonin 03/06/25 03/06/25 03/06/25 13:15 14:01 15:11 WBC RBC Hgb Hct MCV MCH MCHC RDW Plt Count MPV Immature Gran % (Auto) Neut % (Auto) Lymph % (Auto) [place] % (Auto) Eos % (Auto) Baso % (Auto) Lymph # (Auto) [place] # (Auto) Eos # (Auto) Baso # (Auto) Abs Immat Gran (auto) Absolute Neuts (auto) Absolute Nucleated RBC Nucleated RBC % (auto) Smear Tech's Comments VBG pH VBG pCO2 VBG pO2 VBG HCO3 VBG O2 Saturation VBG Base Excess Sodium Potassium Chloride Carbon Dioxide Anion Gap BUN Creatinine Estim Creat Clear Calc Estimated GFR POC Glucose 70 81 95 Random Glucose Lactic Acid Lactic Acid F/U @ 2Hr Lactic Acid F/U @ 4Hr Calcium Phosphorus Magnesium Total Bilirubin AST ALT Alkaline Phosphatase Ammonia Total Creatine Kinase C-Reactive Protein Total Protein Albumin Procalcitonin 10/17/24 10/17/24 10/17/24 15:37 16:13 16:15 WBC RBC Hgb Hct MCV MCH MCHC RDW Plt Count MPV Immature Gran % (Auto) Neut % (Auto) Lymph % (Auto) [place] % (Auto) Eos % (Auto) Baso % (Auto) Lymph # (Auto) [place] # (Auto) Eos # (Auto) Baso # (Auto) Abs Immat Gran (auto) Absolute Neuts (auto) Absolute Nucleated RBC Nucleated RBC % (auto) Smear Tech's Comments VBG pH VBG pCO2 VBG pO2 VBG HCO3 VBG O2 Saturation VBG Base Excess Sodium 143 Potassium 3.6 Chloride 106 Carbon Dioxide 24 Anion Gap 17 BUN 14 Creatinine 1.40 Estim Creat Clear Calc 45.3 Estimated GFR 39 POC Glucose 160 H Random Glucose 440 H* Lactic Acid Lactic Acid F/U @ 2Hr Lactic Acid F/U @ 4Hr 4.4 H* Calcium 7.7 L D Phosphorus Magnesium Total Bilirubin 1.3 H AST 21 ALT < 6 Alkaline Phosphatase 93 Ammonia 81 H Total Creatine Kinase 124 C-Reactive Protein Total Protein 5.0 L Albumin 3.0 L Procalcitonin 10/17/24 10/17/24 10/17/24 17:15 19:14 20:09 WBC 22.6 H RBC 2.54 L Hgb 8.4 L Hct 25.0 L MCV 98.4 H MCH 33.1 H MCHC 33.6 RDW 14.1 Plt Count 141 L MPV 12.3 Immature Gran % (Auto) 0.8 H Neut % (Auto) 86.3 H Lymph % (Auto) 5.6 L [place] % (Auto) 6.9 Eos % (Auto) 0.3 Baso % (Auto) 0.1 Lymph # (Auto) 1.3 [place] # (Auto) 1.6 H Eos # (Auto) 0.1 Baso # (Auto) 0.0 Abs Immat Gran (auto) 0.18 H Absolute Neuts (auto) 19.5 H Absolute Nucleated RBC 0.000 Nucleated RBC % (auto) 0.0 Smear Tech's Comments VERIFIED VBG pH VBG pCO2 VBG pO2 VBG HCO3 VBG O2 Saturation VBG Base Excess Sodium 143 Potassium 3.0 L Chloride 107 Carbon Dioxide 23 Anion Gap 16 BUN 14 Creatinine 1.44 H Estim Creat Clear Calc 44.0 Estimated GFR 38 POC Glucose 271 H 312 H Random Glucose 357 H* Lactic Acid 7.1 H* Lactic Acid F/U @ 2Hr Lactic Acid F/U @ 4Hr Calcium 7.3 L Phosphorus 3.6 Magnesium 1.7 Total Bilirubin 0.9 AST 22 ALT 10 Alkaline Phosphatase 96 Ammonia Total Creatine Kinase C-Reactive Protein Total Protein 4.7 L Albumin 2.8 L Procalcitonin 0.34 10/17/24 10/17/24 10/17/24 20:25 20:33 22:50 WBC RBC Hgb Hct MCV MCH MCHC RDW Plt Count MPV Immature Gran % (Auto) Neut % (Auto) Lymph % (Auto) [place] % (Auto) Eos % (Auto) Baso % (Auto) Lymph # (Auto) [place] # (Auto) Eos # (Auto) Baso # (Auto) Abs Immat Gran (auto) Absolute Neuts (auto) Absolute Nucleated RBC Nucleated RBC % (auto) Smear Tech's Comments VBG pH 7.39 VBG pCO2 36 VBG pO2 47 VBG HCO3 22 VBG O2 Saturation 63.0 VBG Base Excess -1.8 Sodium Potassium Chloride Carbon Dioxide Anion Gap BUN Creatinine Estim Creat Clear Calc Estimated GFR POC Glucose 194 H Random Glucose Lactic Acid Lactic Acid F/U @ 2Hr 7.7 H* Lactic Acid F/U @ 4Hr Calcium Phosphorus Magnesium Total Bilirubin AST ALT Alkaline Phosphatase Ammonia Total Creatine Kinase C-Reactive Protein Total Protein Albumin Procalcitonin 10/17/24 10/18/24 10/18/24 23:54 01:09 01:23 WBC RBC Hgb Hct MCV MCH MCHC RDW Plt Count MPV Immature Gran % (Auto) Neut % (Auto) Lymph % (Auto) [place] % (Auto) Eos % (Auto) Baso % (Auto) Lymph # (Auto) [place] # (Auto) Eos # (Auto) Baso # (Auto) Abs Immat Gran (auto) Absolute Neuts (auto) Absolute Nucleated RBC Nucleated RBC % (auto) Smear Tech's Comments VBG pH VBG pCO2 VBG pO2 VBG HCO3 VBG O2 Saturation VBG Base Excess Sodium Potassium Chloride Carbon Dioxide Anion Gap BUN Creatinine Estim Creat Clear Calc Estimated GFR POC Glucose 312 H 314 H Random Glucose Lactic Acid Lactic Acid F/U @ 2Hr Lactic Acid F/U @ 4Hr 5.7 H* Calcium Phosphorus Magnesium Total Bilirubin AST ALT Alkaline Phosphatase Ammonia Total Creatine Kinase C-Reactive Protein Total Protein Albumin Procalcitonin 10/18/24 10/18/24 10/18/24 02:57 05:24 05:33 WBC 22.4 H RBC 2.30 L Hgb 7.6 L Hct 21.7 L MCV 94.3 MCH 33.0 MCHC 35.0 RDW 14.3 Plt Count 116 L MPV 12.3 Immature Gran % (Auto) 0.8 H Neut % (Auto) 85.4 H Lymph % (Auto) 7.2 L [place] % (Auto) 6.3 Eos % (Auto) 0.2 Baso % (Auto) 0.1 Lymph # (Auto) 1.6 [place] # (Auto) 1.4 H Eos # (Auto) 0.1 Baso # (Auto) 0.0 Abs Immat Gran (auto) 0.19 H Absolute Neuts (auto) 19.1 H Absolute Nucleated RBC 0.000 Nucleated RBC % (auto) 0.0 Smear Tech's Comments VBG pH 7.50 H VBG pCO2 32 VBG pO2 45 VBG HCO3 25 VBG O2 Saturation 67.0 VBG Base Excess 3.0 Sodium 147 H Potassium 3.1 L Chloride 111 H Carbon Dioxide 23 Anion Gap 16 BUN 15 Creatinine 1.34 Estim Creat Clear Calc 50.3 Estimated GFR 41 POC Glucose 311 H Random Glucose 320 H Lactic Acid Lactic Acid F/U @ 2Hr Lactic Acid F/U @ 4Hr Calcium 7.9 L D Phosphorus 3.1 Magnesium 2.1 Total Bilirubin 1.2 H AST 33 H ALT < 6 Alkaline Phosphatase 83 Ammonia 60 H Total Creatine Kinase C-Reactive Protein Total Protein 4.9 L Albumin 3.2 L Procalcitonin 10/18/24 07:21 WBC RBC Hgb Hct MCV MCH MCHC RDW Plt Count MPV Immature Gran % (Auto) Neut % (Auto) Lymph % (Auto) [place] % (Auto) Eos % (Auto) Baso % (Auto) Lymph # (Auto) [place] # (Auto) Eos # (Auto) Baso # (Auto) Abs Immat Gran (auto) Absolute Neuts (auto) Absolute Nucleated RBC Nucleated RBC % (auto) Smear Tech's Comments VBG pH VBG pCO2 VBG pO2 VBG HCO3 VBG O2 Saturation VBG Base Excess Sodium Potassium Chloride Carbon Dioxide Anion Gap BUN Creatinine Estim Creat Clear Calc Estimated GFR POC Glucose 362 H* Random Glucose Lactic Acid Lactic Acid F/U @ 2Hr Lactic Acid F/U @ 4Hr Calcium Phosphorus Magnesium Total Bilirubin AST ALT Alkaline Phosphatase Ammonia Total Creatine Kinase C-Reactive Protein Total Protein Albumin Procalcitonin Microbiology Microbiology Results: Microbiology 10/16/24 Unknown Urine Catheterized - Dorantes Catheter Urine Culture - Final Escherichia coli 10/16/24 10:46 Blood - Venous Blood Culture - Preliminary No growth after 24 hours. 10/16/24 10:47 Blood - Venous Blood Culture - Preliminary No growth after 24 hours. Progress Note: A&P Assessment and plan (1) Hyperammonemia: Status: Acute (2) Serum ammonia increased: Status: Acute (3) Acute UTI: Status: Acute (4) Sepsis: Status: Acute (5) Toxic metabolic encephalopathy: Status: Acute Plan Neuro: Acute encephalopathy possibly due to metabolic encephalopathy possibly secondary to hepatic encephalopathy, sepsis, hyperammonemia and possibly liver failure CT head did not show any acute intracranial pathology Close neurological status monitoring in the ICU every hour Cardiac: Hypotension: Improved with volume replacement Respiratory: High-risk for aspiration, we will closely monitor her with appropriate aspiration precautions Currently saturations normal on room air GI: Acute on chronic liver failure: Patient possibly has a acute on chronic liver failure as seen with hypoglycemia,, hypoalbuminemia, hyperammonemia and lactic acidosis; other source of hyperammonemia may be possibly related to gastric bypass surgery, we will see if I can check D lactic acidosis. We will add oral neomycin and rifaximin clear the gut bacteria to rule out bacterial overgrowth syndrome On oral lactulose and lactulose for possible hepatic encephalopathy, 800ml of stool in rectal tube Renal: Acute kidney injury possibly secondary to ATN from hypovolemia Baseline creatinine 0.8, creatinine today is 1.34 We will closely monitor I's and O's Avoid nephrotoxic medications Acute hypernatremia: sodium upto 147, secondary to volume depletion will replete volume Acute hypokalemia: will replace as per protocol Heme: Chronic anemia, closely monitor H&H, transfuse for hemoglobin less than 7 grams/deciliter Endocrine: Hypoglycemia: Improved currently hyperglycemic on sliding scale insulin Possibly secondary to sepsis versus liver failure D5 LR switched to LR drip at 100 cc/hour Infectious disease: Urine dirty, urine culture positive for E coli, blood cultures negative so far We will deescalate meropenem to ceftriaxone Musculoskeletal: Decubitus ulcer prevention protocol Lines: Peripheral Prophylaxis: Lovenox, pantoprazole Quality Stroke Does the patient have a stroke diagnosis?: No VTE Prior VTE?: No VTE Risk Level:: Medical - moderate - high VTE Device Contraindication: Treatment Not Indicated VTE Drug Contraindication: N/A - Med Ordered
[2024-10-18] MEDS: Insulin Lispro 100 UNIT/ML 3 ML VIAL SUBCUT ×2 (09:47→12:37)
[2024-10-18] MEDS: cefTRIAXone sodium 2 GM VIAL IVPUSH (10:48)
[2024-10-18] MEDS: neoMYCIN Sulfate 500 MG TABLET 1000 MG PO ×3 (10:49→21:25)
--- NOTE | 2024-10-18 10:58 | MHC.CLN ---
RE: CONSULT PT WITH INCREASED RISK R/T PRESSURE INJURY PT CURRENTLY NPO PENDING SWALLOW EVAL PT WITH NGT TUBE IN PLACE WHEN DIET TO ADVANCE, RECOMMEND 2000DM DIET TO PROMOTE WOUND HEALING IN ADDITION, ADD ENSURE MAX BID TO PROVIDE 300KCALS, 60G PROTEIN MONITOR FOR DIET ADVANCEMENT SEE FULL CLINICAL NUTRITION ASSESSMENT
--- NOTE | 2024-10-18 11:45 | P.CDIM_ITS ---
PROVIDER RESPONSE TEXT: To clarify, the appropriate diagnosis supported by the clinical indicators: Hypovolemic Shock QUERY TEXT: PHYSICIAN'S DOCUMENTATION REQUEST Date of Query: 10/18/2024 11:27 AM EST Patient Name: Mirian Bal Admit Date: 10/16/2024 Dear Pepe English MD, A review of the medical record indicates additional documentation may be needed. Please review below and update the documentation accordingly. Clinical Indicators: Critical Care Consultation 10/17/24: Acute kidney injury possibly secondary to ATN from shock The following diagnoses or signs and symptoms were noted in the patient record: Patient with sepsis on IVF LR at 100 mls/hr. Q10H IV /Ceftriaxone IVP Q 24H Based on the above, could you clarify the appropriate diagnosis, if significant, that supports the ab ove abnormalities and additional evaluation, monitoring, and/or treatment rendered: Septic Shock Hypovolemic Shock Condition 3 (please specify) Labs indicate a diagnosis of (please specify) Other (explain) Clinically unable to determine (explain) Thank you, Anne Marie Dye RN Use of terms such as suspected, likely, concern for, or probable (associated with a specific diagnosi s that is being evaluated, monitored, or treated as if it exists) are acceptable and can be coded in the inpatient se tting, when documented at the time of discharge. Please use your independent medical judgment in providing your response. THIS QUERY IS PART OF THE PERMANENT MEDICAL RECORD
[2024-10-18 11:47] LABS: Glucose, Whole Blood 229 mg/dL (60-115)
[2024-10-18] MEDS: Furosemide 40 MG/4 ML VIAL IVPUSH (12:37)
--- NOTE | 2024-10-18 13:28 | HO.WOUND ---
Wound Consult: Initial 53yr old? female admitted to [facility] on 10/16/24 - See progress notes and H&P for detailed history.? Wound consult placed for Sacrum and bilateral lower posterior legs.? Patient was not interactive with her environment at the time of my consultation - she remains on ICU unit. Sacrum Etiology: ?Deep Tissue Injury ?Present on Admission Wound Bed: red maroon purple nonblanchable tissue in evolution Drainage / Odor: small serosang Edges: ? irregular Heavenly wound: ?MASD No Induration, Fluctuance or Warmth noted Pain: pain reported Goals of Treatment: ? Traid and Q2hr turns Left Anterior Lower Leg Etiology: Unclear etiology - not consistent with pressure or moisture ??Present on Admission Wound Bed: nonblanchable purple - dry dark maroon wound bed Drainage / Odor: none noted Edges: ? irregular Heavenly wound: Intact - swelling and weeping serous fluid ? No Induration, Fluctuance or Warmth noted Goals of Treatment: Betadine and dry gauze wrap Bilateral Posterior Lower Legs Etiology: ??Unclear etiology - Abrasion Present on Admission Wound Bed: pink moist tissue with scattered yellow slough - weeping clear fluid Drainage / Odor: clear fluid - large amount Edges: ? irregular Heavenly wound: pink moist intact tissue ? No Induration, Fluctuance or Warmth noted Goals of Treatment: ? Durafiber For moisture management Left Heel Etiology: ?unclear etiology at this time - nonblanchable pigmentation changes Wound Bed: intact irregular red maroon nonblanchable tissue - shape is irregular and not consistent with pressure Drainage / Odor: None Edges: ? irregular Heavenly wound: red pink blanchable tissue No Induration, Fluctuance or Warmth noted Goals of Treatment: ? Off load pressure foam dressing to aid in pressure redistribution Recommendations: 1. Turn and Reposition every 2 hours and as needed for patient comfort.? Use pillows or wedges to support off loading positions. 2. Off Load all bony prominences with use of pillows and heel boots if needed.? Apply Preventative foams where needed. ? 3. Monitor for incontinence and moisture control, use barrier creams when needed for prevention and treatment. 4. Provide adequate and supplemental nutrition.? 5. Continue low air loss mattress consider ISO Tour mattress. 6. When applicable maintain blood glucose levels per Providers order. 7. Sacrum - Off Load Pressure with Q2 hr turns and use of pillows - Cleanse with PH balance spray or wipes, pat dry. ?Apply thin layer of Triad to wound bed - only pat and dab no scrub and rub when soiling occurs. Reapply thin layer PRN after each episode of incontinence. 8. Left Heel and Left Leg - Apply foam dressing to heel and off load heel from surface of bed with pillows. Cleanse wound bed with Betadine, apply Durafiber AG, Cover with dry gauze, ABD pad and wrap dressing.? Change daily. 9. Right Leg - Cleanse with NS, Pat dry.? Apply barrier to periwound, apply Durafiber AG, Cover with dry gauze, ABD pad and wrap dressing.? Change daily. Use heel protector boot for ankle stability. Ok to not use walking boot at this time per Dr. English. Re-consult wound care Nurse for wound deterioration or wound changes.
--- NOTE | 2024-10-18 14:12 | PC.NURSE ---
Drowsy, opens eyes occasionally, + pain response, does not follow commands, moves extremities weakly.? RA, clear lung sounds BL Sinus Tachycardia, generalizes anasarca?? LBM 10/18, Fecal device management in place , +bowel sounds, NG tube clamp? left nare, NPO, receiving lactulose per OCT. Stage 2 coccyx, ? wounds to BL legs,. See skin assessment,? Tall walking boot removed from right leg per Dr. English's order to perform wound care, Off loading boot in placed.??? Peripheral IVs? Dorantes removed, External catheter in? place, due to void @1999? Plan: Transfer to the medical floor. No longer requiring ICU-level care
[2024-10-18] MEDS: Heparin Sodium,Porcine 5,000 UNIT/ML VIAL 5000 UNIT SUBCUT ×2 (15:02→21:26)
[2024-10-18 17:17] LABS: Glucose, Whole Blood 80 mg/dL (60-115)
[2024-10-18 19:44] LABS: Glucose, Whole Blood 110 mg/dL (60-115)
[2024-10-19] VITALS: BP 121/81; PULSE 106; RESP 16; TEMP 36.4
[2024-10-19 01:48] LABS: Glucose, Whole Blood 71 mg/dL (60-115)
[2024-10-19] MEDS: Lactulose 20 GM/30 ML SOLUTION 30 GM PO ×4 (02:21→20:37)
[2024-10-19] MEDS: neoMYCIN Sulfate 500 MG TABLET 1000 MG PO ×4 (02:22→20:37)
[2024-10-19] MEDS: Furosemide 40 MG/4 ML VIAL IVPUSH ×2 (02:23→16:10)
[2024-10-19 03:47] VITALS: BP 128/68; PULSE 112; RESP 16; TEMP 36.7; O2SAT 91
[2024-10-19] MEDS: Heparin Sodium,Porcine 5,000 UNIT/ML VIAL 5000 UNIT SUBCUT ×3 (05:45→20:36)
[2024-10-19 06:05] LABS: Glucose, Whole Blood 115 mg/dL (60-115)
[2024-10-19 07:06] LABS: Hematocrit 25.1 % (37.0-47.0); Hemoglobin 8.7 g/dl (12.0-16.0); Mean Corpuscular HGB Conc 34.7 g/dl (31.0-35.0); Mean Corpuscular Hemoglobin 32.8 pg (27.0-33.0); Mean Corpuscular Volume 94.7 fL (80.0-98.0); Mean Platelet Volume 12.1 fL (9.4-12.3); Platelet Count 102 X10*3/uL (160-400); Red Blood Count 2.65 X10*6/uL (4.20-5.50); Red Cell Distribution Width 14.3 % (11.0-16.0); White Blood Count 23.5 X10*3/uL (4.8-10.8)
[2024-10-19 07:16] LABS: Ammonia 60 umol/L (13-55)
[2024-10-19 07:32] VITALS: BP 119/78; PULSE 113; RESP 18; TEMP 37.1; O2SAT 92
[2024-10-19 07:33] LABS: Band Neutrophils Percent 7 % (3-5); Lymphocytes Absolute Manual 1.6 X10*3/uL (1.2-4.9); Lymphocytes Percent Manual 7 % (20-40); Monocytes Absolute Manual 0.5 X10*3/uL (0.1-1.2); Monocytes Percent Manual 2 % (2-11); Neutrophils Absolute Manual 21.4 X10*3/uL (2.0-8.3); Neutrophils Percent Manual 84 % (45-73)
[2024-10-19 07:42] LABS: Anion Gap 15 (12-20); Blood Urea Nitrogen 12 mg/dL (9-16); Calcium 8.3 mg/dL (8.4-10.2); Carbon Dioxide 27 mmol/L (22-29); Chloride 111 mmol/L (96-108); Creatinine Clr Calc Pharmacy 65.5; Estimated Glomerular Filt Rate 56; Glucose Random 120 mg/dL (60-115); Potassium 2.7 mmol/L (3.3-5.1); Sodium 150 mmol/L (135-145)
[2024-10-19 07:44] LABS: RBC Morphology NOTED; Target Cells 2+ (15-30) /OIF
[2024-10-19 07:45] LABS: Platelet Estimate DECREASED (NORMAL); Platelet Morphology Comment NORMAL
[2024-10-19 07:46] LABS: Toxic Vacuolation PRESENT
[2024-10-19] MEDS: rifAXIMin 550 MG TABLET PO ×2 (08:13→20:37)
[2024-10-19] MEDS: Potassium Chloride Packet 20 MEQ PACKET 40 MEQ NG-TUBE ×2 (08:13→11:29)
[2024-10-19] MEDS: 0.9 % Sodium Chloride Flush 3 ML SYRINGE IVFLUSH ×2 (08:14→20:38)
[2024-10-19] MEDS: cefTRIAXone sodium 2 GM VIAL IVPUSH (11:29)
[2024-10-19 11:50] VITALS: BP 104/63; PULSE 116; RESP 18; TEMP 36.8; O2SAT 92
[2024-10-19 11:56] LABS: Glucose, Whole Blood 122 mg/dL (60-115)
--- NOTE | 2024-10-19 12:13 | P.PNIM_ITS ---
Subjective Subjective Date of Service: 10/19/24 Interval History: Seen and evaluated this morning and afternoon more alert and interactive pulled her NG tube tolerating PO Hypernatremia and Low K this morning no other events Review of Systems Review of Systems: Yes all other systems are reviewed and are negative Physical Exam 2 Vital Signs: Vital Signs: Last Vital Signs Temp 98.2 F 10/19/24 11:50 Pulse 116 H 10/19/24 11:50 Resp 18 10/19/24 11:50 BP 104/63 10/19/24 11:50 Pulse Ox 92 10/19/24 11:50 O2 Del Method Room Air 10/19/24 11:50 BMI result Body Mass Index 30.3 Const: Other: Constitutional : more alert and interactive, not in distress Neck : Normal inspection, Supple Cardiovascular : RRR, elevated JVP, +2 lower extremity edema Respiratory : good bilateral air entry, no crackles, wheezes or rhonchi Gastrointestinal: soft, lax, Normal bowel sounds, Non tender Skin : Warm, Dry, multiple bruises, open wound , sacral wound, no drainage Neurological : alert with stimulation, weak but fluent speech, moving all extremities Objective Data Active Medications Acetaminophen (Acetaminophen 325 Mg Tablet) 650 mg PO Q6H PRN PRN Reason: Pain, Mild 1-3,fever,headache Ceftriaxone Sodium (Ceftriaxone Sodium 2 Gm Vial) 2 gm IVPUSH Q24H [facility] Last Admin: 10/19/24 11:29 Dose: 2 gm Documented By: MIKI Dextrose (Dextrose 50 % 25 Gm/50 Ml Syringe) 25 gm IVPUSH Q15M PRN; Protocol PRN Reason: per Hypoglycemia Standing Ord. Last Admin: 10/17/24 12:40 Dose: 25 gm Documented By: KP Furosemide (Furosemide 40 Mg/4 Ml Vial) 40 mg IVPUSH Q12H [facility]; Protocol Last Admin: 10/19/24 02:23 Dose: 40 mg Documented By: MITRA Glucose (Glucose Gel 15 Gm Gel..Gram.) 15 gm PO Q15M PRN; Protocol PRN Reason: per Hypoglycemia Standing Ord. Heparin Sodium (Porcine) (Heparin Sodium,Porcine 5,000 Unit/Ml Vial) 5,000 unit SUBCUT Q8H [facility] Last Admin: 10/19/24 05:45 Dose: 5,000 unit Documented By: MITRA Insulin Human Lispro (Insulin Lispro 100 Unit/Ml 3 Ml Vial) 0 unit SUBCUT Q6H [facility]; Protocol Last Admin: 10/19/24 11:58 Dose: Not Given Documented By: MIKI Non-Admin Reason: No Insulin Coverage Lactulose (Lactulose 20 Gm/30 Ml Solution) 30 gm PO Q6H [facility] Last Admin: 10/19/24 08:13 Dose: 30 gm Documented By: MIKI Magnesium Hydroxide (Milk Of Magnesia 30 Ml Oral.Susp) 30 ml PO DAILY PRN PRN Reason: Constipation Neomycin Sulfate (Neomycin Sulfate 500 Mg Tablet) 1,000 mg PO Q6H [facility] Last Admin: 10/19/24 08:13 Dose: 1,000 mg Documented By: MIKI Ondansetron HCl (Ondansetron Hcl 4 Mg/2 Ml Vial) 4 mg IVPUSH Q8H PRN PRN Reason: Nausea and Vomiting Rifaximin (Rifaximin 550 Mg Tablet) 550 mg PO BID [facility] Last Admin: 10/19/24 08:13 Dose: 550 mg Documented By: MIKI Sodium Chloride (0.9 % Sodium Chloride Flush 3 Ml Syringe) 3 ml IVFLUSH QSHIFT [facility] Last Admin: 10/19/24 08:14 Dose: 3 ml Documented By: MIKI Labs 10/19/24 06:48 10/19/24 06:48 Labs: Laboratory Results - last 24 hr 10/18/24 10/18/24 10/19/24 17:15 19:38 01:44 MCV MCH MCHC RDW Plt Count MPV Immature Gran % (Auto) Neut % (Auto) Lymph % (Auto) [place] % (Auto) Eos % (Auto) Baso % (Auto) Lymph # (Auto) [place] # (Auto) Eos # (Auto) Baso # (Auto) Abs Immat Gran (auto) Absolute Neuts (auto) Absolute Nucleated RBC Nucleated RBC % (auto) Neutrophils % (Manual) Band Neutrophils % Lymphocytes % (Manual) Monocytes % (Manual) Abs Neuts (Manual) Lymphocytes # (Manual) Monocytes # (Manual) Toxic Vacuolation Platelet Estimate Plt Morphology Comment RBC Morphology Target Cells Hold Purple Top Anion Gap Estim Creat Clear Calc Estimated GFR POC Glucose 80 110 71 Random Glucose Calcium Ammonia 10/19/24 10/19/24 10/19/24 06:01 06:48 11:27 MCV 94.7 MCH 32.8 MCHC 34.7 RDW 14.3 Plt Count 102 L MPV 12.1 Immature Gran % (Auto) Cancelled Neut % (Auto) Cancelled Lymph % (Auto) Cancelled [place] % (Auto) Cancelled Eos % (Auto) Cancelled Baso % (Auto) Cancelled Lymph # (Auto) Cancelled [place] # (Auto) Cancelled Eos # (Auto) Cancelled Baso # (Auto) Cancelled Abs Immat Gran (auto) Cancelled Absolute Neuts (auto) Cancelled Absolute Nucleated RBC 0.000 Nucleated RBC % (auto) 0.0 Neutrophils % (Manual) 84 H Band Neutrophils % 7 H Lymphocytes % (Manual) 7 L Monocytes % (Manual) 2 Abs Neuts (Manual) 21.4 H Lymphocytes # (Manual) 1.6 Monocytes # (Manual) 0.5 Toxic Vacuolation PRESENT Platelet Estimate DECREASED Plt Morphology Comment NORMAL RBC Morphology NOTED Target Cells 2+ (15-30) Hold Purple Top SEE NOTE Anion Gap 15 Estim Creat Clear Calc 65.5 Estimated GFR 56 POC Glucose 115 Random Glucose 120 H Calcium 8.3 L Ammonia 60 H 10/19/24 11:48 MCV MCH MCHC RDW Plt Count MPV Immature Gran % (Auto) Neut % (Auto) Lymph % (Auto) [place] % (Auto) Eos % (Auto) Baso % (Auto) Lymph # (Auto) [place] # (Auto) Eos # (Auto) Baso # (Auto) Abs Immat Gran (auto) Absolute Neuts (auto) Absolute Nucleated RBC Nucleated RBC % (auto) Neutrophils % (Manual) Band Neutrophils % Lymphocytes % (Manual) Monocytes % (Manual) Abs Neuts (Manual) Lymphocytes # (Manual) Monocytes # (Manual) Toxic Vacuolation Platelet Estimate Plt Morphology Comment RBC Morphology Target Cells Hold Purple Top Anion Gap Estim Creat Clear Calc Estimated GFR POC Glucose 122 H Random Glucose Calcium Ammonia Microbiology Microbiology Results: Microbiology 10/16/24 10:47 Blood Culture - Preliminary Blood - Venous No growth after 48 hours. 10/16/24 10:46 Blood Culture - Preliminary Blood - Venous No growth after 48 hours. 10/16/24 Unknown Urine Culture - Final Urine Catheterized - [place]antes Catheter Escherichia coli Assessment and Plan (1) Hypoglycemia: Status: Acute (2) Hypotension: Status: Acute (3) Acute UTI: Status: Acute (4) Toxic metabolic encephalopathy: Status: Acute (5) Ankle fracture: Status: Acute (6) Serum ammonia increased: Status: Acute Plan Pt is a 53-year-old female with a PMH significant for?HRpEF, chronic leukocytosis, [id number] type 2 diabetes, HTN orthostatic hypotension, hepatic steatosis, and 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 who presents to the ED from home for evaluation of altered mental status and lethargy. Pt will be admitted to the hospital for treatment and further evaluation of acute metabolic encephalopathy in the setting of UTI with severe sepsis and hyperammonemia. Acute metabolic encephalopathy secondary to UTI with severe sepsis, hyperammonemia treat underlying problems: Abx and Lactulos passed bedside eval start diet and monitor Monitor mentation Acute hypernatremia Na 150 Encourage PO water intake follow BMP Acute hypokalemia replacement given follow BMP Acute UTI with severe sepsis IV boluses of IVF and Albumin change Abx to Ceftriaxone Urine Cx growing E.coli, blood cultures negative Follow BP, lactic acid, urine culture Acute lactic acidosis related to Liver disease and GEOVANNY follow as needed Anasarca 2/2 malnutrition ,acute on chronic liver failure Given Albumin continue Lasix Rifaximin added Continue Lactulos Hypotension Hold antihypertensives Continue midodrine when she can tolerate PO IVF, albumin ICU consult for higher level of care Hyperammonemia Ammonia 60 Likely secondary to gastric bypass\liver disease complicated by dumping syndrome Lactulose qid Repeat ammonia in the morning Hypoglycemia in DM2 not on long acting insulin\PO diabetes meds rescue with D50 and Glucagon GEOVANNY Creatinine improved to baseline Follow renal function Chronic lower leg edema/hypoalbuminemia Hydrochlorothiazide reportedly previously discontinued due to orthostatic hypotension High-protein diet Fei stockings Insulin-dependent type 2 diabetes Sliding-scale insulin, Lantus Diabetic diet once no longer NPO Chronic leukocytosis and [place] [facility] [place] iron saturation 69% ferritin 667 Follow up outpatient [place] [facility] [place] Fibromyalgia/anxiety/chronic back pain Continue benzodiazepines Full Code DVT Prophylaxis: Lovenox HCP invoked. Pt will require a hospitalization overnight for treatment of?acute metabolic encephalopathy in setting of UTI with severe sepsis and hyperammonemia. pt will require hospital level care for treatment with IV antibiotics, close monitoring of labs, vitals, and mentation pending ICU evaluation . Quality Stroke Does the patient have a stroke diagnosis?: No VTE Prior VTE?: No VTE Risk Level:: Medical - moderate - high VTE Device Contraindication: Treatment Not Indicated VTE Drug Contraindication: N/A - Med Ordered
[2024-10-19 12:14] LABS: Anion Gap 14 (12-20); Blood Urea Nitrogen 12 mg/dL (9-16); Calcium 7.7 mg/dL (8.4-10.2); Carbon Dioxide 25 mmol/L (22-29); Chloride 114 mmol/L (96-108); Creatinine Clr Calc Pharmacy 68.1; Estimated Glomerular Filt Rate 58; Glucose Random 133 mg/dL (60-115); Sodium 150 mmol/L (135-145)
[2024-10-19] MEDS: Midodrine HCl 5 MG TABLET PO ×2 (13:41→16:14)
[2024-10-19] MEDS: Omeprazole 20 MG CAPSULE.DR PO (13:41)
--- NOTE | 2024-10-19 15:30 | W.PM.CCHP ---
Procedures Date of Service Date of Service: 10/19/24 Central Line Placement Right IJ: Consent for Procedure: Elective - informed consent obtained Time out performed: Yes Sterile Technique Used: Yes Patient placed on monitor/pulse ox: Yes MD prep: mask, gown and gloves Central line prep: Povidone-Iodine 1% Local anesthesia used: lidocaine 1% Amount of anesthesia used (ml): 10 Ultrasound used for placement: Yes Central line lumen inserted: triple Post procedure: sutured in place, good blood return and all ports aspirated, flushed, capped Post procedure x-ray: tip of catheter in good position and no pneumothorax seen Patient tolerated procedure: well and no complications Complications: none
[2024-10-19] MEDS: Dorzolamide/Timolo 2.23%/0.68% 10 ML DRBTL 1 DROP EYE-BOTH ×2 (15:41→20:37)
[2024-10-19 15:51] VITALS: BP 114/74; PULSE 115; RESP 18; TEMP 36.9; O2SAT 93
[2024-10-19] MEDS: Dextrose 5 % 1,000 ML 125 ML IVCONT (16:11)
[2024-10-19 17:51] LABS: Glucose, Whole Blood 181 mg/dL (60-115)
[2024-10-19] MEDS: Insulin Lispro 100 UNIT/ML 3 ML VIAL SUBCUT (17:54)
[2024-10-19 19:24] LABS: Anion Gap 16 (12-20); Blood Urea Nitrogen 12 mg/dL (9-16); Calcium 7.6 mg/dL (8.4-10.2); Carbon Dioxide 25 mmol/L (22-29); Chloride 113 mmol/L (96-108); Estimated Glomerular Filt Rate 56; Glucose Random 241 mg/dL (60-115); Potassium 2.8 mmol/L (3.3-5.1); Sodium 151 mmol/L (135-145)
[2024-10-19 19:41] VITALS: BP 100/76; PULSE 123; RESP 18; TEMP 37; O2SAT 96
[2024-10-19] MEDS: Potassium Chloride/H20 10 MEQ/100 ML PIGGYBACK 100 MEQ IV ×3 (20:36→23:24)
[2024-10-19] MEDS: Potassium Chloride ER 20 MEQ TAB.ER.PRT 40 MEQ PO (20:37)
[2024-10-19] MEDS: Latanoprost 0.005 % Ophth Sol 2.5 ML DROPS 1 DROP EYE-BOTH (20:37)
[2024-10-20] VITALS (18 sets, daily range): BP systolic 90–140; BP diastolic 52–94; PULSE 77–120; RESP 16–22; TEMP 33.9–37.6; O2SAT 92–100
--- NOTE | 2024-10-20 | ECG_ITS ---
Test Reason : ICU Evaluation Blood Pressure : */* mmHG Vent. Rate : 115 BPM Atrial Rate : 115 BPM P-R Int : 136 ms QRS Dur : 72 ms QT Int : 290 ms P-R-T Axes : 41 46 117 degrees QTcB Int : 401 ms Sinus tachycardia Low voltage QRS Septal infarct (cited on or before 16-Oct-2024) Abnormal ECG When compared with ECG of 16-Oct-2024 10:12, Questionable change in initial forces of Septal leads Referred By: Herlinda Galdamez Electronically Signed By: VALERIANO SANCHEZ
[2024-10-20] MEDS: OLANZapine 10 MG VIAL 5 MG IM (00:38)
[2024-10-20] MEDS: Potassium Chloride/H20 10 MEQ/100 ML PIGGYBACK 100 MEQ IV ×3 (00:39→11:03)
[2024-10-20 01:21] LABS: Glucose, Whole Blood 301 mg/dL (60-115)
[2024-10-20] MEDS: Insulin Lispro 100 UNIT/ML 3 ML VIAL SUBCUT ×4 (01:52→23:27)
[2024-10-20] MEDS: Furosemide 40 MG/4 ML VIAL IVPUSH ×2 (01:52→12:35)
[2024-10-20] MEDS: Lactated Ringers 1,000 ML 125 ML IVCONT ×2 (01:53→17:40)
[2024-10-20] MEDS: Heparin Sodium,Porcine 5,000 UNIT/ML VIAL 5000 UNIT SUBCUT (05:59)
[2024-10-20] MEDS: Omeprazole 20 MG CAPSULE.DR PO ×2 (06:41→09:46)
[2024-10-20 06:42] LABS: Glucose, Whole Blood 203 mg/dL (60-115)
[2024-10-20 07:15] LABS: MANUAL DIFF FLAG NO
[2024-10-20 07:23] LABS: Basophils Percent Auto 0.2 % (0-2); Eosinophils Percent Auto 0.1 % (0-4); Hematocrit 25.7 % (37.0-47.0); Hemoglobin 8.7 g/dl (12.0-16.0); Imm Gran Abs Auto 0.16 X10*3/uL (0.00-0.03); Imm Gran Pct Auto 0.8 % (0.0-0.4); Lymphocytes Absolute Auto 2.3 X10*3/uL (1.2-4.9); Mean Corpuscular HGB Conc 33.9 g/dl (31.0-35.0); Mean Corpuscular Hemoglobin 32.7 pg (27.0-33.0); Mean Corpuscular Volume 96.6 fL (80.0-98.0); Mean Platelet Volume 12.8 fL (9.4-12.3); Monocytes Absolute Auto 0.9 X10*3/uL (0.1-1.2); Monocytes Percent Auto 4.3 % (2-11); NRBC Pct Auto 0.1 /100WBC (0.0-0.2); Neutrophils Absolute Auto 17.2 x10*3/uL (2.0-8.3); Neutrophils Percent Auto 83.6 % (45-73); Red Blood Count 2.66 X10*6/uL (4.20-5.50); Red Cell Distribution Width 14.6 % (11.0-16.0); White Blood Count 20.5 X10*3/uL (4.8-10.8)
[2024-10-20 07:24] LABS: Platelet Count 94 X10*3/uL (160-400)
[2024-10-20 07:59] LABS: Alanine Aminotransferase 22 U/L (0-31); Albumin Level 2.7 g/dL (3.5-5.0); Alkaline Phosphatase 106 U/L (39-117); Anion Gap 11 (12-20); Aspartate Amino Transferase 44 U/L (5-31); Bilirubin Direct 0.7 mg/dL (0.0-0.5); Bilirubin Total 1.1 mg/dL (0.0-1.0); Blood Urea Nitrogen 12 mg/dL (9-16); Calcium 7.5 mg/dL (8.4-10.2); Carbon Dioxide 29 mmol/L (22-29); Chloride 114 mmol/L (96-108); Creatinine Clr Calc Pharmacy 72.5; Estimated Glomerular Filt Rate > 60; Glucose Random 205 mg/dL (60-115); Potassium 2.6 mmol/L (3.3-5.1); Sodium 151 mmol/L (135-145); Total Protein 4.8 g/dL (6.5-8.0)
[2024-10-20] MEDS: rifAXIMin 550 MG TABLET PO ×2 (09:46→20:04)
[2024-10-20] MEDS: neoMYCIN Sulfate 500 MG TABLET 1000 MG PO (09:46)
[2024-10-20] MEDS: cefTRIAXone sodium 2 GM VIAL IVPUSH (09:47)
[2024-10-20] MEDS: Lactulose 20 GM/30 ML SOLUTION 30 GM PO ×2 (10:07→20:03)
[2024-10-20] MEDS: 0.9 % Sodium Chloride Flush 3 ML SYRINGE IVFLUSH ×3 (10:08→20:07)
[2024-10-20] MEDS: Potassium Chloride Packet 20 MEQ PACKET 40 MEQ PO ×3 (10:09→23:13)
[2024-10-20] MEDS: Dorzolamide/Timolo 2.23%/0.68% 10 ML DRBTL 1 DROP EYE-BOTH ×2 (10:34→20:51)
[2024-10-20] MEDS: Dextrose 5 % 1,000 ML 125 ML IVCONT (12:25)
[2024-10-20 12:30] LABS: Glucose, Whole Blood 108 mg/dL (60-115)
--- NOTE | 2024-10-20 13:17 | P.PNIM_ITS ---
Subjective Subjective Date of Service: 10/20/24 Interval History: Seen and evaluated this morning and afternoon more alert but still altered and weak tolerating PO Hypernatremia and Low K this morning no other events Physical Exam 2 Vital Signs: Vital Signs: Last Vital Signs Temp 97.4 F 10/20/24 12:00 Pulse 101 H 10/20/24 12:00 Resp 20 10/20/24 12:00 BP 138/52 L 10/20/24 12:00 Pulse Ox 92 10/20/24 12:00 O2 Del Method Nasal Cannula 10/20/24 12:00 O2 Flow Rate 2 10/20/24 12:00 BMI result Body Mass Index 30.3 Const: Other: Constitutional : more alert and interactive, not in distress Neck : Normal inspection, Supple Cardiovascular : RRR, elevated JVP, +1 lower extremity edema Respiratory : good bilateral air entry, no crackles, wheezes or rhonchi Gastrointestinal: soft, lax, Normal bowel sounds, Non tender Skin : Warm, Dry, multiple bruises, open wound , sacral wound, no drainage Neurological : alert with stimulation, weak but fluent speech, moving all extremities Objective Data Active Medications Acetaminophen (Acetaminophen 325 Mg Tablet) 650 mg PO Q6H PRN PRN Reason: Pain, Mild 1-3,fever,headache Ceftriaxone Sodium (Ceftriaxone Sodium 2 Gm Vial) 2 gm IVPUSH Q24H [facility] Last Admin: 10/20/24 09:47 Dose: 2 gm Documented By: SHERICE Dextrose (Dextrose 50 % 25 Gm/50 Ml Syringe) 25 gm IVPUSH Q15M PRN; Protocol PRN Reason: per Hypoglycemia Standing Ord. Last Admin: 10/17/24 12:40 Dose: 25 gm Documented By: KP Dorzolamide/Timolol (Dorzolamide/Timolo 2.23%/0.68% 10 Ml Drbtl) 1 drop EYE- BOTH TID [facility] Last Admin: 10/20/24 10:34 Dose: 1 drop Documented By: SHERICE Furosemide (Furosemide 40 Mg/4 Ml Vial) 40 mg IVPUSH Q12H [facility]; Protocol Last Admin: 10/20/24 12:35 Dose: 40 mg Documented By: SHERICE Glucose (Glucose Gel 15 Gm Gel..Gram.) 15 gm PO Q15M PRN; Protocol PRN Reason: per Hypoglycemia Standing Ord. Heparin Sodium (Porcine) (Heparin Sodium,Porcine 5,000 Unit/Ml Vial) 5,000 unit SUBCUT Q8H [facility] Last Admin: 10/20/24 05:59 Dose: 5,000 unit Documented By: MITRA Lactated Ringer's (Lr) 1,000 mls @ 125 mls/hr IVCONT .Q8H [facility] Last Admin: 10/20/24 11:04 Dose: Not Given Documented By: SHERICE Non-Admin Reason: Medication Discontinued Dextrose (D5w) 1,000 mls @ 125 mls/hr IVCONT .Q8H [facility] Last Admin: 10/20/24 12:25 Dose: 125 mls/hr Documented By: SHERICE Insulin Human Lispro (Insulin Lispro 100 Unit/Ml 3 Ml Vial) 0 unit SUBCUT Q6H [facility]; Protocol Last Admin: 10/20/24 12:45 Dose: Not Given Documented By: SHERICE Non-Admin Reason: No Insulin Coverage Insulin Human Lispro (Insulin Lispro 100 Unit/Ml 3 Ml Vial) 5 unit SUBCUT QIDACHS PRN PRN Reason: Hyperglycemia >300 Lactulose (Lactulose 20 Gm/30 Ml Solution) 30 gm PO Q6H [facility] Last Admin: 10/20/24 10:07 Dose: 30 gm Documented By: SHERICE Latanoprost (Latanoprost 0.005 % Ophth Ivy 2.5 Ml Drops) 1 drop EYE-BOTH BEDTIME [facility] Last Admin: 10/19/24 20:37 Dose: 1 drop Documented By: MITRA Magnesium Hydroxide (Milk Of Magnesia 30 Ml Oral.Susp) 30 ml PO DAILY PRN PRN Reason: Constipation Midodrine (Midodrine Hcl 5 Mg Tablet) 5 mg PO TIDWM [facility] Last Admin: 10/20/24 10:34 Dose: Not Given Documented By: SHERICE Non-Admin Reason: sbp>120 Neomycin Sulfate (Neomycin Sulfate 500 Mg Tablet) 1,000 mg PO Q6H [facility] Last Admin: 10/20/24 09:46 Dose: 1,000 mg Documented By: SHERICE Non-Formulary Medication (Netarsudil [Rhopressa]) 1 drop EYE-BOTH BEDTIME [facility] Omeprazole (Omeprazole 20 Mg Capsule.Dr) 20 mg PO DAILY@0630 [facility] Last Admin: 10/20/24 09:46 Dose: 20 mg Documented By: SHERICE Ondansetron HCl (Ondansetron Hcl 4 Mg/2 Ml Vial) 4 mg IVPUSH Q8H PRN PRN Reason: Nausea and Vomiting Rifaximin (Rifaximin 550 Mg Tablet) 550 mg PO BID [facility] Last Admin: 10/20/24 09:46 Dose: 550 mg Documented By: SHERICE Sodium Chloride (0.9 % Sodium Chloride Flush 3 Ml Syringe) 3 ml IVFLUSH QSHIFT [facility] Last Admin: 10/20/24 10:08 Dose: 3 ml Documented By: SHERICE Labs 10/20/24 06:32 10/20/24 06:32 Labs: Laboratory Results - last 24 hr 10/19/24 10/19/24 10/20/24 17:47 18:22 01:15 MCV MCH MCHC RDW Plt Count MPV Immature Gran % (Auto) Neut % (Auto) Lymph % (Auto) [place] % (Auto) Eos % (Auto) Baso % (Auto) Lymph # (Auto) [place] # (Auto) Eos # (Auto) Baso # (Auto) Abs Immat Gran (auto) Absolute Neuts (auto) Absolute Nucleated RBC Nucleated RBC % (auto) Anion Gap 16 Estim Creat Clear Calc 66.0 Estimated GFR 56 POC Glucose 181 H 301 H Random Glucose 241 H Calcium 7.6 L Total Bilirubin Direct Bilirubin AST ALT Alkaline Phosphatase Total Protein Albumin 10/20/24 10/20/24 10/20/24 06:31 06:32 12:20 MCV 96.6 MCH 32.7 MCHC 33.9 RDW 14.6 Plt Count 94 L MPV 12.8 H Immature Gran % (Auto) 0.8 H Neut % (Auto) 83.6 H Lymph % (Auto) 11.0 L [place] % (Auto) 4.3 Eos % (Auto) 0.1 Baso % (Auto) 0.2 Lymph # (Auto) 2.3 [place] # (Auto) 0.9 Eos # (Auto) 0.0 Baso # (Auto) 0.0 Abs Immat Gran (auto) 0.16 H Absolute Neuts (auto) 17.2 H Absolute Nucleated RBC 0.020 H Nucleated RBC % (auto) 0.1 Anion Gap 11 L Estim Creat Clear Calc 72.5 Estimated GFR > 60 POC Glucose 203 H 108 Random Glucose 205 H Calcium 7.5 L Total Bilirubin 1.1 H Direct Bilirubin 0.7 H AST 44 H ALT 22 Alkaline Phosphatase 106 Total Protein 4.8 L Albumin 2.7 L Assessment and Plan (1) Hypoglycemia: Status: Acute (2) Toxic metabolic encephalopathy: Status: Acute (3) Hypotension: Status: Acute (4) Acute UTI: Status: Acute (5) Serum ammonia increased: Status: Acute (6) Acute hypernatremia: Status: Acute Plan Pt is a 53-year-old female with a PMH significant for?HRpEF, chronic leukocytosis, [id number]-fefclcztv type 2 diabetes, HTN orthostatic hypotension, hepatic steatosis, and 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 who presents to the ED from home for evaluation of altered mental status and lethargy. Pt will be admitted to the hospital for treatment and further evaluation of acute metabolic encephalopathy in the setting of UTI with severe sepsis and hyperammonemia. Acute metabolic encephalopathy secondary to UTI with severe sepsis, hyperammonemia, hypernatremia treat underlying problems: Abx and Lactulose and correcting Na passed bedside eval start diet and monitor Monitor mentation Acute hypernatremia Na 151 Start D5W Encourage PO water intake follow BMP Acute hypokalemia replacement given IV and PO follow BMP Acute UTI with severe sepsis IV boluses of IVF and Albumin change Abx to Ceftriaxone Urine Cx growing E.coli, blood cultures negative Follow BP, lactic acid, urine culture Acute lactic acidosis related to Liver disease and GEOVANNY follow as needed Anasarca 2/2 malnutrition ,acute on chronic liver failure Given Albumin continue Lasix Rifaximin added Continue Lactulos Hypotension Improved, Hold antihypertensives Continue midodrine Hyperammonemia last Ammonia 60 Likely secondary to gastric bypass\liver disease complicated by dumping syndrome Lactulose qid Repeat ammonia in the morning Hypoglycemia in DM2 not on long acting insulin\PO diabetes meds rescue with D50 and Glucagon GEOVANNY Creatinine improved to baseline Follow renal function Chronic lower leg edema/hypoalbuminemia Hydrochlorothiazide reportedly previously discontinued due to orthostatic hypotension High-protein diet Fei stockings Insulin-dependent type 2 diabetes Sliding-scale insulin, Lantus Diabetic diet once no longer NPO Chronic leukocytosis and anemia [facility] [place] records indicates iron saturation 69% ferritin 667 Follow up outpatient with Hematology at [facility] [place] Fibromyalgia/anxiety/chronic back pain Continue benzodiazepines Full Code DVT Prophylaxis: Lovenox HCP invoked. Pt will require a hospitalization overnight for treatment of?acute metabolic encephalopathy in setting of UTI with severe sepsis and hyperammonemia. pt will require hospital level care for treatment with IV antibiotics, close monitoring of labs, vitals, and mentation pending ICU evaluation . Quality Stroke Does the patient have a stroke diagnosis?: No VTE Prior VTE?: No VTE Risk Level:: Medical - moderate - high VTE Device Contraindication: Treatment Not Indicated VTE Drug Contraindication: N/A - Med Ordered
[2024-10-20 14:10] LABS: Anion Gap 13 (12-20); Blood Urea Nitrogen 11 mg/dL (9-16); Calcium 8.1 mg/dL (8.4-10.2); Carbon Dioxide 28 mmol/L (22-29); Chloride 114 mmol/L (96-108); Creatinine Clr Calc Pharmacy 82.2; Estimated Glomerular Filt Rate > 60; Glucose Random 170 mg/dL (60-115); Potassium 4.4 mmol/L (3.3-5.1); Sodium 151 mmol/L (135-145)
[2024-10-20] MEDS: Etomidate 20 MG/10 ML VIAL IVPUSH (14:10)
[2024-10-20] MEDS: Succinylcholine Chloride 100 MG/5 ML SYRINGE IVPUSH (14:10)
[2024-10-20] MEDS: Midazolam HCl 2 MG/2 ML VIAL 4 MG IVPUSH (14:11)
[2024-10-20] MEDS: Norepinephrine Bitartrate/D5W 8 MG/250 ML PLAST..BAG 7.73 MG IVCONT (14:13)
--- NOTE | 2024-10-20 15:48 | PC.NURSE ---
this rn assisting in discharging another patient when coworker rn and picking supervisor notified rn that patient obtunded and not able to be aroused with sternal rub, not able to obtain o2 sat, heart rate in 120s, icu professor of literacy notified, assessed patient and advised patient to be emergently transferred to icu for intubation.
[2024-10-20 15:54] LABS: Glucose, Whole Blood 131 mg/dL (60-115)
--- NOTE | 2024-10-20 16:28 | P.CONCC_ITS ---
History of Present Illness Data of Consult Service Date: 10/20/24 Primary Care Provider: Unknown Physician HPI Reason for consult: Shortness of breaths 53-year-old lady with past medical history of hypertension, diabetes mellitus, heart failure with preserved ejection fraction, hepatic steatosis, gastric bypass surgery complicated with dumping syndrome admitted last month due to altered mental status up found to have a small subarachnoid bleed and hyperammonemia and discharged to a rehab readmitted with altered mental status secondary to hyperammonemia, lactic acidosis, hypoglycemia and urinary tract infection. Patient also had hypoglycemia, hypotension which both improved and her mental status was also improved so was transferred to floor. Today in the floor patient aspirated significantly on food and became dyspneic and cyanotic so was brought into the ICU, intubated and placed on ventilator support Review of Systems 2 Review of Systems: Unable to obtain as patient is altered PMFSH Past Medical History Medical History (Updated 10/20/24 @ 13:24 by Teresa Harris MD) Acute metabolic encephalopathy Dumping syndrome Orthostatic hypotension Diabetes mellitus Surgical History Surgical History Gastric bypass status for obesity Social History Social History Household Members: Family and Children Household Members Other:: daughter and ex Housing: House Do you presently have visiting nurse or other home services: Yes (check-ins, wound care) Patient Tobacco Use Status: Former Tobacco user Tobacco use type: Cigarette Cigarette Packs Per Day: 0.5 Cigarettes Per Day: 10.0 e-Cigarette/Vaping Use: Never Used Second Hand Smoke Exposure: No Substance Use Type: Opiates service: No Meds Allergies Allergy/AdvReac Type Severity Reaction Status Date / Time No Known Allergies Allergy Verified 10/16/24 10:08 Active Medications: Current Medications Acetaminophen (Acetaminophen 325 Mg Tablet) 650 mg PO Q6H PRN PRN Reason: Pain, Mild 1-3,fever,headache Ceftriaxone Sodium (Ceftriaxone Sodium 2 Gm Vial) 2 gm IVPUSH Q24H COUNTS INCLUDE 234 BEDS AT THE [facility] Last Admin: 10/20/24 09:47 Dose: 2 gm Dextrose (Dextrose 50 % 25 Gm/50 Ml Syringe) 25 gm IVPUSH Q15M PRN; Protocol PRN Reason: per Hypoglycemia Standing Ord. Last Admin: 10/17/24 12:40 Dose: 25 gm Dorzolamide/Timolol (Dorzolamide/Timolo 2.23%/0.68% 10 Ml Drbtl) 1 drop EYE- BOTH TID COUNTS INCLUDE 234 BEDS AT THE [facility] Last Admin: 10/20/24 10:34 Dose: 1 drop Furosemide (Furosemide 40 Mg/4 Ml Vial) 40 mg IVPUSH Q12H COUNTS INCLUDE 234 BEDS AT THE [facility]; Protocol Last Admin: 10/20/24 12:35 Dose: 40 mg Glucose (Glucose Gel 15 Gm Gel..Gram.) 15 gm PO Q15M PRN; Protocol PRN Reason: per Hypoglycemia Standing Ord. Heparin Sodium (Porcine) (Heparin Sodium,Porcine 5,000 Unit/Ml Vial) 5,000 unit SUBCUT Q8H COUNTS INCLUDE 234 BEDS AT THE [facility] Last Admin: 10/20/24 05:59 Dose: 5,000 unit Lactated Ringer's (Lr) 1,000 mls @ 125 mls/hr IVCONT .Q8H COUNTS INCLUDE 234 BEDS AT THE [facility] Last Admin: 10/20/24 11:04 Dose: Not Given Insulin Human Lispro (Insulin Lispro 100 Unit/Ml 3 Ml Vial) 0 unit SUBCUT Q6H COUNTS INCLUDE 234 BEDS AT THE [facility]; Protocol Last Admin: 10/20/24 12:45 Dose: Not Given Insulin Human Lispro (Insulin Lispro 100 Unit/Ml 3 Ml Vial) 5 unit SUBCUT QIDACHS PRN PRN Reason: Hyperglycemia >300 Lactulose (Lactulose 20 Gm/30 Ml Solution) 30 gm PO Q6H COUNTS INCLUDE 234 BEDS AT THE [facility] Last Admin: 10/20/24 10:07 Dose: 30 gm Latanoprost (Latanoprost 0.005 % Ophth Ivy 2.5 Ml Drops) 1 drop EYE-BOTH BEDTIME COUNTS INCLUDE 234 BEDS AT THE [facility] Last Admin: 10/19/24 20:37 Dose: 1 drop Magnesium Hydroxide (Milk Of Magnesia 30 Ml Oral.Susp) 30 ml PO DAILY PRN PRN Reason: Constipation Midodrine (Midodrine Hcl 5 Mg Tablet) 5 mg PO TIDWM COUNTS INCLUDE 234 BEDS AT THE [facility] Last Admin: 10/20/24 15:48 Dose: Not Given Neomycin Sulfate (Neomycin Sulfate 500 Mg Tablet) 1,000 mg PO Q6H COUNTS INCLUDE 234 BEDS AT THE [facility] Last Admin: 10/20/24 09:46 Dose: 1,000 mg Non-Formulary Medication (Netarsudil [Rhopressa]) 1 drop EYE-BOTH BEDTIME COUNTS INCLUDE 234 BEDS AT THE [facility] Omeprazole (Omeprazole 20 Mg Capsule.Dr) 20 mg PO DAILY@0630 COUNTS INCLUDE 234 BEDS AT THE [facility] Last Admin: 10/20/24 09:46 Dose: 20 mg Ondansetron HCl (Ondansetron Hcl 4 Mg/2 Ml Vial) 4 mg IVPUSH Q8H PRN PRN Reason: Nausea and Vomiting Rifaximin (Rifaximin 550 Mg Tablet) 550 mg PO BID COUNTS INCLUDE 234 BEDS AT THE [facility] Last Admin: 10/20/24 09:46 Dose: 550 mg Sodium Chloride (0.9 % Sodium Chloride Flush 3 Ml Syringe) 3 ml IVFLUSH QSHIFT COUNTS INCLUDE 234 BEDS AT THE [facility] Last Admin: 10/20/24 10:08 Dose: 3 ml Home Medications ?Medication ?Instructions ?Recorded ?Confirmed ?Last Taken ?Type aspirin 81 mg tablet,delayed 81 mg PO DAILY 09/11/24 10/16/24 Unknown History release atorvastatin 40 mg tablet 40 mg PO BEDTIME 09/11/24 10/16/24 Unknown History buspirone 15 mg tablet 15 mg PO BID 09/11/24 10/16/24 Unknown History dorzolamide 22.3 mg-timolol 6.8 1 drp ophthalmic (eye) TID 09/11/24 10/16/24 Unknown History mg/mL eye drops duloxetine 60 mg capsule,delayed 60 mg PO BID 09/11/24 10/16/24 Unknown History release ergocalciferol (vitamin D2) 1,250 1,250 mcg PO TH 09/11/24 10/16/24 Unknown History mcg (50,000 unit) capsule ferrous sulfate 325 mg (65 mg 325 mg PO DAILY 09/11/24 10/16/24 Unknown History iron) tablet (FeroSul) hydrochlorothiazide 25 mg tablet 25 mg PO DAILY 09/11/24 10/16/24 Unknown History latanoprost 0.005 % eye drops 1 drp ophthalmic (eye) BEDTIME 09/11/24 10/16/24 Unknown History lisinopril 40 mg tablet 40 mg PO DAILY 09/11/24 10/16/24 Unknown History loratadine 10 mg tablet 10 mg PO DAILY 09/11/24 10/16/24 Unknown History lorazepam 0.5 mg tablet 0.5 mg PO BEDTIME 09/11/24 10/16/24 Unknown History midodrine 5 mg tablet 5 mg PO TID 09/11/24 10/16/24 Unknown History netarsudil 0.02 % eye drops 1 drp ophthalmic (eye) BEDTIME 09/11/24 10/16/24 Unknown History (Rhopressa) omeprazole 20 mg capsule,delayed 20 mg PO DAILY@0630 09/11/24 10/16/24 Unknown History release oxycodone-acetaminophen 5 mg-325 1 tab PO Q6H PRN pain 09/11/24 10/16/24 Unknown History mg tablet sitagliptin phosphate 100 mg 100 mg PO DAILY 09/11/24 10/16/24 Unknown History tablet (Januvia) calcium 600 mg (as 1 tab PO BID 10/16/24 10/16/24 Unknown History carbonate)-vitamin D3 5 mcg (200 unit) tablet (Calcium 600 + D(3)) gabapentin 100 mg capsule 100 mg PO TID 10/16/24 10/16/24 Unknown History insulin glargine 100 unit/mL 5 unit subcut DAILY@2100 10/16/24 10/16/24 Unknown History subcutaneous solution (Lantus U-100 Insulin) insulin lispro 100 unit/mL 1 sliding scale dose subcut TIDWM 10/16/24 10/16/24 Unknown History subcutaneous solution (Humalog U-100 Insulin) lactulose 20 gram/30 mL oral 45 ml PO QID 10/16/24 10/16/24 Unknown History solution nystatin 100,000 unit/gram topical 1 appl topical BID 10/16/24 10/16/24 Unknown History powder Physical Exam 2 Vital Signs: Vital Signs: Last Vital Signs Temp 98.4 F 10/20/24 16:00 Pulse 106 H 10/20/24 16:00 Resp 22 H 10/20/24 16:00 BP 131/92 H 10/20/24 16:00 Pulse Ox 100 10/20/24 16:00 O2 Del Method Mechanical Ventil ation 10/20/24 16:00 O2 Flow Rate 2 10/20/24 12:00 FiO2 60 10/20/24 16:00 BMI result Body Mass Index 30.3 General: Middle-aged lady, cyanotic, altered in acute distress, ill appearing and tired appearing Nutritional Appearance: well nourished and overweight Eyes: appearance normal, both eyes and all related structures; Alignment and Position: alignment normal and position normal Neck: No lymphadenopathy, no thyromegaly Resp: bilateral air entry equal, bilateral diffuse crackles heard Cardio: Regular rate, regular rhythm; Heart sounds: S1 normal heart sound present and S2 normal heart sound present GI: soft, nontender, no guarding, no hepatosplenomegaly : bladder normal to inspection, bladder normal to palpation, no renal angle tenderness Skin: no rashes or lesions noted and elasticity normal Neuro: Not responding to sternal rub, drowsy, altered Results Labs 10/20/24 06:32 10/20/24 13:30 Labs: Short CBC 10/20/24 Range/Units 06:32 WBC 20.5 H (4.8-10.8) X10*3/uL Hgb 8.7 L (12.0-16.0) g/dl Hct 25.7 L (37.0-47.0) % Plt Count 94 L (160-400) X10*3/uL BMP 10/19/24 10/20/24 10/20/24 18:22 06:32 13:30 Sodium 151 H 151 H 151 H Potassium 2.8 L* 2.6 L* 4.4 D Chloride 113 H 114 H 114 H Carbon Dioxide 25 29 28 BUN 12 12 11 Creatinine 1.02 0.93 0.82 Calcium 7.6 L 7.5 L 8.1 L D Liver Function 10/20/24 Range/Units 06:32 Total Bilirubin 1.1 H (0.0-1.0) mg/dL Direct Bilirubin 0.7 H (0.0-0.5) mg/dL AST 44 H (5-31) U/L ALT 22 (0-31) U/L Alkaline Phosphatase 106 (39-117) U/L Albumin 2.7 L (3.5-5.0) g/dL Microbiology Microbiology Results: Microbiology 10/16/24 10:47 Blood - Venous Blood Culture - Preliminary No growth after 48 hours. 10/16/24 10:46 Blood - Venous Blood Culture - Preliminary No growth after 48 hours. 10/16/24 Unknown Urine Catheterized - Dorantes Catheter Urine Culture - Final Escherichia coli Assessment and Plan (1) Hyperammonemia: Status: Acute (2) Serum ammonia increased: Status: Acute (3) Gastric bypass status for obesity: Status: Acute (4) Toxic metabolic encephalopathy: Status: Acute (5) Acute hypernatremia: Status: Acute Plan Neuro: Acute encephalopathy possibly due to metabolic encephalopathy possibly secondary to hepatic encephalopathy, sepsis, hyperammonemia and possibly liver failure. Mentation was slowly improving with oral and rectal lactulose, but significantly altered again today CT head did not show any acute intracranial pathology Close neurological status monitoring in the ICU every hour Cardiac: Cardiogenic shock: Patient possibly has takotsubo syndrome on the bedside echo with apical ballooning and base constricting. EKG showed very low-voltage R-waves diffuse, we will get troponins. We will start the patient on heparin drip. Started the patient on Levophed for vasopressor support, titrate to keep the map above 65 mm Hg Respiratory: Acute respiratory failure due to aspiration pneumonia Had to emergently intubate the patient and placed on ventilator support FiO2 60%, we will wean as tolerated, peep 5, tidal volume 360, rate 20 Ventilator management protocol GI: Acute on chronic liver failure: Patient possibly has a acute on chronic liver failure as she was admitted with hypoglycemia,, hypoalbuminemia, hyperammonemia and lactic acidosis; other source of hyperammonemia may be possibly related to gastric bypass surgery. The initial lactic acidosis was thought to be secondary to poor hepatic clearance of lactate Continue oral neomycin and rifaximin clear the gut bacteria to rule out bacterial overgrowth syndrome On oral lactulose and lactulose for possible hepatic encephalopathy, 800ml of stool in rectal tube Renal: Creatinine normal We will closely monitor I's and O's Avoid nephrotoxic medications Acute hypernatremia: sodium upto 151, secondary to volume depletion will replete volume with LR Heme: Chronic anemia, closely monitor H&H, transfuse for hemoglobin less than 7 grams/deciliter Endocrine: Hypoglycemia: Improved currently hyperglycemic on sliding scale insulin Possibly secondary to sepsis versus liver failure D5 LR switched to LR drip at 100 cc/hour Infectious disease: Urine dirty, urine culture positive for E coli, blood cultures negative so far continue ceftriaxone, we will escalate to Zosyn if she becomes febrile or her oxygen requirement increases Musculoskeletal: Decubitus ulcer prevention protocol Lines: Peripheral Prophylaxis: Lovenox, pantoprazole Critical care time spent is about 50 minutes on managing this critically ill patient with multiple organ failures including acute encephalopathy, shock on vasopressor support, acute respiratory failure on ventilator support. The time is mostly support spent on airway management, patient was cyanosed, hypotensive when we evaluated her in the floor, transferred to ICU, formulating critical care plan and management, review of labs and images, vasopressor management, sedation management, close hemodynamic monitoring, bedside echo at this time is excluding any procedural time. Total time managing care of this patient today: 50 minutes.
[2024-10-20] MEDS: propofoL 1,000 MG/100 ML VIAL 14.85 MG IVCONT ×2 (16:35→21:24)
[2024-10-20 17:36] LABS: INTERNATIONAL NORM RATIO 1.8 (0.9-1.1)
[2024-10-20 17:39] LABS: PTT Heparin Drip 73.3 SEC (53-77.9)
[2024-10-20 17:43] LABS: Alanine Aminotransferase 14 U/L (0-31); Albumin Level 2.5 g/dL (3.5-5.0); Aspartate Amino Transferase 52 U/L (5-31); Bilirubin Total 1.5 mg/dL (0.0-1.0); Blood Urea Nitrogen 11 mg/dL (9-16); Calcium 7.3 mg/dL (8.4-10.2); Creatinine Clr Calc Pharmacy 86.4; Estimated Glomerular Filt Rate > 60; Glucose Random 229 mg/dL (60-115); Total Protein 4.6 g/dL (6.5-8.0)
[2024-10-20 17:45] LABS: Lactic Acid 2.1 mmol/L (0.5-2.0)
[2024-10-20 17:52] LABS: Troponin-I High Sensitivity 1599.8 ng/L (<3.5-17.0)
[2024-10-20 17:53] LABS: Alkaline Phosphatase 86 U/L (39-117); Anion Gap 13 (12-20); Carbon Dioxide 27 mmol/L (22-29); Chloride 112 mmol/L (96-108); Potassium 3.4 mmol/L (3.3-5.1); Sodium 149 mmol/L (135-145)
[2024-10-20] MEDS: Heparin Sodium,Porcine/1/2NS 25,000 UNIT/250 ML IV.SOLN 11.55 UNIT IVCONT (17:58)
[2024-10-20 18:01] LABS: VBG HCO3 25 mmol/L (22-26); VBG pCO2 29 mmHg; VBG pH 7.55 (7.32-7.43); VBG pO2 80 mmHg
[2024-10-20 18:02] LABS: Venous Blood Gas Refer to POC result
[2024-10-20 18:07] LABS: Glucose, Whole Blood 176 mg/dL (60-115)
--- NOTE | 2024-10-20 18:10 | W.PM.CCHP ---
Procedures Date of Service Date of Service: 10/20/24 Intubation Consent for Procedure: Emergent-no informed consent obtained Time out performed: Yes Sedative: etomidate Mg given: 20 Paralytic: succinylcholine Mg given: 100 Laryngoscope: fiber optic video scope ET tube size: 7.5 ET tube uncuffed: Yes Tube secured depth (cm): 25 Tube secured location: teeth Tube placement confirmation: visualized tube passing through cords and equal breath sounds bilaterally Patient tolerated procedure: well and no complications Intubation complications: none
[2024-10-20 18:22] LABS: Hematocrit 29.3 % (37.0-47.0); Hemoglobin 9.5 g/dl (12.0-16.0); Mean Corpuscular HGB Conc 32.4 g/dl (31.0-35.0); Mean Corpuscular Hemoglobin 32.2 pg (27.0-33.0); Mean Corpuscular Volume 99.3 fL (80.0-98.0); Mean Platelet Volume 12.9 fL (9.4-12.3); PLT CLUMP 1; Red Blood Count 2.95 X10*6/uL (4.20-5.50); Red Cell Distribution Width 14.7 % (11.0-16.0)
[2024-10-20 18:39] LABS: White Blood Count 16.5 X10*3/uL (4.8-10.8)
[2024-10-20 18:43] LABS: Platelet Count 72 X10*3/uL (160-400)
[2024-10-20 19:26] LABS: Reflex Lactate? Lactic Acid Added
--- NOTE | 2024-10-20 19:28 | HE.ICUCC ---
ICU Critical Care Nursing Note ICU Day #:1 Vent Day #:1 intubated this afternoon, after decompensation on the floor, MEds given as per OCT, 7.5 ETT placed 21 at the lip OG placed and both confirmed by xray. Neuro:Sedated, on propofol per OCT Cardiac:ST converted to SR later in the shift Resp:Mechanically ventilated, see vent assessment LS dim TA GI/:Dorantes placed patent and draining, OG tube in place Endocrine: POC covered with Lispro as per OCT Integumentary/Musculoskeletal:Pressure area to coccyx, see skin assessments for full details. Psychosocial (family etc.):Daughter at bedside Dr English discussed goals of care Central Lines: TLC to Right IJ
[2024-10-20 20:10] LABS: ~Lactic Acid-LAB USE ONLY 2.1 mmol/L (0.5-2.0)
[2024-10-20] MEDS: Latanoprost 0.005 % Ophth Sol 2.5 ML DROPS 1 DROP EYE-BOTH (20:51)
[2024-10-20 21:44] LABS: Reflex Lactate? 2 Y
[2024-10-20 22:35] LABS: Alanine Aminotransferase 12 U/L (0-31); Albumin Level 2.3 g/dL (3.5-5.0); Alkaline Phosphatase 83 U/L (39-117); Anion Gap 13 (12-20); Aspartate Amino Transferase 38 U/L (5-31); Bilirubin Total 1.7 mg/dL (0.0-1.0); Blood Urea Nitrogen 12 mg/dL (9-16); Calcium 7.2 mg/dL (8.4-10.2); Carbon Dioxide 27 mmol/L (22-29); Chloride 113 mmol/L (96-108); Creatinine Clr Calc Pharmacy 87.6; Estimated Glomerular Filt Rate > 60; Glucose Random 203 mg/dL (60-115); Potassium 3.1 mmol/L (3.3-5.1); Sodium 150 mmol/L (135-145); Total Protein 4.3 g/dL (6.5-8.0)
[2024-10-20 22:37] LABS: ~Lactic Acid-LAB USE ONLY 2.1 mmol/L (0.5-2.0)
[2024-10-20 22:45] LABS: Troponin-I High Sensitivity 1835.8 ng/L (<3.5-17.0)
[2024-10-20] MEDS: Albumin Human 25 % 100 ML 133.33 ML IV (23:12)
[2024-10-20 23:28] LABS: Glucose, Whole Blood 170 mg/dL (60-115)
[2024-10-21] VITALS (42 sets, daily range): BP systolic 76–152; BP diastolic 45–93; PULSE 67–113; RESP 15–27; TEMP -17.5–38.5; O2SAT 90–100
[2024-10-21] MEDS: Albumin Human 25 % 100 ML 133.33 ML IV (00:12)
[2024-10-21] MEDS: Lactated Ringers 1,000 ML 125 ML IVCONT ×2 (00:15→08:05)
[2024-10-21 00:34] LABS: PTT Heparin Drip > 200.0 SEC (53-77.9)
[2024-10-21] MEDS: Lactulose 20 GM/30 ML SOLUTION 30 GM PO ×4 (01:55→19:14)
[2024-10-21 02:17] LABS: PTT Heparin Drip > 200.0 SEC (53-77.9)
[2024-10-21] MEDS: propofoL 1,000 MG/100 ML VIAL 14.85 MG IVCONT ×4 (03:14→22:24)
[2024-10-21 03:24] LABS: PTT Heparin Drip 147.2 SEC (53-77.9)
[2024-10-21 03:40] LABS: HBS Num1 2.25 mIU/mL (0-7.99); HBc Num1 0.07 S/CO (0.00-0.79); HBsAGNum1 0.33 S/CO (0.00-0.99); Hepatitis B Core Antibody Nonreactive (Nonreactive); Hepatitis B Surface Antigen Negative (Negative); ~HepC Num1 0.11 S/CO (0.00-0.79); ~Hepatitis B Surface Antibody NONREACTIVE (Nonreactive); ~Hepatitis C Antibody Nonreactive (Nonreactive)
--- NOTE | 2024-10-21 03:48 | PC.NURSE ---
Addendum entered by Higinio Smith RN 10/21/24 05:52: PTT-HD = 77.7...PER ICU PA HEPARIN DRIP RESUMED PER NOMOGRAM AT 10 UNITS/KG/HR AT 05:45..FOR PTT-HD 11:45...URINE OUTPUT REMAINS LOW...FOR LASIX 40MG IV X1 AND NEUTRAPHOSH VIA OG-TUBE Addendum entered by Higinio Smith RN 10/21/24 04:26: desaturates with left side downward...sao2 stable supine or right side downward Original Note: CARE ASSUMED 7PM..INTUBATED/VCV VENT SUPPORT...SEDATED WITH PROPOFOL DRIP PER OCT..LR 125 CC/HR/LEVOPHED DRIP/HEPARIN DRIP 14 UNITS/KG/HR...URINE OUTPUT REMAINS LOW..PROVIDER AWARE...ALBUMEN 25 GRAMS X2 BAGS AND KCL 40MEQ VIA OG-TUBE..LACTLULOSE PER OCT...RECTAL TUBE BAG EMTIED FOR 1000ml LIQUIED BROWN STOOL...PTT-HD >200 ..HEPARIN DRIP HELD OO:40..PROVIDER AWARE..SERIAL LABWORK REVIEWED WITH PROVIDER....TO UTILIZE HEOARIN DRIP NOMOGRAM ORDERED PER PROVIDER...TO RESUME DRIP PER NOMOGRAM INSTRUCTIONS WHEN PTT-HD <93..NO SIGNS OF BLEEDING
[2024-10-21 04:50] LABS: VBG Base Excess 8.5 mmol/L; VBG HCO3 31 mmol/L (22-26); VBG pCO2 35 mmHg; VBG pH 7.54 (7.32-7.43); VBG pO2 41 mmHg
[2024-10-21 04:57] LABS: Hematocrit 21.5 % (37.0-47.0); Hemoglobin 7.3 g/dl (12.0-16.0); Mean Corpuscular Hemoglobin 32.4 pg (27.0-33.0); Mean Corpuscular Volume 95.6 fL (80.0-98.0); Mean Platelet Volume 12.9 fL (9.4-12.3); Red Blood Count 2.25 X10*6/uL (4.20-5.50); Red Cell Distribution Width 14.8 % (11.0-16.0); White Blood Count 11.6 X10*3/uL (4.8-10.8)
[2024-10-21 04:58] LABS: Venous Blood Gas Refer to POC result
[2024-10-21 05:03] LABS: INTERNATIONAL NORM RATIO 2.1 (0.9-1.1); Prothrombin Time 24.4 SEC (10.9-12.4)
[2024-10-21 05:04] LABS: Platelet Count 64 X10*3/uL (160-400)
[2024-10-21 05:19] LABS: Alanine Aminotransferase 6 U/L (0-31); Alkaline Phosphatase 68 U/L (39-117); Anion Gap 14 (12-20); Aspartate Amino Transferase 33 U/L (5-31); Bilirubin Total 1.9 mg/dL (0.0-1.0); Blood Urea Nitrogen 11 mg/dL (9-16); Calcium 7.8 mg/dL (8.4-10.2); Carbon Dioxide 27 mmol/L (22-29); Chloride 114 mmol/L (96-108); Creatinine Clr Calc Pharmacy 94.9; Estimated Glomerular Filt Rate > 60; Glucose Random 139 mg/dL (60-115); Magnesium 1.6 mg/dL (1.6-2.6); Phosphorus 1.6 mg/dL (2.7-4.5); Potassium 3.7 mmol/L (3.3-5.1); Sodium 151 mmol/L (135-145); Total Protein 4.7 g/dL (6.5-8.0)
[2024-10-21 05:29] LABS: PTT Heparin Drip 77.7 SEC (53-77.9)
[2024-10-21 05:55] LABS: Glucose, Whole Blood 124 mg/dL (60-115)
[2024-10-21] MEDS: Furosemide 40 MG/4 ML VIAL IVPUSH (05:58)
[2024-10-21 05:59] LABS: Troponin-I High Sensitivity 2069.1 ng/L (<3.5-17.0)
[2024-10-21] MEDS: Sodium,Potassium Phosphates POWD.PACK 2 PACKET PO (05:59)
[2024-10-21] MEDS: 0.9 % Sodium Chloride Flush 3 ML SYRINGE IVFLUSH ×2 (08:04→16:18)
[2024-10-21] MEDS: rifAXIMin 550 MG TABLET PO ×2 (08:05→20:11)
[2024-10-21] MEDS: Dorzolamide/Timolo 2.23%/0.68% 10 ML DRBTL 1 DROP EYE-BOTH (08:05)
[2024-10-21] MEDS: Albumin Human 25 % 50 ML 100 ML IV (08:48)
[2024-10-21] MEDS: Potassium Phosphate/NS 15 MMOL/250 ML PLAST..BAG 62.5 MMOL IV (08:48)
[2024-10-21] MEDS: cefTRIAXone sodium 2 GM VIAL IVPUSH (10:29)
--- NOTE | 2024-10-21 10:32 | P.PNCC_ITS ---
Subjective Subjective Date of Service: 10/21/24 Critical Care Time (minutes): 60 Physical Exam 2 Vital Signs: Vital Signs: Last Vital Signs Temp 99.3 F 10/21/24 10:00 Pulse 82 10/21/24 10:00 Resp 25 H 10/21/24 10:00 BP 91/57 L 10/21/24 10:00 Pulse Ox 96 10/21/24 10:00 O2 Del Method Mechanical Ventil ation 10/21/24 10:00 O2 Flow Rate 2 10/20/24 12:00 FiO2 28 10/21/24 10:00 BMI result Body Mass Index 30.3 Const: Other: intubated, sedated; no appreciable spontaneous movements General: no acute distress and well developed HEENT: Head: Yes normal to inspection, Yes normocephalic and Yes atraumatic Eyes: General: appearance normal, both eyes and all related structures Neck: Neck: Yes normal visual inspection, Yes full ROM, Yes no meningeal signs, Yes trachea midline and Yes supple Chest: Chest palpation & inspection: normal inspection of the chest Resp: Other: no appreciable overt rales, rhonchi, wheezing Effort & Inspection: normal respiratory effort Cardio: Rate: regular rate Rhythm: regular rhythm GI: Inspection: Yes normal to inspection, No Abdominal wall edema and No distended Palpation (GI): not soft, not firm, nontender, no guarding and not rigid Skin: General skin exam: no rashes or lesions noted Neuro: General: tone normal and no meningeal signs Extrem: Other: appreciable anasarca throughout General: Yes normal to inspection, Yes full ROM and Yes capillary refill normal Psych: Other: unable to assess Objective Data Labs 10/21/24 04:40 10/21/24 04:40 Labs: Laboratory Results - last 24 hr 10/20/24 10/20/24 10/20/24 12:20 13:30 15:50 WBC RBC Hgb Hct MCV MCH MCHC RDW Plt Count MPV Absolute Nucleated RBC Nucleated RBC % (auto) PT INR aPTT Heparin Protocol VBG pH VBG pCO2 VBG pO2 VBG HCO3 VBG O2 Saturation VBG Base Excess Sodium 151 H Potassium 4.4 D Chloride 114 H Carbon Dioxide 28 Anion Gap 13 BUN 11 Creatinine 0.82 Estim Creat Clear Calc 82.2 Estimated GFR > 60 POC Glucose 108 131 H Random Glucose 170 H Lactic Acid Lactic Acid F/U @ 2Hr Lactic Acid F/U @ 4Hr Calcium 8.1 L D Phosphorus Magnesium Total Bilirubin AST ALT Alkaline Phosphatase Troponin I High Sens Total Protein Albumin Hep Bs Antigen Negative Hep Bs Antibody NONREACTIVE Hep B Core Total Ab Nonreactive Hepatitis C Ab (EIA) Nonreactive Blood Type Antibody Screen 10/20/24 10/20/24 10/20/24 17:18 17:19 17:52 WBC 16.5 H RBC 2.95 L Hgb 9.5 L Hct 29.3 L MCV 99.3 H MCH 32.2 MCHC 32.4 RDW 14.7 Plt Count 72 L MPV 12.9 H Absolute Nucleated RBC 0.000 Nucleated RBC % (auto) 0.0 PT 21.0 H D INR 1.8 H aPTT Heparin Protocol 73.3 VBG pH VBG pCO2 VBG pO2 VBG HCO3 VBG O2 Saturation VBG Base Excess Sodium 149 H Potassium 3.4 D Chloride 112 H Carbon Dioxide 27 Anion Gap 13 BUN 11 Creatinine 0.78 Estim Creat Clear Calc 86.4 Estimated GFR > 60 POC Glucose Random Glucose 229 H Lactic Acid 2.1 H* Lactic Acid F/U @ 2Hr Lactic Acid F/U @ 4Hr Calcium 7.3 L D Phosphorus Magnesium Total Bilirubin 1.5 H AST 52 H ALT 14 Alkaline Phosphatase 86 Troponin I High Sens 1599.8 H* Total Protein 4.6 L Albumin 2.5 L Hep Bs Antigen Hep Bs Antibody Hep B Core Total Ab Hepatitis C Ab (EIA) Blood Type Antibody Screen 10/20/24 10/20/24 10/20/24 17:56 18:04 19:40 WBC RBC Hgb Hct MCV MCH MCHC RDW Plt Count MPV Absolute Nucleated RBC Nucleated RBC % (auto) PT INR aPTT Heparin Protocol VBG pH 7.55 H VBG pCO2 29 VBG pO2 80 VBG HCO3 25 VBG O2 Saturation 99.0 VBG Base Excess 4.0 Sodium Potassium Chloride Carbon Dioxide Anion Gap BUN Creatinine Estim Creat Clear Calc Estimated GFR POC Glucose 176 H Random Glucose Lactic Acid Lactic Acid F/U @ 2Hr 2.1 H* Lactic Acid F/U @ 4Hr Calcium Phosphorus Magnesium Total Bilirubin AST ALT Alkaline Phosphatase Troponin I High Sens Total Protein Albumin Hep Bs Antigen Hep Bs Antibody Hep B Core Total Ab Hepatitis C Ab (EIA) Blood Type Antibody Screen 10/20/24 10/20/24 10/21/24 22:15 23:23 00:07 WBC RBC Hgb Hct MCV MCH MCHC RDW Plt Count MPV Absolute Nucleated RBC Nucleated RBC % (auto) PT INR aPTT Heparin Protocol > 200.0 H* D VBG pH VBG pCO2 VBG pO2 VBG HCO3 VBG O2 Saturation VBG Base Excess Sodium 150 H Potassium 3.1 L Chloride 113 H Carbon Dioxide 27 Anion Gap 13 BUN 12 Creatinine 0.77 Estim Creat Clear Calc 87.6 Estimated GFR > 60 POC Glucose 170 H Random Glucose 203 H Lactic Acid Lactic Acid F/U @ 2Hr Lactic Acid F/U @ 4Hr 2.1 H* Calcium 7.2 L Phosphorus Magnesium Total Bilirubin 1.7 H AST 38 H ALT 12 Alkaline Phosphatase 83 Troponin I High Sens 1835.8 H* Total Protein 4.3 L Albumin 2.3 L Hep Bs Antigen Hep Bs Antibody Hep B Core Total Ab Hepatitis C Ab (EIA) Blood Type Antibody Screen 10/21/24 10/21/24 10/21/24 01:47 02:58 04:40 WBC 11.6 H RBC 2.25 L D Hgb 7.3 L D Hct 21.5 L D MCV 95.6 MCH 32.4 MCHC 34.0 RDW 14.8 Plt Count 64 L MPV 12.9 H Absolute Nucleated RBC 0.000 Nucleated RBC % (auto) 0.0 PT 24.4 H INR 2.1 H aPTT Heparin Protocol > 200.0 H* 147.2 H* D VBG pH VBG pCO2 VBG pO2 VBG HCO3 VBG O2 Saturation VBG Base Excess Sodium 151 H Potassium 3.7 Chloride 114 H Carbon Dioxide 27 Anion Gap 14 BUN 11 Creatinine 0.71 Estim Creat Clear Calc 94.9 Estimated GFR > 60 POC Glucose Random Glucose 139 H Lactic Acid Lactic Acid F/U @ 2Hr Lactic Acid F/U @ 4Hr Calcium 7.8 L D Phosphorus 1.6 L Magnesium 1.6 Total Bilirubin 1.9 H AST 33 H ALT 6 Alkaline Phosphatase 68 Troponin I High Sens 2069.1 H* Total Protein 4.7 L Albumin 3.0 L Hep Bs Antigen Hep Bs Antibody Hep B Core Total Ab Hepatitis C Ab (EIA) Blood Type Antibody Screen 10/21/24 10/21/24 10/21/24 04:43 05:13 05:51 WBC RBC Hgb Hct MCV MCH MCHC RDW Plt Count MPV Absolute Nucleated RBC Nucleated RBC % (auto) PT INR aPTT Heparin Protocol 77.7 D VBG pH 7.54 H VBG pCO2 35 VBG pO2 41 VBG HCO3 31 H VBG O2 Saturation 70.0 VBG Base Excess 8.5 Sodium Potassium Chloride Carbon Dioxide Anion Gap BUN Creatinine Estim Creat Clear Calc Estimated GFR POC Glucose 124 H Random Glucose Lactic Acid Lactic Acid F/U @ 2Hr Lactic Acid F/U @ 4Hr Calcium Phosphorus Magnesium Total Bilirubin AST ALT Alkaline Phosphatase Troponin I High Sens Total Protein Albumin Hep Bs Antigen Hep Bs Antibody Hep B Core Total Ab Hepatitis C Ab (EIA) Blood Type Antibody Screen 10/21/24 08:23 WBC RBC Hgb Hct MCV MCH MCHC RDW Plt Count MPV Absolute Nucleated RBC Nucleated RBC % (auto) PT INR aPTT Heparin Protocol VBG pH VBG pCO2 VBG pO2 VBG HCO3 VBG O2 Saturation VBG Base Excess Sodium Potassium Chloride Carbon Dioxide Anion Gap BUN Creatinine Estim Creat Clear Calc Estimated GFR POC Glucose Random Glucose Lactic Acid Lactic Acid F/U @ 2Hr Lactic Acid F/U @ 4Hr Calcium Phosphorus Magnesium Total Bilirubin AST ALT Alkaline Phosphatase Troponin I High Sens Total Protein Albumin Hep Bs Antigen Hep Bs Antibody Hep B Core Total Ab Hepatitis C Ab (EIA) Blood Type A Positive Antibody Screen NEGATIVE Microbiology Microbiology Results: Microbiology 10/16/24 10:47 Blood - Venous Blood Culture - Preliminary No growth after 48 hours. 10/16/24 10:46 Blood - Venous Blood Culture - Preliminary No growth after 48 hours. 10/16/24 Unknown Urine Catheterized - Dorantes Catheter Urine Culture - Final Escherichia coli Progress Note: A&P Assessment and plan (1) Hyperammonemia: Status: Acute (2) Toxic metabolic encephalopathy: Status: Acute (3) Aspiration into airway: Status: Acute Plan Patient is a 53 Y F w/ hypertension, diabetes mellitus, c/b HFpEF, and reportedly hepatic steatosis initially presenting to emergency department on 10/16 w/ encephalopathy, work-up suggestive of urinary tract infection, initially admitted to medicine; on 10/17, patient developed hypotension, prompting ICU transfer; ICU course c/b persistent encephalopathy, c/b aspiration pneumonia, intubated; N: acute on subacute encephalopathy, likely multi-factorial, including toxic- metabolic, hepatic encephalopathy; lactulose; to closely monitor CV: hypotension, norepinephrine gtt, wean as tolerated; troponinemia, started on heparin gtt; to follow-up EKG, echo R: c/f aspiration pneumonia, intubated, wean as tolerated GI: c/f hepatic failure, lactulose, rifaximin : no acute issues; to closely monitor renal indices, electrolytes H: no acute issues ID: empiric ceftriaxone in setting of hepatic failure E: to closely monitor hypo-/hyper-glycemia S: ongoing goals of care discussions w/ sister Quality Stroke Does the patient have a stroke diagnosis?: No VTE Prior VTE?: No VTE Risk Level:: Medical - moderate - high VTE Device Contraindication: Treatment Not Indicated VTE Drug Contraindication: N/A - Med Ordered
--- NOTE | 2024-10-21 10:45 | ECG_ITS ---
Test Reason : Troponinemia Blood Pressure : */* mmHG Vent. Rate : 76 BPM Atrial Rate : 76 BPM P-R Int : 120 ms QRS Dur : 82 ms QT Int : 332 ms P-R-T Axes : 52 40 219 degrees QTcB Int : 373 ms Normal sinus rhythm Low voltage QRS Cannot rule out Anterior infarct (cited on or before 16-Oct-2024) Abnormal ECG When compared with ECG of 20-Oct-2024 14:20, changes of anterior infarct as above. Referred By: Herlinda Galdamez Electronically Signed By: VALERIANO SANCHEZ
--- NOTE | 2024-10-21 10:52 | MHC.CLN ---
F/U PT IS INTUBATED AND SEDATED PT WITH INCREASED RISK R/T PRESSURE INJURY PT CURRENTLY NPO IF TF NEEDED; RECOMMEND PROMOTE AT MAX GOAL RATE 65ML/HR TO PROVIDE 1560KCALS (1952KCALS WITH SEDATION; 30KCALS/KG), 97.5G PROTEIN (1.5G/KG), 1309ML FREE WATER FROM FORMULA MONITOR TOLERANCE AND LYTES FOLLOWING FOR DIET ADVANCEMENT
[2024-10-21] MEDS: Calcium Chloride 1 GM/10 ML SYRINGE IVPUSH (10:55)
[2024-10-21 11:26] LABS: Glucose, Whole Blood 136 mg/dL (60-115)
[2024-10-21 11:36] LABS: Lactic Acid 2.4 mmol/L (0.5-2.0)
[2024-10-21 11:50] LABS: TSH reflex Free T4 1.75 uIU/mL (0.32-4.0)
--- NOTE | 2024-10-21 12:00 | CA_ITS ---
Transthoracic Echocardiogram Patient (Last, First, Middle): Mirian Bal, Gender: Female Date of : 1970 Age: 53 Procedure Date: 10/21/2024 Procedure Type: Transthoracic Echocardiogram Location: ICU Height: 165.1 cm Weight: 82.1 kg BSA: 1.90 m2 Heart Rate: 82 bpm BP: 104 / 65 mmHg Qc Scientist: SB Referring MD: Herlinda Galdamez MD Symptoms: Troponinemia, Please Assess Cardiac Function Study Quality: Adequate w contrast ECG Rhythm: Sinus Conclusions: - The left ventricular systolic function is severely decreased. The visually estimated ejection fraction is between 20-25%. - The entire apex, the basal inferior, mid anterior, mid inferoseptal, and mid anteroseptal segments are akinetic. Findings Procedure Information The study quality is limited by the presence of a ventilator. Left Ventricle Normal left ventricular cavity size. The left ventricular systolic function is severely decreased. The visually estimated ejection fraction is between 20-25%. There is evidence of regional wall motion abnormalities. Wall Motion Rest Echo Findings The entire apex, the basal inferior, mid anterior, mid inferoseptal, and mid anteroseptal segments are akinetic. Pericardium/Pleural There is a small pericardial effusion. Prior Study Comparison Changes noted compared to prior study dated: 10/18/2024. Decrease in LVEF; wall motion abnormalities present. Measurements 2D Linear Measurements LVOT Diam: 1.80 3.0+(-)1.3 cm 2D Systolic Function EF 4C: 34.20 >55% EF 2C: 40.50 >55% EF BiP: 35.70 >55% LVOT LVOT Pk Arnulfo: 0.83 LVOT Mn Arnulfo: 0.59 LVOT VTI: 0.17 LVOT Pk Grad: 3.00 LVOT Mn Grad: 2.00 LVOT Diam: 1.80 LVOT Area: 2.54 Updated in Other Vendor System with Status of Final Miah Smith MD electronically signed on 10/21/2024 2:47:31 PM with status of Final
[2024-10-21 12:02] LABS: HBS Num1 2.05 mIU/mL (0-7.99); HBc Num1 0.11 S/CO (0.00-0.79); HBsAGNum1 1.04 S/CO (0.00-0.99); Hepatitis A Antibody IgM 0.24 Index (0-0.79); Hepatitis B Core Antibody Nonreactive (Nonreactive); ~HepC Num1 0.16 S/CO (0.00-0.79); ~Hepatitis A Antibody IgM Nonreactive (Nonreactive); ~Hepatitis B Surface Antibody NONREACTIVE (Nonreactive); ~Hepatitis C Antibody Nonreactive (Nonreactive)
[2024-10-21 12:49] LABS: PTT Heparin Drip > 200.0 SEC (53-77.9)
[2024-10-21 13:03] LABS: Reflex Lactate? Lactic Acid Added
--- NOTE | 2024-10-21 13:39 | MHC.CM.PN ---
Pt remains intubated in ICU: No plans to extubate today - pt may need home services vs placement at the time of d/c. CM to follow for improvement in funtional ability and finalization of d/c planning.
[2024-10-21 13:47] LABS: ~Lactic Acid-LAB USE ONLY 2.3 mmol/L (0.5-2.0)
[2024-10-21 14:21] LABS: HBsAGNum2 Nonreactive; HBsAGNum3 Nonreactive; Hepatitis B Surface Antigen NEGATIVE (Negative)
--- NOTE | 2024-10-21 15:02 | P.ACPN_ITS ---
Advanced Care Planning Note Advanced Care Planning Note Discussed with: family member(s) Time spent (in minutes): 30 Narrative: I introduced myself to Ms. Bal's sister and healthcare proxy, Maggie, this AM; I offered updates and any clarifications; Maggie expressed that Ms. Bal has stated she would not want to be kept on life-sustaining measures, and would like Ms. Bal to be as comfortable as possible; Maggie expressed that she believes Ms. Bal's philosophy of care should be transitioned to comfort- focused care at this time, though Ms. Bal's daughter is not ready; Maggie stated family will likely be able to transition Ms. Bal to comfort-focused care tomorrow AM; we discussed maintaining her current level of care, avoiding escalation if at all possible until then Problems Discussed (1) Hyperammonemia: (2) Toxic metabolic encephalopathy: (3) Aspiration into airway:
[2024-10-21 15:20] LABS: Reflex Lactate? 2 Y
[2024-10-21 16:12] LABS: ~Lactic Acid-LAB USE ONLY 2.4 mmol/L (0.5-2.0)
--- NOTE | 2024-10-21 16:57 | PC.NURSE ---
Assumed care at 0700- pt. remains sedated and mechanically vented. Goals of care discussion held with MD and HCP- see report. Norepinephrine gtt titrated off per MAR. Plan of care ongoing.
--- NOTE | 2024-10-21 16:57 | HO.WOUND ---
Wound Consult: Follow up with photo review 53yr old? female admitted to [facility] [place] on 10/16/24 - See progress notes and H&P for detailed history.? Wound consult follow up for Sacrum, bilateral lower posterior legs not assessed today.? She remains on ICU unit. 10/21/24 10/18/24 Sacrum Etiology: Unstageable Pressure injury previously documented as ?Deep Tissue Injury ?Present on Admission Wound Bed: dark moist brown dark slough vs moist eschar observed in photo concern continued over depth at central coccyx point continues to be in evolution Drainage / Odor: small serosang Edges: ? irregular Heavenly wound: ?MASD No Induration, Fluctuance or Warmth noted Pain: pain reported Goals of Treatment: ? Triad and Q2hr turns - No new topical orders needed at this time. Details from previous assessment: Left Anterior Lower Leg Etiology: Unclear etiology - not consistent with pressure or moisture ??Present on Admission Wound Bed: nonblanchable purple - dry dark maroon wound bed Drainage / Odor: none noted Edges: ? irregular Heavenly wound: Intact - swelling and weeping serous fluid ? No Induration, Fluctuance or Warmth noted Goals of Treatment: Betadine and dry gauze wrap Bilateral Posterior Lower Legs Etiology: ??Unclear etiology - Abrasion Present on Admission Wound Bed: pink moist tissue with scattered yellow slough - weeping clear fluid Drainage / Odor: clear fluid - large amount Edges: ? irregular Heavenly wound: pink moist intact tissue ? No Induration, Fluctuance or Warmth noted Goals of Treatment: ? Durafiber For moisture management Left Heel Etiology: ?unclear etiology at this time - nonblanchable pigmentation changes Wound Bed: intact irregular red maroon nonblanchable tissue - shape is irregular and not consistent with pressure Drainage / Odor: None Edges: ? irregular Heavenly wound: red pink blanchable tissue No Induration, Fluctuance or Warmth noted Goals of Treatment: ? Off load pressure foam dressing to aid in pressure redistribution Recommendations: 1. Turn and Reposition every 2 hours and as needed for patient comfort.? Use pillows or wedges to support off loading positions. 2. Off Load all bony prominences with use of pillows and heel boots if needed.? Apply Preventative foams where needed. ? 3. Monitor for incontinence and moisture control, use barrier creams when needed for prevention and treatment. 4. Provide adequate and supplemental nutrition.? 5. Continue low air loss mattress consider ISO Tour mattress. 6. When applicable maintain blood glucose levels per Providers order. 7. Sacrum - Off Load Pressure with Q2 hr turns and use of pillows - Cleanse with PH balance spray or wipes, pat dry. ?Apply thin layer of Triad to wound bed - only pat and dab no scrub and rub when soiling occurs. Reapply thin layer PRN after each episode of incontinence. 8. Left Heel and Left Leg - Apply foam dressing to heel and off load heel from surface of bed with pillows. Cleanse wound bed with Betadine, apply Durafiber AG, Cover with dry gauze, ABD pad and wrap dressing.? Change daily. 9. Right Leg - Cleanse with NS, Pat dry.? Apply barrier to periwound, apply Durafiber AG, Cover with dry gauze, ABD pad and wrap dressing.? Change daily. Use heel protector boot for ankle stability. Ok to not use walking boot at this time per Dr. English. Re-consult wound care Nurse for wound deterioration or wound changes.
[2024-10-21 17:21] LABS: Glucose, Whole Blood 161 mg/dL (60-115)
[2024-10-21 18:02] LABS: Cancel Lactic Acid Canceled
[2024-10-21] MEDS: Insulin Lispro 100 UNIT/ML 3 ML VIAL SUBCUT (18:05)
[2024-10-21] MEDS: Norepinephrine Bitartrate/D5W 8 MG/250 ML PLAST..BAG 7.73 MG IVCONT (18:18)
[2024-10-21] MEDS: Chlorhexidine Gluc Oral Rinse 15 ML MOUTHWASH BUCCAL (20:11)
[2024-10-21] MEDS: Latanoprost 0.005 % Ophth Sol 2.5 ML DROPS 1 DROP EYE-BOTH (20:12)
[2024-10-21] MEDS: Acetaminophen 1,000 MG/100 ML PIGGYBACK 400 MG IV (21:48)
[2024-10-21 23:56] LABS: Glucose, Whole Blood 195 mg/dL (60-115)
[2024-10-22] VITALS (32 sets, daily range): BP systolic 61–152; BP diastolic 37–94; PULSE 97–136; RESP 4–20; TEMP 34.2–39.1; O2SAT 60–100
[2024-10-22] MEDS: Insulin Lispro 100 UNIT/ML 3 ML VIAL SUBCUT ×2 (00:26→05:42)
[2024-10-22] MEDS: 0.9 % Sodium Chloride Flush 3 ML SYRINGE IVFLUSH ×4 (00:27→23:14)
[2024-10-22] MEDS: Lactulose 20 GM/30 ML SOLUTION 30 GM PO ×2 (01:34→07:24)
[2024-10-22] MEDS: propofoL 1,000 MG/100 ML VIAL 14.85 MG IVCONT ×2 (03:55→09:58)
[2024-10-22 05:31] LABS: VBG Base Excess 3.7 mmol/L; VBG HCO3 26 mmol/L (22-26); VBG pCO2 34 mmHg; VBG pH 7.49 (7.32-7.43); VBG pO2 41 mmHg
[2024-10-22 05:41] LABS: Glucose, Whole Blood 187 mg/dL (60-115)
[2024-10-22 06:43] LABS: Basophils Percent Auto 0.1 % (0-2); Lymphocytes Percent Auto 26.7 % (20-40); Mean Corpuscular Volume 97.6 fL (80.0-98.0); Red Cell Distribution Width 14.9 % (11.0-16.0); SCAN SMEAR FLAG 1
[2024-10-22 06:45] LABS: Hematocrit 28.5 % (37.0-47.0); Hemoglobin 9.5 g/dl (12.0-16.0); Imm Gran Abs Auto 0.11 X10*3/uL (0.00-0.03); Imm Gran Pct Auto 1.1 % (0.0-0.4); Lymphocytes Absolute Auto 2.8 X10*3/uL (1.2-4.9); Mean Corpuscular HGB Conc 33.3 g/dl (31.0-35.0); Mean Corpuscular Hemoglobin 32.5 pg (27.0-33.0); Mean Platelet Volume 13.6 fL (9.4-12.3); Monocytes Absolute Auto 0.8 X10*3/uL (0.1-1.2); Monocytes Percent Auto 7.4 % (2-11); NRBC Pct Auto 0.2 /100WBC (0.0-0.2); Neutrophils Absolute Auto 6.8 x10*3/uL (2.0-8.3); Neutrophils Percent Auto 64.7 % (45-73); Red Blood Count 2.92 X10*6/uL (4.20-5.50); White Blood Count 10.5 X10*3/uL (4.8-10.8)
[2024-10-22 06:47] LABS: Anion Gap 16 (12-20); Blood Urea Nitrogen 13 mg/dL (9-16); Calcium 8.1 mg/dL (8.4-10.2); Carbon Dioxide 25 mmol/L (22-29); Chloride 115 mmol/L (96-108); Creatinine Clr Calc Pharmacy 73.3; Estimated Glomerular Filt Rate > 60; Glucose Random 188 mg/dL (60-115); Magnesium 1.7 mg/dL (1.6-2.6); PLT ABN DIST 1; Phosphorus 3.1 mg/dL (2.7-4.5); Platelet Count 91 X10*3/uL (160-400); Potassium 3.4 mmol/L (3.3-5.1); Sodium 153 mmol/L (135-145)
[2024-10-22 06:49] LABS: MANUAL DIFF FLAG NO
[2024-10-22 07:14] LABS: Venous Blood Gas Refer to POC result
[2024-10-22] MEDS: Famotidine/PF 20 MG/2 ML VIAL IVPUSH (07:24)
[2024-10-22] MEDS: rifAXIMin 550 MG TABLET PO (07:24)
[2024-10-22] MEDS: Chlorhexidine Gluc Oral Rinse 15 ML MOUTHWASH BUCCAL (07:24)
--- NOTE | 2024-10-22 07:59 | PM.CCPN ---
Subjective Subjective Date of Service: 10/22/24 Interval History: no significant overnight events, though persistently febrile and now anuric Critical Care Time (minutes): 60 Physical Exam Vital Signs: Vital Signs: Last Vital Signs Temp 102.2 F H 10/22/24 07:00 Pulse 118 H 10/22/24 07:00 Resp 20 10/22/24 07:00 BP 116/76 10/22/24 07:00 Pulse Ox 97 10/22/24 07:37 O2 Del Method Mechanical Ventil ation 10/22/24 07:00 O2 Flow Rate 2 10/20/24 12:00 FiO2 30 10/22/24 07:37 BMI result Body Mass Index 30.3 Const: Other: intubated, minimally sedated; no appreciable spontaneous movements; no appreciable response to noxious stimulus HEENT: Head: Yes normal to inspection, Yes normocephalic and Yes atraumatic Eyes: General: appearance normal, both eyes and all related structures Neck: Neck: Yes normal visual inspection, Yes full ROM, Yes no meningeal signs, Yes trachea midline and Yes supple Chest: Chest palpation & inspection: normal inspection of the chest Resp: Other: no appreciable overt rales, rhonchi, wheezing Effort & Inspection: normal respiratory effort Cardio: Rate: tachycardic Rhythm: regular rhythm GI: Inspection: Yes normal to inspection, No Abdominal wall edema and No distended Palpation (GI): Soft to palpation, not firm, nontender, no guarding and not rigid Skin: General skin exam: no rashes or lesions noted Neuro: General: tone normal and no meningeal signs Extrem: Other: appreciable 2+ pitting edema to bilateral shins General: Yes normal to inspection, Yes full ROM and Yes capillary refill normal Psych: Other: unable to assess Objective Data Labs 10/22/24 06:16 10/22/24 06:16 Labs: Laboratory Results - last 24 hr 10/21/24 10/21/24 10/21/24 08:23 10:55 11:23 WBC RBC Hgb Hct MCV MCH MCHC RDW Plt Count MPV Immature Gran % (Auto) Neut % (Auto) Lymph % (Auto) Dickson % (Auto) Eos % (Auto) Baso % (Auto) Lymph # (Auto) Dickson # (Auto) Eos # (Auto) Baso # (Auto) Abs Immat Gran (auto) Absolute Neuts (auto) Absolute Nucleated RBC Nucleated RBC % (auto) aPTT Heparin Protocol VBG pH VBG pCO2 VBG pO2 VBG HCO3 VBG O2 Saturation VBG Base Excess Sodium Potassium Chloride Carbon Dioxide Anion Gap BUN Creatinine Estim Creat Clear Calc Estimated GFR POC Glucose 136 H Random Glucose Lactic Acid 2.4 H* Lactic Acid F/U @ 2Hr Lactic Acid F/U @ 4Hr Calcium Phosphorus Magnesium Troponin I High Sens TSH 1.75 Hepatitis A IgM Ab Nonreactive Hep Bs Antigen Not Reportable Hep Bs Antigen (2) NEGATIVE Hep Bs Antibody NONREACTIVE Hep B Core Total Ab Nonreactive Hepatitis C Ab (EIA) Nonreactive Blood Type A Positive Antibody Screen NEGATIVE 10/21/24 10/21/24 10/21/24 11:45 13:16 15:33 WBC RBC Hgb Hct MCV MCH MCHC RDW Plt Count MPV Immature Gran % (Auto) Neut % (Auto) Lymph % (Auto) Dickson % (Auto) Eos % (Auto) Baso % (Auto) Lymph # (Auto) Dickson # (Auto) Eos # (Auto) Baso # (Auto) Abs Immat Gran (auto) Absolute Neuts (auto) Absolute Nucleated RBC Nucleated RBC % (auto) aPTT Heparin Protocol > 200.0 H* D VBG pH VBG pCO2 VBG pO2 VBG HCO3 VBG O2 Saturation VBG Base Excess Sodium Potassium Chloride Carbon Dioxide Anion Gap BUN Creatinine Estim Creat Clear Calc Estimated GFR POC Glucose Random Glucose Lactic Acid Lactic Acid F/U @ 2Hr 2.3 H* Lactic Acid F/U @ 4Hr 2.4 H* Calcium Phosphorus Magnesium Troponin I High Sens TSH Hepatitis A IgM Ab Hep Bs Antigen Hep Bs Antigen (2) Hep Bs Antibody Hep B Core Total Ab Hepatitis C Ab (EIA) Blood Type Antibody Screen 10/21/24 10/21/24 10/21/24 17:17 18:00 23:52 WBC RBC Hgb Hct MCV MCH MCHC RDW Plt Count MPV Immature Gran % (Auto) Neut % (Auto) Lymph % (Auto) Dickson % (Auto) Eos % (Auto) Baso % (Auto) Lymph # (Auto) Dickson # (Auto) Eos # (Auto) Baso # (Auto) Abs Immat Gran (auto) Absolute Neuts (auto) Absolute Nucleated RBC Nucleated RBC % (auto) aPTT Heparin Protocol VBG pH VBG pCO2 VBG pO2 VBG HCO3 VBG O2 Saturation VBG Base Excess Sodium Potassium Chloride Carbon Dioxide Anion Gap BUN Creatinine Estim Creat Clear Calc Estimated GFR POC Glucose 161 H 195 H Random Glucose Lactic Acid Lactic Acid F/U @ 2Hr Lactic Acid F/U @ 4Hr Calcium Phosphorus Magnesium Troponin I High Sens 1325.0 H* TSH Hepatitis A IgM Ab Hep Bs Antigen Hep Bs Antigen (2) Hep Bs Antibody Hep B Core Total Ab Hepatitis C Ab (EIA) Blood Type Antibody Screen 10/22/24 10/22/24 10/22/24 05:27 05:37 06:16 WBC 10.5 RBC 2.92 L D Hgb 9.5 L D Hct 28.5 L D MCV 97.6 MCH 32.5 MCHC 33.3 RDW 14.9 Plt Count 91 L D MPV 13.6 H Immature Gran % (Auto) 1.1 H Neut % (Auto) 64.7 Lymph % (Auto) 26.7 Dickson % (Auto) 7.4 Eos % (Auto) 0.0 Baso % (Auto) 0.1 Lymph # (Auto) 2.8 Dickson # (Auto) 0.8 Eos # (Auto) 0.0 Baso # (Auto) 0.0 Abs Immat Gran (auto) 0.11 H Absolute Neuts (auto) 6.8 Absolute Nucleated RBC 0.020 H Nucleated RBC % (auto) 0.2 aPTT Heparin Protocol VBG pH 7.49 H VBG pCO2 34 VBG pO2 41 VBG HCO3 26 VBG O2 Saturation 63.0 VBG Base Excess 3.7 Sodium 153 H Potassium 3.4 Chloride 115 H Carbon Dioxide 25 Anion Gap 16 BUN 13 Creatinine 0.92 Estim Creat Clear Calc 73.3 Estimated GFR > 60 POC Glucose 187 H Random Glucose 188 H Lactic Acid Lactic Acid F/U @ 2Hr Lactic Acid F/U @ 4Hr Calcium 8.1 L Phosphorus 3.1 Magnesium 1.7 Troponin I High Sens TSH Hepatitis A IgM Ab Hep Bs Antigen Hep Bs Antigen (2) Hep Bs Antibody Hep B Core Total Ab Hepatitis C Ab (EIA) Blood Type Antibody Screen Microbiology Microbiology Results: Microbiology 10/20/24 17:52 Blood - Venous Blood Culture - Preliminary No growth after 24 hours. 10/20/24 17:19 Blood - Venous Blood Culture - Preliminary No growth after 24 hours. 10/16/24 10:47 Blood - Venous Blood Culture - Final No growth after 5 days. 10/16/24 10:46 Blood - Venous Blood Culture - Final No growth after 5 days. 10/16/24 Unknown Urine Catheterized - Dorantes Catheter Urine Culture - Final Escherichia coli Progress Note: A&P Assessment and plan (1) Aspiration into airway: Status: Acute (2) Hyperammonemia: Status: Acute (3) Hypotension: Status: Acute Plan Patient is a 53 Y F w/ hypertension, diabetes mellitus, c/b HFpEF, and reportedly hepatic steatosis initially presenting to emergency department on 10/16 w/ encephalopathy, work-up suggestive of urinary tract infection, initially admitted to medicine; on 10/17, patient developed hypotension, prompting ICU transfer; ICU course c/b persistent encephalopathy, c/b aspiration pneumonia, intubated; N: acute on subacute encephalopathy, likely multi-factorial, including toxic-metabolic, hepatic encephalopathy; lactulose; to closely monitor CV: hypotension, norepinephrine gtt, wean as tolerated; troponinemia, plateaued, likely demand R: c/f aspiration pneumonia, intubated, wean as tolerated GI: c/f hepatic failure, lactulose, rifaximin : no acute issues; to closely monitor renal indices, electrolytes H: no acute issues; chemical DVT prophylaxis w/ enoxaparin SQ ID: empiric ceftriaxone in setting of hepatic failure E: to closely monitor hypo-/hyper-glycemia S: ongoing goals of care discussions w/ sister Quality Stroke Does the patient have a stroke diagnosis?: No VTE Prior VTE?: No VTE Risk Level:: Medical - moderate - high VTE Device Contraindication: N/A - Device Ordered VTE Drug Contraindication: N/A - Med Ordered
[2024-10-22 08:06] LABS: Ammonia 81 umol/L (13-55)
[2024-10-22] MEDS: Acetaminophen 1,000 MG/100 ML PIGGYBACK 400 MG IV (08:06)
[2024-10-22] MEDS: Calcium Chloride 1 GM/10 ML SYRINGE IVPUSH (08:06)
[2024-10-22] MEDS: Enoxaparin Sodium 40 MG/0.4 ML SYRINGE SUBCUT (08:30)
[2024-10-22] MEDS: Scopolamine 1.5 MG PATCH.TD.3 TRANSDERMA (09:51)
[2024-10-22] MEDS: Morphine Sulfate/NS 100 MG/100 ML PLAST..BAG IVCONT (09:59)
--- NOTE | 2024-10-22 10:55 | MHC.CLN ---
F/U PT REMAINS INTUBATED AND SEDATED PT WITH INCREASED RISK R/T PRESSURE INJURY PT CURRENTLY NPO FAMILY TRANSITIONING PT TO EVENT STAFF MEMBER CAN CHANGE DIET TO FEED FROM FLOOR IF NEEDED FOR EVENT STAFF MEMBER COFFEE CART FOR FAMILY CAN BE PROVIDED BY KITCHEN UPON REQUEST-KITCHEN AWARE FOLLOWING WITH TEAM AND WILL PROVIDE SUPPORT NEEDED
--- NOTE | 2024-10-22 12:54 | PC.NURSE ---
Assumed care at 0700- Goals of care discussion held with MD and HCP- code status changed to CONTRACT [employer] per HCP. Morphine gtt hung and titrated per MAR for comfort, levophed and propofol weaned off. Family at bedside, notified this RN that they are ready for extubation. Pt. terminally extubated at 1240 by RT per MD order. called in per family request. CONTRACT CL[employer] plan of care ongoing.
--- NOTE | 2024-10-22 15:01 | MHC.CM.PN ---
Pt has been made TRIPOLER at this time. Family with pt who has been extubated.
[2024-10-23] VITALS: PULSE 116; RESP 6; TEMP 37; O2SAT 80
[2024-10-23 01:00] VITALS: PULSE 117; RESP 8; TEMP 37.1
--- NOTE | 2024-10-23 01:54 | P.DN_ITS ---
Discharge Sum: Prov Provider Primary care physician: Unknown Physician Admitting clinician: Yandel Gaviria Attending physician on admission: Teresa Harris Pronouncing clinician: Venessa Lozoya Discharge Sum: Diag PCOD Cause of : Liver failure Contributing Factors (1) Aspiration into airway: (2) Hyperammonemia: (3) Hypotension: Discharge Sum: Summary Date and Time Date of admission: 10/16/24 15:23 Date of : 10/23/24 Time of : 01:18 Summary Details: Ms. Bal was transitioned to comfort-focused care only as per her family?s wishes due to?acute on chronic liver failure with toxic metabolic encephalopthy c/b aspiration pneumonia, hypotension.? At 0118 the patient became pulseless showing asystole on the monitor.? Absent peripheral pulses.? Pupils fixed and dilated.? Absent heart sounds and no spontaneous breathing. Time of 0118. Family had been at the bedside throughout the previous evening. Her HCP, sister Maggie was notified by phone. The patient is not a medical exam candidate.? Organ donation was notified by nursing. Attending physician Dr. Galdamez notified. Additional Data Confirmation of as documented by pronouncing clinician: no pulse, no respirations, no heart sounds and pupils fixed and dilated Family: contacted Attending/PCP notified?: Yes Attending physician: Herlinda Galdamez MD Was code activated?: No Autopsy requested?: No passport application examiner notified?: No Organ bank notified?: Yes Advance directives: No Hospice patient?: No
== END 2024-10-23 03:47 | disposition expired | DRG 871 ==
LOC: HO.ED 14:30 → HO.EDOVER 15:42 → HO.ICU 10-17 15:55 → HO.IMC 10-18 13:33 → HO.ICU 10-20 14:08
PROVIDERS: Internal Medicine Critical Care Medicine; Nurse Practitioner Family; Physician Assistant Medical; Student in an Organized Health Care Education/Training Program; Admitting Provider Student in an Organized Health Care Education/Training Program; Emergency Provider Emergency Medicine; Visit Provider Internal Medicine Critical Care Medicine
DX: A41.9 Sepsis, unspecified organism (principal); G92.8 Other toxic encephalopathy; J69.0 Pneumonitis due to inhalation of food and vomit; N17.0 Acute kidney failure with tubular necrosis; K72.00 Acute and subacute hepatic failure without coma; J96.00 Acute respiratory failure, unspecified whether with hypoxia or hypercapnia; I50.32 Chronic diastolic (congestive) heart failure; N39.0 Urinary tract infection, site not specified; E72.20 Disorder of urea cycle metabolism, unspecified; E87.0 Hyperosmolality and hypernatremia; E46 Unspecified protein-calorie malnutrition; I51.81 Takotsubo syndrome; Z51.5 Encounter for palliative care; Z66 Do not resuscitate; B96.20 Unspecified Escherichia coli [E. coli] as the cause of diseases classified elsewhere; R57.1 Hypovolemic shock; I95.1 Orthostatic hypotension; E11.649 Type 2 diabetes mellitus with hypoglycemia without coma; E86.1 Hypovolemia; D64.9 Anemia, unspecified; F41.9 Anxiety disorder, unspecified; K91.1 Postgastric surgery syndromes; M79.7 Fibromyalgia; K72.10 Chronic hepatic failure without coma; R57.0 Cardiogenic shock; R65.20 Severe sepsis without septic shock; K76.0 Fatty (change of) liver, not elsewhere classified; K76.82 Hepatic encephalopathy; E87.6 Hypokalemia; Z68.30 Body mass index [BMI] 30.0-30.9, adult; I11.0 Hypertensive heart disease with heart failure; Z20.822 Contact with and (suspected) exposure to COVID-19; Z87.891 Personal history of nicotine dependence; Z98.84 Bariatric surgery status; Z79.4 Long term (current) use of insulin; Z79.82 Long term (current) use of aspirin; Z79.899 Other long term (current) drug therapy
CPT/HCPCS: 0241U; 36415; 70450; 71045; 73610; 74176; 80048; 80053; 80076; 80307; 81001; 82140; 82550; 82803; 82947; 83605; 83735; 84100; 84145; 84443; 84484; 85007; 85025; 85027; 85610; 85652; 85730; 86140; 86704; 86706; 86709; 86803; 86850; 86900; 86901; 87040; 87086; 87088; 87186; 87340; 93005; 93306; 93308; 94002; 94003; 99285; J0131; J0330; J0696; J1610; J1644; J1650; J1940; J2185; J2250; J2270; J2359; J2704; J3411; J3475; J3480; J7120; P9047; Q9957

== ENCOUNTER → 2024-10-16 10:00 | Outpatient (BNV) | payer OTHER, SELFPAY | PROVIDERS: Emergency Provider Emergency Medicine; Visit Provider Radiology Diagnostic Radiology | DX: R41.82 Altered mental status, unspecified (principal); S82.891A Other fracture of right lower leg, initial encounter for closed fracture | CPT/HCPCS: 70450; 71045; 73610 ==

== ENCOUNTER → 2024-10-16 10:01 | Outpatient (BNV) | payer OTHER, SELFPAY | PROVIDERS: Emergency Provider Emergency Medicine; Visit Provider Internal Medicine Cardiovascular Disease | DX: R00.0 Tachycardia, unspecified (principal); R94.31 Abnormal electrocardiogram [ECG] [EKG]; R41.82 Altered mental status, unspecified | CPT/HCPCS: 93010 ==

== ENCOUNTER 2024-10-16 15:23 | Outpatient (BNV) | payer OTHER, SELFPAY | END 2024-10-21 10:45 | PROVIDERS: Admitting Provider Student in an Organized Health Care Education/Training Program; Emergency Provider Emergency Medicine; Visit Provider Internal Medicine | DX: I50.20 Unspecified systolic (congestive) heart failure (principal); I31.39 Other pericardial effusion (noninflammatory); R94.31 Abnormal electrocardiogram [ECG] [EKG]; R79.89 Other specified abnormal findings of blood chemistry | CPT/HCPCS: 93010; 93308 ==

== ENCOUNTER 2024-10-16 15:23 | Outpatient (BNV) | payer OTHER, SELFPAY | END 2024-10-18 07:00 | PROVIDERS: Admitting Provider Student in an Organized Health Care Education/Training Program; Emergency Provider Emergency Medicine; Visit Provider Internal Medicine Cardiovascular Disease | DX: I42.8 Other cardiomyopathies (principal); J90 Pleural effusion, not elsewhere classified | CPT/HCPCS: 93306 ==

== ENCOUNTER 2024-10-16 15:23 | Outpatient (BNV) | payer OTHER, SELFPAY | END 2024-10-19 15:50 | PROVIDERS: Admitting Provider Student in an Organized Health Care Education/Training Program; Emergency Provider Emergency Medicine; Visit Provider Radiology Diagnostic Radiology | DX: R91.8 Other nonspecific abnormal finding of lung field (principal) | CPT/HCPCS: 71045 ==

== ENCOUNTER 2024-10-16 15:23 | Outpatient (BNV) | payer OTHER, SELFPAY | END 2024-10-20 14:26 | PROVIDERS: Admitting Provider Student in an Organized Health Care Education/Training Program; Emergency Provider Emergency Medicine; Visit Provider Radiology Diagnostic Radiology | DX: Z97.8 Presence of other specified devices (principal); T17.908A Unspecified foreign body in respiratory tract, part unspecified causing other injury, initial encounter | CPT/HCPCS: 71045 ==

== ENCOUNTER 2024-10-16 15:23 | Outpatient (BNV) | payer OTHER, SELFPAY | END 2024-10-20 14:20 | PROVIDERS: Admitting Provider Student in an Organized Health Care Education/Training Program; Emergency Provider Emergency Medicine; Visit Provider Internal Medicine | DX: R94.31 Abnormal electrocardiogram [ECG] [EKG] (principal); R79.89 Other specified abnormal findings of blood chemistry | CPT/HCPCS: 93010 ==

== ENCOUNTER 2024-10-16 15:23 | Outpatient (BNV) | payer OTHER, SELFPAY | END 2024-10-17 13:47 | PROVIDERS: Admitting Provider Student in an Organized Health Care Education/Training Program; Emergency Provider Emergency Medicine; Visit Provider Radiology Diagnostic Radiology | DX: N39.0 Urinary tract infection, site not specified (principal); E72.20 Disorder of urea cycle metabolism, unspecified; Z93.1 Gastrostomy status | CPT/HCPCS: 71045; 74176 ==

== ENCOUNTER 2024-10-16 15:23 | Outpatient (BNV) | payer OTHER, SELFPAY | END 2024-10-22 01:00 | PROVIDERS: Admitting Provider Student in an Organized Health Care Education/Training Program; Emergency Provider Emergency Medicine; Visit Provider Radiology Diagnostic Radiology | DX: J69.0 Pneumonitis due to inhalation of food and vomit (principal); Z97.8 Presence of other specified devices | CPT/HCPCS: 71045 ==

== ENCOUNTER 2024-10-16 15:23 | Outpatient (BNV) | payer OTHER, SELFPAY | END 2024-10-21 22:04 | PROVIDERS: Admitting Provider Student in an Organized Health Care Education/Training Program; Emergency Provider Emergency Medicine; Visit Provider Student in an Organized Health Care Education/Training Program | DX: Z97.8 Presence of other specified devices (principal); T17.908A Unspecified foreign body in respiratory tract, part unspecified causing other injury, initial encounter | CPT/HCPCS: 71045 ==

== ENCOUNTER → 2024-10-16 15:23 | Outpatient (BNV) | payer OTHER, SELFPAY | PROVIDERS: Admitting Provider Student in an Organized Health Care Education/Training Program; Emergency Provider Emergency Medicine; Visit Provider Student in an Organized Health Care Education/Training Program | DX: E11.65 Type 2 diabetes mellitus with hyperglycemia (principal); G92.8 Other toxic encephalopathy; I95.9 Hypotension, unspecified; N39.0 Urinary tract infection, site not specified; E72.20 Disorder of urea cycle metabolism, unspecified; E87.0 Hyperosmolality and hypernatremia | CPT/HCPCS: 99223; 99233 ==

== ENCOUNTER → 2024-10-16 15:23 | Outpatient (BNV) | payer OTHER, SELFPAY | PROVIDERS: Admitting Provider Student in an Organized Health Care Education/Training Program; Emergency Provider Emergency Medicine; Visit Provider Internal Medicine Critical Care Medicine | DX: E72.20 Disorder of urea cycle metabolism, unspecified (principal); I95.9 Hypotension, unspecified; Z98.84 Bariatric surgery status; N39.0 Urinary tract infection, site not specified; A41.9 Sepsis, unspecified organism; S82.899A Other fracture of unspecified lower leg, initial encounter for closed fracture; G92.8 Other toxic encephalopathy | CPT/HCPCS: 99223 ==